=== PATIENT | female | born 1945 | race Caucasian/White ===

== ENCOUNTER → 2016-10-03 | Outpatient (CLI) | payer BC ==
[~2016-10-03] MED LIST: AMLO-110 PO; ATEN-173 PO; CALCTAB5 PO; GLC500 PO; LISI40TA PO; METF1TAB53 PO; MULT-222 PO; NAPR1TAB9 PO; TNR50 PO
== END | disposition home or self-care (01) ==
LOC: C.LABBC 12:02
PROVIDERS: ATTEND Orthopaedic Surgery
DX: M70.31 Other bursitis of elbow, right elbow (principal)

== ENCOUNTER → 2016-11-25 | Outpatient (CLI) | payer BC ==
[2016-11-25 16:57] LABS: BLOOD UREA NITROGEN 27 mg/dl (7-18); BUN/CREATININE RATIO 22.7 (10-20); CALCIUM 10.7 mg/dl (8.5-10.1); CARBON DIOXIDE 27 mmol/L (21-32); CHLORIDE 107 mmol/L (98-107); GLUCOSE 127 mg/dl (70-99); POTASSIUM 4.5 mmol/L (3.5-5.1); SODIUM 141 mmol/L (136-145)
[2016-11-26 07:20] LABS: ESTIMATED AVERAGE GLUCOSE 174 mg/dl; HA1C FLAG Normal (Normal)
== END | disposition home or self-care (01) ==
LOC: C.LABBC 12:46
PROVIDERS: ATTEND Internal Medicine Geriatric Medicine
DX: I10 Essential (primary) hypertension (principal); E11.9 Type 2 diabetes mellitus without complications; M19.90 Unspecified osteoarthritis, unspecified site

== ENCOUNTER → 2016-12-12 | Outpatient (CLI) | payer BC ==
[2016-12-12 19:16] LABS: BLOOD UREA NITROGEN 36 mg/dl (7-18); BUN/CREATININE RATIO 30.2 (10-20); CARBON DIOXIDE 25 mmol/L (21-32); CHLORIDE 107 mmol/L (98-107); GLUCOSE 140 mg/dl (70-99); POTASSIUM 4.7 mmol/L (3.5-5.1); SODIUM 140 mmol/L (136-145)
== END | disposition home or self-care (01) ==
LOC: C.LABPBG 14:20
PROVIDERS: ATTEND Internal Medicine Geriatric Medicine
DX: E83.52 Hypercalcemia (principal)

== ENCOUNTER → 2017-04-11 | Day surgery (SDC) | payer BC ==
[2017-04-06 10:07] VITALS: Ht 162.6 cm; Wt 84.1 kg
[~2017-04-11] VITALS: Ht 162.6 cm; Wt 84.1 kg
[~2017-04-11] MED LIST changes: +500ML BSS 0.3ML EPI 1:1000PF IRRIG ONE; +ACETAMINOPHEN 325 MG TAB PO PRN; +AMVISC PLUS 0.8ML SYRINGE INT OCU ONE; -ATEN-173 PO; +ATROPINE SULFATE 0.1 MG/ML 5ML SYR IV PRN; +BSS FLUSH ONE; -CALCTAB5 PO; +EpHEDrine SULFATE INJ 50 MG/ML AMP IV PRN; +EpINEphrine INJ 1MG/ML AMP 1 MG/ML AMP ONE; +LACTATED RINGER'S 1000ML 500 ML IV SCH; +LIDOCAINE 3.5% OPH GEL PER APPLICATION CHARGE ONE; +LIDOCAINE HCL 1% MPF 2 ML VIAL ONE; +MIDAZOLAM HCL 1 MG/ML 2ML VIAL ONE; +OCUCOAT 1 ML SOLN IO ONE; +POVIDONE-IODINE OP SOLN 30 ML BTL ONE; +PROPARACAINE 0.5% OP SOLN PER DROP CHARGE OPR SCH; +TOBRAMYCIN/DEXAMETHASONE OPH OINT PER APPLN CHARGE ONE
[2017-04-11] MEDS: PHENYLEPHRINE HCL 2.5% OP SOLN PER DROP CHARGE OPR SCH ×2 (09:59→10:05)
[2017-04-11] MEDS: TROPICAMIDE 1% OP SOLN PER DROP CHARGE OPR SCH ×2 (10:00→10:08)
[2017-04-11] MEDS: CYCLOPENTOLATE HCL 1% OP SOLN PER DROP CHARGE OPR SCH ×2 (10:01→10:09)
[2017-04-11] MEDS: KETOROLAC 0.5% OP SOLN PER DROP CHARGE OPR SCH ×2 (10:03→10:10)
[2017-04-11] MEDS: GATIFLOXACIN OP SOLN PER DROP CHARGE OPR SCH ×2 (10:04→10:14)
--- NOTE | 2017-04-11 10:37 | History & Physical Bridge - [place] ---
H&P Re-Evaluation Bridge Note: I have examined the patient, reviewed the History & Physical and in the interval since the performance of the History & Physical I have noted the following changes of clinical significance: No changes noted
--- NOTE | 2017-04-11 11:09 | Discharge Instructions-SurgCtr ---
Discharge Instructions Date of Service Apr 11, 2017. Visit Reason for Visit: Cataract Right Eye Discharge Discharge Diagnosis / Problem: cataract Discharge Goals Goal(s): Improve function Medications Stopped Medications Name(s): multivitamin, metformin Activity Recommendations Activity Limitations: per Instructions/Follow-up section Anesthesia . Post Anesthesia Instructions: If you have had General Anesthesia or IV Sedation: * Do not drive today. * Resume driving when surgeon permits. * Do not make important decisions or sign legal documents today. * Call surgeon for: 1. Temperature elevations greater than 101 degrees F. 2. Uncontrollable pain. 3. Excessive bleeding. 4. Persistent nausea and vomiting. 5. Medication intolerance (nausea, vomiting or rash). * For nausea and vomiting use only clear liquids such as: tea, soda, bouillon until nausea subsides, then gradually increase diet as tolerated. * If you have any concerns or questions, call your surgeon's office. If physician is unavailable and it is an emergency, call 911 or go to the nearest emergency room. . Instructions / Follow-Up Instructions / Follow-Up ACTIVITY RECOMMENDATIONS: * No strenuous lifting, jogging or running for 4 days * No swimming or yard work for 1 week. * Limited bending is permitted, such as putting on shoes. RETURN TO SCHOOL/WORK: No work until seen by physician in office. MEDICATIONS: Resume previous medications unless instructed otherwise by your surgeon. This includes eye drops for glaucoma. Zymaxid/Gatifloxacin (weiner cap) - one drop every 2 hours until bedtime Nevanac/Ilevro/Prolensa/Ketorolac (scales cap) - one drop every 4 hours until bedtime Prednisolone/Durezol (white/pink cap, SHAKE WELL) - one drop every 2 hours until bedtime Starting tomorrow - all 3 drops every 4 hours until seen in the office Optive drops - as needed for discomfort SPECIAL CARE INSTRUCTIONS: * Wear eyeshield when sleeping, for four nights. * You may wear your own glasses or sunglasses while awake. * You may read or watch TV * You may shower and wash your face, but be gentle around the eye and pat dry. * Blurry vision and mild irritation are normal. * Call office if pain is more severe or vision becomes dark at . FOLLOW UP VISIT: Follow-up with Dr Fajardo tomorrow. Diet Recommendations Home Diet: resume previous diet Procedures Procedures Performed: Left Cataract Phacoemulsification With Intraocular Lens Implant Pending Studies Studies pending at discharge: no Medical Emergencies . Who to Call and When: Medical Emergencies: If at any time you feel your situation is an emergency, please call 911 immediately. . Non-Emergent Contact Non-Emergency issues call your: Industrial Truck Driver . . "Provider Documentation" section prepared by Loy Fajardo. .
--- NOTE | 2017-04-11 11:09 | [facility] Operative Report ---
Operative Report Date of Service Apr 11, 2017. Operative Report 1. PREOPERATIVE DIAGNOSIS: Cataract of the right eye. 2. POSTOPERATIVE DIAGNOSIS: Same. 3. PROCEDURE: Phacoemulsification with intraocular lens implantation of the right eye. SURGEON: Dr. Loy Fajardo. ANESTHESIA: Topical Lidocaine gel, 1% Non- Preserved intracameral Lidocaine, and monitored intravenous sedation. INDICATIONS FOR THE PROCEDURE: The patient is a 71 - year-old female with a history of cataract of the right eye causing significant visual impairment. The details of the proposed procedure were explained to the patient who asked appropriate questions and following discussion of all risks, benefits and alternatives agreed to have the procedure done. 4. OPERATION AND FINDINGS: DESCRIPTION OF PROCEDURE: After informed consent was obtained, the patient was brought to the Operating Room at the [facility]. The patient was placed in a supine position and then the right eye was prepped and draped in the usual sterile fashion for intraocular surgery. A drop of topical Lidocaine gel was placed in the operative eye. A wire lid speculum was then placed in the fornices. A corneal paracentesis was then created temporally. The Non-Preserved Lidocaine was then instilled into the anterior chamber. The anterior chamber was then pressurized with viscoelastic. A 2.0 mm clear corneal incision was then created temporally. A cystotome was inserted into the anterior chamber and used to create a tear in the anterior lens capsule. This capsular tear was then used to create a small flap and the flap was dragged in a counterclockwise direction in order to create a continuous curvilinear capsulorrhexis. Hydrodissection was accomplished with balanced salt solution. Phacoemulsification of the lens nucleus was then performed in a standard [id number] technique. The phaco time was 19 seconds with an average power of 9 %. The remaining cortical material was removed using irrigation aspiration. The capsular bag was then filled with viscoelastic. A Bausch [employer] Lomb MI60L +18.5 diopters lens was then loaded into the injector and injected into the capsular bag. The remaining viscoelastic was removed with the irrigation aspiration handpiece. The wound was hydrated and then checked and found to be watertight. The intraocular pressure was checked and found to be adequate. The wire lid speculum was removed and the patient's face was cleaned and dried. TobraDex ointment was placed in the inferior fornix. The patient was discharged to the Recovery Room having tolerated the procedure well. There were no complications. The patient will be seen tomorrow in the office for follow-up. I attest to the content of the Intraoperative Record and any orders documented therein. Any exceptions are noted below.
[2017-04-11 11:11] VITALS: BP 153/74; PULSE 58; TEMP 36.6; O2SAT 95
--- NOTE | 2017-04-11 11:35 | Anesthesia Progress Nt - [facility] ---
Anesthesia Post Op Note Date & Time Apr 11, 2017 at 11:35 Vital Signs Pain Intensity: 0 Vital Signs Past 12 Hours Date Time Temp Pulse Resp B/P (MAP) Pulse Ox O2 Delivery O2 Flow Rate FiO2 04/11/17 11:11 36.6 58 20 153/74 (100) 95 Room Air 04/11/17 09:49 36.5 55 18 175/79 (111) 95 Room Air Notes Mental Status: alert / awake / arousable, participated in evaluation Pt Amnestic to Procedure: Yes Nausea / Vomiting: adequately controlled Pain: adequately controlled Airway Patency, RR, SpO2: stable & adequate BP & HR: stable & adequate Hydration State: stable & adequate Anesthetic Complications: no major complications apparent
== END | disposition home or self-care (01) ==
LOC: X.SURG 09:00
PROVIDERS: ATTEND Ophthalmology
DX: H26.9 Unspecified cataract (principal); I10 Essential (primary) hypertension; Q24.8 Other specified congenital malformations of heart; E11.9 Type 2 diabetes mellitus without complications; M54.16 Radiculopathy, lumbar region; Z79.899 Other long term (current) drug therapy

== ENCOUNTER → 2017-05-09 | Day surgery (SDC) | payer BC ==
[2017-04-24 11:22] VITALS: Ht 162.6 cm; Wt 84.1 kg
[~2017-05-09] VITALS: Ht 162.6 cm; Wt 84.1 kg
[~2017-05-09] MED LIST changes: -GLC500 PO; +ONDANSETRON INJ 2 MG/ML 2 ML VIAL IV PRN; +PROPARACAINE 0.5% OP SOLN PER DROP CHARGE OPL SCH; -PROPARACAINE 0.5% OP SOLN PER DROP CHARGE OPR SCH
[2017-05-09] MEDS: PHENYLEPHRINE HCL 2.5% OP SOLN PER DROP CHARGE OPL SCH ×2 (08:01→08:07)
[2017-05-09] MEDS: TROPICAMIDE 1% OP SOLN PER DROP CHARGE OPL SCH ×2 (08:03→08:09)
[2017-05-09] MEDS: CYCLOPENTOLATE HCL 1% OP SOLN PER DROP CHARGE OPL SCH ×2 (08:04→08:11)
[2017-05-09] MEDS: KETOROLAC 0.5% OP SOLN PER DROP CHARGE OPL SCH ×2 (08:05→08:12)
[2017-05-09] MEDS: GATIFLOXACIN OP SOLN PER DROP CHARGE OPL SCH ×2 (08:06→08:13)
--- NOTE | 2017-05-09 09:02 | [facility] Operative Report ---
Operative Report Date of Service May 09, 2017. Operative Report 1. PREOPERATIVE DIAGNOSIS: Cataract of the left eye. 2. POSTOPERATIVE DIAGNOSIS: Same. 3. PROCEDURE: Phacoemulsification with intraocular lens implantation of the left eye. SURGEON: Dr. Loy Fajardo. ANESTHESIA: Topical Lidocaine gel, 1% Non- Preserved intracameral Lidocaine, and monitored intravenous sedation. INDICATIONS FOR THE PROCEDURE: The patient is a 71 - year-old female with a history of cataract of the left eye causing significant visual impairment. The details of the proposed procedure were explained to the patient who asked appropriate questions and following discussion of all risks, benefits and alternatives agreed to have the procedure done. 4. OPERATION AND FINDINGS: DESCRIPTION OF PROCEDURE: After informed consent was obtained, the patient was brought to the Operating Room at the [facility]. The patient was placed in a supine position and then the left eye was prepped and draped in the usual sterile fashion for intraocular surgery. A drop of topical Lidocaine gel was placed in the operative eye. A wire lid speculum was then placed in the fornices. A corneal paracentesis was then created temporally. The Non-Preserved Lidocaine was then instilled into the anterior chamber. The anterior chamber was then pressurized with viscoelastic. A 2.0 mm clear corneal incision was then created temporally. A cystotome was inserted into the anterior chamber and used to create a tear in the anterior lens capsule. This capsular tear was then used to create a small flap and the flap was dragged in a counterclockwise direction in order to create a continuous curvilinear capsulorrhexis. Hydrodissection was accomplished with balanced salt solution. Phacoemulsification of the lens nucleus was then performed in a standard [id number] technique. The phaco time was 14 seconds with an average power of 6 %. The remaining cortical material was removed using irrigation aspiration. The capsular bag was then filled with viscoelastic. A Bausch & Lomb MI60L +18.5 diopters lens was then loaded into the injector and injected into the capsular bag. The remaining viscoelastic was removed with the irrigation aspiration handpiece. The wound was hydrated and then checked and found to be watertight. The intraocular pressure was checked and found to be adequate. The wire lid speculum was removed and the patient's face was cleaned and dried. TobraDex ointment was placed in the inferior fornix. The patient was discharged to the Recovery Room having tolerated the procedure well. There were no complications. The patient will be seen tomorrow in the office for follow-up. I attest to the content of the Intraoperative Record and any orders documented therein. Any exceptions are noted below.
--- NOTE | 2017-05-09 09:02 | Discharge Instructions-SurgCtr ---
Discharge Instructions Date of Service May 09, 2017. Visit Reason for Visit: Left Cataract Discharge Discharge Diagnosis / Problem: cataract Discharge Goals Goal(s): Improve function Medications Stopped Medications Name(s): Stopped taking Metformin 05/05/17. Only took BP meds this morning. Activity Recommendations Activity Limitations: per Instructions/Follow-up section Anesthesia . Post Anesthesia Instructions: If you have had General Anesthesia or IV Sedation: * Do not drive today. * Resume driving when surgeon permits. * Do not make important decisions or sign legal documents today. * Call surgeon for: 1. Temperature elevations greater than 101 degrees F. 2. Uncontrollable pain. 3. Excessive bleeding. 4. Persistent nausea and vomiting. 5. Medication intolerance (nausea, vomiting or rash). * For nausea and vomiting use only clear liquids such as: tea, soda, bouillon until nausea subsides, then gradually increase diet as tolerated. * If you have any concerns or questions, call your surgeon's office. If physician is unavailable and it is an emergency, call 911 or go to the nearest emergency room. . Diet Recommendations Home Diet: resume previous diet Procedures Procedures Performed: Left Cataract Phacoemulsification With Intraocular Lens Implant Pending Studies Studies pending at discharge: no Medical Emergencies . Who to Call and When: Medical Emergencies: If at any time you feel your situation is an emergency, please call 911 immediately. . Non-Emergent Contact Non-Emergency issues call your: Continuous Absorption Process Operator . . "Provider Documentation" section prepared by Loy Fajardo. .
[2017-05-09 09:03] VITALS: TEMP 36.8
[2017-05-09 09:27] VITALS: BP 154/78; PULSE 50; O2SAT 96
--- NOTE | 2017-05-09 09:28 | Anesthesia Progress Nt - [facility] ---
Anesthesia Post Op Note Date & Time May 09, 2017 at 09:28 Vital Signs Pain Intensity: 0 Vital Signs Past 12 Hours Date Time Temp Pulse Resp B/P (MAP) Pulse Ox O2 Delivery O2 Flow Rate FiO2 05/09/17 09:03 36.8 54 22 165/86 (112) 94 Room Air 05/09/17 07:50 36.8 57 18 168/61 (96) 96 Room Air Notes Mental Status: alert / awake / arousable, participated in evaluation Pt Amnestic to Procedure: Yes Nausea / Vomiting: adequately controlled Pain: adequately controlled Airway Patency, RR, SpO2: stable & adequate BP & HR: stable & adequate Hydration State: stable & adequate Anesthetic Complications: no major complications apparent
== END | disposition home or self-care (01) ==
LOC: X.SURG 07:14
PROVIDERS: ATTEND Ophthalmology
DX: H26.9 Unspecified cataract (principal); E11.9 Type 2 diabetes mellitus without complications; I10 Essential (primary) hypertension; I42.2 Other hypertrophic cardiomyopathy

== ENCOUNTER → 2017-07-25 | Outpatient (CLI) | payer BC ==
[~2017-07-25] MED LIST changes: -500ML BSS 0.3ML EPI 1:1000PF IRRIG ONE; +ACET-1256 PO; +ACET500T58 PO; -ACETAMINOPHEN 325 MG TAB PO PRN; -AMLO-110 PO; +AMLO5TAB3 PO; -AMVISC PLUS 0.8ML SYRINGE INT OCU ONE; +ANAS1TAB7 PO; -ATROPINE SULFATE 0.1 MG/ML 5ML SYR IV PRN; -BSS FLUSH ONE; -EpHEDrine SULFATE INJ 50 MG/ML AMP IV PRN; -EpINEphrine INJ 1MG/ML AMP 1 MG/ML AMP ONE; +GLIM1TAB2 PO; +HYDR-5688 PO; -LACTATED RINGER'S 1000ML 500 ML IV SCH; -LIDOCAINE 3.5% OPH GEL PER APPLICATION CHARGE ONE; -LIDOCAINE HCL 1% MPF 2 ML VIAL ONE; -MIDAZOLAM HCL 1 MG/ML 2ML VIAL ONE; -OCUCOAT 1 ML SOLN IO ONE; +ONDA-170 PO; -ONDANSETRON INJ 2 MG/ML 2 ML VIAL IV PRN; -POVIDONE-IODINE OP SOLN 30 ML BTL ONE; -PROPARACAINE 0.5% OP SOLN PER DROP CHARGE OPL SCH; -TOBRAMYCIN/DEXAMETHASONE OPH OINT PER APPLN CHARGE ONE
--- NOTE | 2017-07-25 15:28 | MAMMOGRAPHY REPORT ---
BILATERAL DIGITAL SCREENING MAMMOGRAM WITH CAD: 07/25/2017 CLINICAL HISTORY: Routine screening. Patient has no complaints. TECHNIQUE: Bilateral CC and MLO views were obtained. Current study was also evaluated with a Compute r Aided Detection (CAD) system. COMPARISON: Comparison is made to exams dated: 01/04/2016 mammogram, 01/01/2015 mammogram, 12/31/2013 mamm ogram, 12/19/2012 mammogram, 12/19/2011 mammogram, and 12/15/2010 mammogram - [facility]. BREAST COMPOSITION: There are scattered areas of fibroglandular density in both breasts. FINDINGS: There is a 12 mm focal asymmetry in the upper outer anterior left breast, for which additi onal spot compression tomosynthesis views and possible ultrasound are recommended. A newly visualize d in enlarged left axillary lymph node measures 2.3 cm. Additional targeted left axillary ultrasound is recommended for further characterization. Additionally, another 11 mm focal asymmetry in the upp er outer middle one third of the right breast, for which additional spot compression tomosynthesis vi ews and possible ultrasound are recommended. No other suspicious mass, architectural distortion or suspicious 12 mm focal asymmetry in the left up per outer anterior breast, microcalcifications is seen bilaterally. IMPRESSION: ACR BI-RADS CATEGORY 0: INCOMPLETE EVALUATION: NEED ADDITIONAL IMAGING EVALUATION The 12 mm focal asymmetry in the upper outer anterior left breast, 11 mm focal asymmetry in the right upper outer quadrant and enlarged left axillary lymph node need additional imaging evaluation. The patient will be called to schedule an appointment. Approximately 10% of breast cancers are not detected with mammography. A negative mammographic report should not delay biopsy if a clinically suggestive mass is present. Marylin Collazo M.D. ay/:07/25/2017 14:06:16 Clam Shucker: Chelsie PATEL(R)(M), [facility] letter sent: Addl Imaging 0 BI-RADS Code: ACR BI-RADS Category 0: Incomplete Evaluation: Need Additional Imaging Evaluation
== END | disposition home or self-care (01) ==
LOC: C.MAMM 13:35
PROVIDERS: ATTEND Obstetrics & Gynecology
DX: Z12.31 Encounter for screening mammogram for malignant neoplasm of breast (principal); N64.89 Other specified disorders of breast; R59.0 Localized enlarged lymph nodes

== ENCOUNTER → 2017-08-01 | Outpatient (CLI) | payer BC ==
--- NOTE | 2017-08-01 13:37 | MAMMOGRAPHY REPORT ---
BILATERAL DIGITAL DIAGNOSTIC MAMMOGRAM TOMOSYNTHESIS AND TARGETED BILATERAL ULTRASOUND: 08/01/2017 CLINICAL HISTORY: 72-year-old woman called back from screening mammography for focal asymmetries in e ach breast and an enlarged left axillary lymph node. Family history of breast cancer = sister jesus ferguson at age 54. TECHNIQUE: Spot compression 2-D and tomosynthesis CC and MLO views of each breast were obtained. COMPARISON: Comparison is made to exams dated: 07/25/2017 mammogram, 01/04/2016 mammogram, 01/01/2015 ma mmogram, 12/31/2013 mammogram, 12/19/2012 mammogram, and 12/19/2011 mammogram - [facility]. BREAST COMPOSITION: There are scattered areas of fibroglandular density in both breasts. FINDINGS: The spot compression tomosynthesis views of the left breast demonstrate a mass with angular borders and associated architectural distortion in the 12:00 to 1:00 anterior left breast measuring 10 x 14 x 13 mm. No associated calcification. No other obvious mass, area of architectural distorti on or asymmetry is identified in the visualized left breast. Further evaluation with ultrasound was performed. Spot compression views of the right breast demonstrate partial effacement of the focal asymmetry in t he upper outer middle one third of the breast. There is no definite persistent mass or focal area of architectural distortion in the right breast. Additionally, the appearance on the spot compression views is somewhat similar to prior mammograms including the 2014, 2010 and 2009 mammograms suggesting normal overlapping tissue. Further evaluation with ultrasound was performed. Targeted ultrasound was performed in the right lateral breast, left upper outer quadrant and left axi lla. In the left 12:00 breast, 2 cm from the nipple, there is a taller than wide, hypoechoic solid m ass with angular and irregular borders measuring 13.4 x 11.6 x 15.3 mm. This corresponds to the pers istent mammographic mass. An enlarged hypoechoic morphologically abnormal lymph node is identified i n the left axilla, measuring 16.1 x 11.5 x 14.0 mm. A few other lymph nodes with cortical thickness within the range of normal are also identified in the left axilla. Ultrasound-guided core biopsy of the left 12:00 breast mass and enlarged left axillary lymph node is recommended. Targeted ultrasound performed in the right lateral breast demonstrated sonographically normal tissue without evidence of a discrete solid or cystic mass. IMPRESSION: ACR BI-RADS CATEGORY 5: HIGHLY SUGGESTIVE OF MALIGNANCY, TARGETED ULTRASOUND ACR BI-RADS CATEGORY 5: HIGHLY SUGGESTIVE OF MALIGNANCY 1. Ultrasound-guided core biopsy is recommended for a suspicious 15.3 mm angular mass with associate d architectural distortion in the 12:00 anterior left breast. 2. Ultrasound-guided core biopsy is recommended of an enlarged and morphologically abnormal left axi llary lymph node. 3. A focal asymmetry in the right upper outer middle one third of the breast partially effaces with additional spot compression 2-D and tomosynthesis views and no suspicious sonographic correlate was i dentified. This most likely represented normal overlapping fibroglandular tissue. No definite mammo graphic or targeted sonographic evidence of malignancy in the right breast. These results and recommendations were discussed with the patient at the time of the exam. She tenta tively scheduled the left breast and axillary biopsies prior to leaving our department. Approximately 10% of breast cancers are not detected with mammography. A negative mammographic report should not delay biopsy if a clinically suggestive mass is present. Marylin Collazo M.D. ay/:08/01/2017 12:39:56 Gum Machine Filler: Chelsie PATEL(Yari)([place]), [facility] letter sent: Abnormal 4/5 BI-RADS Code: ACR BI-RADS Category 5: Highly Suggestive Of Malignancy Ultrasound BI-RADS: ACR BI-RAD S Category 5: Highly Suggestive Of Malignancy
== END | disposition home or self-care (01) ==
LOC: C.MAMM 11:14
PROVIDERS: ATTEND Obstetrics & Gynecology
DX: N64.89 Other specified disorders of breast (principal)

== ENCOUNTER → 2017-08-08 | Outpatient (CLI) | payer BC ==
[~2017-08-08] MED LIST changes: -ACET-1256 PO; -ACET500T58 PO; +AMLO-110 PO; -AMLO5TAB3 PO; -ANAS1TAB7 PO; -GLIM1TAB2 PO; -HYDR-5688 PO; -ONDA-170 PO
--- NOTE | 2017-08-08 13:27 | Discharge Instructions ---
Discharge Instructions Procedure Procedure Date: Aug 08, 2017. Reason for visit: Left Mass/Axillary Node. Discharge Discharge Date: Aug 08, 2017. Discharge Diagnosis: post left breast mass and left axillary lymph node biopsy Instructions Activity Recommendations: Additional Limitations (see below) Return to School/Work: no limitations Recommended Home Diet: No Limitations Provider Instructions: ACTIVITY RECOMMENDATIONS: * No lifting, pushing, pulling or exercising the affected side for three days. RETURN TO SCHOOL/WORK: * You may return to work/school after the procedure, but do not perform any strenuous activities for 24 to 48 hours. MEDICATIONS: * Tylenol (two 325 mg) every four to six hours if needed for mild pain (if not allergic to Tylenol). DIET: * Resume previous diet. SPECIAL CARE INSTRUCTIONS: * Keep biopsy site dry for 24 hours. May shower after 24 hours, but do not soak (bathe) incision. * May remove Tegaderm (plastic patch) tomorrow AFTER showering. * Leave the steri-strips on for one week. Allow the steri-strips to fall off by themselves. If not off after one week, you may remove them. You may place a Bandaid crosswise over the strips, if desired. * Apply ice 10 minutes on and 10 minutes off as needed. * Wear a bra at bedtime to sleep more comfortably for 2-3 days. * Your referring physician should have the results after approximately 5 to 7 business days. * Call for unusual bleeding, fever, drainage, etc or if you have any questions call [phone] during normal business hours or after hours call Dr Collazo, . FOLLOW UP VISIT: Follow-up with Referring Physician as scheduled. Allergies Coded Allergies: Sulfa Antibiotics (Verified Allergy, Intermediate, HIVES - ITCHING, ) Uncoded Allergies: BANDAGE ADHESIVE (Allergy, Unknown, blistering, 04/11/17) Denzel Morel Recommendations: Call your doctor if: * Temperature above 101 degrees * Pain not relieved by pain medicine ordered * There is increased drainage or redness from any incision * You have any unanswered questions or concerns. Your Doctors Instructions noted above were prepared by provider Marylin Collazo. Patient Signature Section: Patient Instructions Signature Page Deidra Cevallos Patient (or Guardian) Signature/Date: I have read and understand the instructions given to me by my caregivers. Caregiver/RN/Doctor Signature/Date: The above-named patient and/or guardian has received patient instructions on this date. + Original Patient Signature Page (only) stays with chart. Please make copy for patient.
--- NOTE | 2017-08-08 14:29 | MAMMOGRAPHY REPORT ---
MULTIPLE ULTRASOUND GUIDED BIOPSIES LEFT BREAST: 08/08/2017 CLINICAL HISTORY: Suspicious 15 mm mass in the 12:00 left breast and suspicious left axillary lymph n ode. Patient presents for ultrasound-guided core biopsy of both abnormalities. COMPARISON: Comparison is made to exams dated: 08/01/2017 ultrasound, 08/01/2017 mammogram, 07/25/2017 m ammogram, 01/04/2016 mammogram, 01/01/2015 mammogram, and 12/31/2013 mammogram - [facility]. PATIENT CONSENT: The procedure, risks and benefits were discussed with the patient and informed conse nt was obtained both verbally and in writing. Specific risks to this procedure include: bleeding, in fection, puncture of adjacent structure, nontarget biopsy, sampling error, pain, metal allergy and me dication reaction. PROCEDURE DESCRIPTION: A time out was performed and the left 12:00 breast and left axilla were agreed as the site for ultrasound-guided core biopsy. First the skin of the left breast was prepped and draped in the usual sterile fashion. The solid 15 m m irregular mass in the 12:00 left breast was chosen as the target for biopsy. Subcutaneous and intra parenchymal 1% buffered lidocaine, with and without epinephrine, was administered as local anesthesia . A skin incision was made. Through the incision, 4 samples were taken with a 14 gauge Achieve biops y device. A ribbon shaped metallic marker was placed at the biopsy site. Hemostasis was achieved afte r manual compression. The patient tolerated the procedure well and there was no immediate complicatio n. Then the morphologically abnormal and enlarged hypoechoic lymph node in the left axilla was identifie d and targeted for biopsy. The skin of the left axilla was prepped and draped in the usual sterile f ashion. 1% buffered lidocaine without epinephrine was administered as local anesthesia. A small ski n incision was made. Through the incision, 4 samples were obtained with an 18-gauge Quick-Core biops y device. A Trumark, ball on axis shaped biopsy marker clip was placed within the lymph node after b iopsy. The patient tolerated the procedure well and there was no immediate convocation. Hemostasis was achieved after several minutes of manual compression. All of the samples were sent expected [facility] ed the pathology department in an appropriately labeled containers. Postprocedure left CC, XCCL and MLO views were obtained. New metallic biopsy markers are seen within the left 12:00 breast mass and left axillary lymph node. No significant postbiopsy hematoma identif ied. IMPRESSION: ULTRASOUND GUIDED BIOPSY Status post ultrasound-guided core biopsy of a suspicious left 12:00 breast mass and suspicious left axillary lymph node, with biopsy marker clips placed at each site. The patient will receive notification of the pathology results from her referring physician. Marylin Collazo M.D. ay/:08/08/2017 13:45:50 Development Scientist: Sapna PATEL(Yari)(M), [facility]
--- NOTE | 2017-08-08 14:30 | MAMMOGRAPHY REPORT ---
ULTRASOUND GUIDED BIOPSY: 08/08/2017 CLINICAL HISTORY: Suspicious 15 mm mass in the 12:00 left breast and suspicious morphologically abnor mal left axillary lymph node. Patient presents for ultrasound-guided core biopsy of both areas. Please refer to the report from left breast ultrasound guided core biopsy performed at the same time for full detail. IMPRESSION: ULTRASOUND GUIDED BIOPSY Please refer to the report from left breast ultrasound guided core biopsy performed at the same time for full detail. Marylin Collazo M.D. ay/:08/08/2017 13:32:20 Supervisor Mail Carriers: Sapna PATEL(Yari)(M), [facility]
--- NOTE | 2017-08-08 14:30 | MAMMOGRAPHY REPORT ---
UNILATERAL LEFT DIGITAL DIAGNOSTIC MAMMOGRAM TOMOSYNTHESIS: 08/08/2017 CLINICAL HISTORY: Status post ultrasound-guided core biopsy of a 15 mm irregular solid mass in the 12 :00 left breast, and core biopsy of an enlarged, morphologically abnormal left axillary lymph node. Status post ultrasound-guided core biopsy of a suspicious solid mass in the 12:00 left breast and rina picious left axillary lymph node. Please refer to the report from left breast ultrasound guided core biopsy performed at the same time for full detail. IMPRESSION: POST PROCEDURE IMAGING FOR MARKER PLACEMENT Please refer to the report from left breast ultrasound guided core biopsy performed at the same time for full detail. Approximately 10% of breast cancers are not detected with mammography. A negative mammographic report should not delay biopsy if a clinically suggestive mass is present. Marylin Collazo M.D. ay/:08/08/2017 13:31:44 Animal Anatomy Teacher: Sapna COURTNEY)(Wilber), [facility] BI-RADS Code: Post Procedure Imaging For Marker Placement
== END | disposition home or self-care (01) ==
LOC: C.MAMM 12:15
PROVIDERS: ATTEND Obstetrics & Gynecology
DX: R92.8 Other abnormal and inconclusive findings on diagnostic imaging of breast (principal); N63.20 Unspecified lump in the left breast, unspecified quadrant; N64.89 Other specified disorders of breast; C50.912 Malignant neoplasm of unspecified site of left female breast

== ENCOUNTER → 2017-08-17 | Outpatient (CLI) | payer BC ==
[2017-08-17 18:11] LABS: BASO % 0.4 %; BASO ABS # 0.05 K/uL (0-0.2); COMPLETE YES; EOS % 2.1 %; EOS ABS # 0.24 K/uL (0-0.5); HEMOGLOBIN 13.7 g/dL (12.0-16.0); IG# 0.06 K/uL (0.00-0.02); IG% 0.5 %; LYMPH % 23.7 %; LYMPH ABS # 2.68 K/uL (1.2-3.4); MEAN CELL VOLUME 90.3 fL (80-100); MEAN CORPUSCULAR HEMOGLOBIN 29.5 pg (25-34); MEAN CORPUSCULAR HGB CONC 32.6 g/dl (32-36); MEAN PLATELET VOLUME 10.7 fL (7.4-10.4); MONO % 6.5 %; MONO ABS # 0.74 K/uL (0.11-0.59); NEUT % 66.8 %; NEUT ABS # 7.56 K/uL (1.4-6.5); PLATELET COUNT 445 K/uL (130-400); RED BLOOD COUNT 4.65 M/uL (4.2-5.4); RED CELL DISTRIBUTION WIDTH SD 49.6 fL (36.4-46.3); WHITE BLOOD COUNT 11.33 K/uL (4.8-10.8)
[2017-08-17 18:38] LABS: BLOOD UREA NITROGEN 21 mg/dl (7-18); CALCIUM 9.6 mg/dl (8.5-10.1); CARBON DIOXIDE 23 mmol/L (21-32); CHLORIDE 104 mmol/L (98-107); CREATININE 1.22 mg/dl (0.60-1.20); EstGFR CKD-E AfrAm 51.3; EstGFR CKD-E NON AfrAm 44.2; POTASSIUM 3.9 mmol/L (3.5-5.1); SODIUM 137 mmol/L (136-145)
[2017-08-17 18:38] LABS: GLUCOSE 179 mg/dl (70-99)
[2017-08-17 18:49] LABS: CHOLESTEROL 126 mg/dl (0-200); CHOLESTEROL/HDL RATIO 2.3; HDL CHOLESTEROL 54 mg/dl; LDL CHOLESTEROL CALCULATED 50 mg/dl; TRIGLYCERIDES 112 mg/dl (0-150); VERY LOW DENSITY LIPOPROT CALC 22 mg/dl
[2017-08-18 06:15] LABS: HEMOGLOBIN A1C 7.8 % (4.5-5.6)
[2017-08-18 06:15] LABS: ESTIMATED AVERAGE GLUCOSE 177 mg/dl; HA1C FLAG Normal (Normal)
== END | disposition home or self-care (01) ==
LOC: C.LABPBG 12:41
DX: I10 Essential (primary) hypertension (principal); E11.9 Type 2 diabetes mellitus without complications; M54.16 Radiculopathy, lumbar region; I42.2 Other hypertrophic cardiomyopathy; M19.90 Unspecified osteoarthritis, unspecified site; M48.00 Spinal stenosis, site unspecified; E83.52 Hypercalcemia

== ENCOUNTER 2017-08-30 07:44 | Observation (INO) | payer BC, OTHER ==
[2017-08-24 15:47] VITALS: BMI 32.0
[2017-08-30] VITALS (8 sets, daily range): BP systolic 129–165; BP diastolic 63–76; PULSE 63–83; TEMP 36.5–36.7; O2SAT 92–96; BMI 32.0
[~2017-08-30] VITALS: Ht 162.6 cm; Wt 84.1 kg
[~2017-08-30 07:44] MED LIST changes: +ATROPINE SULFATE 0.1 MG/ML 5ML SYR IV PRN; +CEFAZOLIN 2000MG IV PUSH 10 ML IV SCH; +EpHEDrine SULFATE INJ 50 MG/ML AMP IV PRN; +FENTANYL CITRATE INJ 50 MCG/1 ML 2 ML VIAL IV PRN; +LACTATED RINGER'S 1000ML 1,000 ML IV SCH; +ONDANSETRON INJ 2 MG/ML 2 ML VIAL IV PRN
[2017-08-30] MEDS ORDERED: ONDANSETRON INJ 2 MG/ML 2 ML VIAL ONE (07:49)
[2017-08-30] MEDS ORDERED: LIDOCAINE HCL 2% 2 ML VIAL (20MG/ML) ONE (07:49)
[2017-08-30] MEDS ORDERED: PROPOFOL IV EMULSION 10 MG/ML 20 ML VIAL IV ONE (07:49)
[2017-08-30] MEDS ORDERED: DEXAMETHASONE SOD INJ 4 MG/ML VIAL ONE (07:49)
[2017-08-30] MEDS ORDERED: FENTANYL CITRATE INJ 50 MCG/1 ML 2 ML VIAL ONE (07:50)
[2017-08-30] MEDS ORDERED: MIDAZOLAM HCL 1 MG/ML 2ML VIAL ONE (07:50)
[2017-08-30] MEDS ORDERED: ISOSULFAN BLUE 10 MG/ML VIAL 5 ML ONE (08:12)
[2017-08-30] MEDS ORDERED: BUPIVACAINE 0.5 % 5 MG/1 ML MPF 30ML VIAL ONE (08:12)
[2017-08-30] MEDS ORDERED: EpHEDrine SULFATE 50MG/5ML SYR ONE (10:19)
--- NOTE | 2017-08-30 11:09 | [facility] Operative Report ---
Operative Report Operative Date Aug 30, 2017. Pre-Operative Diagnosis Left Breast Cancer Post-Operative Diagnosis Left Breast Cancer Procedure(s) Performed Left Breast Lumpectomy with Needle Localization and Left Axillary Dissection Surgeon Dr. Chalino Mendez Generator Operator Straight Bevel Gear Surgeon(s) Antwan Garcia PA-C Estimated Blood Loss 20ml Findings axillary adenopathy- multiple LNs w/n axillary specimen- clip present clip in center of Lt breast tissue specimen Specimens TranSpec Specimen: out of room at 1045 to lab by OR christal Collins A.) Left Breast Tissue short stitch-medial, skin-anterior, long stitch-lateral. B.)Additional Superior Tissue Left Breast - out of room at 1045 to lab by OR christal Collins short silk-medial, long silk-lateral, methylene blue-new margin C.) Additional Inferior Tissue Left Breast - out of room at 1045 to lab by OR christal Collins short silk-medial, long silk-latera, methylene blue-new margin D.) Left Axillary Tissue - out of room to lab at 1102 sent by OR Christal Sorto Drains None (#15 Rd LEAH to Lt axilla) Anesthesia Type General Complication(s) none Disposition Recovery Room / PACU I attest to the content of the Intraoperative Record and any orders documented therein. Any exceptions are noted below.
[2017-08-30] MEDS ORDERED: LACTATED RINGER'S 1000ML 1,000 ML IV SCH (11:10)
[2017-08-30] MEDS ORDERED: MoRPHine SULFATE 2 MG/ML CARP IV PRN (11:15)
[2017-08-30] MEDS ORDERED: PROMETHAZINE HCL INJ 25 MG in SODIUM CHLORIDE 0.9% 50ML 50 ML IV PRN (11:15)
[2017-08-30] MEDS ORDERED: MoRPHine SULFATE 4 MG/ML 1 ML CARP\\VIAL IV PRN (11:15)
[2017-08-30] MEDS ORDERED: CEFAZOLIN IV 1,000 MG in DEXTROSE 5% 50ML 50 ML IV SCH (11:15)
[2017-08-30] MEDS ORDERED: HYDROCODONE/ACETAMIN 5/325MG TAB PO PRN ×2 (11:15)
[2017-08-30] MEDS ORDERED: IV FLUIDS COMPLETED PRN (11:45)
[2017-08-30] MEDS ORDERED: HYDR-5688 PO (11:46)
--- NOTE | 2017-08-30 11:49 | Discharge Instructions ---
Discharge Instructions Date of Service Aug 30, 2017. Admission Reason for Admission: Left Breast Cancer, Diabetes W/Hosp [facility] Discharge Discharge Diagnosis / Problem: Lt breast cancer Discharge Goals Goal(s): Decrease discomfort, Improve function, Improve disease control Activity Recommendations Activity Limitations: as noted below Lifting Limitations: no more than 10 pounds (for 2-3 weeks) Exercise/Sports Limitations: until after follow-up appointment May Resume Sexual Activity: when tolerated Shower/Bathe: keep incision dry (may shower over incisions Friday 09/01) Driving or Machine Use: resume 3 days after discharge . Instructions / Follow-Up Instructions / Follow-Up SPECIAL CARE INSTRUCTIONS: * Cover incisions and change daily for comfort/drainage. * Empty drain 2-3 times per day and record. * May use ibuprofen for pain as tolerated. * Expect some swelling and bruising. Call your doctor if: * Temperature above 101 degrees * Pain not relieved by pain medicine ordered * There is increased drainage or redness from any incision * You have any unanswered questions or concerns [phone]. FOLLOW UP VISIT: If not already scheduled, please call the office for a follow-up visit. for next week- some suture removal OFFICE PHONE NUMBER: Dr. Mendez Office Current Hospital Diet Patient's current hospital diet: Regular Diet Discharge Diet Recommended Diet: Regular Diet Procedures Procedures Performed: Left Breast Lumpectomy with Needle Localization and Left Axillary Dissection Pending Studies Studies pending at discharge: no Laboratory Results Hemoglobin A1c Test 08/17/17 12:43 Range/Units Estimated Average Glucose 177 mg/dl Hemoglobin A1c 7.8 H 4.5-5.6 % Lipid Panel Test 08/17/17 12:43 Range/Units Triglycerides Level 112 0-150 mg/dl Cholesterol Level 126 0-200 mg/dl HDL Cholesterol 54 mg/dl Cholesterol/HDL Ratio 2.3 LDL Cholesterol, Calculated 50 mg/dl Medical Emergencies . Who to Call and When: Medical Emergencies: If at any time you feel your situation is an emergency, please call 911 immediately. . Non-Emergent Contact Non-Emergency issues call your: Primary Care Provider, Surgeon . "Provider Documentation" section prepared by Chalino Mendez. . VTE Core Measure Inpt VTE Proph given/why not?: SCD's
--- NOTE | 2017-08-30 12:06 | Anesthesiology Progress Note ---
Anesthesia Post Op Note Date & Time Aug 30, 2017 at 12:06 Vital Signs Pain Intensity: 0 Vital Signs Past 12 Hours Date Time Temp Pulse Resp B/P (MAP) Pulse Ox O2 Delivery O2 Flow Rate FiO2 08/30/17 11:57 75 14 08/30/17 11:57 75 14 96 08/30/17 11:56 144/89 08/30/17 11:55 36.4 08/30/17 11:52 75 15 08/30/17 11:52 75 15 96 08/30/17 11:51 161/68 08/30/17 11:47 75 22 97 08/30/17 11:47 75 22 08/30/17 11:46 148/75 08/30/17 11:42 76 13 08/30/17 11:42 75 13 97 08/30/17 11:41 137/68 08/30/17 11:37 75 14 97 08/30/17 11:37 75 14 08/30/17 11:36 132/65 08/30/17 11:33 74 15 08/30/17 11:33 75 15 98 08/30/17 11:30 121/94 08/30/17 11:28 78 21 96 08/30/17 11:28 77 21 08/30/17 11:27 75 17 08/30/17 11:27 75 17 99 08/30/17 11:26 118/89 08/30/17 11:22 77 20 98 08/30/17 11:22 77 20 08/30/17 11:20 148/64 08/30/17 11:18 140/72 08/30/17 11:17 79 08/30/17 11:17 36.6 81 20 140/72 96 Oxymask 10 08/30/17 11:17 79 95 08/30/17 09:20 36.6 63 18 165/76 96 Room Air Notes Mental Status: alert / awake / arousable, participated in evaluation Pt Amnestic to Procedure: Yes Nausea / Vomiting: adequately controlled Pain: adequately controlled Airway Patency, RR, SpO2: stable & adequate BP & HR: stable & adequate Hydration State: stable & adequate Anesthetic Complications: no major complications apparent
[2017-08-30] MEDS ORDERED: PROMETHAZINE HCL INJ 12.5 MG in SODIUM CHLORIDE 0.9% 50ML 50 ML IV PRN (12:15)
--- NOTE | 2017-08-30 12:39 | OPERATIVE REPORT ---
DATE OF OPERATION: 08/30/2017 NAME OF OPERATION: Left partial mastectomy with left axillary dissection. PREOPERATIVE DIAGNOSIS: Left breast cancer with metastatic lymph node. POSTOPERATIVE DIAGNOSIS: Same. STAFF SURGEON: Dr. Mendez. SECURITY ADMINISTRATOR: Antwan Garcia PA-C ANESTHESIA: General. DESCRIPTION OF PROCEDURE: The patient was brought into the operating room and placed on the operating table in the supine position. She had a needle placed in the left breast and left axilla. Her left chest and axilla were prepped and draped in the usual fashion. Initially, incision was made around the needle in the left breast above the areola, taking dissection down around the needle and then placing the tissue into the Faxitron. The clips with mass were in the center of the specimen. This specimen was marked with skin anterior, short silk suture medial, and long silk suture lateral. Additional superior and inferior tissue were taken with the new specimens marked, short silk suture medial, long silk suture lateral and methylene blue as in the new margin. At this point, the left axilla was approached, incision was made transversely in the axilla, carrying dissection down around the needle, identifying the lymph node with the potential clip. Additional tissue was taken widely up to the left axillary vein down to the latissimus muscle in one specimen. It was placed into the Faxitron. There were lymph nodes with the clip in the suspicious note. At this point, a #15 round Robert-Barboza drain was placed in the left axilla and secured to the skin using 3-0 nylon suture. Both incisions closed, reapproximating the deep tissue using 2-0 plain suture. The skin in the axilla were reapproximated using 4-0 nylon suture and then in the breast closed using subcuticular 4-0 Monocryl and Steri-Strips. As a note, my assistant operator helped with prepping and draping, exposing the tissue within both wounds and then closure of the wounds. I attest to the content of the Intraoperative Record and any orders documented therein. Any exception s are noted below.
--- NOTE | 2017-08-30 15:21 | MAMMOGRAPHY REPORT ---
MULTIPLE SPECIMENS LEFT BREAST: 08/30/2017 CLINICAL HISTORY: Status post left breast and axillary surgical excision. COMPARISON: Comparison is made to exams dated: 08/08/2017 ultrasound biopsy, 08/08/2017 mammogram, 018 ultrasound biopsy, 08/01/2017 ultrasound, 08/01/2017 mammogram, and 07/25/2017 mammogram - [facility]. Findings: A radiograph was performed of the left breast surgical specimen. The localized mass and as sociated biopsy marker clip is present centrally within the specimen. A radiograph of the left axillary specimen shows the localized axillary lymph node and associated bio psy marker clip to be present centrally within the specimen. A few other lymph nodes are also seen a t the periphery of the specimen. Results were discussed with Dr. Mendez over the telephone. IMPRESSION: SPECIMEN The imaged specimens contain the preoperatively-localized left breast mass and left axillary lymph no de. Shawna Garcia M.D. /:08/30/2017 11:14:13 Chain Sales Consultant: Oneil PATEL(R)(M), [facility]
--- NOTE | 2017-08-30 15:21 | MAMMOGRAPHY REPORT ---
NEEDLE LOCALIZATION LEFT BREAST: 08/30/2017 CLINICAL HISTORY: Biopsy-proven left breast cancer 12:00. PROCEDURE DESCRIPTION: With ultrasound guidance, aseptic technique, and 1% lidocaine as the local ane sthetic, the mass of concern in the left 12:00 breast with an associated biopsy marker clip was local ized with a 5 cm Groves 2 needle. The path of approach was lateral. The biopsy marker clip and mas s are located along the distal portion of the wire, just proximal to the mary alice. The needle was left i n place. The patient tolerated the procedure without complication. COMPARISON: Comparison is made to exams dated: 08/08/2017 mammogram, 08/08/2017 ultrasound biopsy, 018 ultrasound biopsy, 08/01/2017 ultrasound, 08/01/2017 mammogram, and 07/25/2017 mammogram - [facility]. IMPRESSION: NEEDLE LOCALIZATION Ultrasound guided needle localization of the left 12:00 breast mass and associated biopsy marker clip . Shawna Garcia M.D. ah/:08/30/2017 08:33:25 Attending Technologist: Oneil Kemp RT(R)(M), [facility] Cardiac Nurse Practitioner: Shawna Garcia MD, [facility]
--- NOTE | 2017-08-30 15:21 | MAMMOGRAPHY REPORT ---
NEEDLE LOCALIZATION LEFT BREAST: 08/30/2017 CLINICAL HISTORY: Biopsy-proven metastatic left axillary lymph node. PROCEDURE DESCRIPTION: With imaging guidance, aseptic technique, and 1% lidocaine as the local anest hetic, the previously biopsied abnormal left axillary lymph node and associated biopsy marker clip wa s localized with a 5 cm Groves 2 needle. The path of approach was caudocranial. The distal aspect of the wire including the tip and mary alice are located within the lymph node. The needle was left in fide ce. The patient tolerated the procedure without complication. COMPARISON: Comparison is made to exams dated: 08/08/2017 mammogram, 08/08/2017 ultrasound biopsy, 018 ultrasound biopsy, 08/01/2017 ultrasound, 08/01/2017 mammogram, and 07/25/2017 mammogram - [facility]. IMPRESSION: NEEDLE LOCALIZATION Ultrasound guided needle localization of the abnormal left axillary lymph node and associated biopsy marker clip. Shawna Garica M.D. ah/:08/30/2017 08:35:13 Attending Technologist: Oneil PATEL(R)(M), [facility] Automatic Toe Laster: Shawna Garcia MD, [facility]
--- NOTE | 2017-08-30 15:22 | Medical Consult ---
Consultation Date of Consultation: Aug 30, 2017. Attending Physician: Chalino Mendez M.D. Reason for Consultation: Medical management History of Present Illness 72 y/o F who was admitted earlier today by Dr. Mendez s/p L breast lumpectomy. Pt is doing well post-op. She does have a bit of pain in the L axilla related to her procedure, but no other concerns. She had lunch and no issues with PO intake. No chest pain or SOB. Pt denies fever, SOB, chest pain, abd pain, n/v/ c/d, LE pain or swelling. Several questions from family regarding decisions surrounding port placement. Deferred to Dr. Mendez. Past Medical/Surgical History DM HTN Hx of colon polyps Family History Cancer Diabetes mellitus Hypertension Social History Smoking Status: Never Smoker Alcohol Use: none Drug Use: none Marital Status: single Housing Status: lives alone Occupation Status: retired Allergies Coded Allergies: Sulfa Antibiotics (Verified Allergy, Intermediate, HIVES - ITCHING, ) Adhesives (Verified Allergy, Unknown, BLISTERING, 08/30/17) Current Inpatient Medications Current Inpatient Medications Medications (Trade) Dose Ordered Sig/Ko Route Start Time Stop Time Status Last Admin Dose Admin Lactated Ringer's 1,000 ml @ 15 mls/hr Q24H IV 08/30/17 06:00 08/31/17 05:59 08/30/17 09:55 15 MLS/HR Cefazolin Sodium 10 ml @ 2.5 mls/min PREOP IV 08/30/17 06:00 08/30/17 18:00 08/30/17 09:57 2.5 MLS/MIN Fentanyl Citrate (Fentanyl Inj) 25 mcg Q5M PRN IV 08/30/17 07:15 08/31/17 07:14 Ondansetron HCl (Zofran Inj) 4 mg ONE PRN IV 08/30/17 07:15 08/31/17 07:14 Ephedrine Sulfate (EpHEDrine SULFATE INJ) 5 mg Q5M PRN IV 08/30/17 07:15 08/31/17 07:14 Atropine Sulfate (Atropine Sulfate 0.1mg/ml Inj) 0.5 mg Q1M PRN IV 08/30/17 07:15 08/31/17 07:14 Lactated Ringer's 1,000 ml @ 50 mls/hr Q20H IV 08/30/17 11:10 08/30/17 15:00 08/30/17 13:44 50 MLS/HR Amlodipine Besylate (Norvasc Tab) 5 mg QAM PO 08/31/17 09:00 09/30/17 08:59 Atenolol (Tenormin Tab) 75 mg QAM PO 08/31/17 09:00 09/30/17 08:59 Lisinopril (Zestril Tab) 40 mg QAM PO 08/31/17 09:00 09/30/17 08:59 Acetaminophen/ Hydrocodone Bitart (Pendleton 5/325 Tab) 1 tab Q4H PRN PO 08/30/17 11:15 09/13/17 11:14 Acetaminophen/ Hydrocodone Bitart ([place] 5/325 Tab) 2 tab Q4H PRN PO 08/30/17 11:15 09/13/17 11:14 Morphine Sulfate (MoRPHine SULFATE INJ) 2 mg Q4H PRN IV 08/30/17 11:15 09/13/17 11:14 Morphine Sulfate (MoRPHine SULFATE INJ) 4 mg Q4H PRN IV 08/30/17 11:15 09/13/17 11:14 Promethazine HCl 25 mg/Sodium Chloride 51 ml @ 204 mls/hr Q6H PRN IV 08/30/17 11:15 09/29/17 11:14 Miscellaneous (Iv Fluids Completed) 1 ea PRN PRN N/A 08/30/17 11:45 08/30/18 11:44 Promethazine HCl 12.5 mg/Sodium Chloride 50.5 ml @ 202 mls/hr Q6H PRN IV 08/30/17 12:15 09/29/17 12:14 Cefazolin Sodium 1000 mg/Syringe 7.5 ml @ 2.5 mls/min Q8H IV 08/30/17 18:00 08/31/17 02:02 Review of Systems Pertinent positives and negatives reviewed in HPI--all others negative Physical Exam Date Time Temp Pulse Resp B/P (MAP) Pulse Ox O2 Delivery O2 Flow Rate FiO2 08/30/17 13:23 36.5 81 16 144/63 (90) 94 Nasal Cannula 2.0 08/30/17 12:49 36.6 16 153/68 (96) 94 Nasal Cannula 2.0 08/30/17 12:20 95 Nasal Cannula 2.0 08/30/17 12:20 Nasal Cannula 2.0 08/30/17 12:20 36.6 77 14 148/68 (94) 92 Nasal Cannula 2.0 08/30/17 12:08 76 19 08/30/17 12:08 76 19 95 08/30/17 12:05 151/74 08/30/17 12:03 76 18 08/30/17 12:03 76 18 96 08/30/17 12:01 147/86 08/30/17 11:58 78 19 95 08/30/17 11:58 78 19 08/30/17 11:57 75 14 08/30/17 11:57 75 14 96 08/30/17 11:56 144/89 08/30/17 11:55 36.4 08/30/17 11:52 75 15 08/30/17 11:52 75 15 96 08/30/17 11:51 161/68 08/30/17 11:47 75 22 97 08/30/17 11:47 75 22 08/30/17 11:46 148/75 08/30/17 11:42 76 13 08/30/17 11:42 75 13 97 08/30/17 11:41 137/68 08/30/17 11:37 75 14 97 08/30/17 11:37 75 14 08/30/17 11:36 132/65 08/30/17 11:33 74 15 08/30/17 11:33 75 15 98 08/30/17 11:30 121/94 08/30/17 11:28 78 21 96 08/30/17 11:28 77 21 08/30/17 11:27 75 17 08/30/17 11:27 75 17 99 08/30/17 11:26 118/89 08/30/17 11:22 77 20 98 08/30/17 11:22 77 20 08/30/17 11:20 148/64 08/30/17 11:18 140/72 08/30/17 11:17 79 08/30/17 11:17 36.6 81 20 140/72 96 Oxymask 10 08/30/17 11:17 79 95 08/30/17 09:20 36.6 63 18 165/76 96 Room Air General Appearance: WD/WN, no apparent distress Head: normocephalic, atraumatic Eyes: normal inspection, sclerae normal Respiratory/Chest: normal breath sounds, no respiratory distress Cardiovascular: regular rate, rhythm, normal peripheral pulses Abdomen/GI: non tender, soft Extremities/Musculoskelatal: no calf tenderness, no pedal edema Neurologic/Psych: alert, normal mood/affect, oriented x 3 Skin: normal color, warm/dry Laboratory Results Last 24 Hours Test 08/30/17 09:13 08/30/17 11:20 Bedside Glucose 199 mg/dl 202 mg/dl Assessment & Plan 72 y/o F who was admitted earlier today by Dr. Mendez s/p L breast lumpectomy. L breast lumpectomy: as per Dr. Mendez Deferred questions regarding possible port to Dr. Mendez DM: continue home meds HTN: continue home meds Diet and DVT proph as per surgery
[2017-08-30] MEDS: METFORMIN HCL 500 MG TABCR PO SCH (17:52)
[2017-08-30] MEDS: CEFAZOLIN IV 1,000 MG in SYRINGE 2.5 ML IV SCH (17:55)
[2017-08-31] MEDS: CEFAZOLIN IV 1,000 MG in SYRINGE 2.5 ML IV SCH (02:20)
[2017-08-31 04:15] VITALS: BP 153/75; PULSE 72; TEMP 36.6; O2SAT 95
[2017-08-31 08:14] VITALS: BP 168/77; PULSE 70; TEMP 36.6; O2SAT 95
[2017-08-31] MEDS: METFORMIN HCL 500 MG TABCR PO SCH (08:39)
[2017-08-31] MEDS ORDERED: LISINOPRIL 40 MG TAB PO SCH (09:00)
[2017-08-31] MEDS ORDERED: AMLODIPINE BESYLATE 5 MG TAB PO SCH (09:00)
--- NOTE | 2017-08-31 09:28 | Anesthesiology Progress Note ---
Anesthesia Post Op Note Date & Time Aug 31, 2017 at 09:28 Vital Signs Vital Signs Past 12 Hours Date Time Temp Pulse Resp B/P (MAP) Pulse Ox O2 Delivery O2 Flow Rate FiO2 08/31/17 08:14 36.6 70 16 168/77 (107) 95 Room Air 08/31/17 04:15 36.6 72 16 153/75 (101) 95 Room Air 08/31/17 00:00 Room Air 08/30/17 23:20 36.6 75 16 133/64 (87) 94 Room Air Notes Mental Status: alert / awake / arousable, participated in evaluation Pt Amnestic to Procedure: Yes Nausea / Vomiting: adequately controlled Pain: adequately controlled Airway Patency, RR, SpO2: stable & adequate BP & HR: stable & adequate Hydration State: stable & adequate Anesthetic Complications: no major complications apparent
--- NOTE | 2017-08-31 09:44 | DISCHARGE SUMMARY ---
PRINCIPAL DIAGNOSIS: Left breast cancer. PROCEDURES: The patient underwent left partial mastectomy with left axillary dissection and drain placement. HISTORY OF PRESENT ILLNESS: The patient is a 72-year-old female who underwent a biopsy of the left breast and axillary lymph node showing cancer on both sites. She was brought into the hospital on 08/30/2017, taken to the operating room where she underwent a left lumpectomy/partial mastectomy with axillary dissection on the left side and drain placement. She did have 2 needles placed in the breast center prior to the operation and she did tolerate the procedure very well and has done well overnight and is felt stable for discharge home today with a visiting nurse. We will leave the drain in place for 5-7 days.
[2017-08-31 11:17] VITALS: BP 168/77; PULSE 70; TEMP 36.6; O2SAT 95
[2017-08-31 11:35] VITALS: BP 144/78; PULSE 63; TEMP 36.5; O2SAT 95
--- NOTE | 2017-08-31 11:58 | Progress Note ---
Subjective Date of Service: Aug 31, 2017. Subjective Pt evaluation today including: conversation w/ patient Pt is doing well post-op. Still with slight pain related to incision site, but stable. Ate without issue. Pt denies fever, SOB, chest pain, abd pain, n/v/c/d , LE pain or swelling. States that her PCP checked her A1c last month and she is awaiting f/u for this. She states that her AM BS have been in the high 100s lately, occasionally in the 200s. Problem List Medical Problems: (1) Hyperglycemia Status: Acute (2) Necrotizing fasciitis Status: Acute Review of Systems All Other Systems: Reviewed and Negative Objective Vital Signs Date Time Temp Pulse Resp B/P (MAP) Pulse Ox O2 Delivery O2 Flow Rate FiO2 08/31/17 11:35 36.5 63 16 144/78 (100) 95 Room Air 08/31/17 11:17 36.6 70 16 95 Room Air 08/31/17 08:14 36.6 70 16 168/77 (107) 95 Room Air 08/31/17 07:55 Room Air 08/31/17 04:15 36.6 72 16 153/75 (101) 95 Room Air 08/31/17 00:00 Room Air 08/30/17 23:20 36.6 75 16 133/64 (87) 94 Room Air 08/30/17 20:07 36.7 83 18 130/66 (87) 94 Room Air 08/30/17 17:00 Room Air 08/30/17 15:21 36.6 83 17 129/70 (89) 95 Nasal Cannula 2.0 08/30/17 14:29 81 16 131/65 (87) 08/30/17 13:23 36.5 81 16 144/63 (90) 94 Nasal Cannula 2.0 08/30/17 12:49 36.6 16 153/68 (96) 94 Nasal Cannula 2.0 08/30/17 12:20 95 Nasal Cannula 2.0 08/30/17 12:20 Nasal Cannula 2.0 08/30/17 12:20 36.6 77 14 148/68 (94) 92 Nasal Cannula 2.0 08/30/17 12:08 76 19 08/30/17 12:08 76 19 95 08/30/17 12:05 151/74 08/30/17 12:03 76 18 08/30/17 12:03 76 18 96 08/30/17 12:01 147/86 08/30/17 11:58 78 19 95 08/30/17 11:58 78 19 08/30/17 11:57 75 14 08/30/17 11:57 75 14 96 08/30/17 11:56 144/89 Physical Exam Comments: General Appearance: WD/WN, no apparent distress Head: normocephalic, atraumatic Eyes: normal inspection, sclerae normal Respiratory/Chest: normal breath sounds, no respiratory distress Cardiovascular: regular rate, rhythm, normal peripheral pulses Abdomen/GI: non tender, soft Extremities/Musculoskelatal: no calf tenderness, no pedal edema Neurologic/Psych: alert, normal mood/affect, oriented x 3 Skin: normal color, warm/dry Laboratory Results Last 24 Hours Test 08/30/17 16:52 08/30/17 20:31 08/31/17 08:26 Bedside Glucose 302 mg/dl 315 mg/dl 166 mg/dl Assessment and Plan 72 y/o F who was admitted earlier today by Dr. Mendez s/p L breast lumpectomy. L breast lumpectomy: as per Dr. Mendez Deferred questions regarding possible port to Dr. Mendez DM: continue home metformin A1c 7.8, likely will benefit from additional management. She has been working with this with her PCP and I will defer to their office for management. Advised to f/u with PCP in the next few weeks HTN: continue home meds Diet and DVT proph as per surgery
[2017-08-31 14:06] VITALS: Ht 162.6 cm; Wt 84.1 kg
== END 2017-08-31 15:05 | disposition home health service (06) ==
LOC: C.ACU 07:44 → EDSTATUS 10:30 → C.MSW 11:16 → ENRESERV 11:55
PROVIDERS: ADMIT Surgery; ATTEND Surgery
DX: C50.912 Malignant neoplasm of unspecified site of left female breast (principal); C77.3 Secondary and unspecified malignant neoplasm of axilla and upper limb lymph nodes; I10 Essential (primary) hypertension; E11.9 Type 2 diabetes mellitus without complications; Z88.2 Allergy status to sulfonamides; Z79.899 Other long term (current) drug therapy; Z86.010 Personal history of colon polyps; Z90.710 Acquired absence of both cervix and uterus; Z98.890 Other specified postprocedural states; Z83.3 Family history of diabetes mellitus; Z82.49 Family history of ischemic heart disease and other diseases of the circulatory system; Z80.9 Family history of malignant neoplasm, unspecified

== ENCOUNTER 2017-09-20 06:27 | Day surgery (SDC) | payer BC ==
[2017-09-07 09:43] VITALS: BMI 32.0
[~2017-09-20] VITALS: Ht 162.6 cm; Wt 84.1 kg
[~2017-09-20 06:27] MED LIST changes: +ACET500T58 PO; -ATROPINE SULFATE 0.1 MG/ML 5ML SYR IV PRN; -CEFAZOLIN 2000MG IV PUSH 10 ML IV SCH; +CEFAZOLIN 2000MG IV PUSH 15 ML IV SCH; -EpHEDrine SULFATE INJ 50 MG/ML AMP IV PRN; -FENTANYL CITRATE INJ 50 MCG/1 ML 2 ML VIAL IV PRN; -ONDANSETRON INJ 2 MG/ML 2 ML VIAL IV PRN
[2017-09-20 07:04] VITALS: BP 171/63; PULSE 59; TEMP 36.6; O2SAT 96; Ht 162.6 cm; Wt 84.1 kg
[2017-09-20] MEDS ORDERED: LIDOCAINE HCL 2% 2 ML VIAL (20MG/ML) ONE (07:45)
[2017-09-20] MEDS ORDERED: FENTANYL CITRATE INJ 50 MCG/1 ML 2 ML VIAL ONE (07:45)
[2017-09-20] MEDS ORDERED: PROPOFOL IV EMULSION 10 MG/ML 20 ML VIAL IV ONE (07:45)
[2017-09-20] MEDS ORDERED: MIDAZOLAM HCL 1 MG/ML 2ML VIAL ONE (07:46)
[2017-09-20] MEDS ORDERED: EpHEDrine SULFATE INJ 50 MG/ML AMP IV PRN (08:15)
[2017-09-20] MEDS ORDERED: ATROPINE SULFATE 0.1 MG/ML 5ML SYR IV PRN (08:15)
[2017-09-20] MEDS ORDERED: LIDOCAINE HCL 1% 20 ML VIAL ONE (08:34)
[2017-09-20] MEDS ORDERED: CEFAZOLIN SOD 1 GM VIAL ONE (08:34)
[2017-09-20] MEDS ORDERED: HEPARIN SOD (PORCINE) 1000 UNIT/ML 10 ML VIAL ONE (08:34)
[2017-09-20] MEDS ORDERED: THROMBIN FOR SOLN 20000 UNIT KIT ONE (08:34)
[2017-09-20] MEDS ORDERED: ONDANSETRON INJ 2 MG/ML 2 ML VIAL IV PRN (09:45)
[2017-09-20] MEDS ORDERED: HYDROCODONE/ACETAMIN 5/325MG TAB PO PRN ×2 (09:45)
--- NOTE | 2017-09-20 09:45 | [facility] Operative Report ---
Operative Report Operative Date Sep 20, 2017. Pre-Operative Diagnosis Left Breast Cancer Post-Operative Diagnosis Left Breast Cancer Procedure(s) Performed Insertion of A-Port, Right Cephalic Vein Surgeon Dr. Chalino Mendez Child Adolescent Care Surgeon(s) None Estimated Blood Loss 10 mL Findings placed via Rt cephalic vein Specimens No pathology specimens per surgeon Anesthesia Type MAC Complication(s) none Disposition Recovery Room / PACU I attest to the content of the Intraoperative Record and any orders documented therein. Any exceptions are noted below.
[2017-09-20] MEDS ORDERED: HYDR-5688 PO ×2 (09:48→10:05)
--- NOTE | 2017-09-20 09:50 | Discharge Instructions ---
Discharge Instructions Date of Service Sep 20, 2017. Visit Reason for Visit: Left Breast Cancer, Diabetes Discharge Discharge Diagnosis / Problem: port/ h/o breast cancer Discharge Goals Goal(s): Decrease discomfort, Improve function, Improve disease control Activity Recommendations Activity Limitations: as noted below Lifting Limitations: no more than 25 pounds (for 2 weeks) Exercise/Sports Limitations: until after follow-up appointment May Resume Sexual Activity: when tolerated Shower/Bathe: tomorrow Driving or Machine Use: resume 1 day after discharge Anesthesia . Post Anesthesia Instructions: If you have had General Anesthesia or IV Sedation: * Do not drive today. * Resume driving when surgeon permits. * Do not make important decisions or sign legal documents today. * Call surgeon for: 1. Temperature elevations greater than 101 degrees F. 2. Uncontrollable pain. 3. Excessive bleeding. 4. Persistent nausea and vomiting. 5. Medication intolerance (nausea, vomiting or rash). * For nausea and vomiting use only clear liquids such as: tea, soda, bouillon until nausea subsides, then gradually increase diet as tolerated. * If you have any concerns or questions, call your surgeon's office. If physician is unavailable and it is an emergency, call 911 or go to the nearest emergency room. . Instructions / Follow-Up Instructions / Follow-Up SPECIAL CARE INSTRUCTIONS: * Cover incisions and change daily for comfort/drainage. * May use ibuprofen for pain as tolerated. * Expect some swelling and bruising. Call your doctor if: * Temperature above 101 degrees * Pain not relieved by pain medicine ordered * There is increased drainage or redness from any incision * You have any unanswered questions or concerns [phone]. FOLLOW UP VISIT: If not already scheduled, please call the office for a follow-up visit. for 2 weeks- suture removal OFFICE PHONE NUMBER: Dr. Mendez Office Diet Recommendations Recommended Home Diet: resume previous diet Procedures Procedures Performed: Insertion of A-Port, Right Cephalic Vein Pending Studies Studies pending at discharge: no Medical Emergencies . Who to Call and When: Medical Emergencies: If at any time you feel your situation is an emergency, please call 911 immediately. . Non-Emergent Contact Non-Emergency issues call your: Primary Care Provider, Surgeon . . "Provider Documentation" section prepared by Chalino Mendez. .
--- NOTE | 2017-09-20 10:10 | DIAGNOSTIC IMAGING REPORT ---
CHEST ONE VIEW PORTABLE CLINICAL HISTORY: Chest x-ray status post A-Port catheter placement COMPARISON STUDY: 05/14/2007 FINDINGS: The cardiac and mediastinal contours remain stable. There has been interval placement of a right subclavian A-Port catheter. The tip projects over the superior vena cava. There is no pneumothorax. Lungs are clear. There are no pleural effusions. There is no failure.[ IMPRESSION: No evidence of pneumothorax status post placement of a right subclavian A-Port catheter. Electronically signed by: Harry Lucas M.D. 09/20/2017 10:09 AM Dictated Date/Time: 09/20/2017 10:08 AM
--- NOTE | 2017-09-20 10:13 | Anesthesiology Progress Note ---
Anesthesia Post Op Note Date & Time Sep 20, 2017 at 10:13 Vital Signs Pain Intensity: 0 Vital Signs Past 12 Hours Date Time Temp Pulse Resp B/P (MAP) Pulse Ox O2 Delivery O2 Flow Rate FiO2 09/20/17 10:12 36.8 09/20/17 10:07 59 14 09/20/17 10:07 59 14 94 09/20/17 10:06 136/68 09/20/17 10:02 58 16 09/20/17 10:02 58 16 96 09/20/17 10:01 131/67 09/20/17 10:00 60 15 09/20/17 10:00 60 15 95 09/20/17 09:56 134/97 09/20/17 09:55 59 13 97 09/20/17 09:55 59 13 09/20/17 09:51 152/76 09/20/17 09:50 37.0 63 12 152/76 96 Room Air 09/20/17 07:04 36.6 59 20 171/63 (99) 96 Room Air Notes Mental Status: alert / awake / arousable, participated in evaluation Pt Amnestic to Procedure: Yes Nausea / Vomiting: adequately controlled Pain: adequately controlled Airway Patency, RR, SpO2: stable & adequate BP & HR: stable & adequate Hydration State: stable & adequate Anesthetic Complications: no major complications apparent
--- NOTE | 2017-09-20 10:19 | OPERATIVE REPORT ---
DATE OF OPERATION: 09/20/2017 NAME OF OPERATION: Port placement. PREOPERATIVE DIAGNOSIS: History of breast cancer. POSTOPERATIVE DIAGNOSIS: Same. STAFF SURGEON: Dr. Chalino Mendez. ANESTHESIA: 1% plain lidocaine with sedation. DESCRIPTION OF PROCEDURE: The patient was brought in the operating room and placed on the operating table in supine position. A roll was placed between her shoulders. Her chest was prepped and draped in usual fashion on the right side. Skin and subcutaneous tissue of the right deltopectoral groove were anesthetized. An incision was made carrying dissection down identifying the cephalic vein, which was then ligated distally using 2-0 silk suture. It was then opened under fluoroscopy, the catheter was passed into the superior vena cava, secured using the 2-0 silk suture and the 2-0 chromic catgut suture. Pocket was fashioned in the subcutaneous tissue. The port was attached to the catheter, placed into the pocket and secured to the subcutaneous tissue using 3-0 Prolene suture and then, it was aspirated and flushed with heparinized solution, then the site was irrigated with antibiotic solution and subcutaneous tissue reapproximated using 2-0 chromic catgut suture, then the skin reapproximated using 4-0 nylon suture. The patient was transferred to the recovery room in stable condition. I attest to the content of the Intraoperative Record and any orders documented therein. Any exception s are noted below.
[2017-09-20 10:23] VITALS: BP 132/68; PULSE 57; TEMP 36.9; O2SAT 92
[2017-09-20 10:55] VITALS: BP 136/69; PULSE 59; TEMP 36.5; O2SAT 96
== END 2017-09-20 11:15 | disposition home or self-care (01) ==
LOC: C.ACU 06:27
PROVIDERS: ATTEND Surgery
DX: C50.912 Malignant neoplasm of unspecified site of left female breast (principal); I10 Essential (primary) hypertension; Z86.19 Personal history of other infectious and parasitic diseases; E11.9 Type 2 diabetes mellitus without complications; Z88.2 Allergy status to sulfonamides; Z88.8 Allergy status to other drugs, medicaments and biological substances; Z90.710 Acquired absence of both cervix and uterus; Z82.49 Family history of ischemic heart disease and other diseases of the circulatory system; Z83.3 Family history of diabetes mellitus; Z80.3 Family history of malignant neoplasm of breast; Z96.651 Presence of right artificial knee joint; Z96.643 Presence of artificial hip joint, bilateral; Z98.41 Cataract extraction status, right eye; Z98.42 Cataract extraction status, left eye

== ENCOUNTER → 2018-02-19 | Outpatient (CLI) | payer BC ==
[~2018-02-19] MED LIST changes: +ACET-1256 PO; -ACET500T58 PO; -AMLO-110 PO; +AMLO5TAB3 PO; -CEFAZOLIN 2000MG IV PUSH 15 ML IV SCH; +GLIM1TAB2 PO; -LACTATED RINGER'S 1000ML 1,000 ML IV SCH; -NAPR1TAB9 PO
[2018-02-20 06:47] LABS: HEMOGLOBIN A1C 6.5 % (4.5-5.6)
== END | disposition home or self-care (01) ==
LOC: C.LABSPEC 15:25
PROVIDERS: ATTEND Internal Medicine Geriatric Medicine
DX: E11.9 Type 2 diabetes mellitus without complications (principal)

== ENCOUNTER → 2018-03-14 | Outpatient (CLI) | payer BC ==
[~2018-03-14] MED LIST changes: +ANAS1TAB7 PO
[2018-03-14 14:37] VITALS: BP 122/70; PULSE 60; TEMP 36.8; O2SAT 95
--- NOTE | 2018-03-14 15:51 | Radiation Oncology Follow-Up ---
Radiation Oncology Follow-Up Date of Visit Mar 14, 2018. Reason For Visit One-month follow-up and cancer survivorship care plan Radiation Completion Date 02/14/18 Diagnosis (1) Malignant neoplasm of central portion of left breast in female, estrogen receptor positive Status: Acute Onset Date: 08/08/2017 Histology Subtype: Ductal Stage: l (B) Permanent Comment: Abnormal left breast mammogram Status post ultrasound-guided core needle biopsies August 08, 2017 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 She received 6400 cGy. Treatment to the left breast, supraclavicular area, and axilla. Last Edited By: Lulu Spence on Feb 26, 2018 15:00 History of Present Illness Ms. Cevallos presented with an abnormal mammogram. 07/25/2017 --- bilateral screening mammogram --- The 12 mm focal asymmetry in the upper outer anterior left breast, 11 mm focal asymmetry in the right upper outer quadrant and enlarged left axillary lymph node need additional imaging evaluation. 08/08/2017 --- biopsy of left breast mass (12:00) and left axillary lymph node -- - A. BREAST, LEFT 12 O'CLOCK, ULTRASOUND-GUIDED CORE BIOPSIES: 1. INFILTRATING DUCTAL CARCINOMA, GRADE 2/3. SEE COMMENT. 2. CARLOS SCORE 6/9 (TUBULE = 3, NUCLEI = 2, MITOTIC RATE = 1). 3. NO IN SITU COMPONENT IDENTIFIED. 4. NO PERINEURAL OR LYMPH-VASCULAR SPACE INVASION IDENTIFIED. 5. ESTROGEN RECEPTOR POSITIVE (80%, STRONG). 6. PROGESTERONE RECEPTOR POSITIVE (5%, WEAK). 7. HER2/ SHANKAR NEGATIVE BY IMMUNOHISTOCHEMISTRY (0+). B. LYMPH NODE, LEFT AXILLA, ULTRASOUND-GUIDED CORE BIOPSY: METASTATIC DUCTAL CARCINOMA. 08/30/2017 --- left breast lumpectomy and sentinel lymph node biopsy/axillary lymph node dissection --- left breast lumpectomy: Invasive ductal carcinoma, 15 mm, grade 2, no DCIS, margins negative. Left axillary lymph nodes: Metastatic carcinoma present in 08/11 lymph nodes. 08/2017 to 09/2017 --- TC chemotherapy underneath the supervision of Dr. Jono Greer for total of 4 cycles. Patient has received 3 cycles of chemotherapy. Final cycle of chemotherapy scheduled beginning of November 2017 We are now seeing the patient in consultation discuss the role of radiation therapy. In general, the patient is doing relatively well. She has no significant complaints or concerning symptoms. She completed her systemic chemotherapy. She completed radiation therapy February 14, 2018. She received 6640 cGy. Interim History She has been doing well over the past month in regards to her breast. She is noted no masses or tenderness no change of the axilla. She does have swelling of her left arm. She is being followed and treated at the lymphedema clinic. She denies any pain of the arm. There is some dark discoloration of the skin that is steadily improving. She has been started on anastrozole by medical oncology. She does have some mild increase of joint discomfort. She has a prior history of arthritis especially in her back. Allergies Coded Allergies: Sulfa Antibiotics (Verified Allergy, Intermediate, HIVES - ITCHING, ) Adhesives (Verified Allergy, Unknown, BLISTERING, 09/20/17) Home Medications Scheduled Acetaminophen (Tylenol), 500 MG PO BID Amlodipine (Norvasc), 10 MG PO QAM Anastrozole (Anastrozole), 1 TAB PO DAILY Atenolol (Atenolol), 75 MG PO QAM Glimepiride (Glimepiride), 1 TAB PO DAILYBB Lisinopril (Zestril), 40 MG PO QAM Metformin Hcl (Glucophage Ext Rel), 500 MG PO BID Multiple Vitamins W/ Minerals (Multi For Her), 1 TAB PO QAM Review of Systems Gastrointestinal: Symptoms: WNL Oral: Symptoms: No Problems Respiratory: Symptoms: WNL Urinary: Symptoms: WNL Skin: Symptoms: No Problems Breast: Right Upper Arm Measurement: 28.0 Right Mid Arm Measurement: 22.5 Right Wrist Measurement: 16.5 Left Upper Arm Measurement: 28.0 Left Mid Arm Measurement: 25.0 Left Wrist Measurement: 19.0 Arm Dominence: Right Physical Exam Vital Signs Date Time Temp Pulse Resp B/P (MAP) Pulse Ox O2 Delivery O2 Flow Rate FiO2 03/14/18 14:37 36.8 60 18 122/70 95 Fatigue: None General Appearance: no apparent distress Eyes: normal inspection, EOMI ENT: normal ENT inspection, hearing grossly normal Neck: no adenopathy, thyroid normal Respiratory/Chest: lungs clear, no respiratory distress, no accessory muscle use Breast: Breast examination reveals well-healed incisions of the left breast. There is resolving hyperpigmentation. There are no masses or tenderness and no axillary adenopathy. She has no skin retractions or nipple changes. Using the [place] score of cosmesis she has a fair outcome currently. The lid right breast showed no masses or tenderness and no axillary adenopathy. Cardiovascular: regular rate, rhythm, no gallop, no murmur Extremities: no pedal edema Neurologic/Psychiatric: no motor/sensory deficits, alert, normal mood/affect Skin: warm/dry Pain Management Patient Reports Pain: No Initial Pain Intensity: 0.0 Pain Management Plan She denies pain therefore requires no pain management. Laboratory Laboratory Results: not applicable Pathology Pathology Results: were reviewed, and pertinent findings noted in HPI Imaging Imaging Studies: not applicable Assessment & Plan Plan: The patient was seen and examined by Dr. Durant. Mammography has been scheduled for the left breast in 2 months and bilateral mammography in 8 months. These will be digital diagnostic mammograms. She continues on the anastrozole. She will continue follow-up at the lymphedema clinic. There are plans for her to get a sleeve and gauntlet. Will continue to complete the requested documentation from the lymphedema clinic. Today we completed a cancer survivorship care plan. Copy of the document was given to the patient. She was given a survivorship booklet. We asked her to return to our office in 6 months. She may call if she has any questions or concerns in the interim. Assessment & Plan (Attending) I agree with note created by Lulu Spence PA-C. I reviewed the patient's chart and information with her. I have examined and evaluated the patient. I reviewed relevant clinical information and answered the patient's and/or family' s questions. COMMUNICATIONS REPRESENTATIVE Total Time In Follow-Up I spent 20 minutes speaking to the patient in performing examination. I spent 20 minutes reviewing information, preparing the survivorship document, and completing this note. [place] Total Time (Attending) In Follow-Up I spent 15 minutes examining and counseling the patient. COMMUNICATIONS REPRESENTATIVE Copy To Camilo Robins M.D.; Chalino Mendez M.D.; Jono Kramer MD; Lulú Viveros M.D.
== END | disposition home or self-care (01) ==
LOC: C.ONC 14:21
PROVIDERS: ATTEND Physician Assistant Medical
DX: Z08 Encounter for follow-up examination after completed treatment for malignant neoplasm (principal); Z92.3 Personal history of irradiation; Z85.3 Personal history of malignant neoplasm of breast

== ENCOUNTER 2019-07-22 16:37 | Inpatient (IN) ==
[2019-07-22] MEDS ORDERED: PIPERACILLIN/TAZOBACTAM 4.5 GM/120 ML BAG IV STA (17:20)
[2019-07-22] MEDS ORDERED: DAPTOmycin 225 MG in SYRINGE 0 ML IV STA (17:31)
--- NOTE | 2019-07-22 17:33 | XRay Report ---
XR hand LT min 3V routine CLINICAL HISTORY: left hand/3rd finger cellulitis COMPARISON: 07/11/2019 DISCUSSION: The bones are osteopenic. There is an old deformity of the second metacarpal. There are n o acute fractures. There are osteoarthritic changes present most pronounced the level the first carpo metacarpal joint. Mild erosive osteoarthritic changes are present the level of the distal interphalan geal joints. There is soft tissue swelling most pronounced at the level of the second and third finge rs. Dorsal soft tissue edema is also evident. There is no conventional radiographic evidence of acute osteomyelitis. IMPRESSION: 1. No acute fractures 2. Osteoarthritic change 3. Soft tissue swelling 4. No conventional radiographic evidence of acute osteomyelitis ACT 112: Negative or not required by law. Electronically signed by: Harry Lucas M.D. 07/22/2019 5:32 PM
[2019-07-22 18:09] LABS: Basophils # (auto) 0.05 K/uL (0-0.2); Basophils % (auto) 0.5 %; Eosinophils # (auto) 0.28 K/uL (0-0.5); Eosinophils % (auto) 2.8 %; Hematocrit (blood only) 37.1 % (37-47); Immature Granulocytes # (auto) 0.04 K/uL (0.00-0.02); Immature Granulocytes % (auto) 0.4 %; Lymphocytes # (auto) 1.46 K/uL (1.2-3.4); Lymphocytes % (auto) 14.4 %; Mean Corpuscular Hemoglobin 30.6 pg (25-34); Mean Corpuscular Hgb Conc 32.3 g/dL (32-36); Mean Corpuscular Volume 94.6 fL (80-100); Mean Platelet Volume 9.4 fL (7.4-10.4); Monocytes # (auto) 0.56 K/uL (0.11-0.59); Monocytes % (auto) 5.5 %; Neutrophils # (auto) 7.78 K/uL (1.4-6.5); Neutrophils % (auto) 76.4 %; Platelet Count 372 K/uL (130-400); RDW Standard Deviation 51.4 fL (36.4-46.3); Red Blood Count 3.92 M/uL (4.2-5.4); White Blood Count 10.17 K/uL (4.8-10.8)
--- NOTE | 2019-07-22 18:16 | Emergency Department Note ---
Entered by Marybeth Orosco acting as a scribe for Ghanshyam Chacon MD History of Present Illness General Chief complaint: Hand Injury/Pain Stated complaint: CELLULITIS IN LEFT HAND Time Seen by Provider: 07/22/19 16:50 History of Present Illness Provider complaint: swelling in left hand Onset (ago): hour(s) 8 Location: upper extremity (hand) and left Pain Consistency: + other (worsening) Maximum Pain Intensity: 0 Associated symptoms: + denies other symptoms (recent bites) and + other (left h and lymphedema at baseline, referred from PCP for IV antibiotics and admission, opened a tight jar a few days ago, sugars slightly high, been on Amoxicillin for approximately 1 week); no fever/chills Treatments prior to arrival: other (Amoxicillin) The patient is a 74 year old female who presents to the ED with complaints of worsening swelling in her left hand that started 8 hours ago. The patient states that her left hand is usually swollen at baseline because she has lymphedema. The patient states that she has had left handed lymphedema ever since she was treated for breast cancer. However, the patient states that she woke up this morning and her left hand was much more swollen than usual. The patient states that she saw her PCP today, Dr. Olson, who recommends the patient to come to the ED for IV antibiotics and admission. The patient states that the only trauma to her left hand was opening a tight jar a few days ago. The patient states that she has diabetes and her sugars have been slightly high. The patient denies fev er, chills and recent bites. The patient notes that she has been on Amoxicillin for approximately 1 week. Home Medications Home Medications Medication Instructions Recorded Confirmed Type acetaminophen [Tylenol Extra 500 mg PO BID 05/29/18 07/22/19 History Strength] multivitamin 1 tab PO QAM 05/29/18 07/22/19 History anastrozole 1 mg tablet 1 mg PO QAM #90 tab 05/24/19 07/22/19 Rx atenolol 50 mg tablet 75 mg PO QAM #90 tab 05/24/19 07/22/19 Rx lisinopril 40 mg tablet 40 mg PO DAILY #90 tab 05/24/19 07/22/19 Rx glimepiride 1 mg tablet 1 mg PO QAM #90 tab 06/11/19 07/22/19 Rx metformin 500 mg tablet 500 mg PO BID #180 tab 06/11/19 07/22/19 Rx amoxicillin 875 mg-potassium 1 tab PO BID 10 Days #20 tab 07/18/19 07/22/19 Rx clavulanate 125 mg tablet Allergies Allergy/AdvReac Type Severity Reaction Status Date / Time Sulfa (Sulfonamide Allergy Intermediate HIVES - Verified 07/22/19 13:43 Antibiotics) ITCHING adhesive Allergy Unknown BLISTERING Verified 07/22/19 13:43 Past Med/Surg History Medical History (Updated 07/22/19 @ 20:40 by Kaden Coffman MD) Adrenal adenoma Breast cancer Chronic back pain TO RIGHT LEG Diabetes mellitus, type 2 (Acute) HOCM (hypertrophic obstructive cardiomyopathy) Hx of necrotising fasciitis [id number] Hypertension Hypomagnesemia Insomnia Kidney stones Left ventricular outflow obstruction Lymphedema of left arm Due to left axillary lymph node dissection - LIMB RESTRICTION Lymphedema of left arm (Acute) Malignant neoplasm of central portion of left breast in female, estrogen receptor positive (08/08/17) "Abnormal left breast mammogram Status post ultrasound-guided core needle biopsies August 08, 2017 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 She received 6400 cGy. Treatment to the left breast, supraclavicular area, and axilla." On 11/23/17 12:50 Lulu Spence wrote "Abnormal left breast mammogram Status post ultrasound-guided core needle biopsies August 08, 2017 Invasive ductal carcinoma grade 2 Estrogen receptor positive, progesterone receptor positive, HER-2/shankar negative Axillary node biopsy positive Status post left partial mastectomy and axillary dissection August 30, 2017 Stage pTic pN1a M0 Systemic chemotherapy with docetaxel and cyclophosphamide every 3 weeks for 4 cycles, chemotherapy will complete November 29, 2017" Mitral regurgitation Osteoarthritis Radiation fibrosis of lung Spinal stenosis Urinary incontinence Surgical History H/O lithotripsy History of cataract surgery R/L History of open reduction and internal fixation (ORIF) procedure L ELBOW History of total hip arthroplasty R/L History of total knee replacement RIGHT Hx of ovarian cystectomy S/P hysterectomy S/P partial mastectomy (~08/30/17) L breast, with axiallary LN dissection Social History Preferred Language: [place] Communication Ability: Effective Visual Impairment: Limited Hearing Ability: Hard of Hearing World Designer Required: No Beliefs That Will Affect Care: None marital status: Single Current Living Situation: Alone current occupational status: retired Other Information That Helps Us Care for You: No Feels Safe at Home: Yes Safety Concerns: Feels Safe At This Time Smoking Status: Never smoker Second Hand Exposure: No ; Hx Alcohol Use: No Hx Substance Use: No Childhood Exposure to Second-Hand Smoke: No caffeine: Yes (Tea x 1 per day) during the past year weight has: remained stable Dental Care, Regularly: Yes Physical Activity Frequency: Does not Exercise Seatbelt Use: always Sunscreen Use: Yes Review of Systems See HPI for pertinent positives & negatives. and A total of 10 systems reviewed and were otherwise negative Physical Exam Vital Signs Vital Signs - 24 hr 07/22/19 16:40 07/22/19 18:34 07/22/19 19:00 Temperature 36.4 C L Temperature Source Oral Pulse Rate 71 61 Pulse Rate [Apical] 59 L Pulse Rate from SpO2 Sensor 59 L Respiratory Rate 18 19 15 Respiratory Effort / Characteristics Non-Labored Non-Labored Spontaneous Respiratory Depth Normal Normal Respiratory Pattern Regular Blood Pressure 152/82 H 171/84 H Blood Pressure [Right Arm] 149/79 H Blood Pressure Mean 105 119 Blood Pressure Mean [Right Arm] 102 Pulse Oximetry 96 96 98 Oxygen Delivery Method Room Air Room Air Room Air Sepsis Recent Fever Within 48 Hours Yes Sepsis New/Unexplained Change in Mental Status No Sepsis Action Taken by Nursing No Action Required 07/22/19 19:30 07/22/19 20:00 07/22/19 20:30 Temperature Temperature Source Pulse Rate 60 62 60 Pulse Rate [Apical] Pulse Rate from SpO2 Sensor 61 61 60 Respiratory Rate 16 24 16 Respiratory Effort / Characteristics Respiratory Depth Respiratory Pattern Blood Pressure 172/80 H 160/108 H 167/81 H Blood Pressure [Right Arm] Blood Pressure Mean 131 123 115 Blood Pressure Mean [Right Arm] Pulse Oximetry 95 96 96 Oxygen Delivery Method Room Air Room Air Sepsis Recent Fever Within 48 Hours Sepsis New/Unexplained Change in Mental Status Sepsis Action Taken by Nursing General: Non-ill appearing older female in no acute distress. HEENT: Normal cephalic atraumatic. Pupils are equal round and reactive to light. Extraocular movements are intact. Oropharynx is pink with moist mucous membranes. No swelling of the mouth lips or tongue. Neck: Supple with a midline trachea. No meningeal signs or stiffness, no JVD or bruits. No Stridor. Chest: Clear to auscultation bilaterally. No wheezes or rhonchi. No increased work of breathing. Heart: regular rate and rhythm. Abdomen: Soft nontender, nondistended without rebound guarding or rigidity. Extremities: Chronic lymphedema of left upper extremity with increased swelling to left hand compared to baseline, redness in palm extending to left middle finger, difficulty moving middle finger but no pain with passive movement. No cyanosis clubbing or edema. No calf tenderness or asymmetry Spine/Back. Non tender to palpation. No CVA tenderness Skin: Good turgor without rashes. Neurologic exam: Cranial nerves two through 12 are intact. Motor and sensation are intact and symmetrical throughout. Course Course 1657: Past medical records reviewed. The patient was evaluated in room A03. A complete history and physical exam was performed. 1805: I reevaluated the patient and she is resting comfortably. The patient is receiving antibiotics now. 1831: I discussed the patient's case with Dr. Hooks [facility] Hospitalist. He will evaluate the patient for further management. 1840: I reevaluated the patient and she is resting comfortably. I updated the patient on the test results and plan for admission. Consultations Consultation #1: I discussed the patient's case with Dr. Hooks [facility] Hospitalist. He will evaluate the patient for further management. Time: 18:31 Administered Medications Acetaminophen (Tylenol) 500 mg PO BID [facility] Stop: 08/21/19 21:22 Last Admin: 07/22/19 22:15 Dose: 500 mg Documented by: [id number] Discontinued Medications Heparin Sodium (Beef Lung) (Heparin Sod 10 Unit/Ml Flush) Confirm Administered Dose 5 ml FLUSH .[employer] Stop: 07/22/19 22:45 Last Admin: 07/22/19 23:01 Dose: 5 ml Documented by: [id number] Piperacillin Sod/Tazobactam Sod (Zosyn) 4.5 gm in 120 mls @ 240 mls/hr IV NOW STA Stop: 07/22/19 17:49 Last Infusion: 07/22/19 18:25 Dose: 0 mls/hr Documented by: [id number] Admin: 07/22/19 17:55 Dose: 240 mls/hr Documented by: [id number] Daptomycin 225 mg/ Syringe 4.5 mls @ 2.25 mls/min IV NOW STA Stop: 07/22/19 17:32 Last Admin: 07/22/19 18:27 Dose: 2.25 mls/min Documented by: [id number] Piperacillin Sod/Tazobactam (Sod 3.375 gm/ Dextrose) 115 mls @ 230 mls/hr IV NOW STA; Protocol Stop: 07/22/19 22:31 Last Infusion: 07/22/19 22:41 Dose: 0 mls/hr Documented by: [id number] Admin: 07/22/19 22:15 Dose: 230 mls/hr Documented by: [id number] Medical Decision Making Differential Diagnosis Differentials include cellulitis, deep space hand infection, tendon infection, sepsis, lymphedema, metabolic and electrolyte abnormality. Medical Records Attestation: I reviewed the patient's medical records. Home Medications Current Medication List: was personally reviewed by me Laboratory Data Attestation: I reviewed the patient's lab results. Result diagrams: 07/22/19 17:48 07/22/19 17:48 Lab Results 07/22/19 07/22/19 07/22/19 Range/Units 17:48 17:48 17:48 WBC 10.17 (4.8-10.8) K/uL RBC 3.92 L (4.2-5.4) M/uL Hgb 12.0 (12.0-16.0) g/dL Hct 37.1 (37-47) % MCV 94.6 (80-100) fL MCH 30.6 (25-34) pg MCHC 32.3 (32-36) g/dL RDW Std Deviation 51.4 H (36.4-46.3) fL RDW Coeff of Leno 15.0 H (11.5-14.5) % Plt Count 372 (130-400) K/uL MPV 9.4 (7.4-10.4) fL Immature Gran % (Auto) 0.4 % Neut % (Auto) 76.4 % Lymph % (Auto) 14.4 % [place] % (Auto) 5.5 % Eos % (Auto) 2.8 % Baso % (Auto) 0.5 % Immature Gran # (Auto) 0.04 H (0.00-0.02) K/uL Neut # (Auto) 7.78 H (1.4-6.5) K/uL Lymph # (Auto) 1.46 (1.2-3.4) K/uL [place] # (Auto) 0.56 (0.11-0.59) K/uL Eos # (Auto) 0.28 (0-0.5) K/uL Baso # (Auto) 0.05 (0-0.2) K/uL PT 10.1 (9.0-12.0) Seconds INR 1.0 (0.9-1.1) APTT 24.9 (21.0-31.0) Seconds PTT Ratio 0.9 Sodium 138 (136-145) mmol/L Potassium 4.5 (3.5-5.1) mmol/L Chloride 109 H (98-107) mmol/L Carbon Dioxide 23 (21-32) mmol/L Anion Gap 6.0 (3-11) BUN 29 H (7-18) mg/dl Creatinine 1.23 H (0.6-1.2) mg/dl Est Cr Clr Drug Dosing 43.5 ml/min Est GFR ( Amer) 50.0 Est GFR (Non-Af Amer) 43.2 BUN/Creatinine Ratio 23.4 H (10-20) Glucose 146 H (70-99) mg/dl Lactate (0.4-2.0) mmol/L Calcium 9.4 (8.5-10.1) mg/dl Total Bilirubin 0.3 (0.2-1) mg/dl AST 19 (15-37) U/L ALT 24 (12-78) U/L Alkaline Phosphatase 132 H (45-117) U/L Total Protein 6.8 (6.4-8.2) gm/dl Albumin 3.1 L (3.4-5.0) gm/dl Globulin 3.7 (2.5-4.0) gm/dl Albumin/Globulin Ratio 0.8 L (0.9-2) Specimen Hemolysis 07/22/19 Range/Units 17:48 WBC (4.8-10.8) K/uL RBC (4.2-5.4) M/uL Hgb (12.0-16.0) g/dL Hct (37-47) % MCV (80-100) fL MCH (25-34) pg MCHC (32-36) g/dL RDW Std Deviation (36.4-46.3) fL RDW Coeff of Leno (11.5-14.5) % Plt Count (130-400) K/uL MPV (7.4-10.4) fL Immature Gran % (Auto) % Neut % (Auto) % Lymph % (Auto) % [place] % (Auto) % Eos % (Auto) % Baso % (Auto) % Immature Gran # (Auto) (0.00-0.02) K/uL Neut # (Auto) (1.4-6.5) K/uL Lymph # (Auto) (1.2-3.4) K/uL [place] # (Auto) (0.11-0.59) K/uL Eos # (Auto) (0-0.5) K/uL Baso # (Auto) (0-0.2) K/uL PT (9.0-12.0) Seconds INR (0.9-1.1) APTT (21.0-31.0) Seconds PTT Ratio Sodium (136-145) mmol/L Potassium (3.5-5.1) mmol/L Chloride (98-107) mmol/L Carbon Dioxide (21-32) mmol/L Anion Gap (3-11) BUN (7-18) mg/dl Creatinine (0.6-1.2) mg/dl Est Cr Clr Drug Dosing ml/min Est GFR ( Amer) Est GFR (Non-Af Amer) BUN/Creatinine Ratio (10-20) Glucose (70-99) mg/dl Lactate 1.6 (0.4-2.0) mmol/L Calcium (8.5-10.1) mg/dl Total Bilirubin (0.2-1) mg/dl AST (15-37) U/L ALT (12-78) U/L Alkaline Phosphatase (45-117) U/L Total Protein (6.4-8.2) gm/dl Albumin (3.4-5.0) gm/dl Globulin (2.5-4.0) gm/dl Albumin/Globulin Ratio (0.9-2) Specimen Hemolysis Imaging Data Radiologist's Impression: Radiology results as stated below per my review and the radiologist's interpretation: XR hand LT min 3V routine CLINICAL HISTORY: left hand/3rd finger cellulitis COMPARISON: 07/11/2019 DISCUSSION: The bones are osteopenic. There is an old deformity of the second metacarpal. There are no acute fractures. There are osteoarthritic changes present most pronounced the level the first carpometacarpal joint. Mild erosive osteoarthritic changes are present the level of the distal interphalangeal joints. There is soft tissue swelling most pronounced at the level of the second and third fingers. Dorsal soft tissue edema is also evident. There is no conventional radiographic evidence of acute osteomyelitis. IMPRESSION: 1. No acute fractures 2. Osteoarthritic change 3. Soft tissue swelling 4. No conventional radiographic evidence of acute osteomyelitis ACT 112: Negative or not required by law. Electronically signed by: Harry Lucas M.D. 07/22/2019 5:32 PM Blood Pressure Blood Pressure Findings: Elevated blood pressure Blood Pressure Disposition: further management by hospitalist NITHYA Narrative This patient comes in as described above. She was placed in room A3. She is here for treatment and evaluation of right hand redness and swelling. She was sent over from her primary care physician's office for admission for cellulitis and failed outpatient therapy. She has been on doxycycline as well as Keflex and recently switched to Augmentin. she continued have some increasing redness and swelling. she has no fever. There is certainly concern for potential deep space hand infection however she has no pain with movement of her fingers. IV access was established by her a port. Blood cultures were obtained. Her white counts in the 10 range. Her lactic acid is not elevated. She has no significant electrolyte or metabolic abnormalities. She was given IV daptomycin as well as IV Zosyn. This was broad-spectrum coverage, given the fact that she is failed outpatient treatment as well as is a diabetic and has chronic lymphe gui. She will be admitted/observe for further IV antibiotics and treatment and evaluation. Impression & Plan Cellulitis of left hand, Diabetes mellitus, type 2, Lymphedema of left arm, History of breast cancer, Failure of outpatient treatment Discharge Plan Visit Data *Final* Discharge Date/Time: 07/22/19 21:11 Chief Complaint: Hand Injury/Pain Stated Complaint: CELLULITIS IN LEFT HAND ED Provider: Ghanshyam Chacon Discharge Problem: Cellulitis of left hand, Diabetes mellitus, type 2, Lymphedema of left arm, History of breast cancer, Failure of outpatient treatment Patient Disposition: Admitted As Inpatient Discharge Instructions Interventions: ED Discharge Assessment Last Done: 07/22/19 21:11 Discharge Problem: Diabetes mellitus, type 2 Qualifiers: Diabetes mellitus half-way insulin use: without intermodal dispatcher use Diabetes vanita litus complication status: without complication Qualified Code(s): E11.9 - Type 2 diabetes mellitus without complications The scribe's documentation has been prepared under my direction and personally reviewed by me in its entirety. I confirm that the note above accurately reflects all work, treatment, procedures, and medical decision making performed by me.
[2019-07-22 18:23] LABS: Albumin Globulin Ratio 0.8 (0.9-2); Albumin Level 3.1 gm/dl (3.4-5.0); BUN Creatinine Ratio 23.4 (10-20); Bilirubin,Total 0.3 mg/dl (0.2-1); Calcium 9.4 mg/dl (8.5-10.1); Creatinine Clr Calc Pharmacy 43.5 ml/min; Est GFR (Non-African American) 43.2; Globulin 3.7 gm/dl (2.5-4.0); Potassium 4.5 mmol/L (3.5-5.1); Total Protein 6.8 gm/dl (6.4-8.2)
[2019-07-22 18:29] LABS: Partial Thromboplastin Ratio 0.9; Partial Thromboplastin Time 24.9 Seconds (21.0-31.0); Prothrombin Time 10.1 Seconds (9.0-12.0)
--- NOTE | 2019-07-22 20:42 | History & Physical Report ---
Date of Service July 22, 2019 Assessment & Plan (1) Cellulitis of left hand: 74-year-old female was admitted on 22 July 2019 for left hand cellulitis that failed outpatient management. Left hand cellulitis: Initially seen on 12Dec, negative for LUE DVT then. On Keflex, then doxy, then Augmentin on 19Dec as outpatient (since completed). Dec clinic appt noted failed outpatient treatment and worsening ROM of the third digit. Denies fever/chills. Baseline LUE lymphedema (s/p axillary lymph node dissection). Does not have all Knavel signs. - In ED, is afebrile, borderline bradycardia, some hypertension, good room SpO2. WBC 10, lactate 1.6. X-ray left hand shows soft tissue swelling without evidence of fractures or osteomyelitis. BCx sent. - In ED, started on Zosyn and daptomycin. - Will continue on same antibiotics. Consult orthopedics. Elevated alk phos: Admit AP 132, with similar levels over the past few months. Remaining LFTs normal. No abdominal symptoms. Monitor for now, outpatient follow-up. Ongoing medical issues: - Hypertension, hypertrophic obstructive cardiomyopathy: Followed by cardiology. Continue home atenolol and lisinopril. - CKD stage III: Admit Cr 1.23 (actually better than recent comparisons). - Diabetes: At home is on metformin and glimepiride. As inpatient, placed on insulin sliding scale. - Spinal stenosis, chronic back pain, chronic arthritis pain: Continue home Tylenol. - History of breast cancer: Continue home anastrozole. Code status: Full code. Diet: Diabetic. DVT prophy: Lovenox. PT/OT: Deferred. Disbo: Admit to [facility] for observation. (2) Lymphedema of left arm: (3) Elevated alkaline phosphatase level: (4) Hypertension: (5) HOCM (hypertrophic obstructive cardiomyopathy): (6) CKD (chronic kidney disease) stage 3, GFR 30-59 ml/min: (7) Diabetes mellitus, type 2: (8) Spinal stenosis: (9) Chronic back pain: (10) History of breast cancer: History of Present Illness Primary Care Provider: Tali Olson DO 74-year-old female was initially seen in the emergency department on July 11 for left hand swelling that occurred a week prior. Was diagnosed with cellulitis and sent home on antibiotics. Over the subsequent almost 2 weeks she has been on Keflex, doxycycline, and Augmentin (with last dose this morning). She was again seen by her primary care provider this morning where she noted that she developed some skin peeling over the past couple of days as well as significant worsening of her MCP range of motion. She was then referred here for failure of outpatient management. Here in the ED, patient says that her hand is not really painful but that she cannot move her third digit much at all. She notes that she had some peeling of the skin over the past couple of days. Does not say that the erythema that is currently present has recently worsened. Denies any fever or chills. He has had some loose stools with antibiotics but denies any abdominal pain. Denies any rashes or issues with movement of her other digits. No other acute patient concerns. - Past medical history includes chronic back pain, CKD stage III, diabetes type 2, hokum, necrotizing fasciitis, hypertension, low magnesium, insomnia, nephrolithiasis, left breast cancer and left arm lymphedema, mitral regurg, osteoarthritis, radiation fibrosis of lung, spinal stenosis, urinary incontinence, colon polyps, urinary incontinence, adrenal adenoma - Past surgical history includes right hip replacement 2014, lithotripsy, cataract surgery, ORIF, hysterectomy, partial mastectomy with axillary lymph n ode dissection - Social history includes never smoking, no alcohol use, lives at home alone. Allergies Allergy/AdvReac Type Severity Reaction Status Date / Time Sulfa (Sulfonamide Allergy Intermediate HIVES - Verified 07/22/19 13:43 Antibiotics) ITCHING adhesive Allergy Unknown BLISTERING Verified 07/22/19 13:43 Home Medications Home Medications Medication Instructions Recorded Confirmed Type acetaminophen [Tylenol Extra 500 mg PO BID 05/29/18 07/22/19 History Strength] multivitamin 1 tab PO QAM 05/29/18 07/22/19 History anastrozole 1 mg tablet 1 mg PO QAM #90 tab 05/24/19 07/22/19 Rx atenolol 50 mg tablet 75 mg PO QAM #90 tab 05/24/19 07/22/19 Rx lisinopril 40 mg tablet 40 mg PO DAILY #90 tab 05/24/19 07/22/19 Rx glimepiride 1 mg tablet 1 mg PO QAM #90 tab 06/11/19 07/22/19 Rx metformin 500 mg tablet 500 mg PO BID #180 tab 06/11/19 07/22/19 Rx amoxicillin 875 mg-potassium 1 tab PO BID 10 Days #20 tab 07/18/19 07/22/19 Rx clavulanate 125 mg tablet Past Med/Surg History Medical History (Updated 07/23/19 @ 14:26 by Shira Marroquin PA-C) Adrenal adenoma Breast cancer Chronic back pain TO RIGHT LEG Diabetes mellitus, type 2 (Acute) HOCM (hypertrophic obstructive cardiomyopathy) Hx of necrotising fasciitis [id number] Hypertension Hypomagnesemia Insomnia Kidney stones Left ventricular outflow obstruction Lymphedema of left arm Due to left axillary lymph node dissection - LIMB RESTRICTION Lymphedema of left arm (Acute) Malignant neoplasm of central portion of left breast in female, estrogen receptor positive (08/08/17) "Abnormal left breast mammogram Status post ultrasound-guided core needle biopsies August 08, 2017 Invasive ductal carcinoma grade 2 Estrogen receptor positive, progesterone receptor positive, HER-2/shankar nega tive Axillary node biopsy positive Status post left partial mastectomy and axillary dissection August 30, 2017 Stage pTic pN1a M0 Systemic chemotherapy with docetaxel and cyclophosphamide every 3 weeks for 4 cycles, chemotherapy completed November 29, 2017 Status post completion of radiation therapy February 14, 2018. She received 6400 cGy. Treatment to the left breast, supraclavicular area, and axilla." On 11/23/17 12:50 Lulu Spence wrote "Abnormal left breast mammogram Status post ultrasound-guided core needle biopsies August 08, 2017 Invasive ductal carcinoma grade 2 Estrogen receptor positive, progesterone receptor positive, HER-2/shankar negative Axillary node biopsy positive Status post left partial mastectomy and axillary dissection August 30, 2017 Stage pTic pN1a M0 Systemic chemotherapy with docetaxel and cyclophosphamide every 3 weeks for 4 cycles, chemotherapy will complete November 29, 2017" Mitral regurgitation Osteoarthritis Radiation fibrosis of lung Spinal stenosis Urinary incontinence Surgical History H/O lithotripsy History of cataract surgery R/L History of open reduction and internal fixation (ORIF) procedure L ELBOW History of total hip arthroplasty R/L History of total knee replacement RIGHT Hx of ovarian cystectomy S/P hysterectomy S/P partial mastectomy (~08/30/17) L breast, with axiallary LN dissection Social History Preferred Language: Syriac Communication Ability: Effective Visual Impairment: Limited Hearing Ability: Hard of Hearing Broke Worker Required: No Beliefs That Will Affect Care: None marital status: Single Current Living Situation: Alone current occupational status: retired Other Information That Helps Us Care for You: No Feels Safe at Home: Yes Safety Concerns: Feels Safe At This Time Smoking Status: Never smoker Second Hand Exposure: No ; Hx Alcohol Use: No Hx Substance Use: No Childhood Exposure to Second-Hand Smoke: No caffeine: Yes (Tea x 1 per day) during the past year weight has: remained stable Dental Care, Regularly: Yes Physical Activity Frequency: Does not Exercise Seatbelt Use: always Sunscreen Use: Yes Review of Systems Review of Systems: Constitutional: Denies fevers, chills, focal weakness Eyes: Denies any visual loss or diplopia ENT: Denies any ear/nose/throat pain or difficulty speaking or swallowing Respiratory: Denies any dyspnea, cough, hemoptysis Cardiovascular: Denies any chest pain or feeling of edema Gastrointestinal: Denies any abdominal pain, nausea/vomiting. Some loose sto ols. Musculoskeletal: Left hand and finger as above. Skin: Left hand and finger as above. Neuro: Denies any headache, acute focal weakness or numbness, or difficulties with speech or swallow. Physical Exam Physical Exam: GENERAL: Awake, alert, well-appearing, in no acute distress. HENT: Normocephalic, atraumatic. Oropharynx unremarkable. EYES: Normal conjunctiva. Sclera non-icteric. NECK: Inspection normal. Supple and full ROM. No nuchal rigidity. CARDIAC: +S1S2 borderline but regular bradycardia, 3/6 murmur. RESPIRATORY: Clear to auscultation. No wheezes or rales. Normal respiratory effort. GI: +BS, soft, non-distended. No tenderness to palpation. No rebound or guarding. EXTREMITIES: No pedal edema or calf tenderness. The left upper extremity is diffusely edematous consistent with baseline lymphedema. There is notable increased swelling of the entire third digit. There is some mild peeling of the skin on the palmar surface mostly around the MCP joint. Increased erythema that is not warm or tender in this area as well. Cannot flex the third MCP at all. No difficulty with flexion of the remaining digits. Distal sensation and cap refill intact. NEURO: No gross neuro deficits. Results & Data Vital Signs (Past 12 Hours) Vital Signs Temp Pulse Pulse Resp BP BP Pulse Ox 07/22/19 20:30 60 16 167/81 H 96 07/22/19 20:00 62 24 160/108 H 96 07/22/19 19:30 60 16 172/80 H 95 07/22/19 19:00 61 15 171/84 H 98 07/22/19 18:34 59 L 19 149/79 H 96 07/22/19 16:40 36.4 C L 71 18 152/82 H 96 Laboratory Results 07/22/19 07/22/19 07/22/19 Range/Units 17:48 17:48 17:48 WBC (4.8-10.8) K/uL RBC (4.2-5.4) M/uL Hgb (12.0-16.0) g/dL Hct (37-47) % MCV (80-100) fL MCH (25-34) pg MCHC (32-36) g/dL RDW Std Deviation (36.4-46.3) fL RDW Coeff of Leno (11.5-14.5) % Plt Count (130-400) K/uL MPV (7.4-10.4) fL Immature Gran % (Auto) % Neut % (Auto) % Lymph % (Auto) % [place] % (Auto) % Eos % (Auto) % Baso % (Auto) % Immature Gran # (Auto) (0.00-0.02) K/uL Neut # (Auto) (1.4-6.5) K/uL Lymph # (Auto) (1.2-3.4) K/uL [place] # (Auto) (0.11-0.59) K/uL Eos # (Auto) (0-0.5) K/uL Baso # (Auto) (0-0.2) K/uL PT 10.1 (9.0-12.0) Seconds INR 1.0 (0.9-1.1) APTT 24.9 (21.0-31.0) Seconds PTT Ratio 0.9 Sodium 138 (136-145) mmol/L Potassium 4.5 (3.5-5.1) mmol/L Chloride 109 H (98-107) mmol/L Carbon Dioxide 23 (21-32) mmol/L Anion Gap 6.0 (3-11) BUN 29 H (7-18) mg/dl Creatinine 1.23 H (0.6-1.2) mg/dl Est Cr Clr Drug Dosing 43.5 ml/min Est GFR ( Amer) 50.0 Est GFR (Non-Af Amer) 43.2 BUN/Creatinine Ratio 23.4 H (10-20) Glucose 146 H (70-99) mg/dl Lactate 1.6 (0.4-2.0) mmol/L Calcium 9.4 (8.5-10.1) mg/dl Total Bilirubin 0.3 (0.2-1) mg/dl AST 19 (15-37) U/L ALT 24 (12-78) U/L Alkaline Phosphatase 132 H (45-117) U/L Total Protein 6.8 (6.4-8.2) gm/dl Albumin 3.1 L (3.4-5.0) gm/dl Globulin 3.7 (2.5-4.0) gm/dl Albumin/Globulin Ratio 0.8 L (0.9-2) Specimen Hemolysis 07/22/19 Range/Units 17:48 WBC 10.17 (4.8-10.8) K/uL RBC 3.92 L (4.2-5.4) M/uL Hgb 12.0 (12.0-16.0) g/dL Hct 37.1 (37-47) % MCV 94.6 (80-100) fL MCH 30.6 (25-34) pg MCHC 32.3 (32-36) g/dL RDW Std Deviation 51.4 H (36.4-46.3) fL RDW Coeff of Leno 15.0 H (11.5-14.5) % Plt Count 372 (130-400) K/uL MPV 9.4 (7.4-10.4) fL Immature Gran % (Auto) 0.4 % Neut % (Auto) 76.4 % Lymph % (Auto) 14.4 % [place] % (Auto) 5.5 % Eos % (Auto) 2.8 % Baso % (Auto) 0.5 % Immature Gran # (Auto) 0.04 H (0.00-0.02) K/uL Neut # (Auto) 7.78 H (1.4-6.5) K/uL Lymph # (Auto) 1.46 (1.2-3.4) K/uL [place] # (Auto) 0.56 (0.11-0.59) K/uL Eos # (Auto) 0.28 (0-0.5) K/uL Baso # (Auto) 0.05 (0-0.2) K/uL PT (9.0-12.0) Seconds INR (0.9-1.1) APTT (21.0-31.0) Seconds PTT Ratio Sodium (136-145) mmol/L Potassium (3.5-5.1) mmol/L Chloride (98-107) mmol/L Carbon Dioxide (21-32) mmol/L Anion Gap (3-11) BUN (7-18) mg/dl Creatinine (0.6-1.2) mg/dl Est Cr Clr Drug Dosing ml/min Est GFR ( Amer) Est GFR (Non-Af Amer) BUN/Creatinine Ratio (10-20) Glucose (70-99) mg/dl Lactate (0.4-2.0) mmol/L Calcium (8.5-10.1) mg/dl Total Bilirubin (0.2-1) mg/dl AST (15-37) U/L ALT (12-78) U/L Alkaline Phosphatase (45-117) U/L Total Protein (6.4-8.2) gm/dl Albumin (3.4-5.0) gm/dl Globulin (2.5-4.0) gm/dl Albumin/Globulin Ratio (0.9-2) Specimen Hemolysis Medications Administered Discontinued Medications Piperacillin Sod/Tazobactam Sod (Zosyn) 4.5 gm in 120 mls @ 240 mls/hr IV NOW STA Stop: 07/22/19 17:49 Last Infusion: 07/22/19 18:25 Dose: 0 mls/hr Documented by: [id number] Admin: 07/22/19 17:55 Dose: 240 mls/hr Documented by: [id number] Daptomycin 225 mg/ Syringe 4.5 mls @ 2.25 mls/min IV NOW STA Stop: 07/22/19 17:32 Last Admin: 07/22/19 18:27 Dose: 2.25 mls/min Documented by: [id number] Code Status & VTE Plan Code Status Full code VTE Prophylaxis Plan VTE Prophylaxis will be ordered: Yes Supervising Physician Co-Signing Physician Notes Attending addendum: I have physically seen this patient, have supervised the medical residents activities, and agree with the H&P unless as otherwise noted. Assessment and Plan: Left hand cellulitis- Failure of outpatient therapy. Left upper extremity Doppler negative for DVT. In series, has failed Keflex, doxycycline, and Augmentin. Continue daptomycin IV and Zosyn IV begun in the ED. Consult orthopedics. Remainder of orders and notations as noted. Resident Activity Tracking Resident Involvement: Resident Care Provided Care Provided: Adult Hospital Medicine (1) Diabetes mellitus, type 2 Diabetes mellitus complication status: without complication Diabetes mellitus mcc insulin use: without mcc use Qualified Code(s): E11.9 - Type 2 diabetes mellitus without complications
[2019-07-22] MEDS ORDERED: ONDANSETRON INJ 2 MG/ML 2 ML VIAL IV PRN (21:23)
[2019-07-22] MEDS ORDERED: PIPERACILLIN/TAZOBACTAM 3.375 GM in DEXTROSE 5% 100 ML IV SCH ×2 (21:23→22:00)
[2019-07-22] MEDS ORDERED: GLUCOSE 40% GEL 15 GM TUBE PO PRN (21:23)
[2019-07-22] MEDS ORDERED: CARBOHYDRATES FOR HYPOGLYCEMIA PO PRN (21:23)
[2019-07-22] MEDS ORDERED: GLUCOSE 10 TABS/TUBE PO PRN (21:23)
[2019-07-22] MEDS ORDERED: DEXTROSE 50% 50 ML SYRINGE IV PRN (21:23)
[2019-07-22] MEDS ORDERED: PIPERACILL/TAZOBAC CONSULT ACTIVE PRN (21:23)
[2019-07-22] MEDS ORDERED: GLUCAGON FOR INJ 1 MG VIAL SQ PRN (21:23)
[2019-07-22] MEDS ORDERED: PIPERACILLIN/TAZOBACTAM 3.375 GM in DEXTROSE 5% 100 ML IV STA (22:02)
[2019-07-22] MEDS: ACETAMINOPHEN 500 MG TAB PO SCH (22:15)
[2019-07-23] MEDS: INSULIN ASPART 100 UNITS/ML 3 ML PEN SC SCH ×5 (00:14→21:13)
[2019-07-23] MEDS: PIPERACILLIN/TAZOBACTAM 3.375 GM in DEXTROSE 5% 100 ML IV SCH ×3 (05:26→20:08)
[2019-07-23 06:13] LABS: Basophils # (auto) 0.02 K/uL (0-0.2); Basophils % (auto) 0.3 %; Eosinophils % (auto) 3.9 %; Hematocrit (blood only) 34.8 % (37-47); Hemoglobin 11.1 g/dL (12.0-16.0); Immature Granulocytes # (auto) 0.03 K/uL (0.00-0.02); Immature Granulocytes % (auto) 0.4 %; Lymphocytes # (auto) 1.43 K/uL (1.2-3.4); Lymphocytes % (auto) 18.8 %; Mean Corpuscular Hemoglobin 29.9 pg (25-34); Mean Corpuscular Hgb Conc 31.9 g/dL (32-36); Mean Corpuscular Volume 93.8 fL (80-100); Mean Platelet Volume 9.4 fL (7.4-10.4); Monocytes # (auto) 0.57 K/uL (0.11-0.59); Monocytes % (auto) 7.5 %; Neutrophils # (auto) 5.27 K/uL (1.4-6.5); Neutrophils % (auto) 69.1 %; Platelet Count 322 K/uL (130-400); RDW Coefficient of Variation 15.2 % (11.5-14.5); RDW Standard Deviation 51.3 fL (36.4-46.3); Red Blood Count 3.71 M/uL (4.2-5.4); White Blood Count 7.62 K/uL (4.8-10.8)
[2019-07-23 06:47] LABS: BUN Creatinine Ratio 19.5 (10-20); Calcium 9.1 mg/dl (8.5-10.1); Creatinine Clr Calc Pharmacy 40.2 ml/min; Est GFR (African American) 45.5; Est GFR (Non-African American) 39.3; Potassium 4.3 mmol/L (3.5-5.1)
--- NOTE | 2019-07-23 08:34 | Hospitalist Progress Note ---
Date of Service July 23, 2019 Assessment & Plan (1) Cellulitis of left hand: * Initially seen on 12Dec, negative for LUE DVT then. On Keflex, then doxy, then Augmentin on 19Dec as outpatient (since completed). 23Dec clinic appt noted failed outpatient treatment and worsening ROM of the third digit. Denies fever/chills. Baseline LUE lymphedema (s/p axillary lymph node dissection). Does not have all Knavel signs. * WBC 7.6k today, patient afebrile, hypertensive. 94% on RA. If BP continues to be elevated, may titrate atenolol * X-ray left hand shows soft tissue swelling without evidence of fractures or osteomyelitis. * BCx pending * Continue IV Zosyn and daptomycin. * Orthopedics consult -- appreciate recs * MRI hand today (2) Hypertension: * Follows with Dr. Schultz. Continue home atenolol and lisinopril. * BP elevated, possibly some aspect of pain related -- no s/sx end organ damage * Per outpatient notes, patient was previously on amlodipine but had discotninued this medication * If needed, could consider titrating atenolol up to 100mg daily * Continue to monitor (3) Diabetes mellitus, type 2: * At home is on metformin and glimepiride -- on hold while inpatient * SSI * Most recent A1c 6.8% on 07/06/18 -- should have repeat as outpatient * Blood sugars have been acceptable while inpatient * Continue to monitor (4) CKD (chronic kidney disease) stage 3, GFR 30-59 ml/min: * Cr 1.23 on admission * Currently 1.33, although appears near baseline * Continue to monitor (5) Failure of outpatient treatment: * Had been on keflex, doxy, augmentin prior to admission * As above (6) History of breast cancer: * s/p L breast lumpectomy, chemo, radiation - diagnosed 2017 * Continue home anastrozole. (7) Lymphedema of left arm: * secondary to breast ca/sentinal lymph node biopsy * Restrict arm -- no labs/IVs to left side (8) Elevated alkaline phosphatase level: * On admission, 132, with similar levels over the past few months. Remaining LFTs normal. No abdominal symptoms. * Repeat in AM (9) Cellulitis: * As above (10) Swelling of finger: * As above-- LEFT 3rd digit (11) Left ventricular outflow obstruction: * Hx HOCM -- follows with Geovanna as above * Could consider titrating atenolol as above (12) Mitral regurgitation: * On most recent ECHO (13) Osteoarthritis: * H/o * Continue home tylenol (14) Chronic back pain: * Continue home Tylenol (15) DVT prophylaxis: * SCDs while inpatient * No chemoproph incase surgical intervention Dispo: continue IV abx, MRI hand this afternoon -- possible discharge in AM pending results and improvement of swelling/ROM Subjective Patient evaluated this morning. States redness/pain decreased, but she is still unable to move her middle finger of left hand. She states "I wouldn't have been surprised if it was my fourth finger" because she has a history of trigger finger, but states she is unaware of any open wound/sores. She originally thought it was gout. States she was opening a cheese jar and that's when it started. She states it was better initially with outpatient antibiotics but then it got worse, was itchy, and then began to peels. She saw Dr. Olson and was told to come to the ER. Pain controlled currently with medications. Plan for MRI today and to continue IV abx at this time. Patient denies any fevers, chills, chest pain, shortness of breath, headache, nausea, vomiting, diarrhea, constipation, dysuria. No other concerns at this time. Review of Systems Review of Systems: All systems reviewed & are unremarkable except as noted in HPI & below Physical Exam Constitutional: WD/WN, vitals as above + obese Eyes: + anicteric sclerae and PERRL Neck: trachea midline, no thyromegaly Respiratory: normal respiratory effort, lungs clear to auscultation Cardiovascular: Rate/Rhythm: regular rate and regular rhythm Heart Sounds: normal S1, normal S2 and + murmur (3/6 systolic ) Gastrointestinal (Abdomen): normal bowel sounds, soft, nontender, no hepatosplenomegaly Musculoskeletal: no cyanosis or clubbing, extremities motor strength 5/5 Skin: LUE swelling, chronic lymphedema Swelling/erythema of entire third digit as well as palmar aspect of hand. Heeling area from previous peeling. Non tender to palpation. No flexion of 3rd M CP. All other digits with full ROM. Sensation intact. s neuro deficits. Neurologic: PERRL, EOMI, accommodation nl, no face palsy, no dysarthria Psychiatric: A+Ox3, euthymic affect Lymphatic: no cervical or axillary lymphadenopathy Results & Data Vital Signs (Past 12 Hours) Vital Signs Temp Pulse Pulse Pulse Resp BP BP 07/23/19 07:59 36.5 C 60 14 162/81 H 07/22/19 23:27 36.5 C 59 L 18 166/78 H 07/22/19 21:25 36.7 C 95 H 16 169/81 H 07/22/19 21:00 64 23 154/75 H Pulse Ox 07/23/19 07:59 94 07/22/19 23:27 96 07/22/19 21:25 95 07/22/19 21:00 95 Laboratory Results 07/23/19 07/23/19 07/22/19 Range/Units 05:52 05:52 23:58 WBC 7.62 (4.8-10.8) K/uL RBC 3.71 L (4.2-5.4) M/uL Hgb 11.1 L (12.0-16.0) g/dL Hct 34.8 L (37-47) % MCV 93.8 (80-100) fL MCH 29.9 (25-34) pg MCHC 31.9 L (32-36) g/dL RDW Std Deviation 51.3 H (36.4-46.3) fL RDW Coeff of Leno 15.2 H (11.5-14.5) % Plt Count 322 (130-400) K/uL MPV 9.4 (7.4-10.4) fL Immature Gran % (Auto) 0.4 % Neut % (Auto) 69.1 % Lymph % (Auto) 18.8 % [place] % (Auto) 7.5 % Eos % (Auto) 3.9 % Baso % (Auto) 0.3 % Immature Gran # (Auto) 0.03 H (0.00-0.02) K/uL Neut # (Auto) 5.27 (1.4-6.5) K/uL Lymph # (Auto) 1.43 (1.2-3.4) K/uL [place] # (Auto) 0.57 (0.11-0.59) K/uL Eos # (Auto) 0.30 (0-0.5) K/uL Baso # (Auto) 0.02 (0-0.2) K/uL PT (9.0-12.0) Seconds INR (0.9-1.1) APTT (21.0-31.0) Seconds PTT Ratio Sodium 140 (136-145) mmol/L Potassium 4.3 (3.5-5.1) mmol/L Chloride 108 H (98-107) mmol/L Carbon Dioxide 26 (21-32) mmol/L Anion Gap 6.0 (3-11) BUN 26 H (7-18) mg/dl Creatinine 1.33 H (0.6-1.2) mg/dl Est Cr Clr Drug Dosing 40.2 ml/min Est GFR ( Amer) 45.5 Est GFR (Non-Af Amer) 39.3 BUN/Creatinine Ratio 19.5 (10-20) Glucose 130 H (70-99) mg/dl POC Glucose 141 H (70-99) Lactate (0.4-2.0) mmol/L Calcium 9.1 (8.5-10.1) mg/dl Total Bilirubin (0.2-1) mg/dl AST (15-37) U/L ALT (12-78) U/L Alkaline Phosphatase (45-117) U/L Total Protein (6.4-8.2) gm/dl Albumin (3.4-5.0) gm/dl Globulin (2.5-4.0) gm/dl Albumin/Globulin Ratio (0.9-2) Specimen Hemolysis 07/22/19 07/22/19 07/22/19 Range/Units 22:06 17:48 17:48 WBC (4.8-10.8) K/uL RBC (4.2-5.4) M/uL Hgb (12.0-16.0) g/dL Hct (37-47) % MCV (80-100) fL MCH (25-34) pg MCHC (32-36) g/dL RDW Std Deviation (36.4-46.3) fL RDW Coeff of Leno (11.5-14.5) % Plt Count (130-400) K/uL MPV (7.4-10.4) fL Immature Gran % (Auto) % Neut % (Auto) % Lymph % (Auto) % [place] % (Auto) % Eos % (Auto) % Baso % (Auto) % Immature Gran # (Auto) (0.00-0.02) K/uL Neut # (Auto) (1.4-6.5) K/uL Lymph # (Auto) (1.2-3.4) K/uL [place] # (Auto) (0.11-0.59) K/uL Eos # (Auto) (0-0.5) K/uL Baso # (Auto) (0-0.2) K/uL PT (9.0-12.0) Seconds INR (0.9-1.1) APTT (21.0-31.0) Seconds PTT Ratio Sodium 138 (136-145) mmol/L Potassium 4.5 (3.5-5.1) mmol/L Chloride 109 H (98-107) mmol/L Carbon Dioxide 23 (21-32) mmol/L Anion Gap 6.0 (3-11) BUN 29 H (7-18) mg/dl Creatinine 1.23 H (0.6-1.2) mg/dl Est Cr Clr Drug Dosing 43.5 ml/min Est GFR ( Amer) 50.0 Est GFR (Non-Af Amer) 43.2 BUN/Creatinine Ratio 23.4 H (10-20) Glucose 146 H (70-99) mg/dl POC Glucose 183 H (70-99) Lactate 1.6 (0.4-2.0) mmol/L Calcium 9.4 (8.5-10.1) mg/dl Total Bilirubin 0.3 (0.2-1) mg/dl AST 19 (15-37) U/L ALT 24 (12-78) U/L Alkaline Phosphatase 132 H (45-117) U/L Total Protein 6.8 (6.4-8.2) gm/dl Albumin 3.1 L (3.4-5.0) gm/dl Globulin 3.7 (2.5-4.0) gm/dl Albumin/Globulin Ratio 0.8 L (0.9-2) Specimen Hemolysis 07/22/19 07/22/19 Range/Units 17:48 17:48 WBC 10.17 (4.8-10.8) K/uL RBC 3.92 L (4.2-5.4) M/uL Hgb 12.0 (12.0-16.0) g/dL Hct 37.1 (37-47) % MCV 94.6 (80-100) fL MCH 30.6 (25-34) pg MCHC 32.3 (32-36) g/dL RDW Std Deviation 51.4 H (36.4-46.3) fL RDW Coeff of Leno 15.0 H (11.5-14.5) % Plt Count 372 (130-400) K/uL MPV 9.4 (7.4-10.4) fL Immature Gran % (Auto) 0.4 % Neut % (Auto) 76.4 % Lymph % (Auto) 14.4 % [place] % (Auto) 5.5 % Eos % (Auto) 2.8 % Baso % (Auto) 0.5 % Immature Gran # (Auto) 0.04 H (0.00-0.02) K/uL Neut # (Auto) 7.78 H (1.4-6.5) K/uL Lymph # (Auto) 1.46 (1.2-3.4) K/uL [place] # (Auto) 0.56 (0.11-0.59) K/uL Eos # (Auto) 0.28 (0-0.5) K/uL Baso # (Auto) 0.05 (0-0.2) K/uL PT 10.1 (9.0-12.0) Seconds INR 1.0 (0.9-1.1) APTT 24.9 (21.0-31.0) Seconds PTT Ratio 0.9 Sodium (136-145) mmol/L Potassium (3.5-5.1) mmol/L Chloride (98-107) mmol/L Carbon Dioxide (21-32) mmol/L Anion Gap (3-11) BUN (7-18) mg/dl Creatinine (0.6-1.2) mg/dl Est Cr Clr Drug Dosing ml/min Est GFR ( Amer) Est GFR (Non-Af Amer) BUN/Creatinine Ratio (10-20) Glucose (70-99) mg/dl POC Glucose (70-99) Lactate (0.4-2.0) mmol/L Calcium (8.5-10.1) mg/dl Total Bilirubin (0.2-1) mg/dl AST (15-37) U/L ALT (12-78) U/L Alkaline Phosphatase (45-117) U/L Total Protein (6.4-8.2) gm/dl Albumin (3.4-5.0) gm/dl Globulin (2.5-4.0) gm/dl Albumin/Globulin Ratio (0.9-2) Specimen Hemolysis PG Care Time/CCT Total # of Minutes Spent Total Time Spent with Patient: Total time spent is greater than 50% in coordination of care (as documented) at patient's floor/unit and/or counseling patient: (1) Diabetes mellitus, type 2 Diabetes mellitus complication status: without complication Diabetes mellitus remote computer terminal operator insulin use: without remote computer terminal operator use Qualified Code(s): E11.9 - Type 2 diabetes mellitus without complications (2) Cellulitis Laterality: left Site of cellulitis: extremity Site of cellulitis of extr emity: finger Qualified Code(s): L03.012 - Cellulitis of left finger
[2019-07-23] MEDS: lisinopriL 40 MG TAB PO SCH (08:46)
[2019-07-23] MEDS: ATENOLOL 25 MG TABLET PO SCH (08:46)
[2019-07-23] MEDS: ANASTROZOLE 1 MG TAB PO SCH (08:46)
[2019-07-23] MEDS: ACETAMINOPHEN 500 MG TAB PO SCH ×2 (08:46→20:13)
[2019-07-23] MEDS: MULTIVITAMIN TAB PO SCH (08:53)
--- NOTE | 2019-07-23 09:18 | Orthopedic Consultation ---
Date of Consultation July 23, 2019 Assessment & Plan (1) Cellulitis of left hand: Patient does have cellulitis on her left middle finger mostly on the flexor surface. Does seem to be improving with IV antibiotics. She continues to have some redness and discomfort. We will discuss findings with Dr. Bae and treatment plan. She did have breakfast this morning. May consider getting an MRI of her left hand as well as a sedimentation rate and CRP. Recommended continuation of elevation and gentle range of motion of her finger as tolerated. We will continue to watch and monitor. Will place orders after discussion with Dr. Bae per his recommendations. Continue IV antibiotics. We will continue to follow. I, Dr. Bae, saw and examined the patient and discussed the management with my PA. I reviewed my PAs note and agree with the documented findings and the plan of care I developed. Present on Admission?: Yes History of Present Illness Reason for Consultation: Left middle finger cellulitis Attending Physician: Froylan Friedman MD History of Present Illness Patient is a pleasant 74-year-old female who presented to the emergency room yesterday on July 22 with complaints of increasing pain, swelling, redness and warmth of her left middle finger. She is right-hand dominant. She denies any known injury. She states that this happened on July 04. The only thing that she can recall doing was opening a jar that was kind of tight but she did not injure her hand at that time. It started with some redness and swelling. Happened fairly quickly and she was scheduled to see her family doctor the next day. She showed it to him at that time and was placed on some oral antibiotics. She had x-rays of her left hand at that time as well that showed no acute injury. She was on some oral antibiotics and then again saw her family physician on July 22. There had been been progressive swelling, warmth and discomfort in her left finger. The skin had also started to peel so she was sent to the ED for observation and course of IV antibiotics. Since her admission, she states that the finger is slightly improved there is less redness on the back of the finger. She says is less hard and stiff. Pain has improved as well. She denies any fevers or chills. She denies any chest pain or shortness of breath. She denies any flulike symptoms. She states she has had some loose stools due to the oral antibiotics but otherwise has felt her normal self. She does live alone. She has never had anything like this before. She has not had it wrapped or splinted. There is been no drainage. She had bilateral knee replacements and left hip replacement by Dr. Barker from [facility]. She also sees from [facility] for her back. She is agreeable to have Dr. Bae ([facility]) evaluate her for her left middle finger. Allergies Allergy/AdvReac Type Severity Reaction Status Date / Time Sulfa (Sulfonamide Allergy Intermediate HIVES - Verified 07/22/19 13:43 Antibiotics) ITCHING adhesive Allergy Unknown BLISTERING Verified 07/22/19 13:43 Home Medications Home Medications Medication Instructions Recorded Confirmed Type acetaminophen [Tylenol Extra 500 mg PO BID 05/29/18 07/22/19 History Strength] multivitamin 1 tab PO QAM 05/29/18 07/22/19 History anastrozole 1 mg tablet 1 mg PO QAM #90 tab 05/24/19 07/22/19 Rx atenolol 50 mg tablet 75 mg PO QAM #90 tab 05/24/19 07/22/19 Rx lisinopril 40 mg tablet 40 mg PO DAILY #90 tab 05/24/19 07/22/19 Rx glimepiride 1 mg tablet 1 mg PO QAM #90 tab 06/11/19 07/22/19 Rx metformin 500 mg tablet 500 mg PO BID #180 tab 06/11/19 07/22/19 Rx amoxicillin 875 mg-potassium 1 tab PO BID 10 Days #20 tab 07/18/19 07/22/19 Rx clavulanate 125 mg tablet Patient History Medical History (Updated 07/22/19 @ 20:40 by Kaden Coffman MD) Adrenal adenoma Breast cancer Chronic back pain TO RIGHT LEG Diabetes mellitus, type 2 (Acute) HOCM (hypertrophic obstructive cardiomyopathy) Hx of necrotising fasciitis [id number] Hypertension Hypomagnesemia Insomnia Kidney stones Left ventricular outflow obstruction Lymphedema of left arm Due to left axillary lymph node dissection - LIMB RESTRICTION Lymphedema of left arm (Acute) Malignant neoplasm of central portion of left breast in female, estrogen receptor positive (08/08/17) "Abnormal left breast mammogram Status post ultrasound-guided core needle biopsies August 08, 2017 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 She received 6400 cGy. Treatment to the left breast, supraclavicular area, and axilla." On 11/23/17 12:50 Lulu Spence wrote "Abnormal left breast mammogram Status post ultrasound-guided core needle biopsies August 08, 2017 Invasive ductal carcinoma grade 2 Estrogen receptor positive, progesterone receptor positive, HER-2/shankar negati ve Axillary node biopsy positive Status post left partial mastectomy and axillary dissection August 30, 2017 Stage pTic pN1a M0 Systemic chemotherapy with docetaxel and cyclophosphamide every 3 weeks for 4 cycles, chemotherapy will complete November 29, 2017" Mitral regurgitation Osteoarthritis Radiation fibrosis of lung Spinal stenosis Urinary incontinence Surgical History H/O lithotripsy History of cataract surgery R/L History of open reduction and internal fixation (ORIF) procedure L ELBOW History of total hip arthroplasty R/L History of total knee replacement RIGHT Hx of ovarian cystectomy S/P hysterectomy S/P partial mastectomy (~08/30/17) L breast, with axiallary LN dissection Social History Preferred Language: Italian Communication Ability: Effective Visual Impairment: Limited Hearing Ability: Hard of Hearing 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 Making Required: No Beliefs That Will Affect Care: None marital status: Single Current Living Situation: Alone current occupational status: retired Other Information That Helps Us Care for You: No Feels Safe at Home: Yes Safety Concerns: Feels Safe At This Time Smoking Status: Never smoker Second Hand Exposure: No ; Hx Alcohol Use: No Hx Substance Use: No Childhood Exposure to Second-Hand Smoke: No caffeine: Yes (Tea x 1 per day) during the past year weight has: remained stable Dental Care, Regularly: Yes Physical Activity Frequency: Does not Exercise Seatbelt Use: always Sunscreen Use: Yes Review of Systems Review of Systems: As per HPI. Physical Exam Cardiovascular: Extremities: normal capillary refill Musculoskeletal: Exam of her left middle finger: The finger is swollen as compared to the other fingers. She has full extension of the finger. The dorsum of the finger appears to be normal in discoloration. She does have some dry peeling skin starting at the PIP joint down into her MCP joint. This is more pronounced on the volar surface of the hand. She has full extension at the MCP PIP and DIP joint. Nail is not affected. Capillary refill is brisk. She is nontender throughout her hand. She is nontender throughout the left middle finger except for at the flexor surface of the MCP joint and the proximal phalanx. She has some erythema on the flexor surface of her finger that does not extend past the DIP joint. Goes down into the middle of her palm. Is mildly warm but not specifically tender. This soft tissue is soft. She has some hardness and induration between the MCP joint and the PIP joint on the flexor surface. Is mildly tender with palpation. Mild warmth. No blisters or open wounds. No drainage or fluctuance. She tolerates passive motion of the DIP PIP and MCP joint without any increased pain. She is not able to actively flex her PIP, DIP or MCP joints and is unable to hold against any type of resistance at the PIP and DIP joint. She is able to slightly hold against resistance her finger in a flexed position at the MCP joint. Pain is not limiting her she just is unable to do it. All other fingers of her left hand are uninvolved and not specifically swollen. She does have some chronic lymphedema in that left arm and she states they are mildly larger than her right side but she feels that they are normal in size. She has full extension and flexion mechanisms at all joints of her other fingers. She has full wrist flexion and extension without discomfort. She is nontender around the carpal tunnel. Distal sensation is normal. Left thumb circumduction and opposition is also normal. Skin: no rashes, warm and dry normal turgor and + induration (Left third finger at MCP joint. And into palmar surface of her hand.) Trauma: no abrasion, no laceration and no hematoma Neurologic: Distal pulses 2+. Distal sensation is normal. Results & Data Vital Signs (Past 12 Hours) Vital Signs Temp Pulse Pulse Resp BP Pulse Ox 07/23/19 07:15 36.5 C 60 14 162/81 H 94 07/22/19 23:27 36.5 C 59 L 18 166/78 H 96 07/22/19 21:25 36.7 C 95 H 16 169/81 H 95 Laboratory Results 07/23/19 07/23/19 07/22/19 Range/Units 05:52 05:52 23:58 WBC 7.62 (4.8-10.8) K/uL RBC 3.71 L (4.2-5.4) M/uL Hgb 11.1 L (12.0-16.0) g/dL Hct 34.8 L (37-47) % MCV 93.8 (80-100) fL MCH 29.9 (25-34) pg MCHC 31.9 L (32-36) g/dL RDW Std Deviation 51.3 H (36.4-46.3) fL RDW Coeff of Leno 15.2 H (11.5-14.5) % Plt Count 322 (130-400) K/uL MPV 9.4 (7.4-10.4) fL Immature Gran % (Auto) 0.4 % Neut % (Auto) 69.1 % Lymph % (Auto) 18.8 % [place] % (Auto) 7.5 % Eos % (Auto) 3.9 % Baso % (Auto) 0.3 % Immature Gran # (Auto) 0.03 H (0.00-0.02) K/uL Neut # (Auto) 5.27 (1.4-6.5) K/uL Lymph # (Auto) 1.43 (1.2-3.4) K/uL [place] # (Auto) 0.57 (0.11-0.59) K/uL Eos # (Auto) 0.30 (0-0.5) K/uL Baso # (Auto) 0.02 (0-0.2) K/uL PT (9.0-12.0) Seconds INR (0.9-1.1) APTT (21.0-31.0) Seconds PTT Ratio Sodium 140 (136-145) mmol/L Potassium 4.3 (3.5-5.1) mmol/L Chloride 108 H (98-107) mmol/L Carbon Dioxide 26 (21-32) mmol/L Anion Gap 6.0 (3-11) BUN 26 H (7-18) mg/dl Creatinine 1.33 H (0.6-1.2) mg/dl Est Cr Clr Drug Dosing 40.2 ml/min Est GFR ( Amer) 45.5 Est GFR (Non-Af Amer) 39.3 BUN/Creatinine Ratio 19.5 (10-20) Glucose 130 H (70-99) mg/dl POC Glucose 141 H (70-99) Lactate (0.4-2.0) mmol/L Calcium 9.1 (8.5-10.1) mg/dl Total Bilirubin (0.2-1) mg/dl AST (15-37) U/L ALT (12-78) U/L Alkaline Phosphatase (45-117) U/L Total Protein (6.4-8.2) gm/dl Albumin (3.4-5.0) gm/dl Globulin (2.5-4.0) gm/dl Albumin/Globulin Ratio (0.9-2) Specimen Hemolysis 07/22/19 07/22/19 07/22/19 Range/Units 22:06 17:48 17:48 WBC (4.8-10.8) K/uL RBC (4.2-5.4) M/uL Hgb (12.0-16.0) g/dL Hct (37-47) % MCV (80-100) fL MCH (25-34) pg MCHC (32-36) g/dL RDW Std Deviation (36.4-46.3) fL RDW Coeff of Leno (11.5-14.5) % Plt Count (130-400) K/uL MPV (7.4-10.4) fL Immature Gran % (Auto) % Neut % (Auto) % Lymph % (Auto) % [place] % (Auto) % Eos % (Auto) % Baso % (Auto) % Immature Gran # (Auto) (0.00-0.02) K/uL Neut # (Auto) (1.4-6.5) K/uL Lymph # (Auto) (1.2-3.4) K/uL [place] # (Auto) (0.11-0.59) K/uL Eos # (Auto) (0-0.5) K/uL Baso # (Auto) (0-0.2) K/uL PT (9.0-12.0) Seconds INR (0.9-1.1) APTT (21.0-31.0) Seconds PTT Ratio Sodium 138 (136-145) mmol/L Potassium 4.5 (3.5-5.1) mmol/L Chloride 109 H (98-107) mmol/L Carbon Dioxide 23 (21-32) mmol/L Anion Gap 6.0 (3-11) BUN 29 H (7-18) mg/dl Creatinine 1.23 H (0.6-1.2) mg/dl Est Cr Clr Drug Dosing 43.5 ml/min Est GFR ( Amer) 50.0 Est GFR (Non-Af Amer) 43.2 BUN/Creatinine Ratio 23.4 H (10-20) Glucose 146 H (70-99) mg/dl POC Glucose 183 H (70-99) Lactate 1.6 (0.4-2.0) mmol/L Calcium 9.4 (8.5-10.1) mg/dl Total Bilirubin 0.3 (0.2-1) mg/dl AST 19 (15-37) U/L ALT 24 (12-78) U/L Alkaline Phosphatase 132 H (45-117) U/L Total Protein 6.8 (6.4-8.2) gm/dl Albumin 3.1 L (3.4-5.0) gm/dl Globulin 3.7 (2.5-4.0) gm/dl Albumin/Globulin Ratio 0.8 L (0.9-2) Specimen Hemolysis 07/22/19 07/22/19 Range/Units 17:48 17:48 WBC 10.17 (4.8-10.8) K/uL RBC 3.92 L (4.2-5.4) M/uL Hgb 12.0 (12.0-16.0) g/dL Hct 37.1 (37-47) % MCV 94.6 (80-100) fL MCH 30.6 (25-34) pg MCHC 32.3 (32-36) g/dL RDW Std Deviation 51.4 H (36.4-46.3) fL RDW Coeff of Leno 15.0 H (11.5-14.5) % Plt Count 372 (130-400) K/uL MPV 9.4 (7.4-10.4) fL Immature Gran % (Auto) 0.4 % Neut % (Auto) 76.4 % Lymph % (Auto) 14.4 % [place] % (Auto) 5.5 % Eos % (Auto) 2.8 % Baso % (Auto) 0.5 % Immature Gran # (Auto) 0.04 H (0.00-0.02) K/uL Neut # (Auto) 7.78 H (1.4-6.5) K/uL Lymph # (Auto) 1.46 (1.2-3.4) K/uL [place] # (Auto) 0.56 (0.11-0.59) K/uL Eos # (Auto) 0.28 (0-0.5) K/uL Baso # (Auto) 0.05 (0-0.2) K/uL PT 10.1 (9.0-12.0) Seconds INR 1.0 (0.9-1.1) APTT 24.9 (21.0-31.0) Seconds PTT Ratio 0.9 Sodium (136-145) mmol/L Potassium (3.5-5.1) mmol/L Chloride (98-107) mmol/L Carbon Dioxide (21-32) mmol/L Anion Gap (3-11) BUN (7-18) mg/dl Creatinine (0.6-1.2) mg/dl Est Cr Clr Drug Dosing ml/min Est GFR ( Amer) Est GFR (Non-Af Amer) BUN/Creatinine Ratio (10-20) Glucose (70-99) mg/dl POC Glucose (70-99) Lactate (0.4-2.0) mmol/L Calcium (8.5-10.1) mg/dl Total Bilirubin (0.2-1) mg/dl AST (15-37) U/L ALT (12-78) U/L Alkaline Phosphatase (45-117) U/L Total Protein (6.4-8.2) gm/dl Albumin (3.4-5.0) gm/dl Globulin (2.5-4.0) gm/dl Albumin/Globulin Ratio (0.9-2) Specimen Hemolysis Diagnostic Findings XR hand LT min 3V routine CLINICAL HISTORY: left hand/3rd finger cellulitis COMPARISON: 07/11/2019 DISCUSSION: The bones are osteopenic. There is an old deformity of the second metacarpal. There are no acute fractures. There are osteoarthritic changes present most pronounced the level the first carpometacarpal joint. Mild erosive osteoarthritic changes are present the level of the distal interphalangeal joints. There is soft tissue swelling most pronounced at the level of the second and third fingers. Dorsal soft tissue edema is also evident. There is no conventional radiographic evidence of acute osteomyelitis. IMPRESSION: 1. No acute fractures 2. Osteoarthritic change 3. Soft tissue swelling 4. No conventional radiographic evidence of acute osteomyelitis
[2019-07-23] MEDS: HEPARIN 100 UNIT/ML 5ML FLUSH FLUSH PRN ×2 (09:24→18:01)
--- NOTE | 2019-07-23 16:45 | Magnetic Resonance Report ---
MR hand LT wo con CLINICAL HISTORY: left middle finger, eval for abscess/tendon injury COMPARISON STUDY: X-ray study dated 07/22/2019 FINDINGS: There are no areas of T1 marrow edema to indicate osteomyelitis. There is T2 marrow edema involving t he proximal phalanx of the middle finger, likely representing a reactive osteitis. There are no fluid collections to indicate an abscess. There is a rupture of the flexor digitorum superficialis and flexor digitorum profundus tendon of the third finger. There is evidence of tendinous retraction. There is extensive soft tissue edema surrou nding the tendon sheath, likely related to a traumatic rupture although superimposed infection is dif ficult to exclude given the provided clinical history. Also evident is dorsal soft tissue edema. There are mild to moderate diffuse osteoarthritic changes. There are focal no fluid collections to indicate an abscess. IMPRESSION: 1. Rupture of the flexor digitorum superficialis and flexor digitorum profundus tendons of the third finger with evidence of tendinous retraction. 2. Mild T2 marrow edema involving the proximal phalanx of the middle finger likely representing a rizwan ctive osteitis. There are no findings to indicate acute osteomyelitis. 3. Extensive soft tissue edema surrounding the third flexor tendon sheath, likely secondary to tendo n rupture although superimposed infection cannot be excluded with certainty given the provided clinic al history 4. Moderate diffuse edema of the hand most pronounced dorsally 5. No evidence of focal abscess 6. Osteoarthritic changes ACT 112: Negative or not required by law. Electronically signed by: Harry Lucas M.D. 07/23/2019 4:43 PM
[2019-07-23] MEDS: DAPTOmycin 275 MG in SYRINGE 0 ML IV SCH (18:00)
[2019-07-24] MEDS: HEPARIN 100 UNIT/ML 5ML FLUSH FLUSH PRN ×3 (00:05→15:53)
[2019-07-24] MEDS: PIPERACILLIN/TAZOBACTAM 3.375 GM in DEXTROSE 5% 100 ML IV SCH ×3 (04:19→20:48)
--- NOTE | 2019-07-24 04:22 | Billing Data ---
Date of Service July 24, 2019 Coding Level of Care Code 36696 Initial Inpt Care Lvl 2
[2019-07-24 06:23] LABS: Basophils # (auto) 0.03 K/uL (0-0.2); Basophils % (auto) 0.4 %; Eosinophils # (auto) 0.38 K/uL (0-0.5); Eosinophils % (auto) 4.9 %; Hemoglobin 11.2 g/dL (12.0-16.0); Immature Granulocytes # (auto) 0.02 K/uL (0.00-0.02); Immature Granulocytes % (auto) 0.3 %; Lymphocytes # (auto) 1.09 K/uL (1.2-3.4); Lymphocytes % (auto) 14.2 %; Mean Corpuscular Hemoglobin 30.1 pg (25-34); Mean Corpuscular Volume 94.1 fL (80-100); Mean Platelet Volume 9.7 fL (7.4-10.4); Monocytes # (auto) 0.59 K/uL (0.11-0.59); Monocytes % (auto) 7.7 %; Neutrophils # (auto) 5.58 K/uL (1.4-6.5); Neutrophils % (auto) 72.5 %; Platelet Count 333 K/uL (130-400); RDW Coefficient of Variation 15.2 % (11.5-14.5); RDW Standard Deviation 52.3 fL (36.4-46.3); Red Blood Count 3.72 M/uL (4.2-5.4); White Blood Count 7.69 K/uL (4.8-10.8)
[2019-07-24 07:23] LABS: Albumin Globulin Ratio 0.8 (0.9-2); Albumin Level 2.8 gm/dl (3.4-5.0); BUN Creatinine Ratio 20.1 (10-20); Bilirubin,Total 0.5 mg/dl (0.2-1); Calcium 8.7 mg/dl (8.5-10.1); Creatinine Clr Calc Pharmacy 35.9 ml/min; Est GFR (African American) 39.7; Est GFR (Non-African American) 34.2; Globulin 3.7 gm/dl (2.5-4.0); Potassium 3.9 mmol/L (3.5-5.1); Total Protein 6.5 gm/dl (6.4-8.2)
[2019-07-24] MEDS: ACETAMINOPHEN 500 MG TAB PO SCH ×2 (08:22→20:52)
[2019-07-24] MEDS: MULTIVITAMIN TAB PO SCH (08:22)
[2019-07-24] MEDS: ANASTROZOLE 1 MG TAB PO SCH (08:22)
[2019-07-24] MEDS: lisinopriL 40 MG TAB PO SCH (08:22)
[2019-07-24] MEDS: ATENOLOL 25 MG TABLET PO SCH (08:22)
[2019-07-24] MEDS: INSULIN ASPART 100 UNITS/ML 3 ML PEN SC SCH ×4 (08:24→20:53)
--- NOTE | 2019-07-24 11:01 | Orthopedic Progress Note ---
Date of Service July 24, 2019 Assessment & Plan (1) Cellulitis of left hand: Erythema seem to be improving with IV antibiotics. Continue ice, elevation, and gentle range of motion of her finger as tolerated. We will continue to watch and monitor. Continue care per primary service. Continue IV antibiotics. Will place routine consult for hand, Dr. Snow for further eval and treatment. Could be done as an outpatient. (2) Rupture of flexor tendon of left hand: MRI showed no evidence of abscess. ++ rupture of the FDS and FDP with retraction, Zone 2. Now almost 3 weeks from initial injury. Continue as above and will consult Dr. Guzman, [facility], for further evaluation and treatment. Present on Admission?: Yes Subjective Feeling better. The redness and swelling have come down. Review of Systems Review of Systems: All systems reviewed & are unremarkable except as noted in HPI & below Physical Exam Physical Exam: LUE: Sensation to light touch intact. BCR < 2 sec. Unable to flex at the MF DIP or PIP joint. Decreased swelling and erythema in the palm. Results & Data Vital Signs (Past 12 Hours) Vital Signs Temp Pulse Resp BP Pulse Ox 07/24/19 07:34 36.9 C 62 16 159/77 H 94 07/23/19 23:09 36.8 C 61 16 122/71 96 Diagnostic Findings MR hand LT wo con CLINICAL HISTORY: left middle finger, eval for abscess/tendon injury COMPARISON STUDY: X-ray study dated 07/22/2019 FINDINGS: There are no areas of T1 marrow edema to indicate osteomyelitis. There is T2 marrow edema involving the proximal phalanx of the middle finger, likely representing a reactive osteitis. There are no fluid collections to indicate an abscess. There is a rupture of the flexor digitorum superficialis and flexor digitorum profundus tendon of the third finger. There is evidence of tendinous retraction. There is extensive soft tissue edema surrounding the tendon sheath, likely related to a traumatic rupture although superimposed infection is difficult to exclude given the provided clinical history. Also evident is dorsal soft tissue edema. There are mild to moderate diffuse osteoarthritic changes. There are focal no fluid collections to indicate an abscess. IMPRESSION: 1. Rupture of the flexor digitorum superficialis and flexor digitorum profundus tendons of the third finger with evidence of tendinous retraction. 2. Mild T2 marrow edema involving the proximal phalanx of the middle finger likely representing a reactive osteitis. There are no findings to indicate acute osteomyelitis. 3. Extensive soft tissue edema surrounding the third flexor tendon sheath, likely secondary to tendon rupture although superimposed infection cannot be excluded with certainty given the provided clinical history 4. Moderate diffuse edema of the hand most pronounced dorsally 5. No evidence of focal abscess 6. Osteoarthritic changes ACT 112: Negative or not required by law. Electronically signed by: Harry Lucas M.D. 07/23/2019 4:43 PM Dictated: 07/23/19 1628 Transcribed: 07/23/19 1628
--- NOTE | 2019-07-24 12:14 | Hospitalist Progress Note ---
Date of Service July 24, 2019 Assessment & Plan (1) Cellulitis of left hand: * Initially seen on 12Dec, negative for LUE DVT then. On Keflex, then doxy, then Augmentin on 19Dec as outpatient (since completed). 23Dec clinic appt noted failed outpatient treatment and worsening ROM of the third digit. Denies fever/chills. Baseline LUE lymphedema (s/p axillary lymph node dissection). Does not have all Knavel signs. * WBC 7.6k today, patient afebrile, hypertensive. 94% on RA. If BP continues to be elevated, may titrate atenolol. Acceptable for now. * X-ray left hand shows soft tissue swelling without evidence of fractures or osteomyelitis. * BCx pending -- NGTD * Continue IV Zosyn and daptomycin. * MRI hand -- no evidence of abscess, however does show rupture of FDS and FDP with retraction. * Orthopedics consult -- appreciate recs --> patient to be evaluated by Dr. Snow for further eval/tx. Of note, has been 3 weeks from initial injury. (2) Lymphedema of left arm: * secondary to breast ca/sentinal lymph node biopsy * Restrict arm -- no labs/IVs to left side (3) Elevated alkaline phosphatase level: * On admission, 132, with similar levels over the past few months. Remaining LFTs normal. No abdominal symptoms. * Resolved -- 110 today (4) Hypertension: * Follows with Dr. Schultz. Continue home atenolol and lisinopril. * BP elevated at 159/77 -- possibly some aspect of pain related -- no s/sx end organ damage * Per outpatient notes, patient was previously on amlodipine but had discontinued this medication * If needed, could consider titrating atenolol up to 100mg daily * Continue to monitor (5) HOCM (hypertrophic obstructive cardiomyopathy): * Follows with Dr. Schultz * May titrate beta jim as above as needed (6) CKD (chronic kidney disease) stage 3, GFR 30-59 ml/min: * Cr 1.23 on admission * Currently 1.49, eGFR 34, although appears near baseline over the past year -- patient does not follow with Nephrology -- would rec follow up with Nephrology as outpatient * Continue to monitor (7) Diabetes mellitus, type 2: * At home is on metformin and glimepiride -- on hold while inpatient * SSI * Most recent A1c 6.8% on 07/06/18 -- should have repeat as outpatient * Blood sugars have been acceptable while inpatient * Continue to monitor (8) Chronic back pain: * Hx spinal stenosis * Continue home Tylenol (9) History of breast cancer: * s/p L breast lumpectomy, chemo, radiation - diagnosed 2017 * Continue home anastrozole. (10) Rupture of flexor tendon of left hand: * Of LEFT hand, FDS and FDP with retractions of 3rd digit (11) DVT prophylaxis: * SCDs while inpatient * No chemoproph incase surgical intervention Dispo: further evaluation with Dr. Snow for possible surgical intervention Supervising Physician Co-Signing Physician Notes Pt chart reviewed and pt care d/w PA. Agree with current plan L hand cellulitis, ongoing abx Awaiting c/s with hand specialist Subjective Patient evaluated this morning. Improved pain and erythema, but still unable to flex third finger, left hand. Discussed findings on MRI as likely source of inability to flex digit secondary to tendon rupture. Will need evaluation by hand specialist. Discussed possible need for surgical intervention, but that we will continue IV abx for now. No other concerns at this time. Some itchiness but did not require any medication. Vistaril prn itchiness. Review of Systems Review of Systems: All systems reviewed & are unremarkable except as noted in HPI & below Constitutional: no fever and no chills Eyes: no diplopia and no problem reported Ear, Nose, Mouth, Throat: no sore throat and no dysphagia Respiratory: no cough and no dyspnea Cardiovascular: no chest pain, no palpitations and no edema Gastrointestinal: no abdominal pain, no nausea and no vomiting Genitourinary: no dysuria and no urinary frequency Musculoskeletal: + back pain (chronic) and + joint pain Integumentary: no rash and no lesions Neurologic: no numbness and no paresthesia Physical Exam Constitutional: WD/WN, vitals as above + obese Eyes: + anicteric sclerae and PERRL Neck: trachea midline, no thyromegaly Respiratory: normal respiratory effort, lungs clear to auscultation Cardiovascular: Rate/Rhythm: regular rate and regular rhythm Heart Sounds: normal S1, normal S2 and + murmur (6 systolic ) Gastrointestinal (Abdomen): normal bowel sounds, soft, nontender, no hepatosplenomegaly Musculoskeletal: no cyanosis or clubbing, extremities motor strength 5/5 Skin: erythema of left hand/3rd digit decreased. swelling decreased. sensation intact. Inability to flex 3rd LEFT digit at DIP or PIP joint. port to right chest wall Neurologic: PERRL, EOMI, accommodation nl, no face palsy, no dysarthria Psychiatric: A+Ox3, euthymic affect Lymphatic: no cervical or axillary lymphadenopathy Results & Data Vital Signs (Past 12 Hours) Vital Signs Temp Pulse Resp BP Pulse Ox 07/24/19 07:34 36.9 C 62 16 159/77 H 94 Laboratory Results 07/24/19 07/24/19 07/24/19 Range/Units 08:04 05:24 05:24 WBC 7.69 (4.8-10.8) K/uL RBC 3.72 L (4.2-5.4) M/uL Hgb 11.2 L (12.0-16.0) g/dL Hct 35.0 L (37-47) % MCV 94.1 (80-100) fL MCH 30.1 (25-34) pg MCHC 32.0 (32-36) g/dL RDW Std Deviation 52.3 H (36.4-46.3) fL RDW Coeff of Leno 15.2 H (11.5-14.5) % Plt Count 333 (130-400) K/uL MPV 9.7 (7.4-10.4) fL Immature Gran % (Auto) 0.3 % Neut % (Auto) 72.5 % Lymph % (Auto) 14.2 % Overton % (Auto) 7.7 % Eos % (Auto) 4.9 % Baso % (Auto) 0.4 % Immature Gran # (Auto) 0.02 (0.00-0.02) K/uL Neut # (Auto) 5.58 (1.4-6.5) K/uL Lymph # (Auto) 1.09 L (1.2-3.4) K/uL Overton # (Auto) 0.59 (0.11-0.59) K/uL Eos # (Auto) 0.38 (0-0.5) K/uL Baso # (Auto) 0.03 (0-0.2) K/uL Sodium 138 (136-145) mmol/L Potassium 3.9 (3.5-5.1) mmol/L Chloride 106 (98-107) mmol/L Carbon Dioxide 25 (21-32) mmol/L Anion Gap 7.0 (3-11) BUN 30 H (7-18) mg/dl Creatinine 1.49 H (0.6-1.2) mg/dl Est Cr Clr Drug Dosing 35.9 ml/min Est GFR ( Amer) 39.7 Est GFR (Non-Af Amer) 34.2 BUN/Creatinine Ratio 20.1 H (10-20) Glucose 171 H (70-99) mg/dl POC Glucose 198 H (70-99) Calcium 8.7 (8.5-10.1) mg/dl Total Bilirubin 0.5 (0.2-1) mg/dl AST 8 L (15-37) U/L ALT 18 (12-78) U/L Alkaline Phosphatase 110 (45-117) U/L Total Protein 6.5 (6.4-8.2) gm/dl Albumin 2.8 L (3.4-5.0) gm/dl Globulin 3.7 (2.5-4.0) gm/dl Albumin/Globulin Ratio 0.8 L (0.9-2) 07/23/19 07/23/19 07/23/19 Range/Units 20:25 17:00 11:50 WBC (4.8-10.8) K/uL RBC (4.2-5.4) M/uL Hgb (12.0-16.0) g/dL Hct (37-47) % MCV (80-100) fL MCH (25-34) pg MCHC (32-36) g/dL RDW Std Deviation (36.4-46.3) fL RDW Coeff of Leno (11.5-14.5) % Plt Count (130-400) K/uL MPV (7.4-10.4) fL Immature Gran % (Auto) % Neut % (Auto) % Lymph % (Auto) % Overton % (Auto) % Eos % (Auto) % Baso % (Auto) % Immature Gran # (Auto) (0.00-0.02) K/uL Neut # (Auto) (1.4-6.5) K/uL Lymph # (Auto) (1.2-3.4) K/uL Overton # (Auto) (0.11-0.59) K/uL Eos # (Auto) (0-0.5) K/uL Baso # (Auto) (0-0.2) K/uL Sodium (136-145) mmol/L Potassium (3.5-5.1) mmol/L Chloride (98-107) mmol/L Carbon Dioxide (21-32) mmol/L Anion Gap (3-11) BUN (7-18) mg/dl Creatinine (0.6-1.2) mg/dl Est Cr Clr Drug Dosing ml/min Est GFR ( Amer) Est GFR (Non-Af Amer) BUN/Creatinine Ratio (10-20) Glucose (70-99) mg/dl POC Glucose 207 H 182 H 175 H (70-99) Calcium (8.5-10.1) mg/dl Total Bilirubin (0.2-1) mg/dl AST (15-37) U/L ALT (12-78) U/L Alkaline Phosphatase (45-117) U/L Total Protein (6.4-8.2) gm/dl Albumin (3.4-5.0) gm/dl Globulin (2.5-4.0) gm/dl Albumin/Globulin Ratio (0.9-2) 07/23/19 Range/Units 08:31 WBC (4.8-10.8) K/uL RBC (4.2-5.4) M/uL Hgb (12.0-16.0) g/dL Hct (37-47) % MCV (80-100) fL MCH (25-34) pg MCHC (32-36) g/dL RDW Std Deviation (36.4-46.3) fL RDW Coeff of Leno (11.5-14.5) % Plt Count (130-400) K/uL MPV (7.4-10.4) fL Immature Gran % (Auto) % Neut % (Auto) % Lymph % (Auto) % Overton % (Auto) % Eos % (Auto) % Baso % (Auto) % Immature Gran # (Auto) (0.00-0.02) K/uL Neut # (Auto) (1.4-6.5) K/uL Lymph # (Auto) (1.2-3.4) K/uL Overton # (Auto) (0.11-0.59) K/uL Eos # (Auto) (0-0.5) K/uL Baso # (Auto) (0-0.2) K/uL Sodium (136-145) mmol/L Potassium (3.5-5.1) mmol/L Chloride (98-107) mmol/L Carbon Dioxide (21-32) mmol/L Anion Gap (3-11) BUN (7-18) mg/dl Creatinine (0.6-1.2) mg/dl Est Cr Clr Drug Dosing ml/min Est GFR ( Amer) Est GFR (Non-Af Amer) BUN/Creatinine Ratio (10-20) Glucose (70-99) mg/dl POC Glucose 162 H (70-99) Calcium (8.5-10.1) mg/dl Total Bilirubin (0.2-1) mg/dl AST (15-37) U/L ALT (12-78) U/L Alkaline Phosphatase (45-117) U/L Total Protein (6.4-8.2) gm/dl Albumin (3.4-5.0) gm/dl Globulin (2.5-4.0) gm/dl Albumin/Globulin Ratio (0.9-2) Diagnostic Findings MR hand LT wo con CLINICAL HISTORY: left middle finger, eval for abscess/tendon injury COMPARISON STUDY: X-ray study dated 07/22/2019 FINDINGS: There are no areas of T1 marrow edema to indicate osteomyelitis. There is T2 marrow edema involving the proximal phalanx of the middle finger, likely representing a reactive osteitis. There are no fluid collections to indicate an abscess. There is a rupture of the flexor digitorum superficialis and flexor digitorum profundus tendon of the third finger. There is evidence of tendinous retraction. There is extensive soft tissue edema surrounding the tendon sheath, likely related to a traumatic rupture although superimposed infection is difficult to exclude given the provided clinical history. Also evident is dorsal soft tissue edema. There are mild to moderate diffuse osteoarthritic changes. There are focal no fluid collections to indicate an abscess. IMPRESSION: 1. Rupture of the flexor digitorum superficialis and flexor digitorum profundus tendons of the third finger with evidence of tendinous retraction. 2. Mild T2 marrow edema involving the proximal phalanx of the middle finger likely representing a reactive osteitis. There are no findings to indicate acute osteomyelitis. 3. Extensive soft tissue edema surrounding the third flexor tendon sheath, likely secondary to tendon rupture although superimposed infection cannot be excluded with certainty given the provided clinical history 4. Moderate diffuse edema of the hand most pronounced dorsally 5. No evidence of focal abscess 6. Osteoarthritic changes PG Care Time/CCT Total # of Minutes Spent Total Time Spent with Patient: Total time spent is greater than 50% in coordination of care (as documented) at patient's floor/unit and/or counseling patient: (1) Diabetes mellitus, type 2 Diabetes mellitus complication status: without complication Diabetes mellitus intermediate insulin use: without intermediate use Qualified Code(s): E11.9 - Type 2 diabetes mellitus without complications
[2019-07-24] MEDS: DAPTOmycin 275 MG in SYRINGE 0 ML IV SCH (18:01)
--- NOTE | 2019-07-24 18:53 | Orthopedic Consultation ---
Date of Consultation July 24, 2019 Assessment & Plan (1) Rupture of flexor tendon of left hand: Ongoing cellulitis left hand possibility of flexor tendon sheath and infection clear injury but may have had a partial tear of her tendon as she initially had function but now there is a complete tear of flexor tendons in zone 2. I discussed with her and her family that may be a complex situation here with staged procedures if there is ongoing infection in the flexor tendon sheath. I will discuss the case with our hand specialist. Dr. Snow is not available at this time however Dr. Carlos A Pina will be available to evaluate and or initiate treatment of the condition Monday this week. I would recommend maintaining IV antibiotics until evaluated. History of Present Illness Reason for Consultation: Ruptured tendons left long finger. Patient original injury was opening up a jar had pain in her long finger left hand but still was able to move it and bend it some. Patient has history of breast CA lymph node dissection left upper extremity and chronic lymphedema for which she was undergoing therapy for. She developed erythema which was felt to be related to infection was placed on oral antibiotics and then submitted to [facility] for IV antibiotics. Patient's been unable to flex her finger at all at this time. Continues have swelling and erythema about the palm of the hand. Attending Physician: Soledad Roberto DO Allergies Allergy/AdvReac Type Severity Reaction Status Date / Time Sulfa (Sulfonamide Allergy Intermediate HIVES - Verified 07/22/19 13:43 Antibiotics) ITCHING adhesive Allergy Unknown BLISTERING Verified 07/22/19 13:43 Home Medications Home Medications Medication Instructions Recorded Confirmed Type acetaminophen [Tylenol Extra 500 mg PO BID 05/29/18 07/22/19 History Strength] multivitamin 1 tab PO QAM 05/29/18 07/22/19 History anastrozole 1 mg tablet 1 mg PO QAM #90 tab 05/24/19 07/22/19 Rx atenolol 50 mg tablet 75 mg PO QAM #90 tab 05/24/19 07/22/19 Rx lisinopril 40 mg tablet 40 mg PO DAILY #90 tab 05/24/19 07/22/19 Rx glimepiride 1 mg tablet 1 mg PO QAM #90 tab 06/11/19 07/22/19 Rx metformin 500 mg tablet 500 mg PO BID #180 tab 06/11/19 07/22/19 Rx amoxicillin 875 mg-potassium 1 tab PO BID 10 Days #20 tab 07/18/19 07/22/19 Rx clavulanate 125 mg tablet Patient History Medical History Adrenal adenoma Breast cancer Chronic back pain TO RIGHT LEG Diabetes mellitus, type 2 (Acute) HOCM (hypertrophic obstructive cardiomyopathy) Hx of necrotising fasciitis [id number] Hypertension Hypomagnesemia Insomnia Kidney stones Left ventricular outflow obstruction Lymphedema of left arm Due to left axillary lymph node dissection - LIMB RESTRICTION Lymphedema of left arm (Acute) Malignant neoplasm of central portion of left breast in female, estrogen receptor positive (08/08/17) "Abnormal left breast mammogram Status post ultrasound-guided core needle biopsies August 08, 2017 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 She received 6400 cGy. Treatment to the left breast, supraclavicular area, and axilla." On 11/23/17 12:50 Lulu Spence wrote "Abnormal left breast mammogram Status post ultrasound-guided core needle biopsies August 08, 2017 Invasive ductal carcinoma grade 2 Estrogen receptor positive, progesterone receptor positive, HER-2/shankar negative Axillary node biopsy positive Status post left partial mastectomy and axillary dissection August 30, 2017 Stage pTic pN1a M0 Systemic chemotherapy with docetaxel and cyclophosphamide every 3 weeks for 4 cycles, chemotherapy will complete November 29, 2017" Mitral regurgitation Osteoarthritis Radiation fibrosis of lung Spinal stenosis Urinary incontinence Surgical History H/O lithotripsy History of cataract surgery R/L History of open reduction and internal fixation (ORIF) procedure L ELBOW History of total hip arthroplasty R/L History of total knee replacement RIGHT Hx of ovarian cystectomy S/P hysterectomy S/P partial mastectomy (~08/30/17) L breast, with axiallary LN dissection Family History Grandmother Family history of diabetes mellitus Diabetes Family/Other Family hx of colon cancer Ovarian cancer cousin Sister Breast cancer Diabetes Mother Hypertension Father Hypertension Social History Preferred Language: Greenlandic Communication Ability: Effective Visual Impairment: Limited Hearing Ability: Hard of Hearing 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 Beliefs That Will Affect Care: None marital status: Single Current Living Situation: Alone current occupational status: retired Other Information That Helps Us Care for You: No Feels Safe at Home: Yes Safety Concerns: Feels Safe At This Time Smoking Status: Never smoker Second Hand Exposure: No ; Hx Alcohol Use: No Hx Substance Use: No Childhood Exposure to Second-Hand Smoke: No caffeine: Yes (Tea x 1 per day) during the past year weight has: remained stable Dental Care, Regularly: Yes Physical Activity Frequency: Does not Exercise Seatbelt Use: always Sunscreen Use: Yes Review of Systems Review of Systems: No fever chills focal discomfort in left hand Physical Exam Physical Exam: Right hand exam normal. Normal circulation sensory motor exam. Left hand inability to flex long finger. There is circumferential swelling about the long finger. There is erythema on the palmar side of the hand from the PIP joint proximal to the mid palm. Results & Data Vital Signs (Past 12 Hours) Vital Signs Temp Pulse Resp BP Pulse Ox 07/24/19 15:02 37.0 C 61 18 143/76 H 95 07/24/19 07:34 36.9 C 62 16 159/77 H 94 Reviewed MRI which demonstrates ruptured profundus and sublimis tendons left long finger no abscess no osteomyelitis including radiographs demonstrating no apparent bony involvement.
[2019-07-25] MEDS: HEPARIN 100 UNIT/ML 5ML FLUSH FLUSH PRN ×5 (00:55→23:57)
[2019-07-25] MEDS: PIPERACILLIN/TAZOBACTAM 3.375 GM in DEXTROSE 5% 100 ML IV SCH ×3 (04:17→20:06)
[2019-07-25 06:56] LABS: BUN Creatinine Ratio 16.4 (10-20); Creatinine Clr Calc Pharmacy 35.7 ml/min; Est GFR (African American) 39.4; Potassium 3.8 mmol/L (3.5-5.1)
[2019-07-25] MEDS: ACETAMINOPHEN 500 MG TAB PO SCH ×2 (08:30→20:07)
[2019-07-25] MEDS: ANASTROZOLE 1 MG TAB PO SCH (08:30)
[2019-07-25] MEDS: ATENOLOL 25 MG TABLET PO SCH (08:30)
[2019-07-25] MEDS: lisinopriL 40 MG TAB PO SCH (08:30)
[2019-07-25] MEDS: MULTIVITAMIN TAB PO SCH (08:31)
[2019-07-25] MEDS: INSULIN ASPART 100 UNITS/ML 3 ML PEN SC SCH ×4 (08:32→21:31)
--- NOTE | 2019-07-25 12:54 | Orthopedic Progress Note ---
Date of Service July 25, 2019 Assessment & Plan (1) Cellulitis of left hand: Appears to have persistent left hand infection despite 3 weeks of antibiotics. May have chronic abscess or flexor tenosynovitis. Plan for likely I&D of left hand tomorrow. I will evaluate the patient tomorrow to verify plan with patient. NPO after midnight. Subjective I am unavailable to see Ms. Cevallos today, but I have discussed her case with my partner, Dr. Mancuso, reviewed clinical photos and MRI, and reviewed her extensive past medical history and the history of her current condition in her left hand over the past 3+ weeks starting 07/03. It appears that she has a persistent infection in her left hand and middle finger despite several courses of oral antibiotics (Keflex, doxycycline, Augmentin) and several days of IV antibiotics (daptomycin, Zosyn). Also has complete FDS and FDP tendon rupture of L middle finger on MRI, possibly secondary to infection. Results & Data Vital Signs (Past 12 Hours) Vital Signs Temp Pulse Resp BP Pulse Ox 07/25/19 07:30 36.7 C 62 16 166/76 H 94 Diagnostic Findings MRI left hand shows complete FDS and FDP tendon rupture to L middle finger from level of metacarpal shaft to proximal phalanx.
--- NOTE | 2019-07-25 13:35 | Hospitalist Progress Note ---
Date of Service July 25, 2019 Assessment & Plan (1) Cellulitis of left hand: * Initially seen on 12Dec, negative for LUE DVT then. On Keflex, then doxy, then Augmentin on 19Dec as outpatient (since completed). 23Dec clinic appt noted failed outpatient treatment and worsening ROM of the third digit. Denies fever/chills. Baseline LUE lymphedema (s/p axillary lymph node dissection). * No leukocytosis, patient afebrile * X-ray left hand shows soft tissue swelling without evidence of fractures or osteomyelitis. * BCx NGTD * Continue IV Zosyn and daptomycin. * MRI hand -- no evidence of abscess, however does show rupture of FDS and FDP with retraction. * Orthopedics consult -- appreciate recs -->plan for I&D tomorrow with Dr. Pina (2) Rupture of flexor tendon of left hand: * Of LEFT hand, FDS and FDP with retractions of 3rd digit (3) Lymphedema of left arm: * secondary to breast ca/sentinal lymph node biopsy * Restrict arm -- no labs/IVs to left side (4) Elevated alkaline phosphatase level: * Resolved * On admission, 132, with similar levels over the past few months. Remaining LFTs normal. No abdominal symptoms. (5) Hypertension: * Follows with Dr. Schultz. Continue home atenolol and lisinopril. * BP elevated, asymptomatic (6) HOCM (hypertrophic obstructive cardiomyopathy): * Follows with Dr. Schultz (7) CKD (chronic kidney disease) stage 3, GFR 30-59 ml/min: * Cr 1.23 on admission * Currently 1.5, although appears near baseline over the past year -- patient does not follow with Nephrology -- would rec follow up with Nephrology as outpatient (8) Diabetes mellitus, type 2: * At home is on metformin and glimepiride -- on hold while inpatient * SSI * Most recent A1c 6.8% on 07/06/18 -- should have repeat as outpatient * Blood sugars have been acceptable while inpatient * Continue to monitor (9) Chronic back pain: * Hx spinal stenosis * Continue home Tylenol (10) History of breast cancer: * s/p L breast lumpectomy, chemo, radiation - diagnosed 2017 * Continue home anastrozole. (11) DVT prophylaxis: * SCDs while inpatient * No chemoproph incase surgical intervention Subjective Ms. Teague feels good, no complaints. Middle finger remains edematous but not painful. ROS Constitutional: no chills, aches, sweats or fever Respiratory: no sob,cough, sputum, or wheezing Cardiac: no chest pain, palpitations, edema, orthopnea or lightheadedness GI: no abdominal pain, nausea, vomiting, diarrhea or constipation : no dysuria or hesitancy Extremities: no joint pain or weakness Skin: no rash All other systems reviewed and negative Physical Exam Physical Exam: General: no distress Eyes: normal inspection, PERLL Respiratory: chest non tender, clear to auscultation, normal breath sounds, no respiratory distress, no accessory muscle use Cardiac: regular rate and rhythm, no rub or gallop, no murmur, no edema, no jvd GI/: active bowel sounds, no abd pain or tenderness, soft, non distended Extremities: normal range of motion, normal strength, non tender, right middle finger edematous without ROM Neuro/Psych: alert and oriented x 3, normal mood and affect Skin: normal color, dry Results & Data Vital Signs (Past 12 Hours) Vital Signs Temp Pulse Resp BP Pulse Ox 07/25/19 07:30 36.7 C 62 16 166/76 H 94 PG Care Time/CCT Total # of Minutes Spent Total Time Spent with Patient: Total time spent is greater than 50% in coordination of care (as documented) at patient's floor/unit and/or counseling patient: (1) Diabetes mellitus, type 2 Diabetes mellitus mcfp insulin use: without long term acute care registered nurse use Diabetes mellitus complication status: without complication Qualified Code(s): E11.9 - Type 2 diabetes mellitus without complications
--- NOTE | 2019-07-25 16:47 | Anesthesiology Consultation ---
Date of Service July 25, 2019 Assessment & Plan Chart Review Chart Review: Acceptable Risk for Surgery Consults Requested none History Surgery Operation Date: 07/26/19 14:00 Proposed Procedures p Left Hand Incision and Drainage - Carlos A Pina M.D. Height/Weight Height: 5 ft 4 in Weight: 88.6 kg Allergies Allergy/AdvReac Type Severity Reaction Status Date / Time Sulfa (Sulfonamide Allergy Intermediate HIVES - Verified 07/22/19 13:43 Antibiotics) ITCHING adhesive Allergy Unknown BLISTERING Verified 07/22/19 13:43 Medications Home Medications Medication Instructions Recorded Confirmed Last Taken acetaminophen [Tylenol Extra 500 mg PO BID 05/29/18 07/22/19 07/11/19 Strength] multivitamin 1 tab PO QAM 05/29/18 07/22/19 07/11/19 anastrozole 1 mg tablet 1 mg PO QAM #90 tab 05/24/19 07/22/19 07/11/19 atenolol 50 mg tablet 75 mg PO QAM #90 tab 05/24/19 07/22/19 07/11/19 lisinopril 40 mg tablet 40 mg PO DAILY #90 tab 05/24/19 07/22/19 07/11/19 glimepiride 1 mg tablet 1 mg PO QAM #90 tab 06/11/19 07/22/19 07/11/19 metformin 500 mg tablet 500 mg PO BID #180 tab 06/11/19 07/22/19 07/11/19 amoxicillin 875 mg-potassium 1 tab PO BID 10 Days #20 tab 07/18/19 07/22/19 Unknown clavulanate 125 mg tablet Active Medications Generic Name Dose Route Start Last Admin Trade Name Freq PRN Reason Stop Dose Admin Acetaminophen 500 mg 07/22/19 21:23 07/25/19 08:30 Tylenol PO 08/21/19 21:22 500 mg BID BRYN Administration Anastrozole 1 mg 07/23/19 09:00 07/25/19 08:30 Arimidex PO 08/22/19 08:59 1 mg QAM BRYN Administration Atenolol 75 mg 07/23/19 09:00 07/25/19 08:30 Tenormin PO 08/22/19 08:59 75 mg QAM BRYN Administration Heparin Sodium (Porcine) 5 ml 07/23/19 02:36 07/25/19 16:17 Heparin Sod 100 Unit/Ml Flush FLUSH 08/22/19 02:44 5 ml PRN PRN Administration Flush Daptomycin 275 mg/ Syringe 5.5 mls @ 2.75 mls/min 07/23/19 18:30 07/24/19 18:01 IV 08/01/19 18:29 2.75 mls/min TODAY@1830 BRYN Administration Protocol Piperacillin Sod/Tazobactam 115 mls @ 28.75 mls/hr 07/23/19 04:00 07/25/19 16:17 Sod 3.375 gm/ Dextrose IV 08/02/19 03:59 Infused Q8H BRYN Infusion Protocol Insulin Aspart 0 units 07/22/19 21:23 07/25/19 13:10 Novolog Flexpen SC 08/21/19 21:22 5 units ACHS BRYN Administration Lisinopril 40 mg 07/23/19 09:00 07/25/19 08:30 Zestril PO 08/22/19 08:59 40 mg DAILY BRYN Administration Multivitamins 1 tab 07/23/19 09:00 07/25/19 08:31 Multivitamin Tab PO 08/22/19 08:59 1 tab QAM BRYN Administration Past Medical History Medical History Adrenal adenoma Breast cancer Chronic back pain TO RIGHT LEG Diabetes mellitus, type 2 (Acute) HOCM (hypertrophic obstructive cardiomyopathy) Hx of necrotising fasciitis VAGINA-[id number] Hypertension Hypomagnesemia Insomnia Kidney stones Left ventricular outflow obstruction Lymphedema of left arm Due to left axillary lymph node dissection - LIMB RESTRICTION Lymphedema of left arm (Acute) Malignant neoplasm of central portion of left breast in female, estrogen receptor positive (08/08/17) "Abnormal left breast mammogram Status post ultrasound-guided core needle biopsies August 08, 2017 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 She received 6400 cGy. Treatment to the left breast, supraclavicular area, and axilla." On 11/23/17 12:50 Lulu Merino Spence wrote "Abnormal left breast mammogram Status post ultrasound-guided core needle biopsies August 08, 2017 Invasive ductal carcinoma grade 2 Estrogen receptor positive, progesterone receptor positive, HER-2/shankar negative Axillary node biopsy positive Status post left partial mastectomy and axillary dissection August 30, 2017 Stage pTic pN1a M0 Systemic chemotherapy with docetaxel and cyclophosphamide every 3 weeks for 4 cycles, chemotherapy will complete November 29, 2017" Mitral regurgitation Osteoarthritis Radiation fibrosis of lung Spinal stenosis Urinary incontinence Past Family History Family History Grandmother Family history of diabetes mellitus Diabetes Family/Other Family hx of colon cancer Ovarian cancer cousin Sister Breast cancer Diabetes Mother Hypertension Father Hypertension Past Surgical History Surgical History H/O lithotripsy History of cataract surgery R/L History of open reduction and internal fixation (ORIF) procedure L ELBOW History of total hip arthroplasty R/L History of total knee replacement RIGHT Hx of ovarian cystectomy S/P hysterectomy S/P partial mastectomy (~08/30/17) L breast, with axiallary LN dissection Social History Smoking Status: Never smoker Hx Alcohol Use: No Hx Substance Use: No substance use type: does not use Physical Exam Vital Signs Last Vital Signs Temp 36.7 C 07/25/19 15:10 Pulse 63 07/25/19 15:10 Resp 17 07/25/19 15:10 BP 136/70 07/25/19 15:10 Pulse Ox 95 07/25/19 15:10 Testing Laboratory Results 07/24/19 05:24 07/25/19 05:45 PT 10.1 Seconds (9.0-12.0) 07/22/19 17:48 INR 1.0 (0.9-1.1) 07/22/19 17:48 APTT 24.9 Seconds (21.0-31.0) 07/22/19 17:48 07/22/19 17:48 Aerobic Blood Culture - Preliminary Blood No growth in Aerobic bottle after 48 hours. Anaerobic Blood Culture - Preliminary No growth in Anaerobic bottle after 48 hours. 07/22/19 17:53 Aerobic Blood Culture - Preliminary Blood No growth in Aerobic bottle after 48 hours. Anaerobic Blood Culture - Preliminary No growth in Anaerobic bottle after 48 hours. 07/25/19 07/25/19 12:07 08:00 POC Glucose 196 H 175 H
[2019-07-25] MEDS: DAPTOmycin 275 MG in SYRINGE 0 ML IV SCH (18:40)
[2019-07-25] MEDS ORDERED: Nursing to Pharmacy Communication ONE (22:57)
[2019-07-26] MEDS: PIPERACILLIN/TAZOBACTAM 3.375 GM in DEXTROSE 5% 100 ML IV SCH ×3 (04:20→20:09)
[2019-07-26] MEDS: INSULIN ASPART 100 UNITS/ML 3 ML PEN SC SCH ×4 (06:08→22:34)
[2019-07-26 06:50] LABS: Creatinine Clr Calc Pharmacy 32.2 ml/min; Est GFR (African American) 35.1; Est GFR (Non-African American) 30.3
[2019-07-26] MEDS: HEPARIN 100 UNIT/ML 5ML FLUSH FLUSH PRN (08:31)
[2019-07-26] MEDS: ANASTROZOLE 1 MG TAB PO SCH (08:32)
[2019-07-26] MEDS: MULTIVITAMIN TAB PO SCH (08:37)
[2019-07-26] MEDS: ACETAMINOPHEN 500 MG TAB PO SCH ×2 (08:38→20:09)
[2019-07-26] MEDS: ATENOLOL 25 MG TABLET PO SCH (08:38)
[2019-07-26 08:49] LABS: Hematocrit (blood only) 34.1 % (37-47); Hemoglobin 10.7 g/dL (12.0-16.0); Mean Corpuscular Hemoglobin 29.8 pg (25-34); Mean Corpuscular Hgb Conc 31.4 g/dL (32-36); Mean Platelet Volume 8.9 fL (7.4-10.4); Platelet Count 302 K/uL (130-400); RDW Coefficient of Variation 14.9 % (11.5-14.5); RDW Standard Deviation 51.3 fL (36.4-46.3); Red Blood Count 3.59 M/uL (4.2-5.4); White Blood Count 7.45 K/uL (4.8-10.8)
[2019-07-26 09:27] LABS: Calcium 9.3 mg/dl (8.5-10.1); Est GFR (African American) 36.1; Est GFR (Non-African American) 31.2; Potassium 4.1 mmol/L (3.5-5.1)
[2019-07-26] MEDS ORDERED: BACITRACIN INJ 50,000 UNIT VIAL ONE (13:33)
[2019-07-26] MEDS ORDERED: BUPIVACAINE 0.5 % 5 MG/1 ML MPF 30ML VIAL ONE (13:47)
[2019-07-26] MEDS ORDERED: LIDOCAINE HCL 1% 20 ML VIAL ONE (13:48)
--- NOTE | 2019-07-26 14:11 | Orthopedic Consultation ---
Date of Consultation July 26, 2019 Assessment & Plan (1) Suppurative tenosynovitis of flexor tendon of left hand: It appears that she has a chronic infection in her left hand despite 3 weeks of antibiotics. I am concerned that she may have a chronic infectious flexor tenosynovitis. She has complete rupture of her left middle finger FDS and FDP tendons. It is unclear as to whether this is directly related to her attempting to open a tight jar back on July 03 or whether this happened more recently after the infection was established. Either way, I stressed to her our first priority is to clear the infection. I would recommend an irrigation and debridement surgery since she has not been able to clear this infection with 3 weeks of oral and IV antibiotics. We could consider repair or more likely reconstruction of her flexor tendons only after the infection has completely been cleared. She voiced understanding this. Risks, benefits, and alternatives of surgery were explained in detail. The surgical procedure, as well as postoperative recovery and rehabilitation, was also explained in detail. Risks include bleeding; persistent infection; damage to surrounding structures such as nerves, blood vessels, and tendons that run in the area; persistent pain, weakness, or stiffness; or need for further surgery. She understands all of this and wishes to proceed with surgery. Informed consent was obtained. History of Present Illness Reason for Consultation: Left hand infection, flexor tendon rupture Requesting Physician: Dr. Mancuso Attending Physician: Froylan Friedman MD History of Present Illness Hand Surgery Consult I was asked by my partner, Dr. Mancuso, to see Ms. Cevallos as a Hand Surgery subspecialty consultation. She is a 74-year-old [id number] female who has been having issue with her left hand and middle finger over the past 3 weeks. This initially started when she tried to open a tight jar on July 03. She felt pain along the volar aspect of the middle finger, and had difficulty with bending it afterwards, but not to the extent where she is unable to bend currently. She presented to her primary care physician on July 05, who was concerned about infection and started her on oral Keflex. She continued to have swelling, redness, and pain and presented to the emergency room on July 11. At that point, she was switched to doxycycline. A week week later she went back to her primary care on July 18 and was started on Augmentin. She again followed up with her primary care on July 22 when she felt like the swelling and pain in the left middle finger were worse and she was unable to flex the finger. She was then sent to the emergency room and admitted to the medicine service. She was started on IV daptomycin and Zosyn. Despite all of these antibiotics, she has had persistent swelling and erythema along the volar aspect of the left middle finger and into the palm. She feels like it is only been over the past week or so that she has been completely unable to bend the middle finger, although she does note that she was having difficulty with this ever since the initial incident back on July 03. Allergies Allergy/AdvReac Type Severity Reaction Status Date / Time Sulfa (Sulfonamide Allergy Intermediate HIVES - Verified 07/22/19 13:43 Antibiotics) ITCHING adhesive Allergy Unknown BLISTERING Verified 07/22/19 13:43 Home Medications Home Medications Medication Instructions Recorded Confirmed Type acetaminophen [Tylenol Extra 500 mg PO BID 05/29/18 07/22/19 History Strength] multivitamin 1 tab PO QAM 05/29/18 07/22/19 History anastrozole 1 mg tablet 1 mg PO QAM #90 tab 05/24/19 07/22/19 Rx atenolol 50 mg tablet 75 mg PO QAM #90 tab 05/24/19 07/22/19 Rx lisinopril 40 mg tablet 40 mg PO DAILY #90 tab 05/24/19 07/22/19 Rx glimepiride 1 mg tablet 1 mg PO QAM #90 tab 06/11/19 07/22/19 Rx metformin 500 mg tablet 500 mg PO BID #180 tab 06/11/19 07/22/19 Rx amoxicillin 875 mg-potassium 1 tab PO BID 10 Days #20 tab 07/18/19 07/22/19 Rx clavulanate 125 mg tablet Patient History Medical History Adrenal adenoma Breast cancer Chronic back pain TO RIGHT LEG Diabetes mellitus, type 2 (Acute) HOCM (hypertrophic obstructive cardiomyopathy) Hx of necrotising fasciitis VAGINA-[id number] Hypertension Hypomagnesemia Insomnia Kidney stones Left ventricular outflow obstruction Lymphedema of left arm Due to left axillary lymph node dissection - LIMB RESTRICTION Lymphedema of left arm (Acute) Malignant neoplasm of central portion of left breast in female, estrogen receptor positive (08/08/17) "Abnormal left breast mammogram Status post ultrasound-guided core needle biopsies August 08, 2017 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 She received 6400 cGy. Treatment to the left breast, supraclavicular area, and axilla." On 11/23/17 12:50 Lulu Spence wrote "Abnormal left breast mammogram Status post ultrasound-guided core needle biopsies August 08, 2017 Invasive ductal carcinoma grade 2 Estrogen receptor positive, progesterone receptor positive, HER-2/shankar negative Axillary node biopsy positive Status post left partial mastectomy and axillary dissection August 30, 2017 Stage pTic pN1a M0 Systemic chemotherapy with docetaxel and cyclophosphamide every 3 weeks for 4 cycles, chemotherapy will complete November 29, 2017" Mitral regurgitation Osteoarthritis Radiation fibrosis of lung Spinal stenosis Urinary incontinence Surgical History H/O lithotripsy History of cataract surgery R/L History of open reduction and internal fixation (ORIF) procedure L ELBOW History of total hip arthroplasty R/L History of total knee replacement RIGHT Hx of ovarian cystectomy S/P hysterectomy S/P partial mastectomy (~08/30/17) L breast, with axiallary LN dissection Family History Grandmother Family history of diabetes mellitus Diabetes Family/Other Family hx of colon cancer Ovarian cancer cousin Sister Breast cancer Diabetes Mother Hypertension Father Hypertension Social History Preferred Language: Thai Communication Ability: Effective Visual Impairment: Limited Hearing Ability: Hard of Hearing Machine Designer Required: No Beliefs That Will Affect Care: None marital status: Single Current Living Situation: Alone current occupational status: retired Other Information That Helps Us Care for You: No Feels Safe at Home: Yes Safety Concerns: Feels Safe At This Time Smoking Status: Never smoker Second Hand Exposure: No ; Hx Alcohol Use: No Hx Substance Use: No Childhood Exposure to Second-Hand Smoke: No caffeine: Yes (Tea x 1 per day) during the past year weight has: remained stable Dental Care, Regularly: Yes Physical Activity Frequency: Does not Exercise Seatbelt Use: always Sunscreen Use: Yes Physical Exam Physical Exam: General: The patient appears well developed and well nourished. Awake, alert, and oriented x 3. Appropriate mood and affect. Normal gait and station. Normal coordination and balance. Skin: The skin over the left hand and into the middle finger shows fairly significant erythema. Inspection/Palpation: Visual inspection reveals a resting extended posture of the middle finger. She has fairly diffuse swelling along the entire volar aspect of the middle finger and extending into the palm. Surprisingly minimal tenderness to palpation. No open wounds. Range of Motion: Range of motion of the left middle finger is limited due to pain. Stability: There is no gross ligamentous laxity. Strength: She is unable to flex the middle finger at all. Sensation: The patient reports no numbness in the hand. Vascular: Hand is warm and well perfused. No diffuse edema. Results & Data Vital Signs (Past 12 Hours) Vital Signs Temp Pulse Pulse Resp BP Pulse Ox 07/26/19 13:53 36.5 C 57 L 18 174/72 H 95 07/26/19 07:16 36.5 C 60 19 149/79 H 95 Laboratory Results WBC 7.45 ESR 32 CRP 0.89 Diagnostic Findings MRI from July 23 was reviewed. It shows a complete disruption of the FDS and FDP tendons in the left middle finger. The tendon ends are retracted, and there is no visible tendon starting at about the mid shaft of the metacarpal level and extending out to about the midshaft of the proximal phalanx level.
[2019-07-26] MEDS ORDERED: LIDOCAINE HCL 2% 2 ML VIAL/AMP(20MG/ML) INFIL ONE (14:15)
[2019-07-26] MEDS ORDERED: PROPOFOL IV EMULSION 10 MG/ML 20 ML VIAL IV ONE (14:15)
[2019-07-26] MEDS ORDERED: fentaNYL citrate 100 MCG/2 ML VIAL ONE ×2 (14:16→16:09)
[2019-07-26] MEDS ORDERED: LACTATED RINGER'S 1,000 ML IV ONE (14:18)
[2019-07-26] MEDS ORDERED: PHENYLEPHRINE 100MCG/ML 5ML SYR IV PRN (14:18)
[2019-07-26] MEDS ORDERED: ATROPINE SULFATE 0.1 MG/ML 10ML SYR IV PRN (14:18)
[2019-07-26] MEDS ORDERED: ONDANSETRON INJ 2 MG/ML 2 ML VIAL IV PRN (14:18)
--- NOTE | 2019-07-26 14:24 | Hospitalist Progress Note ---
Date of Service July 26, 2019 Assessment & Plan (1) Cellulitis of left hand: * Initially seen on 12Dec, negative for LUE DVT then. On Keflex, then doxy, then Augmentin on 19Dec as outpatient (since completed). 23Dec clinic appt noted failed outpatient treatment and worsening ROM of the third digit. Denies fever/chills. Baseline LUE lymphedema (s/p axillary lymph node dissection). * No leukocytosis, patient afebrile * X-ray left hand shows soft tissue swelling without evidence of fractures or osteomyelitis. * BCx NGTD * Continue IV Zosyn and daptomycin. * MRI hand -- no evidence of abscess, however does show rupture of FDS and FDP with retraction. * Orthopedics consult -- appreciate recs -->plan for I&D 07/[address] Pina (2) Rupture of flexor tendon of left hand: * Of LEFT hand, FDS and FDP with retractions of 3rd digit (3) Lymphedema of left arm: * secondary to breast ca/sentinal lymph node biopsy * Restrict arm -- no labs/IVs to left side (4) Elevated alkaline phosphatase level: * Resolved * On admission, 132, with similar levels over the past few months. Remaining LFTs normal. No abdominal symptoms. (5) Hypertension: * Follows with Dr. Schultz. Continue home atenolol * BP elevated, asymptomatic (6) HOCM (hypertrophic obstructive cardiomyopathy): * Follows with Dr. Schultz (7) CKD (chronic kidney disease) stage 3, GFR 30-59 ml/min: * Cr 1.23 on admission * Currently 1.65, baseline around 1.5 -- patient does not follow with Nephrology -- would rec follow up with Nephrology as outpatient * will hold losartan for today, will add prn hydralazine for bps over 180 systolically (8) Diabetes mellitus, type 2: * At home is on metformin and glimepiride -- on hold while inpatient * SSI * Most recent A1c 6.8% on 07/06/18 -- should have repeat as outpatient * Blood sugars have been slightly elevated here, will resume glimeperide for tomorrow morning (9) Chronic back pain: * Hx spinal stenosis * Continue home Tylenol (10) History of breast cancer: * s/p L breast lumpectomy, chemo, radiation - diagnosed 2017 * Continue home anastrozole. (11) DVT prophylaxis: * SCDs while inpatient * No chemoproph due to surgery today Subjective Ms. Cevallos was feeling good when I saw her this morning, no pain. She is to have an I&D this afternoon. ROS Constitutional: no chills, aches, sweats or fever Respiratory: no sob,cough, sputum, or wheezing Cardiac: no chest pain, palpitations, edema, orthopnea or lightheadedness GI: no abdominal pain, nausea, vomiting, diarrhea or constipation : no dysuria or hesitancy Extremities: no joint pain or weakness Skin: no rash All other systems reviewed and negative Physical Exam Physical Exam: General: no distress Eyes: normal inspection, PERLL Respiratory: chest non tender, clear to auscultation, normal breath sounds, no respiratory distress, no accessory muscle use Cardiac: regular rate and rhythm, no rub or gallop, no murmur, no lower extremity edema, no jvd GI/: active bowel sounds, no abd pain or tenderness, soft, non distended Extremities: normal range of motion, normal strength, non tender, left middle finger edematous Neuro/Psych: alert and oriented x 3, normal mood and affect Skin: normal color, dry Results & Data Vital Signs (Past 12 Hours) Vital Signs Temp Pulse Pulse Resp BP Pulse Ox 07/26/19 13:53 36.5 C 57 L 18 174/72 H 95 07/26/19 07:16 36.5 C 60 19 149/79 H 95 PG Care Time/CCT Total # of Minutes Spent Total Time Spent with Patient: Total time spent is greater than 50% in coordination of care (as documented) at patient's floor/unit and/or counseling patient: (1) Diabetes mellitus, type 2 Diabetes mellitus fdc insulin use: without oil heaterman use Diabetes mellitus complication status: without complication Qualified Code(s): E11.9 - Type 2 diabetes mellitus without complications
--- NOTE | 2019-07-26 14:28 | History & Physical Bridge Note ---
Date of Service July 26, 2019 History & Physical Bridge Note I have examined the patient, reviewed the History & Physical and in the interval since the performance of the History & Physical I have noted the following changes of clinical significance: no changes noted
[2019-07-26] MEDS ORDERED: ONDANSETRON INJ 2 MG/ML 2 ML VIAL ONE (15:09)
[2019-07-26] MEDS ORDERED: DEXAMETHASONE SOD INJ 4 MG/ML VIAL ONE (15:09)
--- NOTE | 2019-07-26 16:45 | Post Operative Brief Note ---
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 Surgeon CarlosA Pina [facility] [employer] Instructor None Estimated Blood Loss 40 Findings Consistent with Post-Op Diagnosis
--- NOTE | 2019-07-26 16:46 | Operative Report ---
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 Surgeon Carlos A Pina [employer] Quality Assurance Officer None Estimated Blood Loss 40 Findings Consistent with Post-Op Diagnosis Severe disruption of soft tissue planes consistent with chronic inflammation/infection with what appeared to be granulomas in the soft tissues immediately surrounding the flexor tendon. Thin, "dishwater pus" fluid within the subcutaneous tissues and flexor tendon sheath. Obvious chronic attritional rupture of the FDS and FDP tendons centered at the A1 jose. Specimens Swab and tissue specimens x2 for Gram stain, aerobic culture, anaerobic culture, fungal culture, and mycobacteria Drains None Anesthesia Type General Complications none Disposition Disposition: Recovery Room Indications Ms. Cevallos is a 74-year-old female with chronic pain and swelling in her left hand centered along the volar aspect of the middle finger for the past 3 weeks. Is unclear whether the onset of this problem was due to a traumatic injury when attempting to open a jar or whether she developed a flexor tenosynovitis around that time. Conservative management was attempted with 3 courses of oral antibiotics, as well as several days of inpatient IV antibiotics without significant improvement. MRI showed a complete rupture of the FDS and FDP tendons. I recommended surgical debridement to clear the chronic infection. Description of Procedure Patient was identified in the Surgical Admissions area of the [facility]. Operative extremity was marked. She was then brought back to the operating room and placed supine on the operating room table. General anesthesia was induced without complication. Preoperative antibiotics were held until cultures were obtained. Tourniquet was placed on the left forearm. Forearm was then prepped and draped in a standard sterile fashion using Chlorhexidine prep. Forearm was then exsanguinated with an Esmarch proximal to the zone of infection, and the tourniquet was inflated. Preoperatively, it appeared that the infection extended along the entire length of the middle finger and into the mid palm. I planned a Mode type incision along the volar aspect of the middle finger extending from the palm to about the level of the DIP joint. I incised through skin only, and then bluntly dissected through subcutaneous tissue. Immediately evident was what appeared to be a thin "dishwater pus" type fluid within the subcutaneous tissues, which was swabbed for culture. No thick purulent fluid was found. Is also noted that the soft tissue planes were severely distorted from chronic inflammation/infection, and this made it rather difficult to identify normal structures. I very carefully identified the ulnar and radial neurovascular bundles on either side of the finger, as well as the flexor tendon sheath, and traced them proximally and distally. There was obvious chronic inflammation around the flexor tendon sheath. This seemed to be centered around the A1 jose, and the A1 jose itself was nearly completely obliterated. The A2 jose did seem intact but severely chronically inflamed. The FDS and FDP tendons were found to be completely ruptured around the area of the A1 jose, and retracted proximally and distally. This appeared to be consistent with a chronic attritional rupture, as the tendon ends were quite fibrillated and covered with inflammatory tissue. Pewter Finisher's specimens of what appeared to be infectious soft tissue were debrided and sent for culture; this tissue was labeled as "soft tissue, deep 1". Immediately surrounding the flexor tendon sheath appeared to be small granulomas within the soft tissue. These granulomas were excised and sent as "soft tissue, deep 2". I open the flexor tendon sheath proximally all the way into the palm, to the level where the tendons were retracted, as well as distally all the way to the A3 jose. This seemed to be the distal extent of the infection. After the entire zone of infection was opened from the palm to the A3 jose, and the neurovascular bundles were carefully protected, I then aggressively debrided the flexor tendon sheath and surrounding soft tissue with rongeur and curette. After thorough debridement was complete, I then copiously irrigated the wound with sterile saline. I also flushed the flexor tendon sheath proximally and distally with sterile saline via a 14-gauge Angiocath. Tourniquet was let down, and hemostasis was achieved with bipolar electrocautery. Skin was closed with 4-0 Prolene. Sterile dressings were then applied with Xeroform, sterile Cling wrap, and Coban. The drapes were removed, the patient was awakened from general anesthesia, transferred over to the stretcher, and taken to the Post Anesthesia Care Unit in stable condition. There were no immediate complications to the procedure. I was present and scrubbed for the entire procedure. I attest to the content of the Intraoperative Record and any orders documented therein. Any exceptions are noted below.
[2019-07-26] MEDS: fentaNYL citrate 100 MCG/2 ML VIAL IV PRN ×3 (17:05→17:21)
--- NOTE | 2019-07-26 17:26 | Anesthesiology Progress Note ---
Date of Service July 26, 2019 Anesthesia Post Procedure Vital Signs Vital Signs: Temp Pulse Pulse Pulse Resp BP Pulse Ox 07/26/19 17:10 60 15 170/82 H 96 07/26/19 17:00 58 L 14 175/79 H 97 07/26/19 16:51 36.1 C L 63 20 181/76 H 94 07/26/19 13:53 36.5 C 57 L 18 174/72 H 95 07/26/19 07:16 36.5 C 60 19 149/79 H 95 07/25/19 23:07 36.7 C 68 16 155/73 H 94 Pain Intensity Left Hand: Pain Intensity: 6 Transfer of Care Handoff Completed per policy Notes Mental Status: alert / awake / arousable and participated in evaluation Patient Amnestic to Procedure: Yes Nausea / Vomiting: adequately controlled Pain: adequately controlled Airway Patency, RR, SpO2: stable & adequate BP & HR: stable & adequate Hydration State: stable & adequate Anesthetic Complications: no major complications apparent and Pt Satisfied with anesthetic care
[2019-07-26] MEDS ORDERED: Nursing to Pharmacy Communication ONE (19:52)
[2019-07-26] MEDS: DAPTOmycin 275 MG in SYRINGE 0 ML IV SCH (20:09)
[2019-07-27] MEDS: HEPARIN 100 UNIT/ML 5ML FLUSH FLUSH PRN ×3 (00:09→18:20)
[2019-07-27] MEDS: PIPERACILLIN/TAZOBACTAM 3.375 GM in DEXTROSE 5% 100 ML IV SCH ×3 (04:04→21:16)
--- NOTE | 2019-07-27 08:14 | Orthopedic Progress Note ---
Date of Service July 27, 2019 Assessment & Plan (1) Suppurative tenosynovitis of flexor tendon of left hand: POD #1, Irrigation and debridement Left middle finger chronic flexor tenosynovitis. Gram stain and cxs pending, await finals for definitive treatment. On Daptomycin and Zosyn. Pain control. Supervising Physician Co-Signing Physician Notes Patient seen and examined. Agree with MINISTERIO Cook's note above. She is POD #1 s/p I&D left middle finger infectious flexor tenosynovitis with attritional rupture of FDS and FDP tendons. Surprisingly has very little pain, resting comfortably. Intraop, there was significant inflammatory tissue and thin "dishwater pus" fluid. This, along with her clinical course so far leads me to believe this infection is likely caused by a more indolent bacteria; this did not have the typical appearance of a Staph or Strep FTS. Would even consider Mycobacteria with what appeared to be small granulomas in the soft tissue surrounding the flexor tendon sheath. So far fungal smears and Gram stains are negative, cultures pending. Would consider Infectious Disease consultation given atypical presentation. Will have OT see patient to work on passive flexion of MCP, PIP, and DIP joints left middle finger to maintain motion and prevent stiffness. Subjective POD #1, Patient feeling well. Minimal pain. Denies SOB, CP, N/V. Physical Exam Physical Exam: Left hand/ finger dressings c/d/i, no drainage. Fingers mobile. Sensation in tact. A&Ox3. Results & Data Vital Signs (Past 12 Hours) Vital Signs Temp Pulse Resp BP Pulse Ox 07/27/19 08:01 36.6 C 49 L 18 171/74 H 94 07/27/19 03:46 36.7 C 61 18 156/78 H 95 07/26/19 23:18 36.9 C 61 18 146/68 H 94 07/26/19 21:11 36.7 C 61 18 166/70 H 98
[2019-07-27 08:58] LABS: Hematocrit (blood only) 34.1 % (37-47); Hemoglobin 10.9 g/dL (12.0-16.0); Mean Corpuscular Hemoglobin 30.1 pg (25-34); Mean Corpuscular Volume 94.2 fL (80-100); Mean Platelet Volume 9.1 fL (7.4-10.4); Platelet Count 332 K/uL (130-400); RDW Coefficient of Variation 14.4 % (11.5-14.5); RDW Standard Deviation 49.5 fL (36.4-46.3); Red Blood Count 3.62 M/uL (4.2-5.4)
[2019-07-27] MEDS: ATENOLOL 25 MG TABLET PO SCH (09:00)
[2019-07-27] MEDS ORDERED: GLIMEPIRIDE 2 MG TAB PO SCH (09:00)
[2019-07-27] MEDS: MULTIVITAMIN TAB PO SCH (09:09)
[2019-07-27] MEDS: ANASTROZOLE 1 MG TAB PO SCH (09:09)
[2019-07-27] MEDS: INSULIN ASPART 100 UNITS/ML 3 ML PEN SC SCH ×4 (09:10→22:08)
[2019-07-27] MEDS: ACETAMINOPHEN 500 MG TAB PO SCH ×2 (09:10→21:14)
[2019-07-27 09:23] LABS: BUN Creatinine Ratio 15.4 (10-20); Calcium 9.5 mg/dl (8.5-10.1); Est GFR (African American) 37.3; Est GFR (Non-African American) 32.1
--- NOTE | 2019-07-27 13:17 | Hospitalist Progress Note ---
Date of Service July 27, 2019 Assessment & Plan (1) Cellulitis of left hand: * Initially seen on 12Dec, negative for LUE DVT then. On Keflex, then doxy, then Augmentin on 19Dec as outpatient (since completed). 23Dec clinic appt noted failed outpatient treatment and worsening ROM of the third digit. Denies fever/chills. Baseline LUE lymphedema (s/p axillary lymph node dissection). * No leukocytosis, patient afebrile * X-ray left hand shows soft tissue swelling without evidence of fractures or osteomyelitis. * BCx NGTD * Continue IV Zosyn and daptomycin. * MRI hand -- no evidence of abscess, however does show rupture of FDS and FDP with retraction. * Orthopedics consult - 07/26 Irrigation and debridement Left middle finger chronic flexor tenosynovitis. - Gram stain and cxs pending (2) Rupture of flexor tendon of left hand: * Of LEFT hand, FDS and FDP with retractions of 3rd digit * management as above (3) Lymphedema of left arm: * secondary to breast ca/sentinal lymph node biopsy * Restrict arm -- no labs/IVs to left side (4) Elevated alkaline phosphatase level: * Resolved * On admission, 132, with similar levels over the past few months. Remaining LFTs normal. No abdominal symptoms. (5) Hypertension: * Follows with Dr. Schultz. Held home atenolol this morning for heart rate in the 40s * BP elevated, asymptomatic - resumed lisinopril * prn hydralazine (6) HOCM (hypertrophic obstructive cardiomyopathy): * Follows with Dr. Schultz (7) CKD (chronic kidney disease) stage 3, GFR 30-59 ml/min: * Cr 1.23 on admission * Currently 1.5, baseline around 1.2 - 1.5 -- patient does not follow with Nephrology -- would rec follow up with Nephrology as outpatient * she did receive losartan today but I will place this back on hold for the time being. Will avoid IVF as patient is up 4L * recheck am (8) Diabetes mellitus, type 2: * At home is on metformin and glimepiride -- on hold while inpatient - would avoid resuming metformin given kidney function * SSI * Most recent A1c 6.8% on 07/06/18 -- should have repeat as outpatient * Blood sugars have been slightly elevated here, glimeperide resumed this morning, glycemic consult (9) Chronic back pain: * Hx spinal stenosis * Continue home Tylenol (10) History of breast cancer: * s/p L breast lumpectomy, chemo, radiation - diagnosed 2017 * Continue home anastrozole. (11) DVT prophylaxis: * SCDs while inpatient * No chemoproph due to surgery today Subjective Post op day one for tenosynovitis with Dr. Pina. Doing well, no complaints. No pain ROS Constitutional: no chills, aches, sweats or fever Respiratory: no sob,cough, sputum, or wheezing Cardiac: no chest pain, palpitations, edema, orthopnea or lightheadedness GI: no abdominal pain, nausea, vomiting, diarrhea or constipation : no dysuria or hesitancy Extremities: no joint pain or weakness Skin: no rash All other systems reviewed and negative Physical Exam Physical Exam: General: no distress Eyes: normal inspection, PERLL Respiratory: chest non tender, clear to auscultation, normal breath sounds, no respiratory distress, no accessory muscle use Cardiac: regular rate and rhythm, no rub or gallop, no murmur, no edema, no jvd GI/: active bowel sounds, no abd pain or tenderness, soft, non distended Extremities: normal range of motion, normal strength, non tender Neuro/Psych: alert and oriented x 3, normal mood and affect Skin: normal color, dry Results & Data Vital Signs (Past 12 Hours) Vital Signs Temp Pulse Resp BP Pulse Ox 07/27/19 08:01 36.6 C 49 L 18 171/74 H 94 07/27/19 03:46 36.7 C 61 18 156/78 H 95 PG Care Time/CCT Total # of Minutes Spent Total Time Spent with Patient: Total time spent is greater than 50% in coordination of care (as documented) at patient's floor/unit and/or counseling patient: (1) Diabetes mellitus, type 2 Diabetes mellitus intermediate card tender insulin use: without mcfp use Diabetes mellitus complication status: without complication Qualified Code(s): E11.9 - Type 2 diabetes mellitus without complications
[2019-07-27] MEDS ORDERED: SODIUM CHLORIDE 0.9% 1000ML 1,000 ML IV SCH (13:30)
[2019-07-27] MEDS ORDERED: PHARMACY GLYCEMIC MGMT CONSULT PRN (13:58)
--- NOTE | 2019-07-27 14:32 | Pharmacy Report ---
Glycemic Control Consultation - Date of Service July 27, 2019 - Scope Scope: Glycemic Pharmacist consulted by Karina Robins on 07/27/19 for glycemic control and to write orders per [facility] inpatient glycemic control protocol - Objective Weight: 89.2 kg Accuchecks BSG (last 24hrs): 07/26/19 07/26/19 07/26/19 12:09 16:53 18:36 Glucose POC Glucose 164 H 202 H 252 H 07/26/19 07/27/19 07/27/19 22:21 08:29 08:44 Glucose 159 H POC Glucose 252 H 161 H 07/27/19 12:07 Glucose POC Glucose 209 H Laboratory Data (last 24hrs): 07/27/19 08:44 Potassium 4.0 Carbon Dioxide 25 Anion Gap 5.0 Creatinine 1.57 H Est Cr Clr Drug Dosing 34.0 - Recent Pertinent Medications Outpatient Anti-diabetic Regimen: * glimepiride 1 mg PO qAM, metformin 500 mg PO BID * A1c pending The patient is currently receiving: * Basal insulin: none * Correctional Insulin: Novolog Correction per scale ACHS Goal Range: Low 100 mg/dL - High 140 mg/dL Correction Factor: mg/dL/unit * Prandial insulin: Per carb ratio of 1 unit per 9 grams CHO consumed - Assessment & Plan Assessment & Plan: ASSESSMENT: * Deidra is a 74 yr old T2DM female admitted for left hand cellulitis * She was taken to the OR yesterday for I&D. She was given a one time dose of dexamethasone 4 mg IV. * Fasting BSG consistently above goal -> start weight based basal insulin * Post prandial BSG elevation worsened by dexamethasone. I will tighten Novolog CF and CR. I anticipate improvement as steroid effect dissipates. PLAN FOR INPATIENT GLYCEMIC CONTROL: * Holding outpatient oral diabetes medications * Basal insulin * Lantus 15 units SQ x 1 dose * Bolus insulin * NovoLog per scale ACHS or Q6hrs while NPO * Goal Range: Low 100 mg/dL - High 140 mg/dL * Correction Factor: 25 mg/dL/unit * Nutritional / Prandial insulin per carb ratio of 1 unit per 9 grams CHO consumed * Please note that the plan above was derived based on current level of insulin resistance and hospital stress. These recommendations are appropriate for inpatient admission only. Plan of care upon discharge will need to be reassessed to avoid potential outpatient hypo/hyperglycemia. Thank you.
[2019-07-27] MEDS ORDERED: INSULIN GLARGINE SOLOSTAR 100 UNITS/ML 3 ML PEN SC ONE (15:00)
[2019-07-27] MEDS: DAPTOmycin 275 MG in SYRINGE 0 ML IV SCH (18:20)
--- NOTE | 2019-07-27 19:08 | Anesthesiology Progress Note ---
Date of Service July 27, 2019 Anesthesia Post Procedure Vital Signs Vital Signs: Temp Pulse Resp BP Pulse Ox 07/27/19 15:16 36.9 C 70 16 149/70 H 93 07/27/19 08:01 36.6 C 49 L 18 171/74 H 94 07/27/19 03:46 36.7 C 61 18 156/78 H 95 07/26/19 23:18 36.9 C 61 18 146/68 H 94 07/26/19 21:11 36.7 C 61 18 166/70 H 98 07/26/19 20:04 36.9 C 63 18 168/75 H 94 Pain Intensity Left Hand: Pain Intensity: 4 Notes Mental Status: alert / awake / arousable and participated in evaluation Patient Amnestic to Procedure: Yes Nausea / Vomiting: adequately controlled Pain: adequately controlled Airway Patency, RR, SpO2: stable & adequate BP & HR: stable & adequate Hydration State: stable & adequate Anesthetic Complications: no major complications apparent and Pt Satisfied with anesthetic care
[2019-07-28] MEDS: HydrALAZINE HCL 20 MG/ML VIAL IV PRN (00:02)
[2019-07-28] MEDS: PIPERACILLIN/TAZOBACTAM 3.375 GM in DEXTROSE 5% 100 ML IV SCH ×3 (04:42→20:45)
[2019-07-28] MEDS: ACETAMINOPHEN 500 MG TAB PO SCH ×2 (07:28→20:46)
[2019-07-28] MEDS: ATENOLOL 25 MG TABLET PO SCH (07:30)
[2019-07-28] MEDS: ANASTROZOLE 1 MG TAB PO SCH (07:30)
[2019-07-28] MEDS: MULTIVITAMIN TAB PO SCH (07:31)
[2019-07-28] MEDS: lisinopriL 40 MG TAB PO SCH (08:26)
[2019-07-28] MEDS: INSULIN ASPART 100 UNITS/ML 3 ML PEN SC SCH ×5 (08:57→20:45)
[2019-07-28 08:58] LABS: Basophils # (auto) 0.03 K/uL (0-0.2); Basophils % (auto) 0.5 %; Eosinophils # (auto) 0.36 K/uL (0-0.5); Hematocrit (blood only) 34.1 % (37-47); Hemoglobin 10.7 g/dL (12.0-16.0); Immature Granulocytes # (auto) 0.01 K/uL (0.00-0.02); Immature Granulocytes % (auto) 0.2 %; Lymphocytes # (auto) 1.19 K/uL (1.2-3.4); Lymphocytes % (auto) 19.8 %; Mean Corpuscular Hemoglobin 29.6 pg (25-34); Mean Corpuscular Hgb Conc 31.4 g/dL (32-36); Mean Corpuscular Volume 94.2 fL (80-100); Mean Platelet Volume 9.4 fL (7.4-10.4); Monocytes # (auto) 0.39 K/uL (0.11-0.59); Monocytes % (auto) 6.5 %; Neutrophils # (auto) 4.02 K/uL (1.4-6.5); Platelet Count 337 K/uL (130-400); RDW Coefficient of Variation 14.8 % (11.5-14.5); Red Blood Count 3.62 M/uL (4.2-5.4)
[2019-07-28 09:29] LABS: BUN Creatinine Ratio 16.1 (10-20); Calcium 9.4 mg/dl (8.5-10.1); Est GFR (African American) 36.1; Est GFR (Non-African American) 31.2
--- NOTE | 2019-07-28 12:19 | Orthopedic Progress Note ---
Date of Service July 28, 2019 Assessment & Plan (1) Suppurative tenosynovitis of flexor tendon of left hand: She is now postoperative day 2 status post irrigation and debridement of left middle finger and hand chronic flexor Christie synovitis. She has complete attritional rupture of her middle finger FDS and FDP tendons. Her infection looks improved after the I&D surgery on exam this morning. Cultures are negative to date. Again, this may be an atypical bacteria given her atypical c linical course and intraoperative findings. I would recommend Infectious Disease consultation, however the Infectious Disease java consultant is out of town till mid July. She will have to follow-up with them as an outpatient. I instructed her to continue with aggressive passive range of motion of her middle finger to prevent stiffness that would make a flexor tendon reconstruction more difficult in the future. She can be discharged when stable from medical perspective. Daily dressing changes by nursing until discharge. She should follow-up with me in my clinic at [facility] in about 10 days. Call [phone] to make an appointment. Subjective She is doing well this morning. Pain in her left hand is well controlled. She is doing some passive motion of her finger. Occupational therapy has not seen her yet. I found out this morning that the infectious disease java consultant is out of town until the middle of July, and therefore will not be able to see her while she is in-house. Physical Exam Physical Exam: Dressings were taken down and change this morning. The dressings had some mild dried sanguinous drainage. No purulent drainage. No active drainage. Erythema looks slightly improved compared to preoperatively. Incision is healing well. Results & Data Vital Signs (Past 12 Hours) Vital Signs Temp Pulse Pulse Resp BP Pulse Ox 07/28/19 07:49 36.4 C L 57 L 18 188/76 H 95 07/28/19 01:25 60 172/75 H Laboratory Results Cultures remain negative to date.
[2019-07-28] MEDS ORDERED: AMLODIPINE BESYLATE 5 MG TAB PO ONE (12:46)
[2019-07-28] MEDS: SODIUM CHLORIDE 0.9% 1000ML 1,000 ML IV SCH ×2 (12:59→17:02)
--- NOTE | 2019-07-28 13:40 | Pharmacy Report ---
Pharmacy Glycemic Short Note 2 - Date of Service July 28, 2019 - Glycemic Short BSG Results (Last 24 hours): 07/27/19 07/27/19 07/28/19 17:09 20:45 08:02 Glucose POC Glucose 125 H 121 H 123 H 07/28/19 07/28/19 08:46 12:09 Glucose 153 H POC Glucose 138 H OUTPATIENT ANTIDIABETIC REGIMEN: * glimepiride 1 mg PO qAM, metformin 500 mg PO BID * A1c pending ASSESSMENT: 07/28: * Patient is currently receiving an average of 31 units of insulin per day * 15 units of basal insulin * 16 units of prandial/correctional insulin * BSGs ranging 121 - 209 over the past 24hrs * Anticipate needing minor changes to insulin regimen over the next 24hrs: * AM Fasting BSG = 123. I will order Lantus per scale as I am uncertain of needs at this point. The patient tolerated a dose of 15 units yesterday but I suspect this will be too much when given for multiple days. * Post-prandial BSGs are at goal, therefore no changes to Novolog. 07/27: * Deidra is a 74 yr old T2DM female admitted for left hand cellulitis * She was taken to the OR yesterday for I&D. She was given a one time dose of dexamethasone 4 mg IV. * Fasting BSG consistently above goal -> start weight based basal insulin * Post prandial BSG elevation worsened by dexamethasone. I will tighten Novolog CF and CR. I anticipate improvement as steroid effect dissipates. PLAN FOR INPATIENT GLYCEMIC CONTROL: * Holding outpatient oral diabetes medications * Basal insulin * Lantus per scale SQ qPM * 8 units for BSG < 140 mg/dL * 15 units for BSG 140 mg/dL or more * Bolus insulin * NovoLog per scale ACHS or Q6hrs while NPO * Goal Range: Low 100 mg/dL - High 140 mg/dL * Correction Factor: 25 mg/dL/unit * Nutritional / Prandial insulin per carb ratio of 1 unit per 9 grams CHO consumed PLAN FOR DISCHARGE: * A1c pending * If metformin is discontinued due to renal function, consider addition of once daily basal insulin * Lantus/Levemir 10-15 units SQ once daily
--- NOTE | 2019-07-28 16:08 | Hospitalist Progress Note ---
Date of Service July 28, 2019 Assessment & Plan (1) Cellulitis of left hand: * Initially seen on 12Dec, negative for LUE DVT then. On Keflex, then doxy, then Augmentin on 19Dec as outpatient (since completed). 23Dec clinic appt noted failed outpatient treatment and worsening ROM of the third digit. Denies fever/chills. Baseline LUE lymphedema (s/p axillary lymph node dissection). * No leukocytosis, patient afebrile * X-ray left hand shows soft tissue swelling without evidence of fractures or osteomyelitis. * BCx NGTD * AFB, fungal culture pending * Continue IV Zosyn and daptomycin. * MRI hand -- no evidence of abscess, however does show rupture of FDS and FDP with retraction. * Orthopedics consult - 07/26 Irrigation and debridement Left middle finger chronic flexor tenosynovitis. (2) Rupture of flexor tendon of left hand: * Of LEFT hand, FDS and FDP with retractions of 3rd digit * management as above (3) Hypertension: * Follows with Dr. Schultz. Held home atenolol this morning for heart rate in the 40s * BP elevated, asymptomatic - hold lisinopril as below - given amlodipine 10 mg with good effect. Will give 10 mg amlodipine am as well * prn hydralazine (4) CKD (chronic kidney disease) stage 3, GFR 30-59 ml/min: * with ALAYNA * Cr 1.23 on admission * Currently 1.6, kidney function has been somewhat stubbornly around 1.5-1.6 over the last few days despite holding lisinopril for a couple of days and being positive fluid * Baseline around 1.2 - 1.5 * she did receive lisinopril today but I will place this back on hold for the time being. Will give 500 ml IVF and recheck prp am * recheck am * establish with nephrology after discharge (5) Lymphedema of left arm: * secondary to breast ca/sentinal lymph node biopsy * Restrict arm -- no labs/IVs to left side (6) Elevated alkaline phosphatase level: * Resolved * On admission, 132, with similar levels over the past few months. Remaining LFTs normal. No abdominal symptoms. (7) HOCM (hypertrophic obstructive cardiomyopathy): * Follows with Dr. Schultz (8) Diabetes mellitus, type 2: * At home is on metformin and glimepiride -- on hold while inpatient - would avoid resuming metformin given kidney function * SSI * Most recent A1c 6.8% on 07/06/18 -- should have repeat as outpatient * Blood sugars have been slightly elevated here - glycemic consult (9) Chronic back pain: * Hx spinal stenosis * Continue home Tylenol (10) History of breast cancer: * s/p L breast lumpectomy, chemo, radiation - diagnosed 2017 * Continue home anastrozole. (11) DVT prophylaxis: * SCDs while inpatient, heparin subq Dispo: ok to discharge from surgery, if patient's blood pressure and kidney func tion are improved tomorrow can likely discharge. Consult sent to nurse navigator for follow up with infectious disease Subjective Ms. Cevallos has no complaints. She has been working on the ROM exercises for her finger that her surgeon gave her. She denies any chest pain or sob. ROS Constitutional: no chills, aches, sweats or fever Respiratory: no sob,cough, sputum, or wheezing Cardiac: no chest pain, palpitations, edema, orthopnea or lightheadedness GI: no abdominal pain, nausea, vomiting, diarrhea or constipation : no dysuria or hesitancy Extremities: no joint pain or weakness Skin: no rash All other systems reviewed and negative Physical Exam Physical Exam: General: no distress Eyes: normal inspection, PERLL Respiratory: chest non tender, clear to auscultation, normal breath sounds, no respiratory distress, no accessory muscle use Cardiac: regular rate and rhythm, no rub or gallop, no murmur, no edema, no jvd GI/: active bowel sounds, no abd pain or tenderness, soft, non distended Extremities: normal range of motion, normal strength, non tender Neuro/Psych: alert and oriented x 3, normal mood and affect Skin: normal color, dry Results & Data Vital Signs (Past 12 Hours) Vital Signs Temp Pulse Resp BP Pulse Ox 07/28/19 15:04 36.5 C 61 16 126/73 97 07/28/19 07:49 36.4 C L 57 L 18 188/76 H 95 PG Care Time/CCT Total # of Minutes Spent Total Time Spent with Patient: Total time spent is greater than 50% in coordina tion of care (as documented) at patient's floor/unit and/or counseling patient: (1) Diabetes mellitus, type 2 Diabetes mellitus chcf insulin use: without intermediate accountant use Diabetes mellitus complication status: without complication Qualified Code(s): E11.9 - Type 2 diabetes mellitus without complications
[2019-07-28] MEDS ORDERED: INSULIN GLARGINE SOLOSTAR 100 UNITS/ML 3 ML PEN SC SCH (16:30)
[2019-07-28] MEDS: DAPTOmycin 275 MG in SYRINGE 0 ML IV SCH (17:08)
[2019-07-28] MEDS: HEPARIN SOD 5,000 UNIT/0.5 ML VIAL SQ SCH (20:45)
[2019-07-29] MEDS: HEPARIN 100 UNIT/ML 5ML FLUSH FLUSH PRN ×5 (00:29→17:22)
[2019-07-29] MEDS: PIPERACILLIN/TAZOBACTAM 3.375 GM in DEXTROSE 5% 100 ML IV SCH ×2 (04:10→11:55)
[2019-07-29 05:50] LABS: Estimated Average Glucose 197 mg/dl; Hemoglobin A1C 8.5 % (4.5-5.6)
[2019-07-29] MEDS: HydrALAZINE HCL 20 MG/ML VIAL IV PRN (07:41)
[2019-07-29] MEDS: MULTIVITAMIN TAB PO SCH (09:00)
[2019-07-29] MEDS: ATENOLOL 25 MG TABLET PO SCH (09:00)
[2019-07-29] MEDS: ANASTROZOLE 1 MG TAB PO SCH (09:00)
[2019-07-29] MEDS ORDERED: AMLODIPINE BESYLATE 5 MG TAB PO SCH (09:00)
[2019-07-29] MEDS: ACETAMINOPHEN 500 MG TAB PO SCH (09:01)
[2019-07-29] MEDS: HEPARIN SOD 5,000 UNIT/0.5 ML VIAL SQ SCH (09:04)
[2019-07-29] MEDS: INSULIN ASPART 100 UNITS/ML 3 ML PEN SC SCH ×2 (09:07→13:03)
[2019-07-29 09:24] LABS: Hematocrit (blood only) 35.4 % (37-47); Hemoglobin 11.1 g/dL (12.0-16.0); Mean Corpuscular Hemoglobin 29.7 pg (25-34); Mean Corpuscular Hgb Conc 31.4 g/dL (32-36); Mean Corpuscular Volume 94.7 fL (80-100); Mean Platelet Volume 9.2 fL (7.4-10.4); Platelet Count 392 K/uL (130-400); RDW Coefficient of Variation 14.8 % (11.5-14.5); RDW Standard Deviation 50.5 fL (36.4-46.3); Red Blood Count 3.74 M/uL (4.2-5.4); White Blood Count 6.72 K/uL (4.8-10.8)
--- NOTE | 2019-07-29 09:31 | Pharmacy Report ---
Glycemic Control Progress Note - Date of Service July 29, 2019 - Scope Glycemic Pharmacist consulted for glycemic control to write orders per [facility] inpatient glycemic control protocol. - Objective Accuchecks BSG(last 24 hours):: 07/28/19 07/28/19 07/28/19 08:46 12:09 17:05 Glucose 153 H POC Glucose 138 H 169 H 07/28/19 07/29/19 20:36 07:57 Glucose POC Glucose 160 H 155 H HbA1c:: Hemoglobin A1c 8.5 % (4.5-5.6) H 07/28/19 05:05 - Recent Pertinent Medications The patient is currently receiving: * Basal insulin: Lantus 15 units every 24 hours * Correctional Insulin: Novolog Correction per scale ACHS Goal Range: Low 100 mg/dL - High 140 mg/dL Correction Factor: 25 mg/dL/unit * Prandial insulin: Per carb ratio of 1 unit per 9 grams CHO consumed - Outpatient Anti-Diabetic Meds metformin 500 mg PO BID Glimepiride 1 mg PO daily - Assessment & Plan ASSESSMENT: * See progress note from 07/27/19 for more background info, in short: * Pt receiving SQ basal bolus insulin regimen for hyperglycemia secondary to baseline DM (outpatient regimen on hold) and infection (currently on daptomycin and Zosyn) * Patient is currently receiving an average of 35 units of insulin per day * 15 units of basal insulin * 20 units of prandial/correctional insulin * BSGs ranging 123 - 169 mg/dl over the past 24hrs * Changes needed to insulin regimen: * AM Fasting BSG = 155 mg/dl. This is slightly above goal range for patient based on inpatient targets and co-morbidities. Therefore Basal insulin will be increased to 18 units * Post-prandial BSGs were reasonable yesterday but did trend upwards. Tighten carbohydrate ratio. * Total daily dose = 40 units. * Additional notes / comments: Continue to hold oral agents. PLAN FOR INPATIENT GLYCEMIC CONTROL: * Increasing Lantus to 18 units SQ HS * Continuing correction factor of 25 mg/dl/unit * TIGHTENING carb ratio to 1 unit per 8 grams CHO consumed * Continuing goal range of Low 110 mg/dL - High 140 mg/dL RECOMMENDATIONS FOR DISCHARGE: * Patient's HbA1C indicates that oral agents may not be effective anymore to control hyperglycemia. * Recommend DISCONTINUING glimepiride. * For metformin, recommend caution at this time. If eGFR remains above 30 mL/min it is reasonable to continue. * Recommend STARTING LANTUS 15 units daily. * Please note that the plan above was derived based on current level of insulin resistance and hospital stress. These recommendations are appropriate for inpatient admission only. Plan of care upon discharge will need to be reassessed to avoid potential outpatient hypo/hyperglycemia. Thank you.
[2019-07-29 09:56] LABS: BUN Creatinine Ratio 14.9 (10-20); Calcium 9.4 mg/dl (8.5-10.1); Creatinine Clr Calc Pharmacy 34.4 ml/min; Est GFR (African American) 38.1; Est GFR (Non-African American) 32.9; Potassium 3.8 mmol/L (3.5-5.1)
--- NOTE | 2019-07-29 16:17 | Discharge Summary ---
Date of Service July 29, 2019 Admission HPI Per Admitting Provider 74-year-old female was initially seen in the emergency department on July 11 for left hand swelling that occurred a week prior. Was diagnosed with cellulitis and sent home on antibiotics. Over the subsequent almost 2 weeks she has been on Keflex, doxycycline, and Augmentin (with last dose this morning). She was again seen by her primary care provider this morning where she noted that she developed some skin peeling over the past couple of days as well as significant worsening of her MCP range of motion. She was then referred here for failure of outpatient management. Here in the ED, patient says that her hand is not really painful but that she cannot move her third digit much at all. She notes that she had some peeling of the skin over the past couple of days. Does not say that the erythema that is currently present has recently worsened. Denies any fever or chills. He has had some loose stools with antibiotics but denies any abdominal pain. Denies any rashes or issues with movement of her other digits. No other acute patient concerns. - Past medical history includes chronic back pain, CKD stage III, diabetes type 2, hokum, necrotizing fasciitis, hypertension, low magnesium, insomnia, nephrolithiasis, left breast cancer and left arm lymphedema, mitral regurg, osteoarthritis, radiation fibrosis of lung, spinal stenosis, urinary incontinence, colon polyps, urinary incontinence, adrenal adenoma - Past surgical history includes right hip replacement 2014, lithotripsy, cataract surgery, ORIF, hysterectomy, partial mastectomy with axillary lymph node dissection - Social history includes never smoking, no alcohol use, lives at home alone. Principal Diagnosis Left middle finger flexor tendon rupture and tenosynovitis with cellulitis Discharge Exam Constitutional WD/WN, vitals as above Eyes + anicteric sclerae ENMT external ear and nose normal, oropharynx normal Neck trachea midline, no thyromegaly Respiratory normal respiratory effort, lungs clear to auscultation Cardiovascular Rate/Rhythm: regular rate and regular rhythm Heart Sounds: + murmur (3/6 systolic murmur LLSB) Extremities: no edema Chest (Breasts) Chest: normal inspection of chest Gastrointestinal (Abdomen) normal bowel sounds, soft, nontender, no hepatosplenomegaly Musculoskeletal Extremities: + extremities abnormal to inspection (left middle finger with sutures in place prox palmar surface,mild edema), no cyanosis and no clubbing Skin no rashes, warm and dry no erythema (left middle finger no erythema) Neurologic moves all extremities and awake; no focal motor deficits Psychiatric A+Ox3, euthymic affect Lymphatic no lymphedema Discharge Data Allergies Allergy/AdvReac Type Severity Reaction Status Date / Time Sulfa (Sulfonamide Allergy Intermediate HIVES - Verified 07/22/19 13:43 Antibiotics) ITCHING adhesive Allergy Unknown BLISTERING Verified 07/22/19 13:43 Consultations 07/22/19 18:32 ED Decision to Admit Stat 07/22/19 21:23 Consult Orthopedic Surgery Routine 07/24/19 12:38 Consult Orthopedic Surgery Routine 07/28/19 16:09 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 Ordered Studies 07/23/19 10:34 MR hand LT wo con Urgent Hand xray Hospital Course (1) Cellulitis of left hand: * Initially seen on 12Dec, negative for LUE DVT then. On Keflex, then doxy, then Augmentin on 19Dec as outpatient (since completed). Dec clinic appt noted failed outpatient treatment and worsening ROM of the third digit. Denies fever/chills. Baseline LUE lymphedema (s/p axillary lymph node dissection). * No leukocytosis, patient remained afebrile * X-ray left hand showed soft tissue swelling without evidence of fractures or osteomyelitis. * MRI hand -- no evidence of abscess, however did show rupture of FDS and FDP with retraction. * Orthopedics consult - 07/26 Irrigation and debridement Left middle finger chronic flexor tenosynovitis. Noted to have "dishwater" appearing fluid and suspicious for more indolent organism or Mycobacterium as per Ortho notes * BCx NGTD, WOund cultures including AFB, Fungal, and bacterial cx all negative * Received many days of IV Zosyn and daptomycin--> no organism isolated--> dc on Augmentin and doxy for broad coverage but suspect now that she is s/p surgical washout, this will continue to improve * Ortho did request ID appt as outpt-soonest available was 3 weeks from now-appt made but will need close f/u with PCP and Ortho after discharge (2) Suppurative tenosynovitis of flexor tendon of left hand: as above (3) Rupture of flexor tendon of left hand: * Of LEFT hand, FDS and FDP with retractions of 3rd digit * management as per ortho-not corrected at this time during surgery, is a chronic disruption with obliteration of pulleys * f/u with Ortho as outpt (4) Hypertension: * Follows with Dr. Schultz. 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 Remaining LFTs normal. No abdominal symptoms. (8) HOCM (hypertrophic obstructive cardiomyopathy): * Follows with Dr. Schultz * no evidence of volume overload or dehydration at time of discharge, was doing well (9) Diabetes mellitus, type 2: * At home is on metformin and glimepiride -- on hold while inpatient * ok to continue metformin on discharge but would dc if GFR<30 (currently borderline) * recommend discontinuing glimepiride due to renal function * insulin was provided here * Most recent A1c here is 8.5%, much higher than previous * f/u as outpt for improved DM management, consider GLP-1 (10) Chronic back pain: * Hx spinal stenosis * Continue home Tylenol (11) History of breast cancer: * s/p L breast lumpectomy, chemo, radiation - diagnosed 2017 * Continue home anastrozole. (12) DVT prophylaxis: * SCDs while inpatient, heparin subq Dispo: stable for discharge Total Time Total Time Spent Total Time Spent (In Minutes): 35 min Total Time Includes: Examination of the Patient, Discharge Planning and Medication Reconciliation Discharge Plan Discharge Items Patient Disposition: Home - Self-Care Reason For Visit: FINGER/HAND CELLULITIS,FAILED OUTPT MANAGEMENT Discharge Diagnosis: Suppurative tenosynovitis of third finger with flexor tendon rupture Condition on Discharge: Good Goals: You have been hospitalized for an urgent problem which required surgery. During your stay at [facility], we have made an effort to correct the problem that brought you to the hospital while keeping you as comfortable as possible. Surgery and medications were used to bring your condition under control and your discharge instructions will include directions for any medications you should take after leaving the hospital. Please make sure to follow the advice of your surgeon regarding follow up with the surgeon and with your primary care provider. Activity: Per Instructions section Bathing: Keep incision dry Non-emergency contact: Primary Care Provider and Surgeon Call non-emergency contact if: you have any medication questions, your symptoms worsen, your pain is not controlled, your pain is worsening, your pain is unusual for you, your pain is concerning for you, your temperature is above 101.5, your wound has increased redness and your wound has increased drainage Follow-up/Referrals: Tali Olson DO [Primary Care Provider] - 08/02/19 8:15 am (Please, follow up at Dr. Olson's office with her associate, Angelica Mcmahan PA-C, on MondayAugust 02 at 8:15 am. *If you need to change this appointment, call the office at [phone].) Rae Cortez DO [Physician] - 08/21/19 2:30 pm (Please, follow up at [facility] Infectious Disease Office with Dr. Rae Jackson on MondayAugust 21 at 2:30 pm. *The office is located in [address] of [facility], next to this [facility]. If you have any questions, call the office at [phone].) Carlos A Pina M.D. [Physician] - 08/07/19 11:45 am (Please, follow up at [facility] with Dr. Pina on MondayAugust 07 at 11:45 am. *The office is located at [address] [place] [address] in [place]. If you need to change this appointment, call the office at [phone].) Diet: Carb Consistent or DM2 Addtl Attending Provider Instructions: Please continue on the oral antibiotics with Augmentin and doxycycline twice a day x 10 more days. Your diabetes is not well controlled. You should STOP taking the glimepiride as this can cause glucose to go too low in the setting of chronic kidney disease. It is recommended that you start Lantus as a long acting insulin, but it is reasonable for you to try dietary changes first at home to try to better control your glucose readings. Please follow up with your PCP regarding your diabetes. Dressings -Apply a new clean dressing daily. Be sure to wash your hands thoroughly before touching your incisions. -You may begin showering 4 days after surgery. You may let the water run BRIEFLY over the incision, but do not soak the incision in the bathtub or pool for 2 weeks. You may also gently clean the incision with mild soap and water; pat the incision dry after cleaning-do not rub the incision. -You may use an antibiotic ointment (Bacitracin, Polysporin) if desired, but this is not necessary. Activity -Keep your hand elevated and move your fingers frequently to reduce swelling. Use your right hand to aggressively bend your left middle finger down into a full fist. Pending Studies at Discharge: No Stand-Alone Forms: My [facility] Medications and DC Order Prescriptions: New doxycycline hyclate 100 mg tablet 100 mg PO BID 10 Days Qty: 20 RF: 0 Continued anastrozole 1 mg tablet 1 mg PO QAM Qty: 90 RF: 3 atenolol 50 mg tablet 75 mg PO QAM Qty: 90 RF: 3 lisinopril 40 mg tablet 40 mg PO DAILY Qty: 90 RF: 3 metformin 500 mg tablet 500 mg PO BID Qty: 180 RF: 3 acetaminophen [Tylenol Extra Strength] 500 mg Tablet 500 mg PO BID RF: 0 multivitamin Tablet 1 tab PO QAM RF: 0 amoxicillin-pot clavulanate [Augmentin] 875-125 mg tablet 1 tab PO BID 10 Days Qty: 20 RF: 0 Discontinued glimepiride 1 mg tablet 1 mg PO QAM Qty: 90 RF: 3 Discharge Orders: Discharge Order (Routine); Ordered 07/29/19 Ordered By: Lisa Hernandez/Other Patient Handouts: Diabetes Correction Complications, Diabetes Resources, Diabetes Healthy Meals, Diabetes Exercise Benefits, Diabetes Living Life, Diabetes Manage A1C Test Admission Data Admit Date/Time: 07/24/19 08:29 Attending Provider: Lisa Cason Admit Provider: Kaden Coffman Primary Care Provider: Tali Olson Other Providers: Maxwell Lozano ; Oscar Bae ; Mike Snow Other Interventions: Discharge Summary Assessment (RN) Last Done: 07/29/19 17:35 DC Date/Time DO NOT enter until pt leaves facility: 07/29/19 18:25
[2019-07-29] MEDS: DAPTOmycin 275 MG in SYRINGE 0 ML IV SCH (16:53)
[2019-07-29] MEDS ORDERED: INSULIN GLARGINE SOLOSTAR 100 UNITS/ML 3 ML PEN SC SCH (21:00)
== END 2019-07-29 18:25 | disposition home or self-care (01) | DRG 603 ==
LOC: 3N 16:37 → ED 16:37 → SUATTDRO 20:36 → 3N 21:11 → SUATTDRO 07-24 08:29

== ENCOUNTER 2020-02-14 17:14 | Observation (INO) ==
--- NOTE | 2020-02-14 14:41 | Anesthesiology Consultation ---
Date of Service February 14, 2020 Assessment & Plan (1) Encounter for pre-operative examination: History Surgery Operation Date: 02/14/20 14:50 Proposed Procedures p Left Middle Finger Incision and Drainage, - Carlos A Pina M.D. s Hardware Removal - Carlos A Pina M.D. Allergies Allergy/AdvReac Type Severity Reaction Status Date / Time Sulfa (Sulfonamide Allergy Intermediate HIVES - Verified 01/30/20 12:44 Antibiotics) ITCHING adhesive Allergy Unknown BLISTERING Verified 01/30/20 12:44 Medications Home Medications Medication Instructions Recorded Confirmed Last Taken multivitamin 1 tab PO QAM 05/29/18 01/30/20 01/29/20 08:00 anastrozole 1 mg tablet 1 mg PO QAM #90 tab 05/24/19 01/30/20 01/29/20 09:00 atenolol 50 mg tablet 75 mg PO QAM #90 tab 08/30/19 01/30/20 01/30/20 08:00 blood sugar diagnostic #300 ea 10/28/19 01/24/20 Unknown metformin 500 mg tablet 500 mg PO BID #180 tab 11/27/19 01/30/20 Unknown lisinopril 40 mg PO QAM 01/24/20 01/30/20 01/29/20 08:00 Past Medical History Medical History Adrenal adenoma pt not aware Chronic back pain CKD (chronic kidney disease) stage 3, GFR 30-59 ml/min Diabetes mellitus, type 2 HOCM (hypertrophic obstructive cardiomyopathy) Echo from 07/25/18: EF 65-70%, severe asymmetric hypertrophic cardiomyopathy moderate LVH, no NOEMÍ. Pt is asymptomatic, follows with cardio annually, last seen 06/2019. Hypertension Insomnia Kidney stones hx of Lymphedema of left arm Due to left axillary lymph node dissection - LIMB RESTRICTION Malignant neoplasm of central portion of left breast in female, estrogen receptor positive (08/08/17) s/p lumpectomy 2018 Mitral regurgitation Osteoarthritis Paresthesia Hands and feet periodically Radiation fibrosis of lung Spinal stenosis Urinary incontinence Past Family History Family History Grandmother Family history of diabetes mellitus Diabetes Family/Other Family hx of colon cancer Ovarian cancer cousin Sister Breast cancer Diabetes Mother Hypertension Father Hypertension Denies family history of Prostate cancer Colorectal cancer Past Surgical History Surgical History H/O lithotripsy History of cataract surgery R/L History of hysterectomy TOTAL History of open reduction and internal fixation (ORIF) procedure L ELBOW History of total hip arthroplasty R/L History of total knee replacement RIGHT Hx of necrotising fasciitis [id number] Hx of ovarian cystectomy S/P partial mastectomy (~08/30/17) L breast, with axiallary LN dissection Status post incision and drainage (07/26/19) Irrigation and debridement of L mid finger d/t infectious flexor tenosynovitis w/ additional rupture of FDS and FDP tendons Social History Smoking Status: Never smoker Hx Alcohol Use: No Hx Substance Use: No substance use type: does not use Testing Electrocardiogram Date: 07/11/19 Sinus bradycardia Possible Left atrial enlargement Left anterior fascicular block Left ventricular hypertrophy T wave abnormality, consider lateral ischemia Abnormal ECG When compared with ECG of 30-MAY-2018 09:39, No significant change Reconfirmed by Humza Schultz ([id number]) on 07/12/2019 5:21:49 AM
--- NOTE | 2020-02-14 15:24 | History & Physical Report ---
Date of Service February 14, 2020 Assessment & Plan (1) Infection following a procedure, deep incisional surgical site, initial encounter: She is 2 weeks out from her stage I flexor tendon reconstruction with placement of a silicone spacer jackson in the flexor tendon sheath out along the left middle finger. Unfortunately, it looks like this has gotten acutely infected. Of note, her original presentation was rather unusual. It seems like she had a chronic attritional rupture of her left middle finger FDS and FDP tendons after a chronic smoldering infectious flexor Christie synovitis that might of been going on for about a month prior to her rupture. She had been treated with several courses of antibiotics with intermittent improvement. All previous cultures at her initial debridement surgery back in June were negative. I advised her that I really cannot tell whether this is a new acute infection after her surgery 2 weeks ago or whether she had some persistent smoldering infection ever since her original surgery in June. Either way, she will require an urgent irrigation and debridement. Unfortunately, we will have to remove all foreign material from her hand to adequately clear this infection. I advised her this means removal of her previously placed silicone spacer rods in the flexor tendon sheath. I may also have to remove the nonabsorbable sutures placed in the flexor tendon to create the FDS to FDP anastomotic loop in her palm, but I will evaluate this intraoperatively. I will need to admit her postoperatively for IV antibiotic treatment. She understands and is in agreement with this plan. Risks, benefits, and alternatives of surgery were explained in detail. The surgical procedure, as well as postoperative recovery and rehabilitation, was also explained in detail. Risks include bleeding; persistent infection; damage to surrounding structures such as nerves, blood vessels, and tendons that run in the area; persistent pain, numbness, weakness, or stiffness; or need for further surgery. She understands all of this and wishes to proceed with surgery. Preoperative workup was completed today, and informed consent was obtained. History of Present Illness Chief Complaint: Left hand infection Primary Care Provider: Tali Olson DO Previous Surgery: 01/30/20 - Left middle finger stage I flexor tendon reconstruction with excision of FDP tendon and replacement with silicone jackson and creation of FDSFDP anastomotic loop in the palm (Paneva-Holemerlinh technique), left middle finger DIP joint manipulation under anesthesia, left ring finger trigger release 07/26/19 - Left middle finger I&D of chronic flexor tenosynovitis with attritional rupture of FDS and FDP tendons She is now 2 weeks out from surgery. She actually missed her postoperative follow-up appointment that was scheduled for 2 days ago, and was rescheduled for today. She reports that she was doing very well with this left middle finger until about 3 days ago. She said she was moving all 3 joints very well into basically a full fist, but about 3 days ago she started having worsening pain, redness, and swelling around the incision and spreading to her entire hand. She overall feels well and denies any fevers or chills. She actually denies significant pain in the hand. She notes that the previous incision line is now draining. Allergies Allergy/AdvReac Type Severity Reaction Status Date / Time Sulfa (Sulfonamide Allergy Intermediate HIVES - Verified 01/30/20 12:44 Antibiotics) ITCHING adhesive Allergy Unknown BLISTERING Verified 01/30/20 12:44 Home Medications Home Medications Medication Instructions Recorded Confirmed Type multivitamin 1 tab PO QAM 05/29/18 01/30/20 History anastrozole 1 mg tablet 1 mg PO QAM #90 tab 05/24/19 01/30/20 Rx atenolol 50 mg tablet 75 mg PO QAM #90 tab 08/30/19 01/30/20 Rx blood sugar diagnostic #300 ea 10/28/19 01/24/20 Rx metformin 500 mg tablet 500 mg PO BID #180 tab 11/27/19 01/30/20 Rx lisinopril 40 mg PO QAM 01/24/20 01/30/20 History Past Med/Surg History Medical History Adrenal adenoma pt not aware Chronic back pain CKD (chronic kidney disease) stage 3, GFR 30-59 ml/min Diabetes mellitus, type 2 HOCM (hypertrophic obstructive cardiomyopathy) Echo from 07/25/18: EF 65-70%, severe asymmetric hypertrophic cardiomyopathy moderate LVH, no NOEMÍ. Pt is asymptomatic, follows with cardio annually, last seen 06/2019. Hypertension Insomnia Kidney stones hx of Lymphedema of left arm Due to left axillary lymph node dissection - LIMB RESTRICTION Malignant neoplasm of central portion of left breast in female, estrogen receptor positive (08/08/17) s/p lumpectomy 2018 Mitral regurgitation Osteoarthritis Paresthesia Hands and feet periodically Radiation fibrosis of lung Spinal stenosis Urinary incontinence Surgical History H/O lithotripsy History of cataract surgery R/L History of hysterectomy TOTAL History of open reduction and internal fixation (ORIF) procedure L ELBOW History of total hip arthroplasty R/L History of total knee replacement RIGHT Hx of necrotising fasciitis [id number] Hx of ovarian cystectomy S/P partial mastectomy (~08/30/17) L breast, with axiallary LN dissection Status post incision and drainage (07/26/19) Irrigation and debridement of L mid finger d/t infectious flexor tenosynovitis w/ additional rupture of FDS and FDP tendons Family History Grandmother Family history of diabetes mellitus Diabetes Family/Other Family hx of colon cancer Ovarian cancer cousin Sister Breast cancer Diabetes Mother Hypertension Father Hypertension Denies family history of Prostate cancer Colorectal cancer Social History Preferred Language: Filipino Communication Ability: Effective Visual Impairment: Limited Hearing Ability: Hard of Hearing Quality Control Tech Required: No Beliefs That Will Affect Care: None marital status: Single Current Living Situation: Alone current occupational status: retired Feels Safe at Home: Yes Smoking Status: Never smoker Second Hand Exposure: No ; Hx Alcohol Use: No Hx Substance Use: No Childhood Exposure to Second-Hand Smoke: No caffeine: Yes (Tea x 1 per day) during the past year weight has: remained stable Dental Care, Regularly: Yes Physical Activity Frequency: Does not Exercise Seatbelt Use: always Sunscreen Use: Yes Physical Exam Physical Exam: Examination of the left hand reveals diffuse erythema, swelling, and induration around the hand. The extensile volar incision line from the palm into the middle finger looks erythematous and is draining. There is expressible purulent drainage.
[~2020-02-14 17:14] MED LIST changes: -ACET-1256 PO; -AMLO5TAB3 PO; -ANAS1TAB7 PO; +CEFAZOLIN 1000MG 1,000 MG/7.5 ML SYR IV SCH; -GLIM1TAB2 PO; -LISI40TA PO; -METF1TAB53 PO; -MULT-222 PO; -TNR50 PO
[2020-02-14] MEDS ORDERED: LACTATED RINGER'S 1,000 ML IV ONE (17:55)
[2020-02-14] MEDS ORDERED: ONDANSETRON INJ 2 MG/ML 2 ML VIAL ONE ×2 (18:02→19:52)
[2020-02-14] MEDS ORDERED: PROPOFOL IV EMULSION 10 MG/ML 20 ML VIAL IV ONE (18:02)
[2020-02-14] MEDS ORDERED: fentaNYL citrate 100 MCG/2 ML VIAL ONE ×2 (18:02→18:53)
[2020-02-14] MEDS ORDERED: LIDOCAINE HCL 2% 2 ML VIAL/AMP(20MG/ML) INFIL ONE (18:02)
[2020-02-14] MEDS ORDERED: MIDAZOLAM HCL 1 MG/ML 2ML VIAL ONE (18:02)
--- NOTE | 2020-02-14 18:14 | History & Physical Bridge Note ---
Date of Service February 14, 2020 History & Physical Bridge Note I have examined the patient, reviewed the History & Physical and in the interval since the performance of the History & Physical I have noted the following changes of clinical significance: no changes noted
[2020-02-14] MEDS ORDERED: ATROPINE SULFATE 0.1 MG/ML 10ML SYR IV PRN (18:34)
[2020-02-14] MEDS ORDERED: ONDANSETRON INJ 2 MG/ML 2 ML VIAL IV PRN ×2 (18:34→21:28)
[2020-02-14] MEDS ORDERED: HYDROmorphone INJ 1 MG/ML SYRINGE IV PRN (18:34)
[2020-02-14] MEDS ORDERED: fentaNYL citrate 100 MCG/2 ML VIAL IV PRN (18:34)
[2020-02-14] MEDS ORDERED: PHENYLEPHRINE 100MCG/ML 5ML SYR IV PRN (18:34)
[2020-02-14] MEDS ORDERED: MEPERIDINE HCL 25 MG/ML CARP/VIAL IV PRN (18:34)
[2020-02-14] MEDS ORDERED: CEFAZOLIN 250 MG/ML 1 GM VIAL ONE (19:00)
[2020-02-14] MEDS ORDERED: PHENYLEPHRINE HCL 10 MG/ML VIAL ONE (19:00)
--- NOTE | 2020-02-14 20:10 | Post Operative Brief Note ---
Immediate Post Op Note v1 Date of Surgery February 14, 2020 Pre & Post Diagnosis Operation Date: 02/14/20 14:50 Pre-Op Diagnosis: Left Middle Finger Infection Post-Op Diagnosis: Left Middle Finger Infection I identified the patient and participated in the time-out.: Yes Procedure Operation Date: 02/14/20 14:50 Actual Procedures p Left Middle Finger Incision and Drainage,(Left) - Carlos A Pina M.D. s Hardware Removal(Left) - Carlos A Pina M.D. Surgeon Carlos A Pina Nitrator Operator None Estimated Blood Loss 10 Findings Consistent with Post-Op Diagnosis
--- NOTE | 2020-02-14 20:17 | Operative Report ---
Post Operative Report Pre & Post Diagnosis Operation Date: 02/14/20 14:50 Pre-Op Diagnosis: Left Middle Finger Postoperative Infection of Flexor Tendon Sheath Post-Op Diagnosis: Left Middle Finger Postoperative Infection of Flexor Tendon Sheath I identified the patient and participated in the time-out.: Yes Procedure Operation Date: 02/14/20 14:50 Actual Procedures 1. Left Middle Finger Irrigation and Debridement of Flexor Tendon Sheath in Digit and Palm (01012) 2. Removal of Implant, Deep (87296) - Carlos A Pina M.D. Surgeon Carlos A Pina Induction Machine Operator None Estimated Blood Loss 10 Findings Consistent with Post-Op Diagnosis Specimens Culture swabs x2 for Gram stain, aerobic culture, and anaerobic culture Soft tissue specimen for Gram stain, aerobic culture, anaerobic culture, fungal culture, and AFB Drains None Anesthesia Type General Complications none Disposition Disposition: Recovery Room Indications Ms. 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 She previously underwent an irrigation and debridement surgery at that time, but intraoperative cultures were negative after several rounds of oral antibiotics over the previous month. She seemed to be clear of any lingering infection, and I then proceeded with a stage I of a two-stage flexor tendon reconstruction with creation of an anastomotic loop of the FDS and FDP in the palm, as well as placement of a silicone spacer jackson along the flexor tendon sheath in the finger. She initially did well after the surgery, but presented to my clinic today with 3 days of worsening pain, redness, and swelling along her previous incision site, with expressible purulent drainage. Urgent surgical intervention was recommended. History, clinical exam, and imaging were consistent with the above diagnosis. Risks, benefits, and alternatives of surgery were explained in detail. The patient understood all this and wished to proceed. Description of Procedure Patient was identified in the preoperative holding area. Operative extremity was marked. Patient was then brought back to the operating room, and general anesthesia was induced without complication. Preoperative antibiotics were held until intraoperative cultures were obtained. Tourniquet was placed on the left forearm. The forearm was then prepped and draped in a standard sterile fashion using Betadine prep. The forearm was then exsanguinated with an Esmarch starting proximal to the zone of infection, and the tourniquet was inflated. I reopened her previous Mode incision from the palm all the way out to the volar tip of the middle finger with a #15 blade. Immediately upon incising the skin, there was copious purulent fluid that expressed from the wound. The fluid was collected on culture swabs for Gram stain and aerobic and anaerobic cultures. I continued to open her previous incision, bluntly dissecting through the subcutaneous tissues down to the silicone rods and deep fascia. There was copious fibrinous tissue surrounding the entire wound and flexor tendon sheath; this tissue was debrided with a rongeur and sent for Gram stain, aerobic cultures, anaerobic cultures, fungal cultures, and AFB cultures. After cultures had been obtained, an appropriate weight-based dose of Ancef was infused intravenously for antibiotic prophylaxis. The FiberWire suture holding her previously placed silicone Jonel rods were removed, and the Jonel rods themselves were removed. The wound beds were then aggressively sharply debrided with knife, scissors, curette, and ronguer. Of note, the A2 and A4 pulleys were still intact with good tension. In the palm, I was able to retrieve the anastomotic loop between the FDS and FDP tendons. There did appear to be gross purulence around this area as well as surrounding fibrinous tissue. I therefore decided it would be prudent to remove the previous nonabsorbable FiberWire and Prolene sutures used to create the anastomotic repair. After thorough sharp debridement, I then copiously irrigated the wounds with sterile saline via gravity irrigation. Tourniquet was let down, and hemostasis was achieved with bipolar electrocautery. Skin was loosely closed with 4-0 Prolene. Sterile dressings were then applied with Xeroform, sterile Cling wrap, and Coban. The drapes were removed, the patient was awakened from anesthesia, and taken to the Post Anesthesia Care Unit in stable condition. There were no immediate complications to the procedure. I was present and scrubbed for the entire procedure. I attest to the content of the Intraoperative Record and any orders documented therein. Any exceptions are noted below.
--- NOTE | 2020-02-14 20:59 | Anesthesiology Progress Note ---
Date of Service February 14, 2020 Anesthesia Post Procedure Vital Signs Vital Signs: Temp Pulse Pulse Resp BP Pulse Ox 02/14/20 20:45 69 22 194/74 H 94 02/14/20 20:37 36.7 C 66 21 127/80 97 02/14/20 17:37 36.7 C 60 20 196/89 H 94 Pain Intensity Right Hand: Pain Intensity: 2 Transfer of Care Handoff Completed per policy Notes Mental Status: alert / awake / arousable and participated in evaluation Patient Amnestic to Procedure: Yes Nausea / Vomiting: adequately controlled Pain: adequately controlled Airway Patency, RR, SpO2: stable & adequate BP & HR: stable & adequate Hydration State: stable & adequate Anesthetic Complications: no major complications apparent and Pt Satisfied with anesthetic care
[2020-02-14] MEDS ORDERED: MAGNESIUM HYDROXIDE SUSP 30 ML UDC PO PRN (21:28)
[2020-02-14] MEDS ORDERED: METOCLOPRAMIDE HCL INJ 5 MG/ML 2 ML VIAL IV PRN (21:28)
[2020-02-14] MEDS ORDERED: NALOXONE HCL 0.4 MG/1 ML VIAL/CARP IV PRN (21:28)
[2020-02-14] MEDS ORDERED: PIPERACILL/TAZOBAC CONSULT ACTIVE PRN (21:28)
[2020-02-14] MEDS ORDERED: bisacodyL 10 MG SUPP PR PRN (21:28)
[2020-02-14] MEDS ORDERED: SODIUM CHLORIDE 0.9% 1000ML 1,000 ML IV SCH (21:28)
[2020-02-14] MEDS ORDERED: [UNRECOGNIZED DRUG - OTHER] SCH (21:28)
[2020-02-14] MEDS ORDERED: OXYCODONE HCL IR 5 MG TAB (IMMEDIATE RELEASE) PO PRN (21:28)
[2020-02-14] MEDS ORDERED: PIPERACILLIN/TAZOBACTAM 3.375 GM in DEXTROSE 5% 100 ML IV ONE (22:00)
[2020-02-14] MEDS: ACETAMINOPHEN 500 MG TAB PO SCH (22:20)
[2020-02-14] MEDS: SENNA 8.6 MG TAB PO SCH (22:20)
[2020-02-15] MEDS: IBUPROFEN 600 MG TAB PO SCH ×4 (01:36→19:42)
[2020-02-15] MEDS ORDERED: PIPERACILLIN/TAZOBACTAM 3.375 GM in DEXTROSE 5% 100 ML IV SCH (04:00)
[2020-02-15] MEDS: ACETAMINOPHEN 500 MG TAB PO SCH ×4 (04:05→21:35)
[2020-02-15 05:59] LABS: Hematocrit (blood only) 35.2 % (37-47); Hemoglobin 11.1 g/dL (12.0-16.0); Mean Corpuscular Hemoglobin 29.1 pg (25-34); Mean Corpuscular Hgb Conc 31.5 g/dL (32-36); Mean Corpuscular Volume 92.1 fL (80-100); Mean Platelet Volume 10.2 fL (7.4-10.4); Platelet Count 295 K/uL (130-400); RDW Coefficient of Variation 15.4 % (11.5-14.5); RDW Standard Deviation 51.7 fL (36.4-46.3); Red Blood Count 3.82 M/uL (4.2-5.4); White Blood Count 9.85 K/uL (4.8-10.8)
[2020-02-15 06:15] LABS: BUN Creatinine Ratio 19.2 (10-20); Calcium 8.6 mg/dl (8.5-10.1); Creatinine Clr Calc Pharmacy 36.4 ml/min; Est GFR (African American) 42.4; Est GFR (Non-African American) 36.6; Potassium 4.8 mmol/L (3.5-5.1)
[2020-02-15] MEDS: lisinopriL 40 MG TAB PO SCH (08:56)
[2020-02-15] MEDS: METFORMIN HCL 500 MG TAB PO SCH ×2 (08:56→18:00)
[2020-02-15] MEDS: ATENOLOL 25 MG TABLET PO SCH (08:57)
[2020-02-15] MEDS: ANASTROZOLE 1 MG TAB PO SCH (08:57)
[2020-02-15] MEDS: MULTIVITAMIN TAB PO SCH (08:57)
--- NOTE | 2020-02-15 10:15 | Orthopedic Progress Note ---
Date of Service February 15, 2020 Assessment & Plan (1) Infection following a procedure, deep incisional surgical site, initial encounter: Postoperative day #1 status post irrigation and debridement of her left hand infection and removal of her silicone Jonel jackson implant. She is currently receiving Zosyn for antibiotic coverage. Cultures are growing gram-positive cocci. We will plan for dressing change tomorrow. If her wound looks good and her culture results are finalized, we can set up home antibiotic plan and let her go home. Admission and Anticipated Discharge Date Admission Date: February 14, 2020 Subjective She is doing well this morning. She was not having a lot of pain preoperatively, but she notes less throbbing today than preoperatively. Overall she is having minimal pain. She is otherwise resting comfortably with no complaints. Physical Exam Physical Exam: Examination of her left hand reveals that her dressings are clean, dry, and in place. She continues to have some swelling in that hand. Results & Data ([facility]) Vital Signs (Past 12 Hours) Vital Signs Temp Pulse Pulse Resp BP Pulse Ox 02/15/20 07:23 36.4 C L 54 L 16 152/79 H 97 02/15/20 04:11 36.5 C 51 L 18 136/75 98 02/14/20 23:31 37.0 C 61 18 124/54 L 96 Laboratory Results Intraoperative cultures are growing gram-positive cocci. Not yet speciated.
[2020-02-15] MEDS ORDERED: DAPTOMYCIN CONSULT ACTIVE PRN (10:32)
[2020-02-15] MEDS: DAPTOmycin 225 MG in SYRINGE 0 ML IV SCH (11:57)
[2020-02-15] MEDS: SENNA 8.6 MG TAB PO SCH (21:32)
[2020-02-16] MEDS: IBUPROFEN 600 MG TAB PO SCH ×3 (00:11→12:39)
[2020-02-16] MEDS: ACETAMINOPHEN 500 MG TAB PO SCH ×2 (04:49→08:59)
[2020-02-16 07:12] VITALS: TEMP 97.5; O2SAT 97
[2020-02-16] MEDS: ATENOLOL 25 MG TABLET PO SCH (07:53)
[2020-02-16] MEDS: lisinopriL 40 MG TAB PO SCH (07:54)
[2020-02-16] MEDS: MULTIVITAMIN TAB PO SCH (08:58)
[2020-02-16] MEDS: METFORMIN HCL 500 MG TAB PO SCH (08:58)
[2020-02-16] MEDS: ANASTROZOLE 1 MG TAB PO SCH (08:59)
[2020-02-16 09:21] VITALS: BP 185/75; PULSE 52
--- NOTE | 2020-02-16 09:22 | Orthopedic Progress Note ---
Date of Service February 16, 2020 Assessment & Plan (1) Infection following a procedure, deep incisional surgical site, initial encounter: She is now postoperative day #2 after her irrigation and debridement and implant removal from her left hand and middle finger. Yesterday, her's cultures showed a Staphylococcus species, so I switched her Zosyn to daptomycin. She received 1 dose of that yesterday. Today, her cultures showed methicillin sensitive staph aureus. We will get her 1 more dose of the daptomycin, and then we can transition to oral antibiotics as an outpatient. She is allergic to sulfa drugs, so we will plan for Keflex. Her incision looks good, markedly improved from preoperatively. We will plan to discharge her today after her daptomycin dose. Present on Admission?: Yes Admission and Anticipated Discharge Date Admission Date: February 14, 2020 Anticipated date of discharge: 02/16/20 Subjective She is doing very well this morning. Pain is well controlled. No specific issues. She denies any nausea or vomiting. Physical Exam Physical Exam: Her left hand and middle finger dressings were taken down and changed this morning. Her incision looks markedly improved from preoperatively. Minimal swelling. Erythema is markedly improved. Scant bloody drainage, but no purulent drainage. Results & Data ([facility]) Vital Signs (Past 12 Hours) Vital Signs Temp Pulse Pulse Resp BP Pulse Ox 02/16/20 07:52 60 209/106 H 02/16/20 07:07 36.4 C L 54 L 16 210/78 H 97 02/15/20 23:35 37.1 C 58 L 18 193/89 H 95 Laboratory Results Cultures are growing methicillin sensitive staph aureus.
--- NOTE | 2020-02-16 09:27 | Discharge Summary ---
Date of Service February 16, 2020 Admission HPI Per Admitting Provider Previous Surgery: 01/30/20 - Left middle finger stage I flexor tendon reconstruction with excision of FDP tendon and replacement with silicone jackson and creation of FDSFDP anastomotic loop in the palm (Paneva-Holevich technique), left middle finger DIP joint manipulation under anesthesia, left ring finger trigger release 07/26/19 - Left middle finger I&D of chronic flexor tenosynovitis with attritional rupture of FDS and FDP tendons She is now 2 weeks out from surgery. She actually missed her postoperative follow-up appointment that was scheduled for 2 days ago, and was rescheduled for today. She reports that she was doing very well with this left middle finger until about 3 days ago. She said she was moving all 3 joints very well into basically a full fist, but about 3 days ago she started having worsening pain, redness, and swelling around the incision and spreading to her entire hand. She overall feels well and denies any fevers or chills. She actually denies significant pain in the hand. She notes that the previous incision line is now draining. Principal Diagnosis Left middle finger postoperative infection Discharge Data Allergies Allergy/AdvReac Type Severity Reaction Status Date / Time Sulfa (Sulfonamide Allergy Intermediate HIVES - Verified 02/14/20 17:35 Antibiotics) ITCHING adhesive Allergy Unknown BLISTERING Verified 02/14/20 17:35 Consultations 02/14/20 21:28 Consult Case Management - Discharge Planning Routine Procedures Performed Operation Date: 02/14/20 14:50 Actual Procedures p Left Middle Finger Incision and Drainage,(Left) - Carlos A Pina M.D. s Hardware Removal(Left) - Carlos A Pina M.D. Hospital Course (1) Infection following a procedure, deep incisional surgical site, initial encounter: Ms. Cevallos was taken urgently to the operating room on 02/13, where she underwent irrigation and debridement and implant removal (Jonel silicone tendon rods) from her left hand and middle finger for a deep infection at the previous surgical site. She was initially started on Zosyn for broad-spectrum coverage immediately postoperatively. On postoperative day 1, her cultures showed Staphylococcus species, so I switched her Zosyn to daptomycin Q24hrs. On postoperative day 2, her cultures showed methicillin sensitive staph aureus. She received 1 more dose of the daptomycin on postoperative day 2. Her wound looked markedly improved from preoperatively, and she was determined to be safe and ready for discharge to home. We will transition to oral antibiotics as an outpatient. She is allergic to sulfa drugs, so we will plan for Keflex. Total Time Total Time Spent Total Time Spent (In Minutes): 25 Discharge Plan Discharge Items Patient Disposition: Home - Self-Care Reason For Visit: Left Middle Finger Infection, Spontaneous Discharge Diagnosis: Left middle finger postoperative infection in flexor tendon sheath Activity: Per Instructions section Non-emergency contact: Surgeon Call non-emergency contact if: your pain is not controlled, your temperature is above 101.5, your wound has increased redness and your wound has increased drainage Follow-up/Referrals: Tali Olson DO [Primary Care Provider] - Carlos A Pina M.D. [Physician] - Diet: Regular Addtl Attending Provider Instructions: Things to Watch Out For -Go to the Emergency Room if you have sudden onset of chest pain, shortness of breath, or uncontrollable pain. -Call the clinic immediately if you have a sudden increase in the amount of wound drainage or the drainage becomes thick, yellow or green, or foul-smelling. -For routine questions, call the clinic at [phone] during regular business hours (8am-5pm). For urgent issues after regular business hours, you may call the clinic to be connected to the on-call physician. Dressings -Keep your dressings clean, dry, and in place for 2 days. After 2 days, you may remove the dressing and cover the incision with a new, clean dressing. Be sure to wash your hands thoroughly before touching your incision. Apply a new dressing daily thereafter. -You may begin showering after your first dressing change (4 days after surgery). You may let the water run BRIEFLY over the incision, but do not soak the incision in the bathtub or pool for 2 weeks. You may also gently clean the incision with mild soap and water; pat the incision dry after cleaning-do not rub the incision. -You may use an antibiotic ointment (Bacitracin, Polysporin) if desired, but this is not necessary. Activity -Keep your hand elevated and move your fingers frequently to reduce swelling and prevent stiffness. Pain Medicines -You have been prescribed an anti-inflammatory (Motrin/ibuprofen) and a non- narcotic pain medicine (Tylenol/acetaminophen). These are your primary pain medications. Take them each every 6 hours as instructed. It is recommended that you stagger these medicines every 3 hours (i.e. take ibuprofen at 8:00 am, then acetaminophen at 11:00 am, then ibuprofen at 2:00 pm, etc) -DO NOT take any additional anti-inflammatories (Advil, Aleve/naproxen, Mobic/meloxicam) or any additional Tylenol/acetaminophen products with these prescribed medications. -You have also been prescribed an additional narcotic pain medication (oxycodone). Take this medicine ONLY for breakthrough pain not controlled by the ibuprofen and acetaminophen. -Do not drive or operate heavy machinery while taking the narcotic medication. -Common side effects of narcotic pain medicines include itching, nausea, constipation, and feeling "loopy". However, if you develop a rash or hives, stop taking the medicine and call the clinic. If you develop swelling in your throat or difficulty breathing, go to the Emergency Room or call 911 IMMEDIATELY. -You may take over the counter stool softeners if needed for constipation. Pending Studies at Discharge: No Stand-Alone Forms: My [facility] [employer], Smoking Cessation Medications and DC Order Prescriptions: Continued anastrozole 1 mg tablet 1 mg PO QAM Qty: 90 RF: 3 atenolol 50 mg tablet 75 mg PO QAM Qty: 90 RF: 3 (DME) blood sugar diagnostic [OneTouch Ultra Blue Test Strip] Strip See Rx Instructions .ROUTE .MEDSUPPLY Qty: 300 RF: 1 metformin 500 mg tablet 500 mg PO BID Qty: 180 RF: 3 multivitamin Tablet 1 tab PO QAM RF: 0 lisinopril 40 mg tablet 40 mg PO QAM RF: 0 Discharge Orders: Discharge Order (Routine); Ordered 02/16/20 Ordered By: Carlos A Pina Admission Data Admit Date/Time: 02/14/20 20:30 Attending Provider: Carlos A Pina Admit Provider: Carlos A Pina Primary Care Provider: Tali Olson
[2020-02-16] MEDS: DAPTOmycin 225 MG in SYRINGE 0 ML IV SCH (11:18)
== END 2020-02-16 13:07 | disposition home or self-care (01) ==
LOC: ASU 17:14 → 3N 20:30 → INTOOBSV 20:30

== ENCOUNTER 2023-03-19 21:18 | Inpatient (IN) ==
[2023-03-19] MEDS ORDERED: SODIUM CHLORIDE 0.9% 500 ML IV SCH (21:45)
[2023-03-19 22:07] LABS: iSTAT Creatinine 2.8 mg/dl (0.6-1.3); iSTAT Hemoglobin 12.9 g/dl (12.0-16.0); iSTAT Ionized Calcium 1.17 mmol/l (1.12-1.32); iSTAT Potassium 5.4 mmol/L (3.3-5.0)
[2023-03-19 22:08] LABS: Hematocrit (blood only) 38.8 % (37.0-47.0); Hemoglobin 12.9 g/dl (12.0-16.0); Mean Corpuscular Hemoglobin 28.9 pg (25.0-34.0); Mean Corpuscular Hgb Conc 33.2 g/dL (32.0-36.0); Mean Corpuscular Volume 86.8 fL (80.0-100.0); Mean Platelet Volume 10.4 fL (9.4-12.4); Platelet Count 334 K/uL (130-400); RDW Coefficient of Variation 15.6 % (11.5-14.5); Red Blood Count 4.47 M/uL (4.20-5.40); White Blood Count 13.18 K/ul (4.8-10.8)
--- NOTE | 2023-03-19 22:12 | Emergency Department Note ---
History of Present Illness General Chief complaint: Illness Stated complaint: LETHARGIC, WEAKNESS, INCONTINANCE OF BOTH Time Seen by Provider: 03/19/23 21:23 History of Present Illness This 77-year-old female that was seen here yesterday for constipation presents to the ER complaining of increased confusion lethargy and diarrhea. Patient states she feels quite weak. Family states that she was confused per EMS and called EMS and patient was brought in. Patient denies chest pain, dyspnea, vomiting, cough, congestion. She has had multiple episodes of diarrhea since leaving the hospital. Patient was given an enema yesterday and lactulose. She was taking MiraLAX. Home Medications Medication Instructions Recorded Confirmed Type multivitamin 1 tab PO QAM 05/29/18 03/19/23 History anastrozole 1 mg tablet 1 mg PO QAM #90 tabs 05/24/19 03/19/23 Rx blood sugar diagnostic #300 ea 04/07/22 03/19/23 Rx atenolol 50 mg tablet 75 mg PO QAM #135 tabs 05/04/22 03/19/23 Rx amlodipine 5 mg tablet 5 mg PO DAILY #90 tabs 06/02/22 03/19/23 Rx lisinopril 40 mg tablet 40 mg PO QAM #90 tabs 07/11/22 03/19/23 Rx metformin 500 mg tablet 500 mg PO BID #180 tabs 10/24/22 03/19/23 Rx acetaminophen 500 mg tablet 1,000 mg PO BID 12/08/22 03/19/23 History (Tylenol Extra Strength) lactulose 20 gram/30 mL oral 20 g (30 mL) PO BID PRN 03/18/23 03/19/23 Rx solution constipation #2,880 mL Allergies Allergy/AdvReac Type Severity Reaction Status Date / Time adhesive Allergy Intermediate BLISTERING Verified 03/19/23 23:00 Sulfa (Sulfonamide Allergy Intermediate HIVES - Verified 03/19/23 23:00 Antibiotics) ITCHING Past Med/Surg History Medical History Adrenal adenoma pt not aware Chronic back pain CKD (chronic kidney disease) stage 3, GFR 30-59 ml/min Diabetes mellitus, type 2 Diabetic neuropathy History of breast cancer HOCM (hypertrophic obstructive cardiomyopathy) Hypertension Insomnia Kidney stones hx of Lymphedema of left arm Due to left axillary lymph node dissection - LIMB RESTRICTION Malignant neoplasm of central portion of left breast in female, estrogen receptor positive (08/08/17) s/p lumpectomy 2018 Mitral regurgitation Osteoarthritis Paresthesia Hands and feet periodically Radiation fibrosis of lung Spinal stenosis Urinary incontinence Surgical History H/O lithotripsy History of cataract surgery R/L History of colonoscopy with polypectomy History of hysterectomy TOTAL History of open reduction and internal fixation (ORIF) procedure L ELBOW History of total hip arthroplasty R/L History of total knee replacement RIGHT Hx of necrotising fasciitis [id number] Hx of ovarian cystectomy S/P partial mastectomy (~08/30/17) L breast, with axiallary LN dissection Status post incision and drainage (07/26/19) Irrigation and debridement of L mid finger d/t infectious flexor tenosynovitis w/ additional rupture of FDS and FDP tendons Status post incision and drainage (02/14/20) L middle finger of flexor tendon sheath in digit and palm, removal of deep implant Status post surgery (01/30/20) L mid finger flexor tendon reconstruction w/ excision of chronically ruptured tendons and replacement w/ temp silicone jackson; L ring finger trigger release Family History Grandmother Diabetes Family history of diabetes mellitus Family/Other Family hx of colon cancer cousin Ovarian cancer cousin Sister Diabetes Breast cancer Mother Hypertension Father Hypertension Other No family history of adverse response to anesthesia Denies family history of Prostate cancer Colorectal cancer Social History Smoking Status: Never smoker Second Hand Exposure: No; Do You Dip or Chew Tobacco: No; Hx Alcohol Use: No Hx Substance Use: No Preferred Language: Azeri Communication Ability: Effective Visual Impairment: No Limitations Hearing Ability: Hard of Hearing 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 Beliefs That Will Affect Care: None marital status: Single Current Living Situation: Alone current occupational status: retired How many Children do You have: 0 Feels Safe at Home: Yes Childhood Exposure to Second-Hand Smoke: No Diet: regular Diet Comment: Regular caffeine: No during the past year weight has: remained stable Dental Care, Regularly: No Physical Activity Frequency: Other Physical Activity Frequency Comment: limited Seatbelt Use: always Sunscreen Use: Yes Assistive Devices: Denture - Lower and Glasses Review of Systems A total of 10 systems reviewed and were otherwise negative Physical Exam Vital Signs Vital Signs - 24 hr 03/19/23 21:58 03/19/23 22:13 03/19/23 21:54 Temperature 36.8 C Temperature Source Oral Pulse Rate 55 L 56 L Pulse Rate [Apical] 56 L Pulse Rate from SpO2 Sensor Pulse Rhythm [Apical] Pulse Strength [Apical] Respiratory Rate 35 H 20 Respiratory Effort / Characteristics Respiratory Depth Respiratory Pattern Blood Pressure 94/49 L Blood Pressure [Right Arm] 108/49 L Blood Pressure Mean 64 Blood Pressure Mean [Right Arm] 68 Blood Pressure Position Semi-fowlers Blood Pressure Position [Right Arm] Semi-fowlers Pulse Oximetry 91 92 Oxygen Delivery Method Room Air Room Air Oxygen Flow Rate Sepsis Recent Fever Within 48 Hours No Sepsis New/Unexplained Change in Mental Status N/A Sepsis Action Taken by Nursing No Action Required 03/19/23 21:55 03/19/23 21:57 03/19/23 21:57 Temperature Temperature Source Pulse Rate 57 L 56 L Pulse Rate [Apical] Pulse Rate from SpO2 Sensor 55 L 57 L Pulse Rhythm [Apical] Pulse Strength [Apical] Respiratory Rate 36 H 21 Respiratory Effort / Characteristics Respiratory Depth Respiratory Pattern Blood Pressure 108/49 L Blood Pressure [Right Arm] Blood Pressure Mean 68 Blood Pressure Mean [Right Arm] Blood Pressure Position Blood Pressure Position [Right Arm] Pulse Oximetry 91 92 Oxygen Delivery Method Oxygen Flow Rate Sepsis Recent Fever Within 48 Hours Sepsis New/Unexplained Change in Mental Status Sepsis Action Taken by Nursing 03/19/23 22:00 03/19/23 22:00 03/19/23 22:22 Temperature Temperature Source Pulse Rate 55 L 56 L Pulse Rate [Apical] Pulse Rate from SpO2 Sensor 58 L Pulse Rhythm [Apical] Pulse Strength [Apical] Respiratory Rate 30 H 24 Respiratory Effort / Characteristics Respiratory Depth Respiratory Pattern Blood Pressure 111/49 L Blood Pressure [Right Arm] Blood Pressure Mean 69 Blood Pressure Mean [Right Arm] Blood Pressure Position Blood Pressure Position [Right Arm] Pulse Oximetry 92 Oxygen Delivery Method Oxygen Flow Rate Sepsis Recent Fever Within 48 Hours Sepsis New/Unexplained Change in Mental Status Sepsis Action Taken by Nursing 03/19/23 22:30 03/19/23 22:36 03/19/23 22:36 Temperature Temperature Source Pulse Rate 57 L 60 Pulse Rate [Apical] Pulse Rate from SpO2 Sensor 57 L Pulse Rhythm [Apical] Pulse Strength [Apical] Respiratory Rate 19 34 H Respiratory Effort / Characteristics Respiratory Depth Respiratory Pattern Blood Pressure 85/31 L Blood Pressure [Right Arm] Blood Pressure Mean 49 Blood Pressure Mean [Right Arm] Blood Pressure Position Blood Pressure Position [Right Arm] Pulse Oximetry 91 Oxygen Delivery Method Oxygen Flow Rate Sepsis Recent Fever Within 48 Hours Sepsis New/Unexplained Change in Mental Status Sepsis Action Taken by Nursing 03/19/23 22:40 03/19/23 22:41 03/19/23 22:41 Temperature Temperature Source Pulse Rate 58 L 58 L Pulse Rate [Apical] Pulse Rate from SpO2 Sensor 58 L Pulse Rhythm [Apical] Pulse Strength [Apical] Respiratory Rate 32 H 22 Respiratory Effort / Characteristics Respiratory Depth Respiratory Pattern Blood Pressure 96/42 L Blood Pressure [Right Arm] Blood Pressure Mean 60 Blood Pressure Mean [Right Arm] Blood Pressure Position Blood Pressure Position [Right Arm] Pulse Oximetry 90 Oxygen Delivery Method Oxygen Flow Rate Sepsis Recent Fever Within 48 Hours Sepsis New/Unexplained Change in Mental Status Sepsis Action Taken by Nursing 03/19/23 22:50 03/19/23 23:00 03/19/23 23:00 Temperature Temperature Source Pulse Rate 59 L 60 Pulse Rate [Apical] Pulse Rate from SpO2 Sensor 59 L 60 Pulse Rhythm [Apical] Pulse Strength [Apical] Respiratory Rate 34 H 30 H Respiratory Effort / Characteristics Respiratory Depth Respiratory Pattern Blood Pressure 119/40 L Blood Pressure [Right Arm] Blood Pressure Mean 66 Blood Pressure Mean [Right Arm] Blood Pressure Position Blood Pressure Position [Right Arm] Pulse Oximetry 94 94 Oxygen Delivery Method Oxygen Flow Rate Sepsis Recent Fever Within 48 Hours Sepsis New/Unexplained Change in Mental Status Sepsis Action Taken by Nursing 03/19/23 23:10 03/20/23 00:00 Temperature Temperature Source Pulse Rate 61 Pulse Rate [Apical] 60 Pulse Rate from SpO2 Sensor Pulse Rhythm [Apical] Regular Pulse Strength [Apical] Normal Respiratory Rate 25 H 22 Respiratory Effort / Characteristics Non-Labored Spontaneous Respiratory Depth Normal Respiratory Pattern Regular Blood Pressure Blood Pressure [Right Arm] 111/54 L Blood Pressure Mean Blood Pressure Mean [Right Arm] 73 Blood Pressure Position Blood Pressure Position [Right Arm] Pulse Oximetry 96 Oxygen Delivery Method Nasal Cannula Oxygen Flow Rate 2 Sepsis Recent Fever Within 48 Hours Sepsis New/Unexplained Change in Mental Status Sepsis Action Taken by Nursing VITALS: Vitals are noted on the nurse's note and reviewed by myself. Vital signs reviewed. GENERAL: Pleasant elderly female following commands dehydrated appearing, in no acute distress, nondiaphoretic, well-developed well-nourished. SKIN: The skin was without rashes, erythema, edema, or bruising. There is no tenting of the skin. Capillary reflex less than 2 seconds. HEAD: Normocephalic atraumatic. EARS: External auditory canals clear EYES: Pupils equal round and reactive to light and accommodation. Conjunctivae without injection, sclerae without icterus. Extraocular movements intact. NOSE: Patent, turbinates without inflammation or discharge. MOUTH: Mucous membranes moist. Pharynx without erythema or exudate. Uvula midline. Airway patent. Tongue does not deviate. NECK: Supple without nuchal rigidity. No lymphadenopathy. No thyromegaly. Cervical spine is nontender. No JVD. HEART: Regular rate and rhythm LUNGS: Clear to auscultation bilaterally without wheezes, rales or rhonchi. No retractions or accessory muscle use. ABDOMEN: Positive bowel sounds x 4. Normal tympanic percussion. Soft, tender lower abdomen, without masses or organomegaly. Laurent sign negative. No guarding or rebound tenderness. No CVA tenderness MUSCULOSKELETAL: No muscle atrophy, erythema, or edema noted. NEURO: Patient was alert and oriented to person place and time. Normal sensa tion to light and sharp touch. No focal neurological deficits. Course Administered Medications Discontinued Medications Sodium Chloride (Nss 1000ml) 500 mls @ 999 mls/hr IV .Q31M BRYN Stop: 03/19/23 22:15 Last Infusion: 03/19/23 22:42 Dose: 0 mls/hr Documented By: Admin: 03/19/23 21:56 Dose: 999 mls/hr Documented By: Sodium Chloride (Nss) 500 mls @ 999 mls/hr IV .Q31M ONE Stop: 03/19/23 22:47 Last Infusion: 03/19/23 23:13 Dose: 0 mls/hr Documented By: Admin: 03/19/23 22:42 Dose: 999 mls/hr Documented By: Ceftriaxone Sodium (Rocephin) 2,000 mg in 70 mls @ 140 mls/hr IV NOW STA Stop: 03/20/23 00:03 Last Infusion: 03/20/23 00:26 Dose: 0 mls/hr Documented By: Admin: 03/19/23 23:56 Dose: 140 mls/hr Documented By: ZACH Sodium Chloride (Nss 1000ml) 1,000 mls @ 999 mls/hr IV .Q1H1M ONE Stop: 03/20/23 00:34 Last Infusion: 03/20/23 00:50 Dose: 0 mls/hr Documented By: Admin: 03/19/23 23:49 Dose: 999 mls/hr Documented By: ZACH Metronidazole (Flagyl) 500 mg in 100 mls @ 100 mls/hr IV NOW STA; Protocol Stop: 03/20/23 01:13 Last Infusion: 03/20/23 01:23 Dose: 0 mls/hr Documented By: Admin: 03/20/23 00:23 Dose: 100 mls/hr Documented By: ZACH Medical Decision Making Medical Records Attestation: I reviewed the patient's medical records. Home Medications Current Medication List: was personally reviewed by me Laboratory Data Attestation: I reviewed the patient's lab results. 03/19/23 21:40 03/19/23 21:40 Lab Results 03/19/23 03/19/23 03/19/23 Range/Units 21:40 21:40 21:40 WBC 13.18 H (4.8-10.8) K/ul RBC 4.47 (4.20-5.40) M/uL Hgb 12.9 (12.0-16.0) g/dl POC Hgb (12.0-16.0) g/dl Hct 38.8 (37.0-47.0) % POC Hct (37-47) % MCV 86.8 (80.0-100.0) fL MCH 28.9 (25.0-34.0) pg MCHC 33.2 (32.0-36.0) g/dL RDW Std Deviation 49.0 H (36.4-46.3) fL RDW Coeff of Leno 15.6 H (11.5-14.5) % Plt Count 334 (130-400) K/uL MPV 10.4 (9.4-12.4) fL Immature Gran % (Auto) 0.3 % Neut % (Auto) 84.5 % Lymph % (Auto) 8.0 % [place] % (Auto) 6.8 % Eos % (Auto) 0.1 % Baso % (Auto) 0.3 % Neut # (Auto) 11.14 H (1.40-6.50) K/uL Lymph # (Auto) 1.06 L (1.2-3.4) K/uL [place] # (Auto) 0.89 H (0.11-0.59) K/uL Eos # (Auto) 0.01 (0-0.50) K/uL Baso # (Auto) 0.04 (0-0.2) K/uL Immature Gran # (Auto) 0.04 (0.01-0.20) K/uL Dohle Bodies 1+ Echinocytes 2+ VBG pH (7.36-7.41) VBG pCO2 (38-50) mmHg VBG pO2 mmHg VBG HCO3 mmol/L VBG O2 Saturation % VBG Base Excess mEq/L POC Sodium (135-144) mmol/L Sodium 130 L (136-145) mmol/L POC Potassium (3.3-5.0) mmol/L Potassium 5.4 H D (3.5-5.1) mmol/L POC Chloride (101-112) mmol/L Chloride 97 L (98-107) mmol/L Carbon Dioxide 19 L (21-32) mmol/L POC Total CO2 (24-31) mmol/L Anion Gap 14 H (3-11) POC Anion Gap (16-25) mmol/L POC BUN (7-18) mg/dl BUN 53 H D (6-23) mg/dl Creatinine 2.67 H D (0.6-1.2) mg/dl POC Creatinine (0.6-1.3) mg/dl Est Cr Clr Drug Dosing 17.7 ml/min Est GFR ( Amer) 19.2 ml/min Est GFR (Non-Af Amer) 16.6 ml/min BUN/Creatinine Ratio 19.9 (10-20) Glucose 201 H (70-99(Fasting)) mg/dl POC Glucose (other) (70-99) mg/dl Lactate 3.3 H* (0.4-2.0) mmol/L Calcium 9.8 (8.6-10.3) mg/dl POC Ioniz Calcium Lynn (1.12-1.32) mmol/l Magnesium 3.2 H (1.7-2.4) mg/dl Total Bilirubin 1.0 (0.2-1.0) mg/dl Direct Bilirubin 0.3 H (0-0.2) mg/dl AST 22 (13-39) U/L ALT 18 (7-52) U/L Alkaline Phosphatase 91 (34-104) U/L Troponin I High Sens 20.7 H (0-14) pg/ml Total Protein 6.5 (6.0-8.3) gm/dl Albumin 3.5 (3.4-5.0) gm/dl Procalcitonin (0-0.5) ng/ml TSH (0.300-4.500) uIu/ml Free T4 (0.61-1.60) ng/dl Urine Color Urine Appearance (Clear) Urine pH (4.5-7.5) Ur Specific [place] (1.000-1.030) Urine Protein (Negative) Urine Glucose (UA) (Negative) Urine Ketones (Negative) Urine Blood (Negative) Urine Nitrite (Negative) Urine Bilirubin (Negative) Urine Urobilinogen (Negative) Ur Leukocyte Esterase (Negative) Urine WBC (Auto) (0-5) /hpf Urine RBC (Auto) (0-4) /hpf U Hyaline Cast (Auto) (0-5) /lpf U Epithel Cells (Auto) (0-5) /lpf Urine Bacteria (Auto) (Negative) Adenovirus (PCR) (NotDetected) B. pertussis DNA (PCR) (NotDetected) B.parapertussis DNA PCR (NotDetected) C. pneumoniae DNA (PCR) (NotDetected) Coronavirus OC43 (PCR) (NotDetected) Coronavirus HKU1 (PCR) (NotDetected) Coronavirus 229E (PCR) (NotDetected) SARS-CoV-2 (PCR) (NotDetected) Coronavirus NL63 (PCR) (NotDetected) Human Metapneumovir PCR (NotDetected) Influenza Type A (PCR) (NotDetected) Influenza Type B (PCR) (NotDetected) M. pneumoniae (PCR) (NotDetected) Parainfluenza 1 (PCR) (NotDetected) Parainfluenza 2 (PCR) (NotDetected) Parainfluenza 3 (PCR) (NotDetected) Parainfluenza 4 (PCR) (NotDetected) RSV (PCR) (NotDetected) Entero/Rhino (PCR) (NotDetected) 03/19/23 03/19/23 03/19/23 Range/Units 21:40 21:40 21:53 WBC (4.8-10.8) K/ul RBC (4.20-5.40) M/uL Hgb (12.0-16.0) g/dl POC Hgb 12.9 (12.0-16.0) g/dl Hct (37.0-47.0) % POC Hct 38 (37-47) % MCV (80.0-100.0) fL MCH (25.0-34.0) pg MCHC (32.0-36.0) g/dL RDW Std Deviation (36.4-46.3) fL RDW Coeff of Leno (11.5-14.5) % Plt Count (130-400) K/uL MPV (9.4-12.4) fL Immature Gran % (Auto) % Neut % (Auto) % Lymph % (Auto) % [place] % (Auto) % Eos % (Auto) % Baso % (Auto) % Neut # (Auto) (1.40-6.50) K/uL Lymph # (Auto) (1.2-3.4) K/uL [place] # (Auto) (0.11-0.59) K/uL Eos # (Auto) (0-0.50) K/uL Baso # (Auto) (0-0.2) K/uL Immature Gran # (Auto) (0.01-0.20) K/uL Dohle Bodies Echinocytes VBG pH (7.36-7.41) VBG pCO2 (38-50) mmHg VBG pO2 mmHg VBG HCO3 mmol/L VBG O2 Saturation % VBG Base Excess mEq/L POC Sodium 129 L (135-144) mmol/L Sodium (136-145) mmol/L POC Potassium 5.4 H (3.3-5.0) mmol/L Potassium (3.5-5.1) mmol/L POC Chloride 99 L (101-112) mmol/L Chloride (98-107) mmol/L Carbon Dioxide (21-32) mmol/L POC Total CO2 18 L (24-31) mmol/L Anion Gap (3-11) POC Anion Gap 18.0 (16-25) mmol/L POC BUN 45 H (7-18) mg/dl BUN (6-23) mg/dl Creatinine (0.6-1.2) mg/dl POC Creatinine 2.8 H (0.6-1.3) mg/dl Est Cr Clr Drug Dosing ml/min Est GFR ( Amer) ml/min Est GFR (Non-Af Amer) ml/min BUN/Creatinine Ratio (10-20) Glucose (70-99(Fasting)) mg/dl POC Glucose (other) 202 H (70-99) mg/dl Lactate (0.4-2.0) mmol/L Calcium (8.6-10.3) mg/dl POC Ioniz Calcium Lynn 1.17 (1.12-1.32) mmol/l Magnesium (1.7-2.4) mg/dl Total Bilirubin (0.2-1.0) mg/dl Direct Bilirubin (0-0.2) mg/dl AST (13-39) U/L ALT (7-52) U/L Alkaline Phosphatase (34-104) U/L Troponin I High Sens (0-14) pg/ml Total Protein (6.0-8.3) gm/dl Albumin (3.4-5.0) gm/dl Procalcitonin 47.50 H (0-0.5) ng/ml TSH 4.913 H (0.300-4.500) uIu/ml Free T4 1.46 (0.61-1.60) ng/dl Urine Color Urine Appearance (Clear) Urine pH (4.5-7.5) Ur Specific [place] (1.000-1.030) Urine Protein (Negative) Urine Glucose (UA) (Negative) Urine Ketones (Negative) Urine Blood (Negative) Urine Nitrite (Negative) Urine Bilirubin (Negative) Urine Urobilinogen (Negative) Ur Leukocyte Esterase (Negative) Urine WBC (Auto) (0-5) /hpf Urine RBC (Auto) (0-4) /hpf U Hyaline Cast (Auto) (0-5) /lpf U Epithel Cells (Auto) (0-5) /lpf Urine Bacteria (Auto) (Negative) Adenovirus (PCR) (NotDetected) B. pertussis DNA (PCR) (NotDetected) B.parapertussis DNA PCR (NotDetected) C. pneumoniae DNA (PCR) (NotDetected) Coronavirus OC43 (PCR) (NotDetected) Coronavirus HKU1 (PCR) (NotDetected) Coronavirus 229E (PCR) (NotDetected) SARS-CoV-2 (PCR) (NotDetected) Coronavirus NL63 (PCR) (NotDetected) Human Metapneumovir PCR (NotDetected) Influenza Type A (PCR) (NotDetected) Influenza Type B (PCR) (NotDetected) M. pneumoniae (PCR) (NotDetected) Parainfluenza 1 (PCR) (NotDetected) Parainfluenza 2 (PCR) (NotDetected) Parainfluenza 3 (PCR) (NotDetected) Parainfluenza 4 (PCR) (NotDetected) RSV (PCR) (NotDetected) Entero/Rhino (PCR) (NotDetected) 03/19/23 03/19/23 03/19/23 Range/Units 22:24 22:35 22:56 WBC (4.8-10.8) K/ul RBC (4.20-5.40) M/uL Hgb (12.0-16.0) g/dl POC Hgb (12.0-16.0) g/dl Hct (37.0-47.0) % POC Hct (37-47) % MCV (80.0-100.0) fL MCH (25.0-34.0) pg MCHC (32.0-36.0) g/dL RDW Std Deviation (36.4-46.3) fL RDW Coeff of Leno (11.5-14.5) % Plt Count (130-400) K/uL MPV (9.4-12.4) fL Immature Gran % (Auto) % Neut % (Auto) % Lymph % (Auto) % [place] % (Auto) % Eos % (Auto) % Baso % (Auto) % Neut # (Auto) (1.40-6.50) K/uL Lymph # (Auto) (1.2-3.4) K/uL [place] # (Auto) (0.11-0.59) K/uL Eos # (Auto) (0-0.50) K/uL Baso # (Auto) (0-0.2) K/uL Immature Gran # (Auto) (0.01-0.20) K/uL Dohle Bodies Echinocytes VBG pH 7.35 L (7.36-7.41) VBG pCO2 39 (38-50) mmHg VBG pO2 31 mmHg VBG HCO3 22 mmol/L VBG O2 Saturation < 60.0 % VBG Base Excess -3.8 mEq/L POC Sodium (135-144) mmol/L Sodium (136-145) mmol/L POC Potassium (3.3-5.0) mmol/L Potassium (3.5-5.1) mmol/L POC Chloride (101-112) mmol/L Chloride (98-107) mmol/L Carbon Dioxide (21-32) mmol/L POC Total CO2 (24-31) mmol/L Anion Gap (3-11) POC Anion Gap (16-25) mmol/L POC BUN (7-18) mg/dl BUN (6-23) mg/dl Creatinine (0.6-1.2) mg/dl POC Creatinine (0.6-1.3) mg/dl Est Cr Clr Drug Dosing ml/min Est GFR ( Amer) ml/min Est GFR (Non-Af Amer) ml/min BUN/Creatinine Ratio (10-20) Glucose (70-99(Fasting)) mg/dl POC Glucose (other) (70-99) mg/dl Lactate (0.4-2.0) mmol/L Calcium (8.6-10.3) mg/dl POC Ioniz Calcium Lynn (1.12-1.32) mmol/l Magnesium (1.7-2.4) mg/dl Total Bilirubin (0.2-1.0) mg/dl Direct Bilirubin (0-0.2) mg/dl AST (13-39) U/L ALT (7-52) U/L Alkaline Phosphatase (34-104) U/L Troponin I High Sens (0-14) pg/ml Total Protein (6.0-8.3) gm/dl Albumin (3.4-5.0) gm/dl Procalcitonin (0-0.5) ng/ml TSH (0.300-4.500) uIu/ml Free T4 (0.61-1.60) ng/dl Urine Color Dark Yellow Urine Appearance Cloudy A (Clear) Urine pH 5.0 (4.5-7.5) Ur Specific [place] 1.030 (1.000-1.030) Urine Protein 1+ H (Negative) Urine Glucose (UA) Negative (Negative) Urine Ketones Trace H (Negative) Urine Blood Negative (Negative) Urine Nitrite Negative (Negative) Urine Bilirubin 1+ H (Negative) Urine Urobilinogen Negative (Negative) Ur Leukocyte Esterase 1+ H (Negative) Urine WBC (Auto) 1-5 (0-5) /hpf Urine RBC (Auto) 0-4 (0-4) /hpf U Hyaline Cast (Auto) 0 (0-5) /lpf U Epithel Cells (Auto) >30 H (0-5) /lpf Urine Bacteria (Auto) 2+ H (Negative) Adenovirus (PCR) Not Detected (NotDetected) B. pertussis DNA (PCR) Not Detected (NotDetected) B.parapertussis DNA PCR Not Detected (NotDetected) C. pneumoniae DNA (PCR) Not Detected (NotDetected) Coronavirus OC43 (PCR) Not Detected (NotDetected) Coronavirus HKU1 (PCR) Not Detected (NotDetected) Coronavirus 229E (PCR) Not Detected (NotDetected) SARS-CoV-2 (PCR) Not Detected (NotDetected) Coronavirus NL63 (PCR) Not Detected (NotDetected) Human Metapneumovir PCR Not Detected (NotDetected) Influenza Type A (PCR) Not Detected (NotDetected) Influenza Type B (PCR) Not Detected (NotDetected) M. pneumoniae (PCR) Not Detected (NotDetected) Parainfluenza 1 (PCR) Not Detected (NotDetected) Parainfluenza 2 (PCR) Not Detected (NotDetected) Parainfluenza 3 (PCR) Not Detected (NotDetected) Parainfluenza 4 (PCR) Not Detected (NotDetected) RSV (PCR) Not Detected (NotDetected) Entero/Rhino (PCR) Not Detected (NotDetected) Imaging Data Attestation: I personally reviewed and interpreted this imaging study as follows: Radiologist's Impression: Abdomen/Pelvis CT 03/19/23 21:37 Exam(s): CT ABDOMEN + PELVIS Without Contrast EXAM: CT Abdomen and Pelvis Without Intravenous Contrast CLINICAL HISTORY: Reason for exam: lower abd pain. TECHNIQUE: Axial computed tomography images of the abdomen and pelvis without intravenous contrast. Automated exposure control was utilized for the study. A dose lowering technique was utilized adhering to the principles of ALARA. COMPARISON: No relevant prior studies available. FINDINGS: Lung bases: Unremarkable. No mass. No consolidation. ABDOMEN: Liver: LEFT hepatic cystic lesion measures 1.5 cm. Gallbladder and bile ducts: Unremarkable. No calcified stones. No ductal dilation. Pancreas: Unremarkable. No ductal dilation. Spleen: Unremarkable. No splenomegaly. Adrenals: Unremarkable. No mass. Kidneys and ureters: Atrophy and scarring of the LEFT kidney. No obstructing stones. No hydronephrosis. Stomach and bowel: Wall thickening of the rectum measures up to 12 mm, concerning for proctitis. Moderate fecal retention, correlate for constipation. No obstruction. PELVIS: Appendix: No findings to suggest acute appendicitis. Bladder: Unremarkable. No stones. Reproductive: Unremarkable as visualized. ABDOMEN and PELVIS: Intraperitoneal space: Unremarkable. No free air. No significant fluid collection. Bones/joints: Bilateral hip arthroplasties. Degenerative changes of the spine. No acute fracture. No dislocation. Soft tissues: Unremarkable. Vasculature: Atherosclerotic changes of the aorta. No abdominal aortic aneurysm. Lymph nodes: Unremarkable. No enlarged lymph nodes. IMPRESSION: Wall thickening of the rectum measures up to 12 mm, concerning for proctitis. Moderate fecal retention, correlate for constipation. Electronically signed by: Avery Cabrera MD 03/19/23 23:[address] 03/19/23 21:37 Exam(s): CT HEAD Without Contrast EXAM: CT Head Without Intravenous Contrast CLINICAL HISTORY: Reason for exam: ams. TECHNIQUE: Axial computed tomography images of the head/brain without intravenous contrast. Automated exposure control was utilized for the study. A dose lowering technique was utilized adhering to the principles of ALARA. COMPARISON: No relevant prior studies available. FINDINGS: No acute intracranial hemorrhage. No midline shift or mass effect. The territorial scales-white matter differentiation is maintained throughout. Age-related cerebral volume loss. Periventricular and subcortical white matter hypoattenuation, consistent with chronic microangiopathy. The visualized orbits appear grossly unremarkable. The calvarium is intact. The visualized paranasal sinuses and mastoid air cells are grossly clear. IMPRESSION: No acute intracranial hemorrhage, midline shift, or mass effect. Electronically signed by: Avery Cabrera MD 03/19/23 23:02 PM [facility] Narrative Prior records/ancillary studies reviewed and summarized above. Nursing notes reviewed. Additional history obtained from nursing. The patient's history was concerning for increased confusion and diarrhea with abdominal pain. Differential diagnosis: Etiologies such as metabolic, infection, hypo/hyperglycemia, electrolyte abn ormalities, cardiac sources, intracerebral event, toxicologic, neurologic, as well as others were entertained. Physical examination: As above. ER treatment provided: IV Lock An order was placed for continuous cardiac monitoring. The monitor shows a rate of 50-90 with a sinus rhythm per my interpretation. nss On reassessment the patient felt better. Diagnostics interpretation by me: ECG: Ordered for weakness EKG: Normal sinus, left anterior fascicular block, T wave inversions in the lateral leads, left ventricular perjury, rate of 58. Impression sinus bradycardia with a left anterior fascicular block T wave inversions in the lateral leads independently interpreted by myself The labs Independently Interpreted by myself revealed acute kidney injury, urine concerning for infection sent for culture. Minimally bumped troponin Imaging studies: Head CT negative for intracranial bleed per my independent interpretation CT of the abdomen pelvis is concerning for Wall thickening of the rectum measures up to 12 mm, concerning for proctitis. Moderate fecal retention, correlate for constipation per my independent interpretation and per radiology as Consultation: A consultation was placed with the hospitalist. The case was discussed and diagnostics were reviewed. The patient was evaluated in the ER for further treatment. Exam and history seem consistent with dehydration, acute kidney injury, UTI and proctitis. Patient had a minimally elevated troponin and an abnormal EKG most likely type II due to patient's acute kidney injury and dehydration. Labs and diagnostics were independently interpreted by myself. Radiology read the CAT scan. Patient was hydrated and medicated as above. Repeat labs were ordered. Blood pressure improved. Patient is agreeable to treatment plan of admission. Medicine was consulted and accepts admission of the patient. Case was discussed. By the evaluation outlined above emergent etiologies such as intracerebral event, toxologic, neurologic, abnormalities blood glucose, metabolic, as well as others were deemed relatively unlikely. The pt informed about the findings as listed above. All questions were answered and pleased with the treatment. The chart was completed utilizing [employer] Speech voice recognition software. Grammatical errors, random word insertions, pronoun errors, and incomplete s entences are an occassional consequence of this system due to software limitations, ambient noise, and hardware issues. Any formal questions or concerns about the content, text, or information contained within the body of this dictation should be directly addressed to the physician itinerant teacher assistant for cl arification. Impression & Plan ALAYNA (acute kidney injury), Acute dehydration, Acute UTI, Elevated troponin, Abnormal ECG Discharge Plan Visit Data Chief Complaint: Illness Stated Complaint: LETHARGIC, WEAKNESS, INCONTINANCE OF BOTH ED Provider: Patricia Alejandre ED Midlevel Provider: Mylene Mar Discharge Problem: ALAYNA (acute kidney injury), Acute dehydration, Acute UTI, Elevated troponin, Abnormal ECG Forms Stand Alone Forms: [facility] [employer] Prescriptions Prescriptions: No Action anastrozole 1 mg tablet 1 mg PO QAM Qty: 90 3RF (DME) blood sugar diagnostic Strip See Rx Instructions .ROUTE .MEDSUPPLY Qty: 300 3RF Rx Instructions: Testing three times per day. DX E11.9 ONE TOUCH ULTRA BLUE TEST STRIP atenolol 50 mg tablet 75 mg PO QAM Qty: 135 3RF lisinopril 40 mg tablet 40 mg PO QAM Qty: 90 3RF metformin 500 mg tablet 500 mg PO BID Qty: 180 3RF Rx Instructions: ON HOLD HAD CT SCAN W/DYE. acetaminophen [Tylenol Extra Strength] 500 mg tablet 1,000 mg PO BID amlodipine 5 mg tablet 5 mg PO DAILY Qty: 90 3RF multivitamin Tablet 1 tab PO QAM lactulose 20 gram/30 mL solution 20 g PO BID PRN (Reason: constipation) Qty: 2880 0RF Rx Instructions: PER PT "DID NOT START YET". Referrals Referrals: Tali Olson DO [Primary Care Provider] -
[2023-03-19] MEDS ORDERED: SODIUM CHLORIDE 0.9% 500 ML IV ONE (22:17)
[2023-03-19 22:30] LABS: Basophils # (auto) 0.04 K/uL (0-0.2); Basophils % (auto) 0.3 %; Dohle Bodies 1+; Echinocytes 2+; Eosinophils # (auto) 0.01 K/uL (0-0.50); Eosinophils % (auto) 0.1 %; Immature Granulocytes # (auto) 0.04 K/uL (0.01-0.20); Immature Granulocytes % (auto) 0.3 %; Lymphocytes # (auto) 1.06 K/uL (1.2-3.4); Monocytes # (auto) 0.89 K/uL (0.11-0.59); Monocytes % (auto) 6.8 %; Neutrophils # (auto) 11.14 K/uL (1.40-6.50); Neutrophils % (auto) 84.5 %
[2023-03-19 22:39] LABS: Albumin Level 3.5 gm/dl (3.4-5.0); BUN Creatinine Ratio 19.9 (10-20); Bilirubin Direct 0.3 mg/dl (0-0.2); Calcium 9.8 mg/dl (8.6-10.3); Creatinine Clr Calc Pharmacy 17.7 ml/min; Est GFR (African American) 19.2 ml/min; Est GFR (Non-African American) 16.6 ml/min; Magnesium 3.2 mg/dl (1.7-2.4); Potassium 5.4 mmol/L (3.5-5.1); Thyroid Stimulating Hormone 4.913 uIu/ml (0.300-4.500); Total Protein 6.5 gm/dl (6.0-8.3); Troponin I High Sensitivity 20.7 pg/ml (0-14)
[2023-03-19 22:57] LABS: Base Excess VBG -3.8 mEq/L; HCO3 VBG 22 mmol/L; Oxygen Saturation VBG < 60.0 %; PCO2 VBG 39 mmHg (38-50); PO2 VBG 31 mmHg; pH VBG 7.35 (7.36-7.41)
--- NOTE | 2023-03-19 23:02 | CT Scan Report ---
Exam(s): CT HEAD Without Contrast EXAM: CT Head Without Intravenous Contrast CLINICAL HISTORY: Reason for exam: ams. TECHNIQUE: Axial computed tomography images of the head/brain without intravenous contrast. Automated exposure control was utilized for the study. A dose lowering technique was utilized adhering to the principles of ALARA. COMPARISON: No relevant prior studies available. FINDINGS: No acute intracranial hemorrhage. No midline shift or mass effect. The territorial scales-white matter differentiation is maintained throughout. Age-related cerebral volume loss. Periventricular and subcortical white matter hypoattenuation, consistent with chronic microangiopathy. The visualized orbits appear grossly unremarkable. The calvarium is intact. The visualized paranasal sinuses and mastoid air cells are grossly clear. IMPRESSION: No acute intracranial hemorrhage, midline shift, or mass effect. Electronically signed by: Avery Cabrera MD 03/19/23 23:02 PM
[2023-03-19 23:08] LABS: Appearance Urine Cloudy (Clear); Bacteria Urine Automated 2+ (Negative); Blood Urine Negative (Negative); Cast Urine Automated 0 /lpf (0-5); Color Urine Dark Yellow; Epithelial Cell Urine Auto >30 /lpf (0-5); Glucose Urine UA Negative (Negative); Ketones Urine Trace (Negative); Leukocyte Esterase Urine 1+ (Negative); Nitrite Urine Negative (Negative); Protein Urine 1+ (Negative); RBC Urine Automated 0-4 /hpf (0-4); Urobilinogen Urine Negative (Negative)
[2023-03-19 23:15] LABS: T4 Free Thyroxine 1.46 ng/dl (0.61-1.60)
--- NOTE | 2023-03-19 23:15 | CT Scan Report ---
Exam(s): CT ABDOMEN + PELVIS Without Contrast EXAM: CT Abdomen and Pelvis Without Intravenous Contrast CLINICAL HISTORY: Reason for exam: lower abd pain. TECHNIQUE: Axial computed tomography images of the abdomen and pelvis without intravenous contrast. Automated exposure control was utilized for the study. A dose lowering technique was utilized adhering to the principles of ALARA. COMPARISON: No relevant prior studies available. FINDINGS: Lung bases: Unremarkable. No mass. No consolidation. ABDOMEN: Liver: LEFT hepatic cystic lesion measures 1.5 cm. Gallbladder and bile ducts: Unremarkable. No calcified stones. No ductal dilation. Pancreas: Unremarkable. No ductal dilation. Spleen: Unremarkable. No splenomegaly. Adrenals: Unremarkable. No mass. Kidneys and ureters: Atrophy and scarring of the LEFT kidney. No obstructing stones. No hydronephrosis. Stomach and bowel: Wall thickening of the rectum measures up to 12 mm, concerning for proctitis. Moderate fecal retention, correlate for constipation. No obstruction. PELVIS: Appendix: No findings to suggest acute appendicitis. Bladder: Unremarkable. No stones. Reproductive: Unremarkable as visualized. ABDOMEN and PELVIS: Intraperitoneal space: Unremarkable. No free air. No significant fluid collection. Bones/joints: Bilateral hip arthroplasties. Degenerative changes of the spine. No acute fracture. No dislocation. Soft tissues: Unremarkable. Vasculature: Atherosclerotic changes of the aorta. No abdominal aortic aneurysm. Lymph nodes: Unremarkable. No enlarged lymph nodes. IMPRESSION: Wall thickening of the rectum measures up to 12 mm, concerning for proctitis. Moderate fecal retention, correlate for constipation. Electronically signed by: Avery Cabrera MD 03/19/23 23:14 PM
[2023-03-19 23:17] LABS: Bilirubin Urine 1+ (Negative)
[2023-03-19 23:20] LABS: Adenovirus PCR Not Detected (NotDetected); Bordetella parapertussis PCR Not Detected (NotDetected); Bordetella pertussis PCR Not Detected (NotDetected); Chlamydia pneumoniae PCR Not Detected (NotDetected); Coronavirus 229E PCR Not Detected (NotDetected); Coronavirus CoV-2 (COVID19)PCR Not Detected (NotDetected); Coronavirus HKU1 PCR Not Detected (NotDetected); Coronavirus NL63 PCR Not Detected (NotDetected); Coronavirus OC43PCR Not Detected (NotDetected); Human Metapneumovirus PCR Not Detected (NotDetected); Influenza A PCR Not Detected (NotDetected); Influenza B PCR Not Detected (NotDetected); Mycoplasma pneumoniae PCR Not Detected (NotDetected); Parainfluenza Virus 1 PCR Not Detected (NotDetected); Parainfluenza Virus 2 PCR Not Detected (NotDetected); Parainfluenza Virus 3 PCR Not Detected (NotDetected); Parainfluenza Virus 4 PCR Not Detected (NotDetected); Respiratory Syncytial VirusPCR Not Detected (NotDetected); Rhinovirus/Enterovirus PCR Not Detected (NotDetected)
[2023-03-19] MEDS ORDERED: cefTRIAXone SODIUM 2,000 MG/70 ML BAG IV STA (23:34)
[2023-03-19] MEDS ORDERED: SODIUM CHLORIDE 0.9% 1,000 ML IV ONE (23:34)
[2023-03-20] MEDS ORDERED: metroNIDAZOLE 500 MG/100 ML BAG IV STA (00:14)
--- NOTE | 2023-03-20 00:35 | History & Physical Report ---
Date of Service March 20, 2023 Assessment & Plan (1) Fecal impaction: (2) Diabetic neuropathy: (3) Acute kidney injury superimposed on CKD: (4) CKD (chronic kidney disease) stage 3, GFR 30-59 ml/min: (5) Diabetes mellitus, type 2: (6) Hypertension: (7) HOCM (hypertrophic obstructive cardiomyopathy): (8) History of breast cancer: (9) Proctitis: Plan Proctitis/fecal retention- Ceftriaxone 2 g IV every 24 hours Flagyl 5 mg IV every 8 hours Clear liquids Zofran 4 mg IV every 6 hours as needed Acute kidney injury on CKD- Creatinine 2.67 upon admission with baseline 1.27- Potassium 5.4 on admission Status post 2 L in the ED of normal saline in the ED Continue NSS at 80 MLS per hour x2 additional liters Follow serial renal function panel and magnesium levels Hold lisinopril Diabetes mellitus- Hold metformin Placed on Accu-Cheks with NovoLog SSI Breast cancer- Continue anastrozole History of Present Illness Chief Complaint: The patient initially presented to the emergency department yesterday evening due to constipation, was given a bowel prep to take home with, and since that time has had persistent diarrhea and now feels dehydrated. Primary Care Provider: Tali Olson DO The patient is a 77-year-old female with a past medical history including diabetic neuropathy, left ventricular outflow tract obstruction, breast cancer, CKD, mitral regurgitation, radiation fibrosis of lung, HOCM, hypertension, diabetes mellitus, history of necrotizing fasciitis and left arm lymphedema. Patient reports that she had been constipated for a week or so, came into the emergency department last evening, was given an enema and lactulose along with MiraLAX, and since that time she developed some lower abdominal pain, rectal pain and persistent loose stools and feelings of dehydration. She reports her mouth is very dry. Allergies Allergy/AdvReac Type Severity Reaction Status Date / Time adhesive Allergy Intermediate BLISTERING Verified 03/19/23 23:00 Sulfa (Sulfonamide Allergy Intermediate HIVES - Verified 03/19/23 23:00 Antibiotics) ITCHING Home Medications Medication Instructions Recorded Confirmed Type multivitamin 1 tab PO QAM 05/29/18 03/19/23 History anastrozole 1 mg tablet 1 mg PO QAM #90 tabs 05/24/19 03/19/23 Rx blood sugar diagnostic #300 ea 04/07/22 03/19/23 Rx atenolol 50 mg tablet 75 mg PO QAM #135 tabs 05/04/22 03/19/23 Rx amlodipine 5 mg tablet 5 mg PO DAILY #90 tabs 06/02/22 03/19/23 Rx lisinopril 40 mg tablet 40 mg PO QAM #90 tabs 07/11/22 03/19/23 Rx metformin 500 mg tablet 500 mg PO BID #180 tabs 10/24/22 03/19/23 Rx acetaminophen 500 mg tablet 1,000 mg PO BID 12/08/22 03/19/23 History (Tylenol Extra Strength) lactulose 20 gram/30 mL oral 20 g (30 mL) PO BID PRN 03/18/23 03/19/23 Rx solution constipation #2,880 mL Past Med/Surg History Medical History Adrenal adenoma pt not aware Chronic back pain CKD (chronic kidney disease) stage 3, GFR 30-59 ml/min Diabetes mellitus, type 2 Diabetic neuropathy History of breast cancer HOCM (hypertrophic obstructive cardiomyopathy) Hypertension Insomnia Kidney stones hx of Lymphedema of left arm Due to left axillary lymph node dissection - LIMB RESTRICTION Malignant neoplasm of central portion of left breast in female, estrogen receptor positive (08/08/17) s/p lumpectomy 2018 Mitral regurgitation Osteoarthritis Paresthesia Hands and feet periodically Radiation fibrosis of lung Spinal stenosis Urinary incontinence Surgical History H/O lithotripsy History of cataract surgery R/L History of colonoscopy with polypectomy History of hysterectomy TOTAL History of open reduction and internal fixation (ORIF) procedure L ELBOW History of total hip arthroplasty R/L History of total knee replacement RIGHT Hx of necrotising fasciitis [id number] Hx of ovarian cystectomy S/P partial mastectomy (~08/30/17) L breast, with axiallary LN dissection Status post incision and drainage (07/26/19) Irrigation and debridement of L mid finger d/t infectious flexor tenosynovitis w/ additional rupture of FDS and FDP tendons Status post incision and drainage (02/14/20) L middle finger of flexor tendon sheath in digit and palm, removal of deep implant Status post surgery (01/30/20) L mid finger flexor tendon reconstruction w/ excision of chronically ruptured tendons and replacement w/ temp silicone jackson; L ring finger trigger release Family History Grandmother Diabetes Family history of diabetes mellitus Family/Other Family hx of colon cancer cousin Ovarian cancer cousin Sister Diabetes Breast cancer Mother Hypertension Father Hypertension Other No family history of adverse response to anesthesia Denies family history of Prostate cancer Colorectal cancer Social History Smoking Status: Never smoker Second Hand Exposure: No; Do You Dip or Chew Tobacco: No; Hx Alcohol Use: No Hx Substance Use: No Preferred Language: [place] Irish Communication Ability: Effective Visual Impairment: No Limitations Hearing Ability: Hard of Hearing Administrative Services Coordinator Required: No Beliefs That Will Affect Care: None marital status: Single Current Living Situation: Alone current occupational status: retired How many Children do You have: 0 Feels Safe at Home: Yes Childhood Exposure to Second-Hand Smoke: No Diet: regular Diet Comment: Regular caffeine: No during the past year weight has: remained stable Dental Care, Regularly: No Physical Activity Frequency: Other Physical Activity Frequency Comment: limited Seatbelt Use: always Sunscreen Use: Yes Assistive Devices: Denture - Lower and Glasses Review of Systems Review of Systems: The patient denies chest pain, palpitations, shortness of breath, dyspnea on exertion, cough, lower extremity swelling, sore throat, fevers, chills, sweats, nausea, vomiting, blood in urine or stool, dysuria, urinary frequency or urgency, headache, memory loss, loss of consciousness, rash, imbalance, focal weakness, numbness or tingling in arms or legs, generalized arthralgias or myalgias, back or neck pain, or night sweats. The review of systems is otherwise negative other than for that already noted above, and at least 10 systems have been reviewed. Physical Exam Physical Exam: The patient is awake, alert and oriented 3, well developed and well nourished, normocephalic and atraumatic, lying in bed and in no acute distress. HEENT--PERRL, EOMI, mucous membranes and oropharynx moderately dry. Neck--supple. No JVD. No bruits. Thyroid normal, trachea midline, no adenopathy. Heart--normal S1 and S2. No murmurs, rubs or gallops. Lungs--clear bilaterally, no respiratory distress, no accessory muscle use. Abdomen--normal bowel sounds and soft. Nontender. Nondistended, no hernias or masses, no organomegaly. Extremities--no cyanosis or clubbing. No edema. Dermatologic--normal skin turgor, normal color, no abnormal lymph nodes, no rash. Neurologic--cranial nerves II through XII grossly intact. Rheumatologic--normal range of motion. Psychiatric--normal affect. Results & Data Results & Data Vital Signs (Past 12 Hours) Vital Signs Temp Pulse Pulse Resp BP BP Pulse Ox 03/20/23 00:00 60 22 111/54 L 96 03/19/23 23:10 61 25 H 03/19/23 23:00 60 30 H 94 03/19/23 23:00 119/40 L 03/19/23 22:50 59 L 34 H 94 03/19/23 22:41 58 L 22 03/19/23 22:41 96/42 L 03/19/23 22:40 58 L 32 H 90 03/19/23 22:36 60 34 H 91 03/19/23 22:36 85/31 L 03/19/23 22:30 57 L 19 03/19/23 22:22 56 L 24 92 03/19/23 22:00 55 L 30 H 03/19/23 22:00 111/49 L 03/19/23 21:57 108/49 L 03/19/23 21:57 56 L 21 92 03/19/23 21:55 57 L 36 H 91 03/19/23 21:54 56 L 03/19/23 22:13 36.8 C 55 L 20 94/49 L 92 03/19/23 21:58 56 L 35 H 108/49 L 91 O2 Del Method O2 Flow Rate 03/20/23 00:00 Nasal Cannula 2 03/19/23 23:10 03/19/23 23:00 03/19/23 23:00 03/19/23 22:50 03/19/23 22:41 03/19/23 22:41 03/19/23 22:40 03/19/23 22:36 03/19/23 22:36 03/19/23 22:30 03/19/23 22:22 03/19/23 22:00 03/19/23 22:00 03/19/23 21:57 03/19/23 21:57 03/19/23 21:55 03/19/23 21:54 03/19/23 22:13 Room Air 03/19/23 21:58 Room Air Laboratory Results Laboratory Results WBC 13.18 K/ul (4.8-10.8) H 03/19/23 21:40 RBC 4.47 M/uL (4.20-5.40) 03/19/23 21:40 Hgb 12.9 g/dl (12.0-16.0) 03/19/23 21:40 POC Hgb 12.9 g/dl (12.0-16.0) 03/19/23 21:53 Hct 38.8 % (37.0-47.0) 03/19/23 21:40 POC Hct 38 % (37-47) 03/19/23 21:53 MCV 86.8 fL (80.0-100.0) 03/19/23 21:40 MCH 28.9 pg (25.0-34.0) 03/19/23 21:40 MCHC 33.2 g/dL (32.0-36.0) 03/19/23 21:40 RDW Std Deviation 49.0 fL (36.4-46.3) H 03/19/23 21:40 RDW Coeff of Leno 15.6 % (11.5-14.5) H 03/19/23 21:40 Plt Count 334 K/uL (130-400) 03/19/23 21:40 MPV 10.4 fL (9.4-12.4) 03/19/23 21:40 Immature Gran % (Auto) 0.3 % 03/19/23 21:40 Neut % (Auto) 84.5 % 03/19/23 21:40 Lymph % (Auto) 8.0 % 03/19/23 21:40 [place] % (Auto) 6.8 % 03/19/23 21:40 Eos % (Auto) 0.1 % 03/19/23 21:40 Baso % (Auto) 0.3 % 03/19/23 21:40 Neut # (Auto) 11.14 K/uL (1.40-6.50) H 03/19/23 21:40 Lymph # (Auto) 1.06 K/uL (1.2-3.4) L 03/19/23 21:40 [place] # (Auto) 0.89 K/uL (0.11-0.59) H 03/19/23 21:40 Eos # (Auto) 0.01 K/uL (0-0.50) 03/19/23 21:40 Baso # (Auto) 0.04 K/uL (0-0.2) 03/19/23 21:40 Immature Gran # (Auto) 0.04 K/uL (0.01-0.20) 03/19/23 21:40 Dohle Bodies 1+ 03/19/23 21:40 Echinocytes 2+ 03/19/23 21:40 VBG pH 7.35 (7.36-7.41) L 03/19/23 22:35 VBG pCO2 39 mmHg (38-50) 03/19/23 22:35 VBG pO2 31 mmHg 03/19/23 22:35 VBG HCO3 22 mmol/L 03/19/23 22:35 VBG O2 Saturation < 60.0 % 03/19/23 22:35 VBG Base Excess -3.8 mEq/L 03/19/23 22:35 POC Sodium 129 mmol/L (135-144) L 03/19/23 21:53 Sodium 130 mmol/L (136-145) L 03/19/23 21:40 POC Potassium 5.4 mmol/L (3.3-5.0) H 03/19/23 21:53 Potassium 5.4 mmol/L (3.5-5.1) H D 03/19/23 21:40 POC Chloride 99 mmol/L (101-112) L 03/19/23 21:53 Chloride 97 mmol/L (98-107) L 03/19/23 21:40 Carbon Dioxide 19 mmol/L (21-32) L 03/19/23 21:40 POC Total CO2 18 mmol/L (24-31) L 03/19/23 21:53 Anion Gap 14 (3-11) H 03/19/23 21:40 POC Anion Gap 18.0 mmol/L (16-25) 03/19/23 21:53 POC BUN 45 mg/dl (7-18) H 03/19/23 21:53 BUN 53 mg/dl (6-23) H D 03/19/23 21:40 Creatinine 2.67 mg/dl (0.6-1.2) H D 03/19/23 21:40 POC Creatinine 2.8 mg/dl (0.6-1.3) H 03/19/23 21:53 Est Cr Clr Drug Dosing 17.7 ml/min 03/19/23 21:40 Est GFR ( Amer) 19.2 ml/min 03/19/23 21:40 Est GFR (Non-Af Amer) 16.6 ml/min 03/19/23 21:40 BUN/Creatinine Ratio 19.9 (10-20) 03/19/23 21:40 Glucose 201 mg/dl (70-99(Fasting)) H 03/19/23 21:40 POC Glucose (other) 202 mg/dl (70-99) H 03/19/23 21:53 Lactate 3.3 mmol/L (0.4-2.0) H* 03/19/23 21:40 Calcium 9.8 mg/dl (8.6-10.3) 03/19/23 21:40 POC Ioniz Calcium Lynn 1.17 mmol/l (1.12-1.32) 03/19/23 21:53 Magnesium 3.2 mg/dl (1.7-2.4) H 03/19/23 21:40 Total Bilirubin 1.0 mg/dl (0.2-1.0) 03/19/23 21:40 Direct Bilirubin 0.3 mg/dl (0-0.2) H 03/19/23 21:40 AST 22 U/L (13-39) 03/19/23 21:40 ALT 18 U/L (7-52) 03/19/23 21:40 Alkaline Phosphatase 91 U/L (34-104) 03/19/23 21:40 Troponin I High Sens 20.7 pg/ml (0-14) H 03/19/23 21:40 Total Protein 6.5 gm/dl (6.0-8.3) 03/19/23 21:40 Albumin 3.5 gm/dl (3.4-5.0) 03/19/23 21:40 Procalcitonin 47.50 ng/ml (0-0.5) H 03/19/23 21:40 TSH 4.913 uIu/ml (0.300-4.500) H 03/19/23 21:40 Free T4 1.46 ng/dl (0.61-1.60) 03/19/23 21:40 Urine Color Dark Yellow 03/19/23 22:56 Urine Appearance Cloudy (Clear) A 03/19/23 22:56 Urine pH 5.0 (4.5-7.5) 03/19/23 22:56 Ur Specific [place] 1.030 (1.000-1.030) 03/19/23 22:56 Urine Protein 1+ (Negative) H 03/19/23 22:56 Urine Glucose (UA) Negative (Negative) 03/19/23 22:56 Urine Ketones Trace (Negative) H 03/19/23 22:56 Urine Blood Negative (Negative) 03/19/23 22:56 Urine Nitrite Negative (Negative) 03/19/23 22:56 Urine Bilirubin 1+ (Negative) H 03/19/23 22:56 Urine Urobilinogen Negative (Negative) 03/19/23 22:56 Ur Leukocyte Esterase 1+ (Negative) H 03/19/23 22:56 Urine WBC (Auto) 1-5 /hpf (0-5) 03/19/23 22:56 Urine RBC (Auto) 0-4 /hpf (0-4) 03/19/23 22:56 U Hyaline Cast (Auto) 0 /lpf (0-5) 03/19/23 22:56 U Epithel Cells (Auto) >30 /lpf (0-5) H 03/19/23 22:56 Urine Bacteria (Auto) 2+ (Negative) H 03/19/23 22:56 Adenovirus (PCR) Not Detected (NotDetected) 03/19/23 22:24 B. pertussis DNA (PCR) Not Detected (NotDetected) 03/19/23 22:24 B.parapertussis DNA PCR Not Detected (NotDetected) 03/19/23 22:24 C. pneumoniae DNA (PCR) Not Detected (NotDetected) 03/19/23 22:24 Coronavirus OC43 (PCR) Not Detected (NotDetected) 03/19/23 22:24 Coronavirus HKU1 (PCR) Not Detected (NotDetected) 03/19/23 22:24 Coronavirus 229E (PCR) Not Detected (NotDetected) 03/19/23 22:24 SARS-CoV-2 (PCR) Not Detected (NotDetected) 03/19/23 22:24 Coronavirus NL63 (PCR) Not Detected (NotDetected) 03/19/23 22:24 Human Metapneumovir PCR Not Detected (NotDetected) 03/19/23 22:24 Influenza Type A (PCR) Not Detected (NotDetected) 03/19/23 22:24 Influenza Type B (PCR) Not Detected (NotDetected) 03/19/23 22:24 M. pneumoniae (PCR) Not Detected (NotDetected) 03/19/23 22:24 Parainfluenza 1 (PCR) Not Detected (NotDetected) 03/19/23 22:24 Parainfluenza 2 (PCR) Not Detected (NotDetected) 03/19/23 22:24 Parainfluenza 3 (PCR) Not Detected (NotDetected) 03/19/23 22:24 Parainfluenza 4 (PCR) Not Detected (NotDetected) 03/19/23 22:24 RSV (PCR) Not Detected (NotDetected) 03/19/23 22:24 Entero/Rhino (PCR) Not Detected (NotDetected) 03/19/23 22:24 Impressions Abdomen/Pelvis CT 03/19/23 21:37 Exam(s): CT ABDOMEN + PELVIS Without Contrast EXAM: CT Abdomen and Pelvis Without Intravenous Contrast CLINICAL HISTORY: Reason for exam: lower abd pain. TECHNIQUE: Axial computed tomography images of the abdomen and pelvis without intravenous contrast. Automated exposure control was utilized for the study. A dose lowering technique was utilized adhering to the principles of ALARA. COMPARISON: No relevant prior studies available. FINDINGS: Lung bases: Unremarkable. No mass. No consolidation. ABDOMEN: Liver: LEFT hepatic cystic lesion measures 1.5 cm. Gallbladder and bile ducts: Unremarkable. No calcified stones. No ductal dilation. Pancreas: Unremarkable. No ductal dilation. Spleen: Unremarkable. No splenomegaly. Adrenals: Unremarkable. No mass. Kidneys and ureters: Atrophy and scarring of the LEFT kidney. No obstructing stones. No hydronephrosis. Stomach and bowel: Wall thickening of the rectum measures up to 12 mm, concerning for proctitis. Moderate fecal retention, correlate for constipation. No obstruction. PELVIS: Appendix: No findings to suggest acute appendicitis. Bladder: Unremarkable. No stones. Reproductive: Unremarkable as visualized. ABDOMEN and PELVIS: Intraperitoneal space: Unremarkable. No free air. No significant fluid collection. Bones/joints: Bilateral hip arthroplasties. Degenerative changes of the spine. No acute fracture. No dislocation. Soft tissues: Unremarkable. Vasculature: Atherosclerotic changes of the aorta. No abdominal aortic aneurysm. Lymph nodes: Unremarkable. No enlarged lymph nodes. IMPRESSION: Wall thickening of the rectum measures up to 12 mm, concerning for proctitis. Moderate fecal retention, correlate for constipation. Electronically signed by: Avery Cabrera MD 03/19/23 23:[address] 03/19/23 21:37 Exam(s): CT HEAD Without Contrast EXAM: CT Head Without Intravenous Contrast CLINICAL HISTORY: Reason for exam: ams. TECHNIQUE: Axial computed tomography images of the head/brain without intravenous contrast. Automated exposure control was utilized for the study. A dose lowering technique was utilized adhering to the principles of ALARA. COMPARISON: No relevant prior studies available. FINDINGS: No acute intracranial hemorrhage. No midline shift or mass effect. The territorial scales-white matter differentiation is maintained throughout. Age-related cerebral volume loss. Periventricular and subcortical white matter hypoattenuation, consistent with chronic microangiopathy. The visualized orbits appear grossly unremarkable. The calvarium is intact. The visualized paranasal sinuses and mastoid air cells are grossly clear. IMPRESSION: No acute intracranial hemorrhage, midline shift, or mass effect. Electronically signed by: Avery Cabrera MD 03/19/23 23:02 PM Code Status & VTE Plan Code Status Full code VTE Prophylaxis Plan VTE Prophylaxis will be ordered: Yes PG Care Time/CCT Total # of Minutes Spent Total Time Spent with Patient: Total time spent is greater than 50% in coordination of care (as documented) at patient's floor/unit and/or counseling patient: Coding Level of Care Code 13845 INT INP/OBS CARE 3/75MIN Diagnoses Fecal impaction K56.41 Diabetic neuropathy E11.40 Acute kidney injury superimposed on CKD N17.9; N18.9 CKD (chronic kidney disease) stage 3, GFR 30-59 ml/min N18.3 Diabetes mellitus, type 2 E11.9 Diabetes mellitus residential insulin use: without residential use Diabetes mellitus complication status: without complication Hypertension I10 HOCM (hypertrophic obstructive cardiomyopathy) I42.1 History of breast cancer Z85.3 Proctitis K62.89 (5) Diabetes mellitus, type 2 Diabetes mellitus residential insulin use: without residential use Diabetes mellitus complication status: without complication Qualified Code(s): E11.9 - Type 2 diabetes mellitus without complications
--- NOTE | 2023-03-20 00:49 | Billing Data ---
Date of Service March 20, 2023 Coding Level of Care Code 97978 INT INP/OBS CARE
[2023-03-20] MEDS ORDERED: SODIUM CHLORIDE 0.9% 1,000 ML IV SCH (02:37)
[2023-03-20] MEDS ORDERED: CARBOHYDRATES FOR HYPOGLYCEMIA PO PRN (02:37)
[2023-03-20] MEDS ORDERED: ACETAMINOPHEN 325 MG TAB PO PRN (02:37)
[2023-03-20] MEDS ORDERED: GLUCOSE 40% GEL 15 GM TUBE PO PRN (02:37)
[2023-03-20] MEDS ORDERED: ONDANSETRON INJ 2 MG/ML 2 ML VIAL IV PRN (02:37)
[2023-03-20] MEDS ORDERED: GLUCAGON FOR INJ 1 MG VIAL SQ PRN (02:37)
[2023-03-20] MEDS ORDERED: GLUCOSE 10 TAB/TUBE PO PRN (02:37)
[2023-03-20] MEDS ORDERED: DEXTROSE 50% 50 ML SYRINGE IV PRN (02:37)
[2023-03-20 06:00] LABS: Albumin Level 3.2 gm/dl (3.4-5.0); BUN Creatinine Ratio 20.6 (10-20); Calcium 8.7 mg/dl (8.6-10.3); Creatinine Clr Calc Pharmacy 16.7 ml/min; Est GFR (Non-African American) 15.6 ml/min; Phosphorus 6.2 mg/dl (2.5-4.9); Potassium 5.1 mmol/L (3.5-5.1)
--- NOTE | 2023-03-20 07:23 | XRay Report ---
XR chest 1V portable HISTORY: 77 years-old Female Sepsis acute sepsis COMPARISON: Chest CT 11/08/2018 TECHNIQUE: AP view of the chest FINDINGS: Cardiac silhouette is enlarged. Mild right hemidiaphragmatic elevation. Mild subsegmental bibasilar d ensities. Mild chronic interstitial coarsening. Right subclavian Ibgzby-c-Sapc catheter distal tip no josé miguel in the expected location of the mid SVC. Degenerative changes of the shoulders and spine. IMPRESSION: 1. Cardiomegaly with mild chronic interstitial coarsening. 2. Mild bibasilar atelectasis. ACT 112: Negative or not required by law. The above report was generated using voice recognition software. It may contain grammatical, syntax o r spelling errors. Electronically signed by: Yan Huang M.D. 03/20/2023 7:22 AM
[2023-03-20 07:37] LABS: Estimated Average Glucose 183 mg/dl
[2023-03-20] MEDS: ANASTROZOLE 1 MG TAB PO SCH (08:07)
[2023-03-20] MEDS: metroNIDAZOLE 500 MG/100 ML BAG IV SCH ×2 (08:07→15:52)
[2023-03-20] MEDS: INSULIN ASPART PER UNIT CHARGE SC SCH ×4 (08:14→20:31)
[2023-03-20] MEDS ORDERED: LACTATED RINGER'S 500 ML IV ONE (12:30)
--- NOTE | 2023-03-20 12:31 | Hospitalist Progress Note ---
Date of Service March 20, 2023 Assessment & Plan (1) ALAYNA (acute kidney injury): Plan: Likely due to ATN. Risk factors - hypotension (documented low BPs with SBP<100) in the setting of massive dehydration, HCOM (which is preload dependent), WILLARD inhibitor use, and IV CT contrast on 03/28/23. Creatinine has risen through the day today with associated acidosis. Jj is in place. CT a/p without obstruction. WILLARD inhibitor has been held. Due to acidosis and mild hyperkalemia I started bicarbonate infusion at 100cc/hr. If ALAYNA/ATN continues to worsen and she remains oliguric --> then consult [facility]. BMP in am. (2) ATN (acute tubular necrosis): Plan: as above #1 (3) Acute dehydration: Plan: severe developed such after her 03/28 ER visit looks significantly volume contracted on exam today cont IV fluids as above (4) Lactic acidosis: Plan: present on admission ongoing bicarbonate infusion heavy concern that source of lactic acidosis is intestinal in nature -- see below (5) Intestinal ischemia: Plan: I have heavy concern that her acute proctitis and her abdominal pains in other locations is due to ischemia. With her dehydration, low BP, and HCOM I suspect low flow to the abdomen & bowels leading to ischemia. Has been acidotic since admission. Cont bicarbonate infusion. I spoke with Dr Ford from [facility] -- will obtain formal consult with them. Discussed obtaining mesenteric duplex study to r/o mesenteric stenosis. Ideally CTA study would be best but can't obtain such due to #1/#2. Keep NPO. Supportive care. Get BP up higher. Dr Ford to see tomorrow. Cont rocephin/flagyl IV. (6) Acute proctitis: Plan: as seen on CT 03/19 stercoral colitis is possible from recent impaction but that shouldn't cause procal elevation to nearly 50 as well as the amount of lactic acidosis that is present ongoing ischemia to her bowels is my biggest concern see #5 above c diff checked - was negative rocephin/flagyl IV (7) Abnormal ECG: Plan: lateral ST changes - likely due to HCOM (8) Fecal impaction: Plan: resolved s/p enema in ER on 03/28 ER visit having multiple liquid stools now (9) Kidney lesion, [place], left: Plan: 1.1cm lesion on left concerning for RCC --> address in future after this admission (10) Diabetes mellitus, type 2: Plan: a1c 8% novolog SSI (11) Hypertension: Plan: HOLD all BP meds due to hypotension (12) HOCM (hypertrophic obstructive cardiomyopathy): Plan: known diagnosis. holding BP meds due to low BP. hydrate. improve forward flow with IV fluids and getting her BP up. (13) Adrenal adenoma: Plan: b/l checked cortisol due to low BP --> level was 43 (14) CKD (chronic kidney disease) stage 3, GFR 30-59 ml/min: Plan: stage 3b -- baseline CrCl 30s now with ALAYNA/ATN supportive care, fluids, etc serial BMPs (15) Elevated troponin: Plan: level = 20 likely myocardial demand ischemia in setting of ALAYNA, acidosis, etc doubt ACS (16) DVT prophylaxis: Plan: add heparin 5000 BID (17) UTI (urinary tract infection): Plan: possible rocephin being used for proctitis will likely cover follow urine cx Plan spoke with pt's nephew by phone he is Ms Cevallos's next of kin (pt does not have kids, never been ) she has been living with her nephew since November 2022 he and his work full-time and simply cannot provide the care she needs she is alone while they are at work she didn't event mention to him or his that she had gone 2 weeks without a BM will need PT/OT and potentially placement based on the above information very, very complex care management today with multiorgan dysfunction, multiple visits to bedside, numerous care decisions, speaking with family, etc total time today 90 minutes Admission and Anticipated Discharge Date Admission Date: March 20, 2023 Subjective per staff had 3-4 liquid stools overnight -- nonbloody had liquid stool again this am stool sent for cdiff and returned negative during bedside rounds she was lying flat in bed comfortably she endorsed weakness, fatigue, no appetite, and vague abdominal discomfort in multiple locations - worst location was right abdomen as well as central no rectal pain patient reports she lives with her nephew is not and she does not have children prior to her 03/28 ER visit which showed fecal impaction on CT she reports she hadn't had a bowel movement in 2 weeks ! tele overnight wnl Review of Systems Review of Systems: gen - no fevers or chills cv - no chest pain, no orthopnea pulm - no dyspnea at rest; no cough GI - no vomiting overnight, but did have vomiting at home - minimal urine in jj bag; brown/concentrated Physical Exam Physical Exam: gen - looks sick, toxic-appearing, fatigued, weak, dehydrated mouth - MM severely dry neck - no JVD heart - RRR, s1 s2, 2-3/6 systolic murmur upper left SB lungs - CTA b/l abd - soft, no peritoneal signs, BS+, tender junction of RLQ/RUQ + mid-abdomen + LLQ; no pain over suprapubic region; no HSM ext - cool to touch, pulses 2+ b/l skin - cool to touch, no rash psych - awake but very tired, oriented to person/place/time Results & Data Results & Data Vital Signs (Past 12 Hours) Vital Signs Temp Pulse Pulse Pulse Resp BP Pulse Ox 03/20/23 08:00 03/20/23 08:00 63 03/20/23 07:37 36.9 C 62 18 105/61 96 03/20/23 02:37 03/20/23 03:16 03/20/23 03:16 36.6 C 87 20 121/70 97 03/20/23 01:54 63 Pulse Ox O2 Del Method O2 Del Method O2 Flow Rate O2 Flow Rate 03/20/23 08:00 Nasal Cannula 2 03/20/23 08:00 03/20/23 07:37 Room Air 03/20/23 02:37 97 Nasal Cannula 2 03/20/23 03:16 Nasal Cannula 2 03/20/23 03:16 Nasal Cannula 2 03/20/23 01:54 Laboratory Results Laboratory Results - last 48 hr 03/19/23 03/19/23 03/19/23 21:40 21:40 21:40 WBC 13.18 H RBC 4.47 Hgb 12.9 POC Hgb Hct 38.8 POC Hct MCV 86.8 MCH 28.9 MCHC 33.2 RDW Std Deviation 49.0 H RDW Coeff of Leno 15.6 H Plt Count 334 MPV 10.4 Immature Gran % (Auto) 0.3 Neut % (Auto) 84.5 Lymph % (Auto) 8.0 [place] % (Auto) 6.8 Eos % (Auto) 0.1 Baso % (Auto) 0.3 Neut # (Auto) 11.14 H Lymph # (Auto) 1.06 L [place] # (Auto) 0.89 H Eos # (Auto) 0.01 Baso # (Auto) 0.04 Immature Gran # (Auto) 0.04 Dohle Bodies 1+ Polychromasia Echinocytes 2+ VBG pH VBG pCO2 VBG pO2 VBG HCO3 VBG O2 Saturation VBG Base Excess POC Sodium Sodium 130 L POC Potassium Potassium 5.4 H D POC Chloride Chloride 97 L Carbon Dioxide 19 L POC Total CO2 Anion Gap 14 H POC Anion Gap POC BUN BUN 53 H D Creatinine 2.67 H D POC Creatinine Est Cr Clr Drug Dosing 17.7 Est GFR ( Amer) 19.2 Est GFR (Non-Af Amer) 16.6 BUN/Creatinine Ratio 19.9 Glucose 201 H POC Glucose POC Glucose (other) Estimat Average Glucose Hemoglobin A1c Lactate 3.3 H* Calcium 9.8 POC Ioniz Calcium Lynn Phosphorus Magnesium 3.2 H Total Bilirubin 1.0 Direct Bilirubin 0.3 H AST 22 ALT 18 Alkaline Phosphatase 91 Troponin I High Sens 20.7 H Total Protein 6.5 Albumin 3.5 Lipase Procalcitonin TSH Free T4 Random Cortisol Urine Color Urine Appearance Urine pH Ur Specific Clifford Urine Protein Urine Glucose (UA) Urine Ketones Urine Blood Urine Nitrite Urine Bilirubin Urine Urobilinogen Ur Leukocyte Esterase Urine WBC (Auto) Urine RBC (Auto) U Hyaline Cast (Auto) U Epithel Cells (Auto) Urine Bacteria (Auto) Stl C. diff Tox B Gene Adenovirus (PCR) B. pertussis DNA (PCR) B.parapertussis DNA PCR C. pneumoniae DNA (PCR) Coronavirus OC43 (PCR) Coronavirus HKU1 (PCR) Coronavirus 229E (PCR) SARS-CoV-2 (PCR) Coronavirus NL63 (PCR) Human Metapneumovir PCR Influenza Type A (PCR) Influenza Type B (PCR) M. pneumoniae (PCR) Parainfluenza 1 (PCR) Parainfluenza 2 (PCR) Parainfluenza 3 (PCR) Parainfluenza 4 (PCR) RSV (PCR) Entero/Rhino (PCR) 03/19/23 03/19/23 03/19/23 21:40 21:40 21:53 WBC RBC Hgb POC Hgb 12.9 Hct POC Hct 38 MCV MCH MCHC RDW Std Deviation RDW Coeff of Leno Plt Count MPV Immature Gran % (Auto) Neut % (Auto) Lymph % (Auto) [place] % (Auto) Eos % (Auto) Baso % (Auto) Neut # (Auto) Lymph # (Auto) [place] # (Auto) Eos # (Auto) Baso # (Auto) Immature Gran # (Auto) Dohle Bodies Polychromasia Echinocytes VBG pH VBG pCO2 VBG pO2 VBG HCO3 VBG O2 Saturation VBG Base Excess POC Sodium 129 L Sodium POC Potassium 5.4 H Potassium POC Chloride 99 L Chloride Carbon Dioxide POC Total CO2 18 L Anion Gap POC Anion Gap 18.0 POC BUN 45 H BUN Creatinine POC Creatinine 2.8 H Est Cr Clr Drug Dosing Est GFR ( Amer) Est GFR (Non-Af Amer) BUN/Creatinine Ratio Glucose POC Glucose POC Glucose (other) 202 H Estimat Average Glucose Hemoglobin A1c Lactate Calcium POC Ioniz Calcium Lynn 1.17 Phosphorus Magnesium Total Bilirubin Direct Bilirubin AST ALT Alkaline Phosphatase Troponin I High Sens Total Protein Albumin Lipase Procalcitonin 47.50 H TSH 4.913 H Free T4 1.46 Random Cortisol Urine Color Urine Appearance Urine pH Ur Specific Clifford Urine Protein Urine Glucose (UA) Urine Ketones Urine Blood Urine Nitrite Urine Bilirubin Urine Urobilinogen Ur Leukocyte Esterase Urine WBC (Auto) Urine RBC (Auto) U Hyaline Cast (Auto) U Epithel Cells (Auto) Urine Bacteria (Auto) Stl C. diff Tox B Gene Adenovirus (PCR) B. pertussis DNA (PCR) B.parapertussis DNA PCR C. pneumoniae DNA (PCR) Coronavirus OC43 (PCR) Coronavirus HKU1 (PCR) Coronavirus 229E (PCR) SARS-CoV-2 (PCR) Coronavirus NL63 (PCR) Human Metapneumovir PCR Influenza Type A (PCR) Influenza Type B (PCR) M. pneumoniae (PCR) Parainfluenza 1 (PCR) Parainfluenza 2 (PCR) Parainfluenza 3 (PCR) Parainfluenza 4 (PCR) RSV (PCR) Entero/Rhino (PCR) 03/19/23 03/19/23 03/19/23 22:24 22:35 22:56 WBC RBC Hgb POC Hgb Hct POC Hct MCV MCH MCHC RDW Std Deviation RDW Coeff of Leno Plt Count MPV Immature Gran % (Auto) Neut % (Auto) Lymph % (Auto) [place] % (Auto) Eos % (Auto) Baso % (Auto) Neut # (Auto) Lymph # (Auto) [place] # (Auto) Eos # (Auto) Baso # (Auto) Immature Gran # (Auto) Dohle Bodies Polychromasia Echinocytes VBG pH 7.35 L VBG pCO2 39 VBG pO2 31 VBG HCO3 22 VBG O2 Saturation < 60.0 VBG Base Excess -3.8 POC Sodium Sodium POC Potassium Potassium POC Chloride Chloride Carbon Dioxide POC Total CO2 Anion Gap POC Anion Gap POC BUN BUN Creatinine POC Creatinine Est Cr Clr Drug Dosing Est GFR ( Amer) Est GFR (Non-Af Amer) BUN/Creatinine Ratio Glucose POC Glucose POC Glucose (other) Estimat Average Glucose Hemoglobin A1c Lactate Calcium POC Ioniz Calcium Lynn Phosphorus Magnesium Total Bilirubin Direct Bilirubin AST ALT Alkaline Phosphatase Troponin I High Sens Total Protein Albumin Lipase Procalcitonin TSH Free T4 Random Cortisol Urine Color Dark Yellow Urine Appearance Cloudy A Urine pH 5.0 Ur Specific Clifford 1.030 Urine Protein 1+ H Urine Glucose (UA) Negative Urine Ketones Trace H Urine Blood Negative Urine Nitrite Negative Urine Bilirubin 1+ H Urine Urobilinogen Negative Ur Leukocyte Esterase 1+ H Urine WBC (Auto) 1-5 Urine RBC (Auto) 0-4 U Hyaline Cast (Auto) 0 U Epithel Cells (Auto) >30 H Urine Bacteria (Auto) 2+ H Stl C. diff Tox B Gene Adenovirus (PCR) Not Detected B. pertussis DNA (PCR) Not Detected B.parapertussis DNA PCR Not Detected C. pneumoniae DNA (PCR) Not Detected Coronavirus OC43 (PCR) Not Detected Coronavirus HKU1 (PCR) Not Detected Coronavirus 229E (PCR) Not Detected SARS-CoV-2 (PCR) Not Detected Coronavirus NL63 (PCR) Not Detected Human Metapneumovir PCR Not Detected Influenza Type A (PCR) Not Detected Influenza Type B (PCR) Not Detected M. pneumoniae (PCR) Not Detected Parainfluenza 1 (PCR) Not Detected Parainfluenza 2 (PCR) Not Detected Parainfluenza 3 (PCR) Not Detected Parainfluenza 4 (PCR) Not Detected RSV (PCR) Not Detected Entero/Rhino (PCR) Not Detected 0803/20/23 03/20/23 05:29 05:29 05:29 WBC RBC Hgb POC Hgb Hct POC Hct MCV MCH MCHC RDW Std Deviation RDW Coeff of Leno Plt Count MPV Immature Gran % (Auto) Neut % (Auto) Lymph % (Auto) [place] % (Auto) Eos % (Auto) Baso % (Auto) Neut # (Auto) Lymph # (Auto) [place] # (Auto) Eos # (Auto) Baso # (Auto) Immature Gran # (Auto) Dohle Bodies Polychromasia Echinocytes VBG pH VBG pCO2 VBG pO2 VBG HCO3 VBG O2 Saturation VBG Base Excess POC Sodium Sodium 131 L POC Potassium Potassium 5.1 POC Chloride Chloride 102 Carbon Dioxide 18 L POC Total CO2 Anion Gap 11 POC Anion Gap POC BUN BUN 58 H Creatinine 2.81 H POC Creatinine Est Cr Clr Drug Dosing 16.7 Est GFR ( Amer) 18.0 Est GFR (Non-Af Amer) 15.6 BUN/Creatinine Ratio 20.6 H Glucose 194 H POC Glucose POC Glucose (other) Estimat Average Glucose 183 Hemoglobin A1c 8.0 H Lactate 1.9 Calcium 8.7 POC Ioniz Calcium Lynn Phosphorus 6.2 H Magnesium 3.0 H Total Bilirubin Direct Bilirubin AST ALT Alkaline Phosphatase Troponin I High Sens Total Protein Albumin 3.2 L Lipase Procalcitonin TSH Free T4 Random Cortisol Urine Color Urine Appearance Urine pH Ur Specific Clifford Urine Protein Urine Glucose (UA) Urine Ketones Urine Blood Urine Nitrite Urine Bilirubin Urine Urobilinogen Ur Leukocyte Esterase Urine WBC (Auto) Urine RBC (Auto) U Hyaline Cast (Auto) U Epithel Cells (Auto) Urine Bacteria (Auto) Stl C. diff Tox B Gene Adenovirus (PCR) B. pertussis DNA (PCR) B.parapertussis DNA PCR C. pneumoniae DNA (PCR) Coronavirus OC43 (PCR) Coronavirus HKU1 (PCR) Coronavirus 229E (PCR) SARS-CoV-2 (PCR) Coronavirus NL63 (PCR) Human Metapneumovir PCR Influenza Type A (PCR) Influenza Type B (PCR) M. pneumoniae (PCR) Parainfluenza 1 (PCR) Parainfluenza 2 (PCR) Parainfluenza 3 (PCR) Parainfluenza 4 (PCR) RSV (PCR) Entero/Rhino (PCR) 08/03/20/23 03/20/23 07:07 12:00 12:20 WBC RBC Hgb POC Hgb Hct POC Hct MCV MCH MCHC RDW Std Deviation RDW Coeff of Leno Plt Count MPV Immature Gran % (Auto) Neut % (Auto) Lymph % (Auto) [place] % (Auto) Eos % (Auto) Baso % (Auto) Neut # (Auto) Lymph # (Auto) [place] # (Auto) Eos # (Auto) Baso # (Auto) Immature Gran # (Auto) Dohle Bodies Polychromasia Echinocytes VBG pH VBG pCO2 VBG pO2 VBG HCO3 VBG O2 Saturation VBG Base Excess POC Sodium Sodium POC Potassium Potassium POC Chloride Chloride Carbon Dioxide POC Total CO2 Anion Gap POC Anion Gap POC BUN BUN Creatinine POC Creatinine Est Cr Clr Drug Dosing Est GFR ( Amer) Est GFR (Non-Af Amer) BUN/Creatinine Ratio Glucose POC Glucose 188 H 153 H POC Glucose (other) Estimat Average Glucose Hemoglobin A1c Lactate Calcium POC Ioniz Calcium Lynn Phosphorus Magnesium Total Bilirubin Direct Bilirubin AST ALT Alkaline Phosphatase Troponin I High Sens Total Protein Albumin Lipase Procalcitonin TSH Free T4 Random Cortisol Urine Color Urine Appearance Urine pH Ur Specific Clifford Urine Protein Urine Glucose (UA) Urine Ketones Urine Blood Urine Nitrite Urine Bilirubin Urine Urobilinogen Ur Leukocyte Esterase Urine WBC (Auto) Urine RBC (Auto) U Hyaline Cast (Auto) U Epithel Cells (Auto) Urine Bacteria (Auto) Stl C. diff Tox B Gene Negative Cdiff Gene Adenovirus (PCR) B. pertussis DNA (PCR) B.parapertussis DNA PCR C. pneumoniae DNA (PCR) Coronavirus OC43 (PCR) Coronavirus HKU1 (PCR) Coronavirus 229E (PCR) SARS-CoV-2 (PCR) Coronavirus NL63 (PCR) Human Metapneumovir PCR Influenza Type A (PCR) Influenza Type B (PCR) M. pneumoniae (PCR) Parainfluenza 1 (PCR) Parainfluenza 2 (PCR) Parainfluenza 3 (PCR) Parainfluenza 4 (PCR) RSV (PCR) Entero/Rhino (PCR) 03/20/23 03/20/23 03/20/23 12:41 12:41 12:41 WBC RBC Hgb POC Hgb Hct POC Hct MCV MCH MCHC RDW Std Deviation RDW Coeff of Leno Plt Count MPV Immature Gran % (Auto) Neut % (Auto) Lymph % (Auto) [place] % (Auto) Eos % (Auto) Baso % (Auto) Neut # (Auto) Lymph # (Auto) [place] # (Auto) Eos # (Auto) Baso # (Auto) Immature Gran # (Auto) Dohle Bodies Polychromasia Echinocytes VBG pH 7.33 L VBG pCO2 31 L VBG pO2 48 VBG HCO3 16 VBG O2 Saturation 78.9 VBG Base Excess -8.4 POC Sodium Sodium 131 L POC Potassium Potassium 5.1 POC Chloride Chloride 102 Carbon Dioxide 16 L POC Total CO2 Anion Gap 13 H POC Anion Gap POC BUN BUN 66 H Creatinine 3.20 H D POC Creatinine Est Cr Clr Drug Dosing 14.6 Est GFR ( Amer) 15.4 Est GFR (Non-Af Amer) 13.3 BUN/Creatinine Ratio 20.6 H Glucose 150 H POC Glucose POC Glucose (other) Estimat Average Glucose Hemoglobin A1c Lactate 2.3 H* Calcium 8.4 L POC Ioniz Calcium Lynn Phosphorus Magnesium Total Bilirubin Direct Bilirubin AST ALT Alkaline Phosphatase Troponin I High Sens Total Protein Albumin Lipase Procalcitonin TSH Free T4 Random Cortisol Urine Color Urine Appearance Urine pH Ur Specific Clifford Urine Protein Urine Glucose (UA) Urine Ketones Urine Blood Urine Nitrite Urine Bilirubin Urine Urobilinogen Ur Leukocyte Esterase Urine WBC (Auto) Urine RBC (Auto) U Hyaline Cast (Auto) U Epithel Cells (Auto) Urine Bacteria (Auto) Stl C. diff Tox B Gene Adenovirus (PCR) B. pertussis DNA (PCR) B.parapertussis DNA PCR C. pneumoniae DNA (PCR) Coronavirus OC43 (PCR) Coronavirus HKU1 (PCR) Coronavirus 229E (PCR) SARS-CoV-2 (PCR) Coronavirus NL63 (PCR) Human Metapneumovir PCR Influenza Type A (PCR) Influenza Type B (PCR) M. pneumoniae (PCR) Parainfluenza 1 (PCR) Parainfluenza 2 (PCR) Parainfluenza 3 (PCR) Parainfluenza 4 (PCR) RSV (PCR) Entero/Rhino (PCR) 03/20/23 03/20/23 03/20/23 16:26 19:00 19:00 WBC RBC Hgb POC Hgb Hct POC Hct MCV MCH MCHC RDW Std Deviation RDW Coeff of Leno Plt Count MPV Immature Gran % (Auto) Neut % (Auto) Lymph % (Auto) [place] % (Auto) Eos % (Auto) Baso % (Auto) Neut # (Auto) Lymph # (Auto) [place] # (Auto) Eos # (Auto) Baso # (Auto) Immature Gran # (Auto) Dohle Bodies Polychromasia Echinocytes VBG pH 7.38 VBG pCO2 VBG pO2 VBG HCO3 VBG O2 Saturation VBG Base Excess POC Sodium Sodium 129 L POC Potassium Potassium 4.9 POC Chloride Chloride 101 Carbon Dioxide 16 L POC Total CO2 Anion Gap 12 H POC Anion Gap POC BUN BUN 69 H Creatinine 3.38 H POC Creatinine Est Cr Clr Drug Dosing 13.8 Est GFR ( Amer) 14.4 Est GFR (Non-Af Amer) 12.5 BUN/Creatinine Ratio 20.4 H Glucose 149 H POC Glucose 175 H POC Glucose (other) Estimat Average Glucose Hemoglobin A1c Lactate Calcium 8.2 L POC Ioniz Calcium Lynn Phosphorus Magnesium Total Bilirubin Direct Bilirubin AST ALT Alkaline Phosphatase Troponin I High Sens Total Protein Albumin Lipase Procalcitonin TSH Free T4 Random Cortisol Urine Color Urine Appearance Urine pH Ur Specific Clifford Urine Protein Urine Glucose (UA) Urine Ketones Urine Blood Urine Nitrite Urine Bilirubin Urine Urobilinogen Ur Leukocyte Esterase Urine WBC (Auto) Urine RBC (Auto) U Hyaline Cast (Auto) U Epithel Cells (Auto) Urine Bacteria (Auto) Stl C. diff Tox B Gene Adenovirus (PCR) B. pertussis DNA (PCR) B.parapertussis DNA PCR C. pneumoniae DNA (PCR) Coronavirus OC43 (PCR) Coronavirus HKU1 (PCR) Coronavirus 229E (PCR) SARS-CoV-2 (PCR) Coronavirus NL63 (PCR) Human Metapneumovir PCR Influenza Type A (PCR) Influenza Type B (PCR) M. pneumoniae (PCR) Parainfluenza 1 (PCR) Parainfluenza 2 (PCR) Parainfluenza 3 (PCR) Parainfluenza 4 (PCR) RSV (PCR) Entero/Rhino (PCR) 03/20/23 03/20/23 03/20/23 19:00 19:00 20:22 WBC RBC Hgb POC Hgb Hct POC Hct MCV MCH MCHC RDW Std Deviation RDW Coeff of Leno Plt Count MPV Immature Gran % (Auto) Neut % (Auto) Lymph % (Auto) [place] % (Auto) Eos % (Auto) Baso % (Auto) Neut # (Auto) Lymph # (Auto) [place] # (Auto) Eos # (Auto) Baso # (Auto) Immature Gran # (Auto) Dohle Bodies Polychromasia Echinocytes VBG pH VBG pCO2 VBG pO2 VBG HCO3 VBG O2 Saturation VBG Base Excess POC Sodium Sodium POC Potassium Potassium POC Chloride Chloride Carbon Dioxide POC Total CO2 Anion Gap POC Anion Gap POC BUN BUN Creatinine POC Creatinine Est Cr Clr Drug Dosing Est GFR ( Amer) Est GFR (Non-Af Amer) BUN/Creatinine Ratio Glucose POC Glucose 157 H POC Glucose (other) Estimat Average Glucose Hemoglobin A1c Lactate 1.6 Calcium POC Ioniz Calcium Lynn Phosphorus Magnesium Total Bilirubin Direct Bilirubin AST ALT Alkaline Phosphatase Troponin I High Sens Total Protein Albumin Lipase Procalcitonin TSH Free T4 Random Cortisol 43.21 Urine Color Urine Appearance Urine pH Ur Specific Clifford Urine Protein Urine Glucose (UA) Urine Ketones Urine Blood Urine Nitrite Urine Bilirubin Urine Urobilinogen Ur Leukocyte Esterase Urine WBC (Auto) Urine RBC (Auto) U Hyaline Cast (Auto) U Epithel Cells (Auto) Urine Bacteria (Auto) Stl C. diff Tox B Gene Adenovirus (PCR) B. pertussis DNA (PCR) B.parapertussis DNA PCR C. pneumoniae DNA (PCR) Coronavirus OC43 (PCR) Coronavirus HKU1 (PCR) Coronavirus 229E (PCR) SARS-CoV-2 (PCR) Coronavirus NL63 (PCR) Human Metapneumovir PCR Influenza Type A (PCR) Influenza Type B (PCR) M. pneumoniae (PCR) Parainfluenza 1 (PCR) Parainfluenza 2 (PCR) Parainfluenza 3 (PCR) Parainfluenza 4 (PCR) RSV (PCR) Entero/Rhino (PCR) Diagnostic Findings blood/urine cx's negative PG Care Time/CCT Total # of Minutes Spent Total Time Spent with Patient: Total time spent is greater than 50% in coordination of care (as documented) at patient's floor/unit and/or counseling patient: Prolonged Care Time Prolonged Care Time: Yes Total Prolonged Care Time: 90 Coding Level of Care Code 52210 SUB INP/OBS CARE 3/50MIN (25 - SIGNIFICANT, SEPARATELY IDENTIFIABLE ) Diagnoses ALAYNA (acute kidney injury) N17.9 ATN (acute tubular necrosis) N17.0 Acute dehydration E86.0 Lactic acidosis E87.20 Intestinal ischemia K55.9 Acute proctitis K62.89 Abnormal ECG R94.31 Fecal impaction K56.41 Kidney lesion, [place], left N28.9 Diabetes mellitus, type 2 E11.9 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: without equipment operator intermodal yard use Diabetes mellitus complication status: without complication Hypertension I10 HOCM (hypertrophic obstructive cardiomyopathy) I42.1 Adrenal adenoma D35.00 CKD (chronic kidney disease) stage 3, GFR 30-59 ml/min N18.3 Elevated troponin R77.8 DVT prophylaxis Z29.9 UTI (urinary tract infection) N39.0 Additional Codes Prolonged Care Time - Prolonged Care Time: Yes ([id number]) (10) Diabetes mellitus, type 2 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
--- NOTE | 2023-03-20 12:40 | Electrocardiogram Report ---
Test Reason : Blood Pressure : / mmHG Vent. Rate : 058 BPM Atrial Rate : 058 BPM P-R Int : 162 ms QRS Dur : 118 ms QT Int : 528 ms P-R-T Axes : 058 -50 191 degrees QTc Int : 518 ms Sinus bradycardia Possible Left atrial enlargement Left anterior fascicular block Left ventricular hypertrophy with QRS widening ( R in aVL , Salty product , Romhilt-Funes ) Cannot rule out Septal infarct (cited on or before 04-JAN-2023) Prolonged QT Abnormal ECG When compared with ECG of 04-JAN-2023 08:32, (unconfirmed) T wave inversion now evident in Inferior leads T wave inversion more evident in Lateral leads QT has lengthened Confirmed by Abdirizak Campos ([id number]) on 03/20/2023 12:40:28 PM Referred By: REFERRED SELF Confirmed By:Abdirizak Campos
[2023-03-20 13:00] LABS: Base Excess VBG -8.4 mEq/L; HCO3 VBG 16 mmol/L; Oxygen Saturation VBG 78.9 %; PCO2 VBG 31 mmHg (38-50); PO2 VBG 48 mmHg; pH VBG 7.33 (7.36-7.41)
[2023-03-20 13:25] LABS: BUN Creatinine Ratio 20.6 (10-20); Calcium 8.4 mg/dl (8.6-10.3); Creatinine Clr Calc Pharmacy 14.6 ml/min; Est GFR (African American) 15.4 ml/min; Est GFR (Non-African American) 13.3 ml/min; Potassium 5.1 mmol/L (3.5-5.1)
[2023-03-20] MEDS: SODIUM BICARBONATE 8.4% 100 MEQ in WATER, STERILE 1,000 ML IV SCH (14:55)
[2023-03-20] MEDS: cefTRIAXone SODIUM 2,000 MG in DEXTROSE 5% 50 ML IV SCH (20:31)
[2023-03-20 20:51] LABS: Calcium 8.2 mg/dl (8.6-10.3); Potassium 4.9 mmol/L (3.5-5.1)
[2023-03-20 20:57] LABS: BUN Creatinine Ratio 20.4 (10-20); Creatinine Clr Calc Pharmacy 13.8 ml/min; Est GFR (African American) 14.4 ml/min; Est GFR (Non-African American) 12.5 ml/min
[2023-03-21] MEDS: metroNIDAZOLE 500 MG/100 ML BAG IV SCH ×3 (01:20→17:28)
[2023-03-21] MEDS: SODIUM BICARBONATE 8.4% 100 MEQ in WATER, STERILE 1,000 ML IV SCH ×2 (02:04→13:51)
[2023-03-21 05:59] LABS: Albumin Level 2.9 gm/dl (3.4-5.0); BUN Creatinine Ratio 21.1 (10-20); Bilirubin Direct 0.1 mg/dl (0-0.2); Bilirubin,Total 0.4 mg/dl (0.2-1.0); Calcium 7.7 mg/dl (8.6-10.3); Creatinine Clr Calc Pharmacy 14.7 ml/min; Potassium 4.2 mmol/L (3.5-5.1); Total Protein 5.5 gm/dl (6.0-8.3)
[2023-03-21 06:11] LABS: Basophils # (auto) 0.02 K/uL (0-0.2); Basophils % (auto) 0.3 %; Dohle Bodies 1+; Echinocytes 2+; Eosinophils # (auto) 0.04 K/uL (0-0.50); Eosinophils % (auto) 0.5 %; Hematocrit (blood only) 31.2 % (37.0-47.0); Hemoglobin 10.6 g/dl (12.0-16.0); Immature Granulocytes # (auto) 0.02 K/uL (0.01-0.20); Immature Granulocytes % (auto) 0.3 %; Lymphocytes # (auto) 0.48 K/uL (1.2-3.4); Mean Corpuscular Hemoglobin 29.3 pg (25.0-34.0); Mean Corpuscular Volume 86.2 fL (80.0-100.0); Mean Platelet Volume 10.8 fL (9.4-12.4); Monocytes # (auto) 0.41 K/uL (0.11-0.59); Monocytes % (auto) 5.1 %; Neutrophils # (auto) 7.02 K/uL (1.40-6.50); Neutrophils % (auto) 87.8 %; Platelet Count 258 K/uL (130-400); Polychromasia 1+; RDW Coefficient of Variation 15.9 % (11.5-14.5); Red Blood Count 3.62 M/uL (4.20-5.40); White Blood Count 7.99 K/ul (4.8-10.8)
--- NOTE | 2023-03-21 06:42 | Ultrasound Report ---
Exam(s): US OTHER Duplex Mesenteric EXAM: US Duplex Arterial/Venous of the abdomen, mesenteric arteries CLINICAL HISTORY: Reason for exam: ischemic colitis/proctitis. TECHNIQUE: Real-time duplex ultrasound scan of the mesenteric arteries integrating B-mode two-dimensional vascular structure, Doppler spectral analysis and color flow Doppler imaging. COMPARISON: No relevant prior studies available. FINDINGS: Aorta: Peak systolic velocity in the proximal abdominal aorta is 79 cm/s. Other vasculature: Peak systolic velocity in the celiac arteries 119 cm/s. Peak systolic velocity in the proximal superior mesenteric artery is 198 cm/s. Peak systolic velocity in the mid superior mesenteric arteries 300 cm/s. Distal superior mesenteric artery and inferior mesenteric artery are not visualized due to overlying bowel gas be. IMPRESSION: Elevated peak systolic velocity in the superior mesenteric artery. CT angiogram study is suggested to evaluate for the possibility of SMA stenosis. Electronically signed by: Jose Maria Hopkins MD 03/21/23 06:41 AM
[2023-03-21] MEDS: INSULIN ASPART PER UNIT CHARGE SC SCH ×4 (08:58→20:51)
[2023-03-21] MEDS: ANASTROZOLE 1 MG TAB PO SCH (08:59)
--- NOTE | 2023-03-21 09:51 | Gastrointestinal Consultation ---
Date of Consultation March 21, 2023 Assessment & Plan (1) Acute proctitis: (2) Constipation: Plan Patient admitted with abdominal pain and dehydraton. imaging suggestive of proctitis and moderate fecal retention. she tells me abdominal pain has improved and she is moving her bowels. constipation has been an issue for several months. She had proctitis on imaging dating back to earlier this summer. Suspect a component of constipation, though she did have elevated procalcitonin concerning for possible colonic ischemia. Discussed case with Dr. Ford who helped advise on plan. - supportive care and bowel rest. - continue with with IV flagyl/ceftriaxone. - she will need colonoscopy as outpatient in 6-8 weeks to further evaluation. - will need to start a bowel regimen upon discharge to help prevent ongoing constipation. Supervising Physician Co-Signing Physician Notes I saw the patient and agree with the findings as documented by MELY Holman History of Present Illness Reason for Consultation: ischemic colitis/proctitis? Requesting Physician: Jose Daniel Falk MD Attending Physician: Annamaria Fuentes MD History of Present Illness Patient is a 77 year old female who presented to the ED with complaints of constipation that she feels has been ongoing since November 2022. Prior to her admission she had not moved her bowels in over a week. She had proceeded to the ED for evaluation and was given an enema, lactulose, and miralax and with this she tells me she had several bowel movements but when she returned home she felt she was getting dehydrated along with abdominal pain and came back to the ED for evaluation. She had CT earlier this summer on 01/18/23 that also shown moderate constipation as well as rectosigmoid fecal impaction with stercoral proctitis. She had a CT 03/18 showing stercoral proctitis that was progressed since December CT. Had repeat CT 03/19 on her return to the ED showing wall thickening of rectum up to 12mm concerning for proctitis with moderate fecal retention. She did have elevated procalcitonin of 47.5 concerning for possible component of ischemic colitis. Admitted with acute kidney injury and dehydration. she was started on flagly/ceftriaxone. GI consulted to see. she tells me that since admission she has had several moderate sized bowel movements. no bleeding. no melena. she tells me that her abdominal pain has improved since admission. no nausea, vomiting. Colonoscopy 2020 diverticulosis, internal hemorrhoids, and tubular adenoma colon polyps. Allergies Allergy/AdvReac Type Severity Reaction Status Date / Time adhesive Allergy Intermediate BLISTERING Verified 03/19/23 23:00 Sulfa (Sulfonamide Allergy Intermediate HIVES - Verified 03/19/23 23:00 Antibiotics) ITCHING Home Medications Medication Instructions Recorded Confirmed Type multivitamin 1 tab PO QAM 05/29/18 03/19/23 History anastrozole 1 mg tablet 1 mg PO QAM #90 tabs 05/24/19 03/19/23 Rx blood sugar diagnostic #300 ea 04/07/22 03/19/23 Rx atenolol 50 mg tablet 75 mg PO QAM #135 tabs 05/04/22 03/19/23 Rx amlodipine 5 mg tablet 5 mg PO DAILY #90 tabs 06/02/22 03/19/23 Rx lisinopril 40 mg tablet 40 mg PO QAM #90 tabs 07/11/22 03/19/23 Rx metformin 500 mg tablet 500 mg PO BID #180 tabs 10/24/22 03/19/23 Rx acetaminophen 500 mg tablet 1,000 mg PO BID 12/08/22 03/19/23 History (Tylenol Extra Strength) lactulose 20 gram/30 mL oral 20 g (30 mL) PO BID PRN 03/18/23 03/19/23 Rx solution constipation #2,880 mL Patient History Medical History Adrenal adenoma pt not aware Chronic back pain CKD (chronic kidney disease) stage 3, GFR 30-59 ml/min Diabetes mellitus, type 2 Diabetic neuropathy History of breast cancer HOCM (hypertrophic obstructive cardiomyopathy) Hypertension Insomnia Kidney stones hx of Lymphedema of left arm Due to left axillary lymph node dissection - LIMB RESTRICTION Malignant neoplasm of central portion of left breast in female, estrogen receptor positive (08/08/17) s/p lumpectomy 2018 Mitral regurgitation Osteoarthritis Paresthesia Hands and feet periodically Radiation fibrosis of lung Spinal stenosis Urinary incontinence Surgical History H/O lithotripsy History of cataract surgery R/L History of colonoscopy with polypectomy History of hysterectomy TOTAL History of open reduction and internal fixation (ORIF) procedure L ELBOW History of total hip arthroplasty R/L History of total knee replacement RIGHT Hx of necrotising fasciitis [id number] Hx of ovarian cystectomy S/P partial mastectomy (~08/30/17) L breast, with axiallary LN dissection Status post incision and drainage (07/26/19) Irrigation and debridement of L mid finger d/t infectious flexor tenosynovitis w/ additional rupture of FDS and FDP tendons Status post incision and drainage (02/14/20) L middle finger of flexor tendon sheath in digit and palm, removal of deep implant Status post surgery (01/30/20) L mid finger flexor tendon reconstruction w/ excision of chronically ruptured tendons and replacement w/ temp silicone jackson; L ring finger trigger release Family History Grandmother Diabetes Family history of diabetes mellitus Family/Other Family hx of colon cancer cousin Ovarian cancer cousin Sister Diabetes Breast cancer Mother Hypertension Father Hypertension Other No family history of adverse response to anesthesia Denies family history of Prostate cancer Colorectal cancer Social History Smoking Status: Never smoker Second Hand Exposure: No; Do You Dip or Chew Tobacco: No; Hx Alcohol Use: No Hx Substance Use: No Preferred Language: Icelandic Communication Ability: Effective Visual Impairment: No Limitations Hearing Ability: Hard of Hearing Lead Software Developer Required: No Beliefs That Will Affect Care: None marital status: Single Current Living Situation: Family Current Living Situation Comment: Currently lives with nephew current occupational status: retired How many Children do You have: 0 Feels Safe at Home: Yes Childhood Exposure to Second-Hand Smoke: No Diet: regular Diet Comment: Regular caffeine: No during the past year weight has: remained stable Dental Care, Regularly: No Physical Activity Frequency: Other Physical Activity Frequency Comment: limited Seatbelt Use: always Sunscreen Use: Yes Assistive Devices: Walker Review of Systems Review of Systems: All systems reviewed & are unremarkable except as noted in HPI & below Constitutional: + body aches, + malaise and + weakness Physical Exam Constitutional: WD/WN, vitals as above Respiratory: normal respiratory effort, lungs clear to auscultation Cardiovascular: RRR, no murmur, no edema Gastrointestinal (Abdomen): normal bowel sounds, mild diffuse tenderness, no guarding, soft. Skin: no rashes, warm and dry Psychiatric: Orientation: alert and oriented x 3 Results & Data Vital Signs (Past 12 Hours) Vital Signs Temp Pulse Pulse Resp BP Pulse Ox O2 Del Method 03/21/23 07:09 97.7 F 57 L 17 155/72 H 95 Nasal Cannula 03/21/23 03:13 97.9 F 61 18 156/75 H 94 Nasal Cannula 03/21/23 00:42 53 L 03/20/23 23:43 97.9 F 58 L 16 122/70 95 Nasal Cannula 03/20/23 22:06 Nasal Cannula O2 Flow Rate 03/21/23 07:09 2 03/21/23 03:13 2 03/21/23 00:42 03/20/23 23:43 2 03/20/23 22:06 2 PG Care Time/CCT Total # of Minutes Spent Total Time Spent with Patient: Total time spent is greater than 50% in coordination of care (as documented) at patient's floor/unit and/or counseling patient: Coding Level of Care Code 10774 INT INP/OBS CARE 2/55MIN Diagnoses Acute proctitis K62.89 Constipation K59.00 Time Spent (min) 58
--- NOTE | 2023-03-21 10:31 | Nephrology Consultation ---
Date of Consultation March 21, 2023 Assessment & Plan (1) ALAYNA (acute kidney injury): (2) UTI (urinary tract infection): (3) Acute dehydration: (4) Lactic acidosis: (5) Acute proctitis: (6) Kidney lesion, [place], left: (7) Hypertension: (8) Diabetes mellitus, type 2: Plan 77-year-old female with stage IIIa CKD b/l cr variable from 1.3-1.5 most likely secondary to microvascular disease with history of hypertension and diabetes, admitted with weeks to months history of constipation followed by diarrhea and volume depletion after enema, stool softener. Was hypotensive on admission with volume depletion, although renal function initially at baseline, rapidly worsen most likely hemodynamically mediated ALAYNA with hypotension, volume depletion with diarrhea and and IV contrast exposure. Urinalysis with no low-grade proteinuria and UTI with gram-negative bacilli but no hematuria. CT abdomen pelvis with no postrenal obstruction but noted to have relatively small left kidney and 1.1 cm left renal mass concerning for renal cell carcinoma. Has been on IV fluid and empiric antibiotic with Flagyl and Rocephin to cover UTI and acute proctitis. --Continue on bicarb drip and increase p.o. intake as tolerated. Continue to monitor renal function and electrolytes daily, hopefully creatinine will start to plateau. Agree with holding metformin and lisinopril however if blood pressure runs high okay to resume amlodipine as needed. -- Will need outpatient urology evaluation for 1.1 cm left renal mass, concerning for renal cell carcinoma, no urgent need at this time. -- Dose medications for EGFR less than 30 -- We will check iron study with a.m. lab Thank you for the consultation, it was a pleasure to see Deidra. History of Present Illness Attending Physician: Annamaria Fuentes MD History of Present Illness Deidra Cevallos is a 77 year old F with PMH of stage 3A CKD, HTN, DM admitted with Constipation, diarrhea, proctitis, ALAYNA and electrolyte imbalance. Nephrology consult was requested for further management. EMR records were reviewed in detail during visit. Dedira initially presented to the ER on 03/18/23 with complaints of ongoing constipation for weeks to months. She was given an enema, lactulose, and miralax and was discharged. She had several bowel movements but when she returned home she felt she was getting dehydrated along with abdominal pain and diarrhea. Denies NSAID use at home. Has been taking lisinopril and metformin at home. CT A/P with contrast on 03/18 showing stercoral proctitis that has progressed since December CT. CT showed relatively smaller left kidney and there was 1.1 cm mass in superior pole of left kidney concerning for renal cell carcinoma. Urinalysis showed low-grade proteinuria, no hematuria, noted to have 2+ bacteria and urine culture growing gram-negative bacilli. She had repeat CT abdomen pelvis on 03/19 without contrast. Creatinine was 1.3 on 03/18/2023 which seems to be close to her baseline however over last 3 days renal function rapidly worsening creatinine this morning was 3.2 associated with hyponatremia and metabolic acidosis. Sodium has been around 129-130. Bicarb 18. She has pain on IV fluid, currently on bicarb drip and flagly/ceftriaxone. Has history of hypertension and diabetes, initially during admission she was quite hypertensive but blood pressure improved and has been reasonable with IV hydration. Amlodipine, lisinopril, atenolol, metformin has been on hold. No history of coronary artery disease. Never smoker. No family history of CKD or ESRD. Retired for last 20 years, used to work at [employer]. Has history of left breast cancer more than 5 years ago status postlumpectomy, on anastrozole. History of colonic polyp, had repeated colonoscopy before, due for colonoscopy in June 2023 for prior history of tubular adenoma. no nausea, vomiting. Overall she feels poorly and feels like she is exhausted from ongoing diarrhea. Allergies Allergy/AdvReac Type Severity Reaction Status Date / Time adhesive Allergy Intermediate BLISTERING Verified 03/19/23 23:00 Sulfa (Sulfonamide Allergy Intermediate HIVES - Verified 03/19/23 23:00 Antibiotics) ITCHING Home Medications Medication Instructions Recorded Confirmed Type multivitamin 1 tab PO QAM 05/29/18 03/19/23 History anastrozole 1 mg tablet 1 mg PO QAM #90 tabs 05/24/19 03/19/23 Rx blood sugar diagnostic #300 ea 04/07/22 03/19/23 Rx atenolol 50 mg tablet 75 mg PO QAM #135 tabs 05/04/22 03/19/23 Rx amlodipine 5 mg tablet 5 mg PO DAILY #90 tabs 06/02/22 03/19/23 Rx lisinopril 40 mg tablet 40 mg PO QAM #90 tabs 07/11/22 03/19/23 Rx metformin 500 mg tablet 500 mg PO BID #180 tabs 10/24/22 03/19/23 Rx acetaminophen 500 mg tablet 1,000 mg PO BID 12/08/22 03/19/23 History (Tylenol Extra Strength) lactulose 20 gram/30 mL oral 20 g (30 mL) PO BID PRN 03/18/23 03/19/23 Rx solution constipation #2,880 mL Patient History Medical History Adrenal adenoma pt not aware Chronic back pain CKD (chronic kidney disease) stage 3, GFR 30-59 ml/min Diabetes mellitus, type 2 Diabetic neuropathy History of breast cancer HOCM (hypertrophic obstructive cardiomyopathy) Hypertension Insomnia Kidney stones hx of Lymphedema of left arm Due to left axillary lymph node dissection - LIMB RESTRICTION Malignant neoplasm of central portion of left breast in female, estrogen receptor positive (08/08/17) s/p lumpectomy 2018 Mitral regurgitation Osteoarthritis Paresthesia Hands and feet periodically Radiation fibrosis of lung Spinal stenosis Urinary incontinence Surgical History H/O lithotripsy History of cataract surgery R/L History of colonoscopy with polypectomy History of hysterectomy TOTAL History of open reduction and internal fixation (ORIF) procedure L ELBOW History of total hip arthroplasty R/L History of total knee replacement RIGHT Hx of necrotising fasciitis [id number] Hx of ovarian cystectomy S/P partial mastectomy (~08/30/17) L breast, with axiallary LN dissection Status post incision and drainage (07/26/19) Irrigation and debridement of L mid finger d/t infectious flexor tenosynovitis w/ additional rupture of FDS and FDP tendons Status post incision and drainage (02/14/20) L middle finger of flexor tendon sheath in digit and palm, removal of deep implant Status post surgery (01/30/20) L mid finger flexor tendon reconstruction w/ excision of chronically ruptured tendons and replacement w/ temp silicone jackson; L ring finger trigger release Family History Grandmother Diabetes Family history of diabetes mellitus Family/Other Family hx of colon cancer cousin Ovarian cancer cousin Sister Diabetes Breast cancer Mother Hypertension Father Hypertension Other No family history of adverse response to anesthesia Denies family history of Prostate cancer Colorectal cancer Social History Smoking Status: Never smoker Second Hand Exposure: No; Do You Dip or Chew Tobacco: No; Hx Alcohol Use: No Hx Substance Use: No Preferred Language: Georgian Communication Ability: Effective Visual Impairment: No Limitations Hearing Ability: Hard of Hearing Chemistry Department Chair Required: No Beliefs That Will Affect Care: None marital status: Single Current Living Situation: Family Current Living Situation Comment: Currently lives with nephew current occupational status: retired How many Children do You have: 0 Feels Safe at Home: Yes Childhood Exposure to Second-Hand Smoke: No Diet: regular Diet Comment: Regular caffeine: No during the past year weight has: remained stable Dental Care, Regularly: No Physical Activity Frequency: Other Physical Activity Frequency Comment: limited Seatbelt Use: always Sunscreen Use: Yes Assistive Devices: Walker Review of Systems Review of Systems: Detailed review of system was done and pertinent positives and negatives are mentioned above. Physical Exam Constitutional: WD/WN, vitals as above no acute distress Eyes: + anicteric sclerae Neck: normal visual inspection Respiratory: normal respiratory effort; no respiratory distress and no cough Auscultation: lungs clear to auscultation bilaterally Cardiovascular: Rate/Rhythm: regular rate and regular rhythm Heart Sounds: normal S1 and normal S2 Extremities: no edema Gastrointestinal (Abdomen): Inspection/Auscultation: abdomen normal to inspection Percussion/Palpation: + abdomen tender (Mild diffuse tenderness.) and abdomen soft Musculoskeletal: Extremities: extremities normal to inspection Neurologic: no focal motor deficits Psychiatric: Orientation: alert and oriented x 3 Affect: euthymic affect Results & Data Vital Signs (Past 12 Hours) Vital Signs Temp Pulse Pulse Resp BP Pulse Ox O2 Del Method 03/21/23 07:09 36.5 C 57 L 17 155/72 H 95 Nasal Cannula 03/21/23 03:13 36.6 C 61 18 156/75 H 94 Nasal Cannula 03/21/23 00:42 53 L 03/20/23 23:43 36.6 C 58 L 16 122/70 95 Nasal Cannula O2 Flow Rate 03/21/23 07:09 2 03/21/23 03:13 2 03/21/23 00:42 03/20/23 23:43 2 PG Care Time/CCT Total # of Minutes Spent Total Time Spent with Patient: Total time spent is greater than 50% in coordination of care (as documented) at patient's floor/unit and/or counseling patient: Coding Level of Care Code 72817 INT INP/OBS CARE 3/75MIN Diagnoses ALAYNA (acute kidney injury) N17.9 UTI (urinary tract infection) N39.0 Acute dehydration E86.0 Lactic acidosis E87.20 Acute proctitis K62.89 Kidney lesion, [place], left N28.9 Hypertension I10 Diabetes mellitus, type 2 E11.9 Diabetes mellitus terminal operator insulin use: without [facility] use Diabetes mellitus complication status: without complication (8) Diabetes mellitus, type 2 Diabetes mellitus terminal operator insulin use: without [facility] use Diabetes mellitus complication status: without complication Qualified Code(s): E11.9 - Type 2 diabetes mellitus without complications
[2023-03-21] MEDS: HEPARIN SOD 5,000 UNIT/0.5 ML VIAL SQ SCH ×2 (10:50→20:58)
--- NOTE | 2023-03-21 18:47 | Hospitalist Progress Note ---
Date of Service March 21, 2023 Assessment & Plan (1) ALAYNA (acute kidney injury): Plan: Likely due to ATN. Risk factors - hypotension (documented low BPs with SBP<100) in the setting of massive dehydration, HOCM (which is preload dependent), WILLARD inhibitor use, and IV CT contrast on 03/28/23. Creatinine seems to have plateaued Urine output has improved Spears is in place. CT a/p without obstruction. WILLARD inhibitor has been held. Metformin held Patient is on a bicarb drip which I will continue Nephrology consulted Monitor daily BMP (2) ATN (acute tubular necrosis): Plan: as above #1 (3) Acute dehydration: Plan: severe developed such after her 03/28 ER visit looks less volume contracted today cont IV fluids as above (4) Lactic acidosis: Plan: present on admission ongoing bicarbonate infusion heavy concern that source of lactic acidosis is intestinal in nature -- see below (5) Intestinal ischemia: Plan: I there is concerned that her acute proctitis and her abdominal pains in other locations is due to ischemia. GI on board GI plans to do a colonoscopy outpatient in 6 to 8 weeks They recommend continuing IV Flagyl and ceftriaxone With her dehydration, low BP, and HCOM I suspect low flow to the abdomen & bowels leading to ischemia. Has been acidotic since admission. Cont bicarbonate infusion. Keep NPO. Supportive care. Get BP up higher. Cont rocephin/flagyl IV. (6) Acute proctitis: Plan: as seen on CT 03/19 stercoral colitis is possible from recent impaction but that shouldn't cause procal elevation to nearly 50 as well as the amount of lactic acidosis that is present ongoing ischemia to her bowels is the biggest concern see #5 above c diff checked - was negative rocephin/flagyl IV (7) Abnormal ECG: Plan: lateral ST changes - likely due to HOCM (8) Fecal impaction: Plan: resolved s/p enema in ER on 03/28 ER visit having multiple liquid stools now (9) Kidney lesion, [place], left: Plan: 1.1cm lesion on left concerning for RCC --> address in future after this admission (10) Diabetes mellitus, type 2: Plan: a1c 8% novolog SSI (11) Hypertension: Plan: HOLD all BP meds due to hypotension (12) HOCM (hypertrophic obstructive cardiomyopathy): Plan: known diagnosis. holding BP meds due to low BP. hydrate. improve forward flow with IV fluids and getting her BP up. (13) Adrenal adenoma: Plan: b/l checked cortisol due to low BP --> level was 43 (14) CKD (chronic kidney disease) stage 3, GFR 30-59 ml/min: Plan: stage 3b -- baseline CrCl 30s now with ALAYNA/ATN supportive care, fluids, etc serial BMPs (15) Elevated troponin: Plan: level = 20 likely myocardial demand ischemia in setting of ALAYNA, acidosis, etc doubt ACS (16) DVT prophylaxis: Plan: add heparin 5000 BID (17) UTI (urinary tract infection): Plan: possible rocephin being used for proctitis will likely cover follow urine cx Plan Dr. Falk spoke with pt's nephew by phone he is Ms Cevallos's next of kin (pt does not have kids, never been ) she has been living with her nephew since November 2022 he and his work full-time and simply cannot provide the care she needs she is alone while they are at work she didn't event mention to him or his that she had gone 2 weeks without a BM will need PT/OT and potentially placement based on the above information Admission and Anticipated Discharge Date Admission Date: March 20, 2023 Subjective Patient does not have much of complaints. Per nurse, her urine output has improved to 450 cc overnight compared to 100 cc the day before. Noted that her creatinine has stayed stable Review of Systems Review of Systems: All systems reviewed & are unremarkable except as noted in Subjective Physical Exam Physical Exam: General: Awake, conversant Heart: S1, S2/regular rate and rhythm, no murmur rubs or gallops Lungs: Clear to auscultation bilaterally. Normal effort Abdomen: Soft/nontender/nondistended. No hepatosplenomegaly Extremities: No clubbing/cyanosis. No edema Behavior: Appropriate, cooperative Results & Data Results & Data Vital Signs (Past 12 Hours) Vital Signs Temp Pulse Resp BP Pulse Ox O2 Del Method O2 Flow Rate 03/21/23 16:16 36.3 C L 53 L 17 149/77 H 96 Nasal Cannula 2 03/21/23 10:32 36.3 C L 56 L 19 152/72 H 97 Nasal Cannula 2 03/21/23 07:09 36.5 C 57 L 17 155/72 H 95 Nasal Cannula 2 PG Care Time/CCT Total # of Minutes Spent Total Time Spent with Patient: Total time spent is greater than 50% in coordination of care (as documented) at patient's floor/unit and/or counseling patient: Coding Level of Care Code 29691 SUB INP/OBS CARE 2/35MIN Diagnoses ALAYNA (acute kidney injury) N17.9 ATN (acute tubular necrosis) N17.0 Acute dehydration E86.0 Lactic acidosis E87.20 Intestinal ischemia K55.9 Acute proctitis K62.89 Abnormal ECG R94.31 Fecal impaction K56.41 Kidney lesion, [place], left N28.9 Diabetes mellitus, type 2 E11.9 Diabetes mellitus bed bug exterminator insulin use: without correction use Diabetes mellitus complication status: without complication Hypertension I10 HOCM (hypertrophic obstructive cardiomyopathy) I42.1 Adrenal adenoma D35.00 CKD (chronic kidney disease) stage 3, GFR 30-59 ml/min N18.3 Elevated troponin R77.8 DVT prophylaxis Z29.9 UTI (urinary tract infection) N39.0 Time Spent (min) 35 (10) Diabetes mellitus, type 2 Diabetes mellitus correction insulin use: without bed bug exterminator use Diabetes mellitus complication status: without complication Qualified Code(s): E11.9 - Type 2 diabetes mellitus without complications
[2023-03-21] MEDS: cefTRIAXone SODIUM 2,000 MG in DEXTROSE 5% 50 ML IV SCH (20:56)
[2023-03-22] MEDS: metroNIDAZOLE 500 MG/100 ML BAG IV SCH ×4 (00:03→23:54)
[2023-03-22] MEDS: SODIUM BICARBONATE 8.4% 100 MEQ in WATER, STERILE 1,000 ML IV SCH (03:22)
[2023-03-22 06:57] LABS: Albumin Level 2.7 gm/dl (3.4-5.0); BUN Creatinine Ratio 30.3 (10-20); Calcium 7.4 mg/dl (8.6-10.3); Creatinine Clr Calc Pharmacy 25.6 ml/min; Est GFR (African American) 29.3 ml/min; Est GFR (Non-African American) 25.3 ml/min; Phosphorus 3.1 mg/dl (2.5-4.9); Potassium 3.6 mmol/L (3.5-5.1)
[2023-03-22 07:19] LABS: Ferritin 333.5 ng/ml (8-388)
[2023-03-22] MEDS: INSULIN ASPART PER UNIT CHARGE SC SCH ×4 (08:19→20:06)
[2023-03-22] MEDS: HEPARIN SOD 5,000 UNIT/0.5 ML VIAL SQ SCH ×2 (08:22→20:22)
[2023-03-22] MEDS: ANASTROZOLE 1 MG TAB PO SCH (08:22)
[2023-03-22] MEDS ORDERED: amLODIPine BESYLATE 5 MG TAB PO SCH (10:30)
[2023-03-22] MEDS ORDERED: ATENOLOL 25 MG TABLET PO SCH (10:30)
--- NOTE | 2023-03-22 10:43 | Nephrology Progress Note ---
Date of Service March 22, 2023 Assessment & Plan (1) ALAYNA (acute kidney injury): (2) UTI (urinary tract infection): (3) Acute dehydration: (4) Lactic acidosis: (5) Acute proctitis: (6) Kidney lesion, [place], left: (7) Hypertension: (8) Diabetes mellitus, type 2: Plan 77-year-old female with stage IIIa CKD b/l cr variable from 1.3-1.5 most likely secondary to microvascular disease with history of hypertension and diabetes, admitted with weeks to months history of constipation followed by diarrhea and volume depletion after enema, stool softener. Was hypotensive on admission with volume depletion, although renal function initially at baseline, rapidly worsen most likely hemodynamically mediated ALAYNA with hypotension, volume depletion with diarrhea and and IV contrast exposure. Urinalysis with no low-grade proteinuria and UTI with gram-negative bacilli but no hematuria. CT abdomen pelvis with no postrenal obstruction but noted to have relatively small left kidney and 1.1 cm left renal mass concerning for renal cell carcinoma. Has been on IV fluid and empiric antibiotic with Flagyl and Rocephin to cover UTI and acute proctitis. Slight drop in HB but decent iron store, ? hemodilution. Renal function improving. --Discontinue bicarb drip and changed to IV normal saline @100ml/h while n.p.o. --Blood pressure has been variable but mostly well controlled. Admission and Anticipated Discharge Date Admission Date: March 20, 2023 Addie aGy was seen and evaluated this morning. Overall she is feeling slightly better, still has some discomfort in abdomen but not as bad. Blood pressure has been variable. Renal function started to improve, creatinine less than 2, bicarb normalized. Decent urine output. Review of Systems Review of Systems: Detailed review of system was done and pertinent positives and negatives are mentioned above. Physical Exam Constitutional: WD/WN, vitals as above + ill appearing; no acute distress Eyes: + anicteric sclerae Neck: normal visual inspection Respiratory: normal respiratory effort; no respiratory distress and no cough Auscultation: lungs clear to auscultation bilaterally Cardiovascular: Rate/Rhythm: regular rate and regular rhythm Heart Sounds: normal S1 and normal S2 Extremities: no edema Musculoskeletal: Extremities: extremities normal to inspection Neurologic: no focal motor deficits Psychiatric: Orientation: alert and oriented x 3 Affect: euthymic affect Results & Data Vital Signs (Past 12 Hours) Vital Signs Temp Pulse Pulse Resp BP Pulse Ox O2 Del Method 03/22/23 07:44 36.5 C 57 L 17 184/73 H 95 Nasal Cannula 03/22/23 08:00 Nasal Cannula 03/22/23 03:45 36.3 C L 53 L 16 129/72 95 Nasal Cannula 03/21/23 23:35 51 L 03/21/23 23:16 36.6 C 52 L 18 129/74 96 Nasal Cannula O2 Flow Rate 03/22/23 07:44 2 03/22/23 08:00 2 03/22/23 03:45 2 03/21/23 23:35 03/21/23 23:16 2 PG Care Time/CCT Total # of Minutes Spent Total Time Spent with Patient: Total time spent is greater than 50% in coordination of care (as documented) at patient's floor/unit and/or counseling patient: Coding Level of Care Code 29185 SUB INP/OBS CARE 2/35MIN Diagnoses ALAYNA (acute kidney injury) N17.9 UTI (urinary tract infection) N39.0 Acute dehydration E86.0 Lactic acidosis E87.20 Acute proctitis K62.89 Kidney lesion, [place], left N28.9 Hypertension I10 Diabetes mellitus, type 2 E11.9 Diabetes mellitus custodial insulin use: without custodial use Diabetes mellitus complication status: without complication (8) Diabetes mellitus, type 2 Diabetes mellitus custodial insulin use: without emt intermediate use Diabetes mellitus complication status: without complication Qualified Code(s): E11.9 - Type 2 diabetes mellitus without complications
[2023-03-22] MEDS: SODIUM CHLORIDE 0.9% 1,000 ML IV SCH ×2 (11:12→20:23)
--- NOTE | 2023-03-22 16:50 | Hospitalist Progress Note ---
Date of Service March 22, 2023 Assessment & Plan (1) ALAYNA (acute kidney injury): Plan: Likely due to ATN. Risk factors - hypotension (documented low BPs with SBP<100) in the setting of massive dehydration, HOCM (which is preload dependent), WILLARD inhibitor use, and IV CT contrast on 03/28/23. Creatinine improving Urine output has improved Spears is in place. CT a/p without obstruction. WILLARD inhibitor has been held. Metformin held discontinue bicarb drip. Started on normal saline while n.p.o. Nephrology on board Monitor daily BMP (2) ATN (acute tubular necrosis): Plan: as above #1 (3) Acute dehydration: Plan: severe developed such after her 03/28 ER visit looks less volume contracted today cont IV fluids as above (4) Lactic acidosis: Plan: present on admission improved discontinue bicarb drip heavy concern that source of lactic acidosis is intestinal in nature -- see below (5) Intestinal ischemia: Plan: I there is concerned that her acute proctitis and her abdominal pains in other locations is due to ischemia. GI on board GI plans to do a colonoscopy outpatient in 6 to 8 weeks They recommend continuing IV Flagyl and ceftriaxone With her dehydration, low BP, and HCOM I suspect low flow to the abdomen & bowels leading to ischemia. Has been acidotic since admission. Cont bicarbonate infusion. Keep NPO. Supportive care. Get BP up higher. Cont rocephin/flagyl IV. (6) Acute proctitis: Plan: as seen on CT 03/19 stercoral colitis is possible from recent impaction but that shouldn't cause procal elevation to nearly 50 as well as the amount of lactic acidosis that is present ongoing ischemia to her bowels is the biggest concern see #5 above Unlikely sepsis c diff checked - was negative rocephin/flagyl IV (7) Abnormal ECG: Plan: lateral ST changes - likely due to HOCM (8) Fecal impaction: Plan: resolved s/p enema in ER on 03/28 ER visit having multiple liquid stools now (9) Kidney lesion, [place], left: Plan: 1.1cm lesion on left concerning for RCC --> address in future after this admission (10) Diabetes mellitus, type 2: Plan: a1c 8% novolog SSI (11) Hypertension: Plan: HOLD all BP meds due to hypotension (12) HOCM (hypertrophic obstructive cardiomyopathy): Plan: known diagnosis. holding BP meds due to low BP. hydrate. improve forward flow with IV fluids and getting her BP up. (13) Adrenal adenoma: Plan: b/l checked cortisol due to low BP --> level was 43 (14) CKD (chronic kidney disease) stage 3, GFR 30-59 ml/min: Plan: stage 3b -- baseline CrCl 30s now with ALAYNA/ATN supportive care, fluids, etc serial BMPs (15) Elevated troponin: Plan: level = 20 likely myocardial demand ischemia in setting of ALAYNA, acidosis, etc doubt ACS (16) DVT prophylaxis: Plan: add heparin 5000 BID (17) UTI (urinary tract infection): Plan: possible rocephin being used for proctitis will likely cover follow urine cx Unlikely sepsis (18) Acute metabolic encephalopathy: Plan: presented with lethargy on admission Now resolved Patient is back to her usual baseline mental status Plan Dr. Falk spoke with pt's nephew by phone he is Ms Cevallos's next of kin (pt does not have kids, never been ) she has been living with her nephew since November 2022 he and his work full-time and simply cannot provide the care she needs she is alone while they are at work she didn't event mention to him or his that she had gone 2 weeks without a BM will need PT/OT and potentially placement based on the above information Admission and Anticipated Discharge Date Admission Date: March 20, 2023 Subjective patient is feeling better overall. Denies chest pain or shortness of breath. Abdominal pain is improving but still there. Still has diarrhea. Review of Systems Review of Systems: All systems reviewed & are unremarkable except as noted in Subjective Physical Exam Physical Exam: General: Awake, conversant Heart: S1, S2/regular rate and rhythm, no murmur rubs or gallops Lungs: Clear to auscultation bilaterally. Normal effort Abdomen: Soft/nondistended. Tenderness to palpation diffusely with no rebound, rigidity or guarding.No hepatosplenomegaly Extremities: No clubbing/cyanosis. No edema Behavior: Appropriate, cooperative Results & Data Results & Data Vital Signs (Past 12 Hours) Vital Signs Temp Pulse Resp BP Pulse Ox O2 Del Method O2 Flow Rate 03/22/23 10:51 36.6 C 54 L 18 185/71 H 97 Nasal Cannula 2 03/22/23 07:44 36.5 C 57 L 17 184/73 H 95 Nasal Cannula 2 03/22/23 08:00 Nasal Cannula 2 PG Care Time/CCT Total # of Minutes Spent Total Time Spent with Patient: Total time spent is greater than 50% in coordination of care (as documented) at patient's floor/unit and/or counseling patient: Coding Level of Care Code 66530 SUB INP/OBS CARE 2/35MIN Diagnoses ALAYNA (acute kidney injury) N17.9 ATN (acute tubular necrosis) N17.0 Acute dehydration E86.0 Lactic acidosis E87.20 Intestinal ischemia K55.9 Acute proctitis K62.89 Abnormal ECG R94.31 Fecal impaction K56.41 Kidney lesion, [place], left N28.9 Diabetes mellitus, type 2 E11.9 Diabetes mellitus senior care insulin use: without senior care use Diabetes mellitus complication status: without complication Hypertension I10 HOCM (hypertrophic obstructive cardiomyopathy) I42.1 Adrenal adenoma D35.00 CKD (chronic kidney disease) stage 3, GFR 30-59 ml/min N18.3 Elevated troponin R77.8 DVT prophylaxis Z29.9 UTI (urinary tract infection) N39.0 Acute metabolic encephalopathy G93.41 Time Spent (min) 35 (10) Diabetes mellitus, type 2 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
[2023-03-22] MEDS: cefTRIAXone SODIUM 2,000 MG in DEXTROSE 5% 50 ML IV SCH (20:22)
[2023-03-23] MEDS: metroNIDAZOLE 500 MG/100 ML BAG IV SCH ×3 (08:00→23:28)
[2023-03-23] MEDS: SODIUM CHLORIDE 0.9% 1,000 ML IV SCH (08:02)
[2023-03-23] MEDS: ANASTROZOLE 1 MG TAB PO SCH (08:05)
[2023-03-23 08:47] LABS: Hematocrit (blood only) 33.7 % (37.0-47.0); Hemoglobin 10.9 g/dl (12.0-16.0); Mean Corpuscular Hemoglobin 28.3 pg (25.0-34.0); Mean Corpuscular Hgb Conc 32.3 g/dL (32.0-36.0); Mean Corpuscular Volume 87.5 fL (80.0-100.0); Mean Platelet Volume 10.4 fL (9.4-12.4); Platelet Count 241 K/uL (130-400); RDW Coefficient of Variation 15.4 % (11.5-14.5); RDW Standard Deviation 49.1 fL (36.4-46.3); Red Blood Count 3.85 M/uL (4.20-5.40); White Blood Count 9.72 K/ul (4.8-10.8)
[2023-03-23 09:01] LABS: Albumin Level 2.8 gm/dl (3.4-5.0); BUN Creatinine Ratio 32.1 (10-20); Calcium 7.5 mg/dl (8.6-10.3); Creatinine Clr Calc Pharmacy 42.5 ml/min; Est GFR (African American) 54.9 ml/min; Est GFR (Non-African American) 47.3 ml/min; Phosphorus 2.1 mg/dl (2.5-4.9); Potassium 3.6 mmol/L (3.5-5.1)
[2023-03-23] MEDS: INSULIN ASPART PER UNIT CHARGE SC SCH ×4 (09:04→21:00)
[2023-03-23] MEDS: amLODIPine BESYLATE 5 MG TAB PO SCH (09:43)
[2023-03-23] MEDS: lisinopril 40 MG TAB PO SCH (10:01)
[2023-03-23] MEDS: HEPARIN SOD 5,000 UNIT/0.5 ML VIAL SQ SCH ×2 (10:01→20:36)
--- NOTE | 2023-03-23 10:31 | Nephrology Progress Note ---
Date of Service March 23, 2023 Assessment & Plan (1) ALAYNA (acute kidney injury): (2) UTI (urinary tract infection): (3) Acute dehydration: (4) Lactic acidosis: (5) Acute proctitis: (6) Kidney lesion, [place], left: (7) Hypertension: (8) Diabetes mellitus, type 2: Plan 77-year-old female with stage IIIa CKD b/l cr variable from 1.3-1.5 most likely secondary to microvascular disease with history of hypertension and diabetes, admitted with weeks to months history of constipation followed by diarrhea and volume depletion after enema, stool softener. Was hypotensive on admission with volume depletion, although renal function initially at baseline, rapidly worsen most likely hemodynamically mediated ALAYNA with hypotension, volume depletion with diarrhea and and IV contrast exposure. Urinalysis with no low-grade proteinuria and UTI with gram-negative bacilli but no hematuria. CT abdomen pelvis with no postrenal obstruction but noted to have relatively small left kidney and 1.1 cm left renal mass concerning for renal cell carcinoma. Has been on IV fluid and empiric antibiotic with Flagyl and Rocephin to cover UTI and acute proctitis. ALAYNA resolved, creatinine close to baseline, electrolyte acceptable. Blood pressure running high and heart rate mostly staying below 50. IV fluid was discontinued and started on oral. -- Discontinue atenolol, increase amlodipine to 10 mg daily. Okay to resume lisinopril. We will sign off, please contact if any further assistance needed. Thank you for the consult. Admission and Anticipated Discharge Date Admission Date: March 20, 2023 Addie Gay was seen and evaluated this morning. Overall she continues to make progress and slowly feeling better and less fatigued. Renal function continues to improve, creatinine back to close to baseline, electrolyte acceptable. Blood pressure running high and bradycardic. Review of Systems Review of Systems: Detailed review of system was done and pertinent positives and negatives are mentioned above. Physical Exam Constitutional: WD/WN, vitals as above no acute distress Eyes: + anicteric sclerae Neck: normal visual inspection Respiratory: no respiratory distress Auscultation: lungs clear to auscultation bilaterally Cardiovascular: RRR, no murmur, no edema Musculoskeletal: Extremities: extremities normal to inspection Neurologic: no focal motor deficits Psychiatric: Orientation: alert and oriented x 3 Affect: euthymic affect Results & Data Vital Signs (Past 12 Hours) Vital Signs Temp Pulse Pulse Pulse Resp BP Pulse Ox 03/23/23 07:46 36.3 C L 47 L 19 192/67 H 97 03/23/23 05:40 46 L 193/76 H 03/23/23 03:21 36.5 C 53 L 18 189/73 H 99 03/22/23 23:14 36.7 C 49 L 18 174/69 H 97 03/22/23 23:08 50 L O2 Del Method O2 Flow Rate 03/23/23 07:46 Nasal Cannula 2 03/23/23 05:40 03/23/23 03:21 Nasal Cannula 3 03/22/23 23:14 Nasal Cannula 2 03/22/23 23:08 PG Care Time/CCT Total # of Minutes Spent Total Time Spent with Patient: Total time spent is greater than 50% in coordination of care (as documented) at patient's floor/unit and/or counseling patient: Coding Level of Care Code 64231 SUB INP/OBS CARE 235MIN Diagnoses ALAYNA (acute kidney injury) N17.9 UTI (urinary tract infection) N39.0 Acute dehydration E86.0 Lactic acidosis E87.20 Acute proctitis K62.89 Kidney lesion, [place], left N28.9 Hypertension I10 Diabetes mellitus, type 2 E11.9 Diabetes mellitus meterman insulin use: without fpc use Diabetes mellitus complication status: without complication (8) Diabetes mellitus, type 2 Diabetes mellitus meterman insulin use: without fpc use Diabetes mellitus complication status: without complication Qualified Code(s): E11.9 - Type 2 diabetes mellitus without complications
--- NOTE | 2023-03-23 16:12 | Hospitalist Progress Note ---
Date of Service March 23, 2023 Assessment & Plan (1) ALAYNA (acute kidney injury): Plan: Likely due to ATN. Risk factors - hypotension (documented low BPs with SBP<100) in the setting of massive dehydration, HOCM (which is preload dependent), WILLARD inhibitor use, and IV CT contrast on 03/28/23. Creatinine down to baseline Urine output has improved Spears is in place. CT a/p without obstruction. resume lisinopril to manage blood pressure discontinue normal saline Monitor daily BMP (2) ATN (acute tubular necrosis): Plan: as above #1 (3) Acute dehydration: Plan: severe Resolved developed such after her 03/28 ER visit looks less volume contracted today discontinue IV fluid (4) Lactic acidosis: Plan: present on admission improved discontinue bicarb drip heavy concern that source of lactic acidosis is intestinal in nature -- see below (5) Intestinal ischemia: Plan: I there is concerned that her acute proctitis and her abdominal pains in other locations is due to ischemia. GI on board GI plans to do a colonoscopy outpatient in 6 to 8 weeks They recommend continuing IV Flagyl and ceftriaxone With her dehydration, low BP, and HCOM I suspect low flow to the abdomen & pooja wels leading to ischemia. Has been acidotic since admission. Cont bicarbonate infusion. start Supportive care. clear liquid diet Blood pressure is now rather high Cont rocephin/flagyl IV. (6) Acute proctitis: Plan: as seen on CT 03/19 stercoral colitis is possible from recent impaction but that shouldn't cause procal elevation to nearly 50 as well as the amount of lactic acidosis that is present improving Unlikely sepsis c diff checked - was negative rocephin/flagyl IV (7) Abnormal ECG: Plan: lateral ST changes - likely due to HOCM (8) Fecal impaction: Plan: resolved s/p enema in ER on 03/28 ER visit having multiple liquid stools, improving (9) Kidney lesion, [place], left: Plan: 1.1cm lesion on left concerning for RCC --> address in future after this admission (10) Diabetes mellitus, type 2: Plan: a1c 8% novolog SSI (11) Hypertension: Plan: blood pressure creeping up Discontinue IV fluids Start lisinopril Stop atenolol due to bradycardia (12) HOCM (hypertrophic obstructive cardiomyopathy): Plan: known diagnosis. blood pressure creeping up Discontinue IV fluids Start lisinopril Discontinue atenolol due to bradycardia (13) Adrenal adenoma: Plan: b/l checked cortisol due to low BP --> level was 43 (14) CKD (chronic kidney disease) stage 3, GFR 30-59 ml/min: Plan: stage 3b -- baseline CrCl 30s now with ALAYNA/ATN supportive care, fluids, etc serial BMPs (15) Elevated troponin: Plan: level = 20 likely myocardial demand ischemia in setting of ALAYNA, acidosis, etc doubt ACS (16) DVT prophylaxis: Plan: add heparin 5000 BID (17) UTI (urinary tract infection): Plan: possible rocephin being used for proctitis will likely cover follow urine cx Unlikely sepsis (18) Acute metabolic encephalopathy: Plan: presented with lethargy on admission Now resolved Patient is back to her usual baseline mental status Plan Dr. Falk spoke with pt's nephew by phone he is Ms Cevallos's next of kin (pt does not have kids, never been ) she has been living with her nephew since November 2022 he and his work full-time and simply cannot provide the care she needs she is alone while they are at work she didn't event mention to him or his that she had gone 2 weeks without a BM will need PT/OT and potentially placement based on the above information Admission and Anticipated Discharge Date Admission Date: March 20, 2023 Subjective patient feels well overall. Denies chest pain or shortness of breath. Wishes to have clear liquid diet today. Nurse informed me of elevated blood pressure readings and bradycardia. Review of Systems Review of Systems: All systems reviewed & are unremarkable except as noted in Subjective Physical Exam Physical Exam: General: Awake, conversant Heart: S1, S2/regular rate and rhythm, no murmur rubs or gallops Lungs: Clear to auscultation bilaterally. Normal effort Abdomen: Soft/nondistended. Mild Tenderness to palpation diffusely with no rebound, rigidity or guarding.No hepatosplenomegaly Extremities: No clubbing/cyanosis. No edema Behavior: Appropriate, cooperative Results & Data Results & Data Vital Signs (Past 12 Hours) Vital Signs Temp Pulse Pulse Resp BP Pulse Ox O2 Del Method 03/23/23 11:14 36.5 C 50 L 18 169/78 H 98 Nasal Cannula 03/23/23 07:46 36.3 C L 47 L 19 192/67 H 97 Nasal Cannula 03/23/23 05:40 46 L 193/76 H O2 Flow Rate 03/23/23 11:14 2 03/23/23 07:46 2 03/23/23 05:40 Laboratory Results Abnormal lab results 03/22/23 03/22/23 03/23/23 Range/Units 16:54 20:02 07:58 RBC (4.20-5.40) M/uL Hgb (12.0-16.0) g/dl Hct (37.0-47.0) % RDW Std Deviation (36.4-46.3) fL RDW Coeff of Leno (11.5-14.5) % BUN (6-23) mg/dl BUN/Creatinine Ratio (10-20) Glucose (70-99(Fasting)) mg/dl POC Glucose 135 H 145 H 173 H (70-99) mg/dl Calcium (8.6-10.3) mg/dl Phosphorus (2.5-4.9) mg/dl Albumin (3.4-5.0) gm/dl 03/23/23 03/23/23 03/23/23 Range/Units 08:11 08:11 11:47 RBC 3.85 L (4.20-5.40) M/uL Hgb 10.9 L (12.0-16.0) g/dl Hct 33.7 L (37.0-47.0) % RDW Std Deviation 49.1 H (36.4-46.3) fL RDW Coeff of Leno 15.4 H (11.5-14.5) % BUN 36 H D (6-23) mg/dl BUN/Creatinine Ratio 32.1 H (10-20) Glucose 144 H (70-99(Fasting)) mg/dl POC Glucose 146 H (70-99) mg/dl Calcium 7.5 L (8.6-10.3) mg/dl Phosphorus 2.1 L D (2.5-4.9) mg/dl Albumin 2.8 L (3.4-5.0) gm/dl PG Care Time/CCT Total # of Minutes Spent Total Time Spent with Patient: Total time spent is greater than 50% in coordination of care (as documented) at patient's floor/unit and/or counseling patient: Coding Level of Care Code 73859 SUB INP/OBS CARE 235MIN Diagnoses ALAYNA (acute kidney injury) N17.9 ATN (acute tubular necrosis) N17.0 Acute dehydration E86.0 Lactic acidosis E87.20 Intestinal ischemia K55.9 Acute proctitis K62.89 Abnormal ECG R94.31 Fecal impaction K56.41 Kidney lesion, [place], left N28.9 Diabetes mellitus, type 2 E11.9 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: without long 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 operator use Diabetes mellitus complication status: without complication Hypertension I10 HOCM (hypertrophic obstructive cardiomyopathy) I42.1 Adrenal adenoma D35.00 CKD (chronic kidney disease) stage 3, GFR 30-59 ml/min N18.3 Elevated troponin R77.8 DVT prophylaxis Z29.9 UTI (urinary tract infection) N39.0 Acute metabolic encephalopathy G93.41 (10) Diabetes mellitus, type 2 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
[2023-03-23] MEDS: cefTRIAXone SODIUM 2,000 MG in DEXTROSE 5% 50 ML IV SCH (20:36)
[2023-03-24 05:27] LABS: Albumin Level 2.8 gm/dl (3.4-5.0); BUN Creatinine Ratio 27.6 (10-20); Calcium 7.7 mg/dl (8.6-10.3); Creatinine Clr Calc Pharmacy 54.8 ml/min; Est GFR (African American) 74.5 ml/min; Est GFR (Non-African American) 64.3 ml/min; Phosphorus 1.6 mg/dl (2.5-4.9); Potassium 3.3 mmol/L (3.5-5.1)
[2023-03-24] MEDS: metroNIDAZOLE 500 MG/100 ML BAG IV SCH ×3 (08:06→23:44)
[2023-03-24] MEDS: HEPARIN SOD 5,000 UNIT/0.5 ML VIAL SQ SCH ×2 (08:06→19:40)
[2023-03-24] MEDS: amLODIPine BESYLATE 5 MG TAB PO SCH (08:07)
[2023-03-24] MEDS: ANASTROZOLE 1 MG TAB PO SCH (08:07)
[2023-03-24] MEDS: lisinopril 40 MG TAB PO SCH (08:07)
[2023-03-24] MEDS: INSULIN ASPART PER UNIT CHARGE SC SCH ×4 (08:16→21:03)
[2023-03-24] MEDS ORDERED: POTASSIUM CHLORIDE CRTAB 20 MEQ TABCR PO STA (09:18)
[2023-03-24] MEDS: hydroCHLOROthiazide 25 MG TAB PO SCH (10:22)
[2023-03-24] MEDS: POT PHOSPHATE MONOBASIC W/ SOD TAB PO SCH ×3 (14:20→19:40)
--- NOTE | 2023-03-24 16:40 | Hospitalist Progress Note ---
Date of Service March 24, 2023 Assessment & Plan (1) ALAYNA (acute kidney injury): Plan: Likely due to ATN. Risk factors - hypotension (documented low BPs with SBP<100) in the setting of massive dehydration, HOCM (which is preload dependent), WILLARD inhibitor use, and IV CT contrast on 03/28/23. Creatinine down to baseline Urine output has improved Spears is in place. CT a/p without obstruction. resumed lisinopril to manage blood pressure discontinued normal saline Monitor daily BMP (2) ATN (acute tubular necrosis): Plan: as above #1 (3) Acute dehydration: Plan: severe Resolved developed such after her 03/28 ER visit Appears euvolemic today discontinue IV fluid (4) Lactic acidosis: Plan: present on admission improved discontinue bicarb drip heavy concern that source of lactic acidosis is intestinal in nature -- see below (5) Intestinal ischemia: Plan: I there is concerned that her acute proctitis and her abdominal pains in other locations is due to ischemia. GI on board GI plans to do a colonoscopy outpatient in 6 to 8 weeks They recommend continuing IV Flagyl and ceftriaxone With her dehydration, low BP, and HCOM I suspect low flow to the abdomen & bowels leading to ischemia. Has been acidotic since admission. Cont bicarbonate infusion. start Supportive care. advance to a full liquid diet Blood pressure is now rather high Cont rocephin/flagyl IV. (6) Acute proctitis: Plan: as seen on CT 03/19 stercoral colitis is possible from recent impaction but that shouldn't cause procal elevation to nearly 50 as well as the amount of lactic acidosis that is present improving Unlikely sepsis c diff checked - was negative rocephin/flagyl IV (7) Abnormal ECG: Plan: lateral ST changes - likely due to HOCM (8) Fecal impaction: Plan: resolved s/p enema in ER on 03/28 ER visit having multiple liquid stools, improving (9) Kidney lesion, [place], left: Plan: 1.1cm lesion on left concerning for RCC --> address in future after this admission (10) Diabetes mellitus, type 2: Plan: a1c 8% novolog SSI (11) Hypertension: Plan: blood pressure creeping up Started lisinopril Stop atenolol due to bradycardia Added HCTZ Now will add Cardura as blood pressure still not at goal. Blood pressure is improving (12) HOCM (hypertrophic obstructive cardiomyopathy): Plan: known diagnosis. blood pressure creeping up Start lisinopril Discontinue atenolol due to bradycardia (13) Adrenal adenoma: Plan: b/l checked cortisol due to low BP --> level was 43 (14) CKD (chronic kidney disease) stage 3, GFR 30-59 ml/min: Plan: stage 3b -- baseline CrCl 30s now with ALAYNA/ATN supportive care, fluids, etc serial BMPs ALAYNA resolved (15) Elevated troponin: Plan: level = 20 likely myocardial demand ischemia in setting of ALAYNA, acidosis, etc doubt ACS (16) DVT prophylaxis: Plan: add heparin 5000 BID (17) UTI (urinary tract infection): Plan: possible rocephin being used for proctitis will likely cover follow urine cx Unlikely sepsis (18) Acute metabolic encephalopathy: Plan: presented with lethargy on admission Now resolved Patient is back to her usual baseline mental status Plan Dr. Falk spoke with pt's nephew by phone he is Ms Cevallos's next of kin (pt does not have kids, never been ) she has been living with her nephew since November 2022 he and his work full-time and simply cannot provide the care she needs she is alone while they are at work she didn't event mention to him or his that she had gone 2 weeks without a BM will need PT/OT and potentially placement based on the above information Admission and Anticipated Discharge Date Admission Date: March 20, 2023 Subjective patient is feeling better. Diarrhea has slowed down. Belly pain is improving. Review of Systems Review of Systems: All systems reviewed & are unremarkable except as noted in Subjective Physical Exam Physical Exam: General: Awake, conversant Heart: S1, S2/regular rate and rhythm, no murmur rubs or gallops Lungs: Clear to auscultation bilaterally. Normal effort Abdomen: Soft//nondistended. mild tenderness to palpation diffusely with no rebound, rigidity, guarding. No hepatosplenomegaly Extremities: No clubbing/cyanosis. No edema Behavior: Appropriate, cooperative Results & Data Results & Data Vital Signs (Past 12 Hours) Vital Signs Temp Pulse Resp BP Pulse Ox O2 Del Method 03/24/23 15:42 36.6 C 58 L 18 170/76 H 94 Room Air 03/24/23 11:54 36.8 C 61 18 148/67 H 92 Room Air 03/24/23 08:09 36.3 C L 57 L 17 167/67 H 93 Room Air 03/24/23 05:26 36.8 C 58 L 18 175/75 H 93 Room Air PG Care Time/CCT Total # of Minutes Spent Total Time Spent with Patient: Total time spent is greater than 50% in coordination of care (as documented) at patient's floor/unit and/or counseling patient: Coding Level of Care Code 21217 SUB INP/OBS CARE 2/35MIN Diagnoses ALAYNA (acute kidney injury) N17.9 ATN (acute tubular necrosis) N17.0 Acute dehydration E86.0 Lactic acidosis E87.20 Intestinal ischemia K55.9 Acute proctitis K62.89 Abnormal ECG R94.31 Fecal impaction K56.41 Kidney lesion, [place], left N28.9 Diabetes mellitus, type 2 E11.9 Diabetes mellitus buttermaker insulin use: without halfway use Diabetes mellitus complication status: without complication Hypertension I10 HOCM (hypertrophic obstructive cardiomyopathy) I42.1 Adrenal adenoma D35.00 CKD (chronic kidney disease) stage 3, GFR 30-59 ml/min N18.3 Elevated troponin R77.8 DVT prophylaxis Z29.9 UTI (urinary tract infection) N39.0 Acute metabolic encephalopathy G93.41 (10) Diabetes mellitus, type 2 Diabetes mellitus buttermaker insulin use: without halfway use Diabetes mellitus complication status: without complication Qualified Code(s): E11.9 - Type 2 diabetes mellitus without complications
[2023-03-24] MEDS: cefTRIAXone SODIUM 2,000 MG in DEXTROSE 5% 50 ML IV SCH (19:40)
[2023-03-24] MEDS: DOXAZosin MESYLATE TAB 2 MG TAB PO SCH (21:03)
[2023-03-25 05:34] LABS: Albumin Level 2.7 gm/dl (3.4-5.0); BUN Creatinine Ratio 23.8 (10-20); Calcium 7.6 mg/dl (8.6-10.3); Creatinine Clr Calc Pharmacy 54.9 ml/min; Est GFR (African American) 77.7 ml/min; Phosphorus 2.3 mg/dl (2.5-4.9); Potassium 3.5 mmol/L (3.5-5.1)
[2023-03-25] MEDS: POT PHOSPHATE MONOBASIC W/ SOD TAB PO SCH ×4 (09:03→19:59)
[2023-03-25] MEDS: lisinopril 40 MG TAB PO SCH (09:04)
[2023-03-25] MEDS: metroNIDAZOLE 500 MG/100 ML BAG IV SCH ×2 (09:04→17:25)
[2023-03-25] MEDS: hydroCHLOROthiazide 25 MG TAB PO SCH (09:04)
[2023-03-25] MEDS: amLODIPine BESYLATE 5 MG TAB PO SCH (09:04)
[2023-03-25] MEDS: INSULIN ASPART PER UNIT CHARGE SC SCH ×4 (09:04→21:11)
[2023-03-25] MEDS: ANASTROZOLE 1 MG TAB PO SCH (09:04)
[2023-03-25] MEDS: HEPARIN SOD 5,000 UNIT/0.5 ML VIAL SQ SCH ×2 (09:05→20:00)
[2023-03-25] MEDS: HEPARIN 100 UNIT/ML 5ML FLUSH FLUSH PRN (10:34)
--- NOTE | 2023-03-25 12:00 | Hospitalist Progress Note ---
Date of Service March 25, 2023 Assessment & Plan (1) ALAYNA (acute kidney injury): Plan: Likely due to ATN. Risk factors - hypotension (documented low BPs with SBP<100) in the setting of massive dehydration, HOCM (which is preload dependent), WILLARD inhibitor use, and IV CT contrast on 03/28/23. Resolved Creatinine down to baseline CT a/p without obstruction. resumed lisinopril to manage blood pressure discontinued normal saline Monitor daily BMP (2) ATN (acute tubular necrosis): Plan: as above #1 (3) Acute dehydration: Plan: severe Resolved developed such after her 03/28 ER visit Appears euvolemic today (4) Lactic acidosis: Plan: present on admission improved discontinue bicarb drip heavy concern that source of lactic acidosis is intestinal in nature -- see below (5) Intestinal ischemia: Plan: I there is concerned that her acute proctitis and her abdominal pains in other locations is due to ischemia. GI on board GI plans to do a colonoscopy outpatient in 6 to 8 weeks They recommend continuing IV Flagyl and ceftriaxone With her dehydration, low BP, and HCOM I suspect low flow to the abdomen & bowels leading to ischemia. Has been acidotic since admission. Cont bicarbonate infusion. continue Supportive care. continue full liquid diet, will advance to a solid diet tomorrow. Blood pressure is better today Cont rocephin/flagyl IV. (6) Acute proctitis: Plan: as seen on CT 03/19 stercoral colitis is possible from recent impaction but that shouldn't cause procal elevation to nearly 50 as well as the amount of lactic acidosis that is present improving Unlikely sepsis c diff checked - was negative rocephin/flagyl IV (7) Abnormal ECG: Plan: lateral ST changes - likely due to HOCM (8) Fecal impaction: Plan: resolved s/p enema in ER on 03/28 ER visit Resolved Patient may need to be on a bowel regimen long-term to prevent constipation (9) Kidney lesion, [place], left: Plan: 1.1cm lesion on left concerning for RCC --> address in future after this admission (10) Diabetes mellitus, type 2: Plan: a1c 8% novolog SSI (11) Hypertension: Plan: blood pressure better today on lisinopril, amlodipine, cardura. Discontinue hydrochlorothiazide in elderly woman with physical deconditioning (12) HOCM (hypertrophic obstructive cardiomyopathy): Plan: known diagnosis. started lisinopril as her blood pressure was starting to go up Discontinue atenolol due to bradycardia (13) Adrenal adenoma: Plan: b/l checked cortisol due to low BP --> level was 43 (14) CKD (chronic kidney disease) stage 3, GFR 30-59 ml/min: Plan: stage 3b -- baseline CrCl 30s now with ALAYNA/ATN supportive care, fluids, etc serial BMPs ALAYNA resolved (15) Elevated troponin: Plan: level = 20 likely myocardial demand ischemia in setting of ALAYNA, acidosis, etc doubt ACS (16) DVT prophylaxis: Plan: add heparin 5000 BID (17) UTI (urinary tract infection): Plan: possible rocephin being used for proctitis will likely cover follow urine cx Unlikely sepsis (18) Acute metabolic encephalopathy: Plan: presented with lethargy on admission Now resolved Patient is back to her usual baseline mental status Plan will need PT/OT and potentially placement soon Admission and Anticipated Discharge Date Admission Date: March 20, 2023 Subjective patient feels better overall. Wishes to continue full liquid diet today as she still has some diarrhea and a little bit of belly pain. Review of Systems Review of Systems: All systems reviewed & are unremarkable except as noted in Subjective Physical Exam Physical Exam: General: Awake, conversant Heart: S1, S2/regular rate and rhythm, no murmur rubs or gallops Lungs: Clear to auscultation bilaterally. Normal effort Abdomen: Soft//nondistended. mild tenderness to palpation diffusely with no re bound, rigidity, guarding. No hepatosplenomegaly Extremities: No clubbing/cyanosis. No edema Behavior: Appropriate, cooperative Results & Data Results & Data Vital Signs (Past 12 Hours) Vital Signs Temp Pulse Pulse Resp BP Pulse Ox O2 Del Method 03/25/23 10:55 36.6 C 74 19 111/69 97 Room Air 03/25/23 08:00 Room Air 03/25/23 07:37 36.3 C L 64 19 134/70 96 Room Air 03/25/23 04:51 36.3 C L 65 22 144/70 H 93 Room Air 03/25/23 00:00 68 PG Care Time/CCT Total # of Minutes Spent Total Time Spent with Patient: Total time spent is greater than 50% in coordination of care (as documented) at patient's floor/unit and/or counseling patient: Coding Level of Care Code 16528 SUB INP/OBS CARE 2MIN Diagnoses ALAYNA (acute kidney injury) N17.9 ATN (acute tubular necrosis) N17.0 Acute dehydration E86.0 Lactic acidosis E87.20 Intestinal ischemia K55.9 Acute proctitis K62.89 Abnormal ECG R94.31 Fecal impaction K56.41 Kidney lesion, [place], left N28.9 Diabetes mellitus, type 2 E11.9 Diabetes mellitus watermaster insulin use: without watermaster use Diabetes mellitus complication status: without complication Hypertension I10 HOCM (hypertrophic obstructive cardiomyopathy) I42.1 Adrenal adenoma D35.00 CKD (chronic kidney disease) stage 3, GFR 30-59 ml/min N18.3 Elevated troponin R77.8 DVT prophylaxis Z29.9 UTI (urinary tract infection) N39.0 Acute metabolic encephalopathy G93.41 (10) Diabetes mellitus, type 2 Diabetes mellitus watermaster insulin use: without half-way use Diabetes mellitus complication status: without complication Qualified Code(s): E11.9 - Type 2 diabetes mellitus without complications
[2023-03-25] MEDS: cefTRIAXone SODIUM 2,000 MG in DEXTROSE 5% 50 ML IV SCH (19:59)
[2023-03-25] MEDS: DOXAZosin MESYLATE TAB 2 MG TAB PO SCH (20:00)
[2023-03-26] MEDS: metroNIDAZOLE 500 MG/100 ML BAG IV SCH ×3 (00:13→17:42)
[2023-03-26] MEDS: ANASTROZOLE 1 MG TAB PO SCH (08:15)
[2023-03-26] MEDS: HEPARIN SOD 5,000 UNIT/0.5 ML VIAL SQ SCH ×2 (08:15→20:09)
[2023-03-26] MEDS: amLODIPine BESYLATE 5 MG TAB PO SCH (08:15)
[2023-03-26] MEDS: lisinopril 40 MG TAB PO SCH (08:15)
[2023-03-26] MEDS: POT PHOSPHATE MONOBASIC W/ SOD TAB PO SCH ×4 (08:16→20:10)
[2023-03-26] MEDS: INSULIN ASPART PER UNIT CHARGE SC SCH ×4 (08:23→20:36)
--- NOTE | 2023-03-26 16:29 | Hospitalist Progress Note ---
Date of Service March 26, 2023 Assessment & Plan (1) ALAYNA (acute kidney injury): Plan: Likely due to ATN. Risk factors - hypotension (documented low BPs with SBP<100) in the setting of massive dehydration, HOCM (which is preload dependent), WILLARD inhibitor use, and IV CT contrast on 03/28/23. Resolved Creatinine EYES: Pupils round equal and react to light, extraocular movements full, no injection. CT a/p without obstruction. resumed lisinopril to manage blood pressure discontinued normal saline Monitor daily BMP (2) ATN (acute tubular necrosis): Plan: as above #1 (3) Acute dehydration: Plan: severe Resolved developed such after her Recent ER visit Appears euvolemic today (4) Lactic acidosis: Plan: present on admission improved discontinue bicarb drip heavy concern that source of lactic acidosis is intestinal in nature -- see [place] (5) Intestinal ischemia: Plan: there is concerned that her acute proctitis and her abdominal pains in other locations is due to ischemia. GI on board GI plans to do a colonoscopy outpatient in 6 to 8 weeks They recommend continuing IV Flagyl and ceftriaxone With her dehydration, low BP, and HCOM I suspect low flow to the abdomen & bowels leading to ischemia. Has been acidotic since admission. Cont bicarbonate infusion. continue Supportive care. diet advance to solid diet today Cont rocephin/flagyl IV. (6) Acute proctitis: Plan: as seen on CT 03/19 stercoral colitis is possible from recent impaction but that shouldn't cause procal elevation to nearly 50 as well as the amount of lactic acidosis that is present improving Unlikely sepsis c diff checked - was negative rocephin/flagyl IV (7) Abnormal ECG: Plan: lateral ST changes - likely due to HOCM (8) Fecal impaction: Plan: resolved s/p enema in ER on 03/28 ER visit Resolved Patient may need to be on a bowel regimen long-term to prevent constipation (9) Kidney lesion, [place], left: Plan: 1.1cm lesion on left concerning for RCC --> address in future after this admission (10) Diabetes mellitus, type 2: Plan: a1c 8% novolog SSI (11) Hypertension: Plan: blood pressure better today on lisinopril, amlodipine, cardura. Discontinued hydrochlorothiazide in elderly woman with physical deconditioning (12) HOCM (hypertrophic obstructive cardiomyopathy): Plan: known diagnosis. started lisinopril as her blood pressure was starting to go up Discontinue atenolol due to bradycardia (13) Adrenal adenoma: Plan: b/l checked cortisol due to low BP --> level was 43 (14) CKD (chronic kidney disease) stage 3, GFR 30-59 ml/min: Plan: stage 3b -- baseline CrCl 30s now with ALAYNA/ATN supportive care, fluids, etc serial BMPs ALAYNA resolved (15) Elevated troponin: Plan: level = 20 likely myocardial demand ischemia in setting of ALAYNA, acidosis, etc doubt ACS (16) DVT prophylaxis: Plan: add heparin 5000 BID (17) UTI (urinary tract infection): Plan: possible rocephin being used for proctitis will likely cover follow urine cx Unlikely sepsis (18) Acute metabolic encephalopathy: Plan: presented with lethargy on admission Now resolved Patient is back to her usual baseline mental status Plan will need PT/OT and potentially placement soon Will be medically cleared for discharge tomorrow Admission and Anticipated Discharge Date Admission Date: March 20, 2023 Subjective diarrhea has slowed down. Belly pain is improved. Patient would like to advance her diet to a solid diet. Review of Systems Review of Systems: All systems reviewed & are unremarkable except as noted in Subjective Physical Exam Physical Exam: General: Awake, conversant Heart: S1, S2/regular rate and rhythm, no murmur rubs or gallops Lungs: Clear to auscultation bilaterally. Normal effort Abdomen: Soft//nondistended. No tenderness.No hepatosplenomegaly Extremities: No clubbing/cyanosis. No edema Behavior: Appropriate, cooperative Results & Data Results & Data Vital Signs (Past 12 Hours) Vital Signs Temp Pulse Pulse Resp BP Pulse Ox O2 Del Method 03/26/23 15:09 36.3 C L 72 18 115/64 97 Room Air 03/26/23 10:44 36.6 C 71 19 110/67 96 Room Air 03/26/23 07:00 65 03/26/23 07:11 36.5 C 72 19 158/77 H 95 Room Air PG Care Time/CCT Total # of Minutes Spent Total Time Spent with Patient: Total time spent is greater than 50% in coordination of care (as documented) at patient's floor/unit and/or counseling patient: Coding Level of Care Code 20350 SUB INP/OBS CARE MIN Diagnoses ALAYNA (acute kidney injury) N17.9 ATN (acute tubular necrosis) N17.0 Acute dehydration E86.0 Lactic acidosis E87.20 Intestinal ischemia K55.9 Acute proctitis K62.89 Abnormal ECG R94.31 Fecal impaction K56.41 Kidney lesion, [place], left N28.9 Diabetes mellitus, type 2 E11.9 Diabetes mellitus complication status: without complication Diabetes mellitus intermediate manager insulin use: without senior care use Hypertension I10 HOCM (hypertrophic obstructive cardiomyopathy) I42.1 Adrenal adenoma D35.00 CKD (chronic kidney disease) stage 3, GFR 30-59 ml/min N18.3 Elevated troponin R77.8 DVT prophylaxis Z29.9 UTI (urinary tract infection) N39.0 Acute metabolic encephalopathy G93.41 (10) Diabetes mellitus, type 2 Diabetes mellitus complication status: without complication Diabetes mellitus intermediate manager insulin use: without senior care use Qualified Code(s): E11.9 - Type 2 diabetes mellitus without complications
[2023-03-26] MEDS: DOXAZosin MESYLATE TAB 2 MG TAB PO SCH (20:09)
[2023-03-26] MEDS: cefTRIAXone SODIUM 2,000 MG in DEXTROSE 5% 50 ML IV SCH (20:09)
[2023-03-27] MEDS: metroNIDAZOLE 500 MG/100 ML BAG IV SCH ×2 (00:01→08:59)
[2023-03-27] MEDS: HEPARIN SOD 5,000 UNIT/0.5 ML VIAL SQ SCH ×2 (08:57→20:44)
[2023-03-27] MEDS: lisinopril 40 MG TAB PO SCH (08:58)
[2023-03-27] MEDS: amLODIPine BESYLATE 5 MG TAB PO SCH (08:58)
[2023-03-27] MEDS: INSULIN ASPART PER UNIT CHARGE SC SCH ×4 (08:58→20:43)
[2023-03-27] MEDS: ANASTROZOLE 1 MG TAB PO SCH (08:58)
[2023-03-27] MEDS: POT PHOSPHATE MONOBASIC W/ SOD TAB PO SCH ×4 (08:58→20:44)
[2023-03-27 10:21] LABS: BUN Creatinine Ratio 22.2 (10-20); Calcium 7.5 mg/dl (8.6-10.3); Est GFR (African American) 71.5 ml/min; Est GFR (Non-African American) 61.7 ml/min; Potassium 3.1 mmol/L (3.5-5.1)
[2023-03-27] MEDS: HEPARIN 100 UNIT/ML 5ML FLUSH FLUSH PRN ×2 (10:34→17:25)
[2023-03-27] MEDS ORDERED: POTASSIUM CHLORIDE CRTAB 20 MEQ TABCR PO STA (11:24)
[2023-03-27] MEDS: POTASSIUM CHLORIDE / WTR 10 MEQ/100 ML PLCT IV SCH ×2 (11:40→12:47)
--- NOTE | 2023-03-27 13:54 | Hospitalist Progress Note ---
Date of Service March 27, 2023 Assessment & Plan (1) ALAYNA (acute kidney injury): Plan: Likely due to ATN. Risk factors - hypotension (documented low BPs with SBP<100) in the setting of massive dehydration, HOCM (which is preload dependent), WILLARD inhibitor use, and IV CT contrast on 03/28/23. Resolved CT a/p without obstruction. resumed lisinopril to manage blood pressure Replete potassium Monitor daily BMP (2) ATN (acute tubular necrosis): Plan: as above #1 (3) Acute dehydration: Plan: severe Resolved developed such after her Recent ER visit Appears euvolemic today (4) Lactic acidosis: Plan: present on admission resolved discontinued bicarb drip heavy concern that source of lactic acidosis is intestinal in nature -- see below (5) Intestinal ischemia: Plan: there is concern that her acute proctitis and her abdominal pains in other locations is due to ischemia. GI on board GI plans to do a colonoscopy outpatient in 6 to 8 weeks They recommend continuing IV Flagyl and ceftriaxone With her dehydration, low BP, and HCOM I suspect low flow to the abdomen & bowels leading to ischemia. continue Supportive care. tolerating solid diet No abdominal pain completed course with rocephin/flagyl IV. (6) Acute proctitis: Plan: as seen on CT 03/19 Unlikely sepsis c diff checked - was negative rocephin/flagyl IV. Completed course. Discontinue (7) Abnormal ECG: Plan: lateral ST changes - likely due to HOCM (8) Fecal impaction: Plan: resolved s/p enema in ER on 03/28 ER visit Resolved Patient may need to be on a bowel regimen long-term to prevent constipation (9) Kidney lesion, [place], left: Plan: 1.1cm lesion on left concerning for RCC --> address in future after this a dmission (10) Diabetes mellitus, type 2: Plan: a1c 8% novolog SSI (11) Hypertension: Plan: blood pressure better today on lisinopril, amlodipine, cardura. (12) HOCM (hypertrophic obstructive cardiomyopathy): Plan: known diagnosis. started lisinopril as her blood pressure was starting to go up Discontinue atenolol due to bradycardia (13) Adrenal adenoma: Plan: b/l checked cortisol due to low BP --> level was 43 (14) CKD (chronic kidney disease) stage 3, GFR 30-59 ml/min: Plan: stage 3b -- baseline CrCl 30s now with ALAYNA/ATN supportive care, fluids, etc serial BMPs ALAYNA resolved (15) Elevated troponin: Plan: level = 20 likely myocardial demand ischemia in setting of ALAYNA, acidosis, etc doubt ACS (16) DVT prophylaxis: Plan: add heparin 5000 BID (17) UTI (urinary tract infection): Plan: possible rocephin being used for proctitis will likely cover follow urine cx Unlikely sepsis (18) Acute metabolic encephalopathy: Plan: presented with lethargy on admission Now resolved Patient is back to her usual baseline mental status Plan medically cleared for discharge. manager technology working on placement Admission and Anticipated Discharge Date Admission Date: March 20, 2023 Subjective Patient feels much better overall. Denies chest pain or shortness of breath. Abdominal pain has resolved. Review of Systems Review of Systems: All systems reviewed & are unremarkable except as noted in Subjective Physical Exam Physical Exam: General: Awake, conversant Heart: S1, S2/regular rate and rhythm, no murmur rubs or gallops Lungs: Clear to auscultation bilaterally. Normal effort Abdomen: Soft//nondistended. No tenderness.No hepatosplenomegaly Extremities: No clubbing/cyanosis. No edema Behavior: Appropriate, cooperative Results & Data Results & Data Vital Signs (Past 12 Hours) Vital Signs Temp Pulse Pulse Resp BP Pulse Ox O2 Del Method 03/27/23 11:34 36.7 C 77 18 114/70 94 Room Air 03/27/23 07:29 36.4 C L 73 18 130/72 96 Room Air 03/27/23 08:01 Room Air 03/27/23 08:01 76 03/27/23 03:19 36.3 C L 79 16 136/77 93 Room Air PG Care Time/CCT Total # of Minutes Spent Total Time Spent with Patient: Total time spent is greater than 50% in coordination of care (as documented) at patient's floor/unit and/or counseling patient: Coding Level of Care Code 09656 SUB INP/OBS CARE 2/35MIN Diagnoses ALAYNA (acute kidney injury) N17.9 ATN (acute tubular necrosis) N17.0 Acute dehydration E86.0 Lactic acidosis E87.20 Intestinal ischemia K55.9 Acute proctitis K62.89 Abnormal ECG R94.31 Fecal impaction K56.41 Kidney lesion, [place], left N28.9 Diabetes mellitus, type 2 E11.9 Diabetes mellitus correction insulin use: without correction use Diabetes mellitus complication status: without complication Hypertension I10 HOCM (hypertrophic obstructive cardiomyopathy) I42.1 Adrenal adenoma D35.00 CKD (chronic kidney disease) stage 3, GFR 30-59 ml/min N18.3 Elevated troponin R77.8 DVT prophylaxis Z29.9 UTI (urinary tract infection) N39.0 Acute metabolic encephalopathy G93.41 (10) Diabetes mellitus, type 2 Diabetes mellitus termite inspector insulin use: without termite inspector use Diabetes mellitus complication status: without complication Qualified Code(s): E11.9 - Type 2 diabetes mellitus without complications
[2023-03-27] MEDS: DOXAZosin MESYLATE TAB 2 MG TAB PO SCH (20:45)
[2023-03-28] MEDS: ANASTROZOLE 1 MG TAB PO SCH (08:32)
[2023-03-28] MEDS: INSULIN ASPART PER UNIT CHARGE SC SCH ×4 (08:32→20:33)
[2023-03-28] MEDS: amLODIPine BESYLATE 5 MG TAB PO SCH (08:33)
[2023-03-28] MEDS: POT PHOSPHATE MONOBASIC W/ SOD TAB PO SCH ×4 (08:33→20:04)
[2023-03-28] MEDS: lisinopril 40 MG TAB PO SCH (08:33)
[2023-03-28] MEDS: HEPARIN SOD 5,000 UNIT/0.5 ML VIAL SQ SCH ×2 (08:34→20:04)
[2023-03-28 10:50] LABS: BUN Creatinine Ratio 30.1 (10-20); Calcium 7.4 mg/dl (8.6-10.3); Creatinine Clr Calc Pharmacy 56.4 ml/min; Est GFR (African American) 78.8 ml/min; Magnesium 1.3 mg/dl (1.7-2.4); Potassium 3.7 mmol/L (3.5-5.1)
[2023-03-28] MEDS ORDERED: LANTUS PER UNIT CHARGE SQ SCH (11:30)
[2023-03-28] MEDS: MAGNESIUM SULFATE / D5W 1 GM/100 ML BAG IV SCH ×3 (12:16→16:04)
--- NOTE | 2023-03-28 18:12 | XRay Report ---
[facility] CLINICAL HISTORY: recent impaction; reassess fecal load COMPARISON STUDY: CT of the abdomen and pelvis March 19, 2023. FINDINGS: Bilateral hip arthroplasties are incidentally noted. There is no evidence for a bowel obstr uction. Moderate stool within the colon and rectum is noted. This has decreased since CT of March 012022. IMPRESSION: 1. Moderate stool within the rectum and colon, mildly decreased since prior CT. 2. No evidence for a bowel obstruction. ACT 112: Negative or not required by law. Electronically signed by: Lizandro Ching M.D. 03/28/2023 6:11 PM
--- NOTE | 2023-03-28 18:57 | Hospitalist Progress Note ---
Date of Service March 28, 2023 Assessment & Plan (1) ALAYNA (acute kidney injury): Plan: RESOLVED. Was likely due to ATN. Risk factors - hypotension (documented low BPs with SBP<100 in the first 24 hours of her stay), dehydration, HCOM (which is preload dependent), WILLARD inhibitor use, and IV CT contrast on 03/28/23. Peak Cr = 3.38 Cr now = 0.8 WILLARD inhibitor resumed no recent obstruction on CT jj has been d/c repeat BMP am (2) ATN (acute tubular necrosis): Plan: as above #1 resolved (3) Acute dehydration: Plan: severe developed such after her 03/28 ER visit s/p copious IV Fluids while here dehydration resolved eating is satisfactory (4) Lactic acidosis: Plan: present on admission resolved suspected to be due to intestinal ischemia (5) Intestinal ischemia: Plan: Suspected - early in admission. High procal, high lactate, proctitis on CT a/p. Mesenteric doppler with ?SMA stenosis. At some point should have CTA abd/pelvis to investigate this, but not having symptoms of SMA stenosis at this time. consider aspirin 81mg daily. (6) Acute proctitis: Plan: as seen on CT 03/19 stercoral colitis was the likely culprit from severe fecal impaction resolving no rectal pain c diff negative x 2 this admission will have outpatient colonoscopy in April by [facility] completed 7 days of IV rocephin/flagyl (7) Abnormal ECG: Plan: lateral ST changes - likely due to HCOM (8) Fecal impaction: Plan: resolved previous severe constipation markedly improved large BM today KUB x-ray findings noted will need miralax and/or senna for maintenance to prevent this from happening again (9) Kidney lesion, [place], left: Plan: 1.1cm lesion on left concerning for RCC --> mentioned this to her today during the visit will need urology f/u post-discharge (10) Diabetes mellitus, type 2: Plan: Hba1c 8% uncontrolled with novolog alone tighten novolog parameters add lantus 8 units daily was only on metformin prior to admission (11) Hypertension: Plan: in light of HOCM will resume beta jim but will hold amlodipine (12) HOCM (hypertrophic obstructive cardiomyopathy): Plan: known diagnosis. follows with [facility] Cardiology. resume BB. continue WILLARD. hold amlodipine. (13) Adrenal adenoma: Plan: b/l checked cortisol due to low BP --> level was 43 (14) CKD (chronic kidney disease) stage 3, GFR 30-59 ml/min: Plan: stage 3b -- baseline CrCl 30s superimposed ALAYNA/ATN - now resolved Cr today 0.8 BMP am (15) Elevated troponin: Plan: level = 20 likely myocardial demand ischemia in setting of ALAYNA, acidosis, etc doubt ACS (16) DVT prophylaxis: Plan: heparin 5000 BID (17) UTI (urinary tract infection): Plan: 2nd e.coli s/p full course of IV abx resolved (18) Hypomagnesemia: Plan: mag level 1.3 treat with mag sulfate 3 grams IV x 1 repeat level am (19) Acute metabolic encephalopathy: Plan: 2nd to ALAYNA/ATN, dehydration, lactic acidosis, etc resolved mentation at baseline today Plan spoke with pt's nephew by phone this evening gave update discussed plan of care post-d/c (GI follow-up, etc) hopeful for d/c to SNF on 03/29 Admission and Anticipated Discharge Date Admission Date: March 20, 2023 Subjective patient feels much better in comparison to the last time I had seen her 7+ days ago she still has a small amount of mild tenderness in the lower quadrants but no true abd pain no vomiting no nausea still having frequent stools - 2-3x/day soft, occasionally loose, no bright red blood or melena staff report she had a HUGE bowel movement this afternoon shortly after she went down for KUB x-ray and there was STILL stool in the distal colon/rectum despite this very large BM eating/drinking has returned to her usual baseline (is not a robust eater chronically) no new complaints has bed at SNF in [place] Review of Systems Review of Systems: gen - no fevers; some fatigue cv - no cp, no orthopnea pulm - no dyspnea GI - no abd pain or N/V Physical Exam Physical Exam: gen - looks much better than my last visit with her about 1 week ago, NAD mouth - MMM; no thrush neck - no JVD heart - RRR, s1 s2, 2-3/6 systolic murmur upper left SB lungs - CTA b/l abd - soft, no peritoneal signs, BS+, scant tenderness midline of lower abdomen; no HSM ext - warm, pulses 2+ b/l, trace edema b/l psych - a/o x 3 Results & Data Results & Data Vital Signs (Past 12 Hours) Vital Signs Temp Pulse Pulse Resp BP Pulse Ox O2 Del Method 03/28/23 16:04 36.4 C L 76 18 127/73 98 Room Air 03/28/23 15:44 89 03/28/23 12:04 36.9 C 87 18 92/47 L 95 Room Air 03/28/23 09:09 83 03/28/23 08:00 36.9 C 86 18 137/78 94 Room Air Laboratory Results Laboratory Results - last 24 hr 03/27/23 03/28/23 03/28/23 20:13 07:51 09:55 Sodium 136 Potassium 3.7 Chloride 106 Carbon Dioxide 24 Anion Gap 6 BUN 25 H Creatinine 0.83 Est Cr Clr Drug Dosing 56.4 Est GFR ( Amer) 78.8 Est GFR (Non-Af Amer) 68.0 BUN/Creatinine Ratio 30.1 H Glucose 275 H POC Glucose 223 H 170 H Calcium 7.4 L Magnesium 1.3 L Stl C. diff Tox B Gene 03/28/23 03/28/23 03/28/23 11:46 14:20 16:37 Sodium Potassium Chloride Carbon Dioxide Anion Gap BUN Creatinine Est Cr Clr Drug Dosing Est GFR ( Amer) Est GFR (Non-Af Amer) BUN/Creatinine Ratio Glucose POC Glucose 277 H 276 H Calcium Magnesium Stl C. diff Tox B Gene Negative Cdiff Gene Diagnostic Findings KUB X-Ray 03/28/23 14:27 KUB CLINICAL HISTORY: recent impaction; reassess fecal load COMPARISON STUDY: CT of the abdomen and pelvis March 19, 2023. FINDINGS: Bilateral hip arthroplasties are incidentally noted. There is no evidence for a bowel obstruction. Moderate stool within the colon and rectum is noted. This has decreased since CT of March 19, 2023. IMPRESSION: 1. Moderate stool within the rectum and colon, mildly decreased since prior CT. 2. No evidence for a bowel obstruction. ACT 112: Negative or not required by law. Electronically signed by: Lizandro Ching M.D. 03/28/2023 6:11 PM PG Care Time/CCT Total # of Minutes Spent Total Time Spent with Patient: Total time spent is greater than 50% in coordination of care (as documented) at patient's floor/unit and/or counseling patient: Coding Level of Care Code 50699 SUB INP/OBS CARE 350MIN Diagnoses ALAYNA (acute kidney injury) N17.9 ATN (acute tubular necrosis) N17.0 Acute dehydration E86.0 Lactic acidosis E87.20 Intestinal ischemia K55.9 Acute proctitis K62.89 Abnormal ECG R94.31 Fecal impaction K56.41 Kidney lesion, [place], left N28.9 Diabetes mellitus, type 2 E11.9 Diabetes mellitus complication status: without complication 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
[2023-03-28] MEDS: DOXAZosin MESYLATE TAB 2 MG TAB PO SCH (20:04)
[2023-03-29 06:57] LABS: Hemoglobin 9.6 g/dl (12.0-16.0); Mean Corpuscular Hemoglobin 29.3 pg (25.0-34.0); Mean Corpuscular Hgb Conc 33.1 g/dL (32.0-36.0); Mean Corpuscular Volume 88.4 fL (80.0-100.0); Mean Platelet Volume 9.6 fL (9.4-12.4); Platelet Count 245 K/uL (130-400); RDW Coefficient of Variation 16.1 % (11.5-14.5); RDW Standard Deviation 52.5 fL (36.4-46.3); Red Blood Count 3.28 M/uL (4.20-5.40); White Blood Count 9.82 K/ul (4.8-10.8)
[2023-03-29 07:11] LABS: BUN Creatinine Ratio 26.1 (10-20); Calcium 7.7 mg/dl (8.6-10.3); Creatinine Clr Calc Pharmacy 39.3 ml/min; Magnesium 1.9 mg/dl (1.7-2.4); Potassium 3.7 mmol/L (3.5-5.1)
[2023-03-29] MEDS: INSULIN ASPART PER UNIT CHARGE SC SCH ×2 (08:21→12:27)
[2023-03-29] MEDS: POT PHOSPHATE MONOBASIC W/ SOD TAB PO SCH ×2 (08:33→12:29)
[2023-03-29] MEDS: ANASTROZOLE 1 MG TAB PO SCH (08:33)
[2023-03-29] MEDS: HEPARIN SOD 5,000 UNIT/0.5 ML VIAL SQ SCH (08:33)
[2023-03-29] MEDS: lisinopril 40 MG TAB PO SCH (08:33)
[2023-03-29] MEDS ORDERED: HEPARIN 100 UNIT/ML 5ML FLUSH FLUSH ONE (08:45)
[2023-03-29] MEDS ORDERED: METOPROLOL SUCC 25MG EXT REL TAB PO SCH (09:00)
[2023-03-29] MEDS ORDERED: LANTUS PER UNIT CHARGE SQ SCH (09:00)
[2023-03-29 10:56] VITALS: BP 124/81; TEMP 97.3; O2SAT 94
--- NOTE | 2023-03-29 12:14 | Discharge Summary ---
Date of Service March 29, 2023 Admission HPI Per Admitting Provider The patient is a 77-year-old female with a past medical history including diabetic neuropathy, left ventricular outflow tract obstruction, breast cancer, CKD, mitral regurgitation, radiation fibrosis of lung, HOCM, hypertension, diabetes mellitus, history of necrotizing fasciitis and left arm lymphedema. Patient reports that she had been constipated for a week or so, came into the emergency department last evening, was given an enema and lactulose along with MiraLAX, and since that time she developed some lower abdominal pain, rectal pain and persistent loose stools and feelings of dehydration. She reports her mouth is very dry. Discharge Exam gen - looks much better than my last visit with her about 1 week ago, NAD mouth - MMM; no thrush neck - no JVD heart - RRR, s1 s2, 2-3/6 systolic murmur upper left SB lungs - CTA b/l abd - soft, no peritoneal signs, BS+, scant tenderness midline of lower abdomen; no HSM ext - warm, pulses 2+ b/l, trace edema b/l psych - a/o x 3 Discharge Data Allergies Allergy/AdvReac Type Severity Reaction Status Date / Time adhesive Allergy Intermediate BLISTERING Verified 03/19/23 23:00 Sulfa (Sulfonamide Allergy Intermediate HIVES - Verified 03/19/23 23:00 Antibiotics) ITCHING Consultations 03/19/23 23:36 ED Decision to Admit Stat 03/20/23 14:25 Consult Gastroenterology Routine 03/21/23 08:44 Consult Nephrology Routine Ordered Studies 03/19/23 21:37 CT abd pelvis wo con Stat CT head/brain wo con Stat 03/20/23 14:25 US duplex mesenteric Urgent Hospital Course (1) ALAYNA (acute kidney injury): RESOLVED. Was likely due to ATN. Risk factors - hypotension (documented low BPs with SBP<100 in the first 24 hours of her stay), dehydration, HCOM (which is preload dependent), WILLARD inhibitor use, and IV CT contrast on 03/28/23. Peak Cr = 3.38 Cr now = 0.8 WILLARD inhibitor resumed no recent obstruction on CT jj has been d/c repeat BMP am (2) ATN (acute tubular necrosis): as above #1 resolved (3) Acute dehydration: severe developed such after her 03/28 ER visit s/p copious IV Fluids while here dehydration resolved eating is satisfactory (4) Lactic acidosis: present on admission resolved suspected to be due to intestinal ischemia (5) Intestinal ischemia: Suspected - early in admission. High procal, high lactate, proctitis on CT a/p. Mesenteric doppler with ?SMA stenosis. At some point should have CTA abd/pelvis to investigate this, but not having symptoms of SMA stenosis at this time. consider aspirin 81mg daily. (6) Acute proctitis: as seen on CT 03/19 stercoral colitis was the likely culprit from severe fecal impaction resolving no rectal pain c diff negative x 2 this admission will have outpatient colonoscopy in April by [facility] completed 7 days of IV rocephin/flagyl (7) Abnormal ECG: lateral ST changes - likely due to HCOM (8) Fecal impaction: resolved previous severe constipation markedly improved large BM today KUB x-ray findings noted will need miralax and/or senna for maintenance to prevent this from happening again (9) Kidney lesion, [place], left: 1.1cm lesion on left concerning for RCC --> mentioned this to her today during the visit will need urology f/u post-discharge (10) Diabetes mellitus, type 2: Hba1c 8% uncontrolled with novolog alone tighten novolog parameters add lantus 8 units daily was only on metformin prior to admission (11) Hypertension: in light of HOCM will resume beta jim but will hold amlodipine (12) HOCM (hypertrophic obstructive cardiomyopathy): known diagnosis. follows with [facility] Cardiology. resume BB. continue WILLARD. hold amlodipine. (13) Adrenal adenoma: b/l checked cortisol due to low BP --> level was 43 (14) CKD (chronic kidney disease) stage 3, GFR 30-59 ml/min: stage 3b -- baseline CrCl 30s superimposed ALAYNA/ATN - now resolved Cr today 0.8 BMP am (15) Elevated troponin: level = 20 likely myocardial demand ischemia in setting of ALAYNA, acidosis, etc doubt ACS (16) DVT prophylaxis: heparin 5000 BID (17) UTI (urinary tract infection): 2nd e.coli s/p full course of IV abx resolved (18) Hypomagnesemia: mag level 1.3 treat with mag sulfate 3 grams IV x 1 repeat level am (19) Acute metabolic encephalopathy: 2nd to ALAYNA/ATN, dehydration, lactic acidosis, etc resolved mentation at baseline today Plan spoke with pt's nephew by phone this evening gave update discussed plan of care post-d/c (GI follow-up, etc) hopeful for d/c to SNF on 03/29 Discharge Plan Discharge Items Patient Disposition: Transfer Group Home Fac Reason For Visit: PROCTITIS, ALAYNA ON CKD, UTI Discharge Diagnosis: 1. severe acute kidney injury due to dehydration, ischemic bowel and stercoral colitis/proctitis - resolved; peak creatinine 3.3; discharge creatinine 1.1 2. stercoral colitis/proctitis due to severe fecal impaction/severe constipation - resolving 3. concern for ischemic bowel in the setting of #1, #2 above - resolved 4. question of superior mesenteric artery stenosis on doppler - follow-up needed with [facility] Gastroenterology 5. left kidney lesion - follow-up needed with [facility] Urology 6. "HOCM" (hypertrophic obstructive cardiomyopathy) - stable 7. type 2 diabetes 8. hypertension 9. mild anemia due to illness, blood draws, etc 10. CKD stage 3b 11. left achilles tendon rupture s/p surgery at [facility] 12/2022 - Dr Brijesh Tobar 12. chronic adrenal adenoma 13. e.coli UTI - resolved 14. hypomagnesemia - resolved Activity: As commented below Activity Comment: Per PT/OT recommendations Non-emergency contact: Primary Care Provider, Funeral Prearrangement Counselor and Kaiako Kura [place] Call non-emergency contact if: you have any medication questions, your symptoms worsen, your pain is not controlled, your pain is worsening, your pain is unusual for you, your pain is concerning for you and you have a fever Follow-up/Referrals: Jaxson Calloway DO [Physician] - 05/18/23 (colonoscopy at [facility] - time to be determined.) Humza Schultz MD [Physician] - 05/12/23 1:30 pm (f/u HOCM) Curt Collazo MD [Physician] - (first available with Dr Collazo or one of his partners; diagnosis - 1.1cm lesion on left kidney, seen incidentally on CT scan of the abd/pelvis ) Tali Olson DO [Primary Care Provider] - 03/30/23 9:20 am (within 1 week of discharge from rehab ) Ankur Ford MD [Physician] - ([address] Ford or one of his partners - recheck of recent stercoral colitis/proctitis & severe constipation) Diet: Carb Consistent or DM2 Addtl Attending Provider Instructions: Mrs Cevallos was hospitalized after having been diagnosed (as outpatient) with severe fecal impaction and severe constipation on 03/18/23. She also had evidence of stercoral colitis (proctitis due to the impaction) on the 03/18 CT scan. By report she hadn't had a bowel movement in the 2 weeks prior to the 03/18/23 ER visit. Following disimpaction on 03/18/23 in the [facility] ER she was discharged home to continue oral laxatives for additional clean-out. Upon return home she became severely dehydrated, however. She presented again to [facility] ER on 03/19/23 with acute kidney injury due to dehydration as well as lactic acidosis. She was admitted to the medical floor on that date. There was concern she had an element of ischemic colitis/ischemic proctitis in the setting of her recent fecal impaction. She required copious IV fluids and bicarbonate infusion for her dehydration & acidosis. All acute issues resolved including the acute kidney injury, dehydration, impaction/constipation, etc. She was seen by [facility] GI - supportive care advised, and outpatient colonoscopy recommended in the future (scheduled 05/18/23 at [facility]). Resumed on a clear liquid diet and slowly advanced back to a diabetic diet. Tolerated such without difficulty. No residual abdominal pain/nausea/emesis. She continues to have emptying of her bowels, about 2-3 stools/day. Amazingly KUB x-ray on 03/28/23 still showed a moderate amount of stool in the distal colon and rectum despite passing numerous stools in the previous 5-7 days. C diff testing x 2 were both negative. Her stay was complicated by e.coli UTI, low magnesium, and uncontrolled diabetes. Her most recent Hba1c was 8% on 03/20/23. Recommendations - 1. start metamucil supplement on 04/01/23 as per the medication list. 2. start ferrous sulfate supplement - 325mg once daily. Can start this on 03/29/23. Take for 2-3 months depending on CBC results. 3. check BSGs AC and HS. 4. check CBC, BMP, and magnesium in 3 days for stability; results to medical secretary of SNF. 5. if patient begins to develop constipation in the near-future consider adding miralax or senna on top of the metamucil supplement. Follow-up appointments - see separate section It was our pleasure to care for Mrs Cevallos! -Dr Falk Pending Studies at Discharge: No Stand-Alone Forms: My [facility] Skilled Items Patient informed of condition?: Yes DNR: No Discharge Level of Care: Skilled Communicable Disease: No Discharge Prognosis: Stable Lines: None Urinary Catheter: No Medications and DC Order Prescriptions: New insulin glargine [Lantus U-100 Insulin] 100 unit/mL Solution 10 unit subcut QAM Qty: 1 0RF metoprolol succinate 25 mg Tablet Extended Release 24 Hr 25 mg PO QAM Qty: 30 5RF ferrous sulfate 325 mg (65 mg iron) tablet 325 mg PO DAILY Qty: 30 2RF psyllium husk [Metamucil] 0.4 gram capsule 0.8 g PO BID Qty: 60 0RF Rx Instructions: start AM of 04/01/23. Continued anastrozole 1 mg tablet 1 mg PO QAM Qty: 90 3RF (DME) blood sugar diagnostic Strip See Rx Instructions .ROUTE .MEDSUPPLY Qty: 300 3RF Rx Instructions: Testing three times per day. DX E11.9 ONE TOUCH ULTRA BLUE TEST STRIP lisinopril 40 mg tablet 40 mg PO QAM Qty: 90 3RF acetaminophen [Tylenol Extra Strength] 500 mg tablet 1,000 mg PO BID multivitamin Tablet 1 tab PO QAM metformin 500 mg tablet 500 mg PO BID Qty: 180 3RF Held amlodipine 5 mg tablet 5 mg PO DAILY Qty: 90 3RF Hold Instructions: Hold upon admission to SNF rehab; may resume at discretion of medical secretary at SNF if BPs are elevated and additional BP control is needed. Discontinued atenolol 50 mg tablet 75 mg PO QAM Qty: 135 3RF lactulose 20 gram/30 mL solution 20 g PO BID PRN (Reason: constipation) Qty: 2880 0RF Rx Instructions: PER PT "DID NOT START YET". Discharge Orders: Discharge Order (Routine); Ordered 03/29/23 Ordered By: Jose Daniel Hernandez/Other Patient Handouts: ED Constipation (Adult), ED Fecal Impaction, Treated Admission Data Admit Date/Time: 03/20/23 00:33 Attending Provider: Jose Daniel Falk Admit Provider: Maxwell Lozano Primary Care Provider: Tali Olson Other Providers: Maxwell Lozano ; Ankur Ford ; Sin Bryant ; [facility] ; [facility] Coding Diagnoses ALAYNA (acute kidney injury) N17.9 ATN (acute tubular necrosis) N17.0 Acute dehydration E86.0 Lactic acidosis E87.20 Intestinal ischemia K55.9 Acute proctitis K62.89 Abnormal ECG R94.31 Fecal impaction K56.41 Kidney lesion, [place], left N28.9 Diabetes mellitus, type 2 E11.9 Diabetes mellitus terminal operations supervisor insulin use: without terminal operations supervisor use Diabetes mellitus complication status: without complication Hypertension I10 HOCM (hypertrophic obstructive cardiomyopathy) I42.1 Adrenal adenoma D35.00 CKD (chronic kidney disease) stage 3, GFR 30-59 ml/min N18.3 Elevated troponin R77.8 DVT prophylaxis Z29.9 UTI (urinary tract infection) N39.0 Hypomagnesemia E83.42 Acute metabolic encephalopathy G93.41
[2023-03-29 13:23] VITALS: PULSE 46
== END 2023-03-29 13:55 | DRG 682 ==
LOC: ED 21:18 → 4W 03-20 00:33 → SUATTDRO 03-20 00:33 → 4W 03-20 02:24